=== PATIENT | female | born 1945 | race Two or more races ===

== ENCOUNTER → 2022-08-10 | Outpatient (CLI) | payer OTHER ==
[2022-08-10 12:54] LABS: Albumin 3.6 g/dL (3.4-5.0); Calcium 8.6 mg/dL (8.5-10.1); Potassium 3.5 mmol/L (3.5-5.1)
[2022-08-10 12:59] LABS: BUN/Creatinine Ratio 29.1; Bilirubin, Total 0.4 mg/dL (0.2-1.0); Total Protein 7.1 g/dL (6.4-8.2)
[2022-08-10 13:41] LABS: Basophils # (auto) 0.1 10 ^3/uL (0-0.2); Basophils % (auto) 1.2 % (0.0-2.0); Eosinophils # (auto) 0.2 10 ^3/uL (0-0.8); Eosinophils % (auto) 2.3 % (0.0-7.0); Hematocrit 33.5 % (36.0-46.0); Hemoglobin 11.3 g/dL (12.2-16.2); Lymphocytes # (auto) 1.8 10 ^3/uL (0.4-5.4); Lymphocytes % (auto) 17.8 % (10.0-50.0); Mean Corpuscular Hemoglobin 28.6 pg (28.0-32.0); Mean Corpuscular Hgb Conc. 33.9 g/dL (32.0-36.0); Mean Corpuscular Volume 84.5 fL (80.0-100.0); Monocytes # (auto) 0.7 10 ^3/uL (0-1.3); Monocytes % (auto) 7.2 % (0.0-12.0); Neutrophils # (auto) 7.1 10 ^3/uL (1.6-8.6); Neutrophils % (auto) 71.5 % (37.0-80.0); Nucleated Red Blood Cells % 0.1 %; Red Blood Cells 3.96 10^6/uL (4.0-5.20); White Blood Cell 9.9 10^3/uL (4.4-10.8)
[2022-08-10 13:51] LABS: Micro Albumin 11.8 mg/L (0-30.0)
== END | disposition home or self-care (01) ==
LOC: LAB 11:18
PROVIDERS: ATTEND Family Medicine
DX: E11.65 Type 2 diabetes mellitus with hyperglycemia (principal); E78.5 Hyperlipidemia, unspecified; Z79.4 Long term (current) use of insulin
CPT/HCPCS: 36415; 80053; 80061; 82043; 82306; 82570; 83036; 84443; 85025

== ENCOUNTER → 2022-11-03 | Outpatient (CLI) | payer OTHER ==
[2022-11-03 14:52] LABS: Basophils # (auto) 0.1 10 ^3/uL (0-0.2); Eosinophils # (auto) 0 10 ^3/uL (0-0.8); Eosinophils % (auto) 0.4 % (0.0-7.0); Lymphocytes # (auto) 1.4 10 ^3/uL (0.4-5.4); Mean Corpuscular Volume 85.5 fL (80.0-100.0); Red Cell Distribution Width 15.5 % (11.8-14.3)
[2022-11-03 14:54] LABS: Basophils % (auto) 0.7 % (0.0-2.0); Hematocrit 31.8 % (36.0-46.0); Hemoglobin 10.9 g/dL (12.2-16.2); Lymphocytes % (auto) 10.8 % (10.0-50.0); Mean Corpuscular Hemoglobin 29.4 pg (28.0-32.0); Mean Corpuscular Hgb Conc. 34.3 g/dL (32.0-36.0); Monocytes # (auto) 1.2 10 ^3/uL (0-1.3); Monocytes % (auto) 9.6 % (0.0-12.0); Neutrophils # (auto) 9.8 10 ^3/uL (1.6-8.6); Neutrophils % (auto) 78.5 % (37.0-80.0); Red Blood Cells 3.72 10^6/uL (4.0-5.20); White Blood Cell 12.5 10^3/uL (4.4-10.8)
[2022-11-03 15:04] LABS: Urine Bacteria NONE SEEN /hpf (None Seen); Urine Blood Negative /uL (Negative); Urine Specific Gravity 1.006 (1.001-1.035); Urine WBC 1 /hpf (0 - 5)
[2022-11-03 15:58] LABS: Albumin 3.6 g/dL (3.4-5.0); Calcium 8.8 mg/dL (8.5-10.1); Magnesium 1.8 mg/dL (1.6-2.6); Potassium 3.5 mmol/L (3.5-5.1)
[2022-11-03 16:03] LABS: BUN/Creatinine Ratio 31.8 (10.0-20.0); Bilirubin, Total 0.4 mg/dL (0.2-1.0); Phosphorus 3.2 mg/dL (2.5-4.90); Total Protein 6.7 g/dL (6.4-8.2)
== END | disposition home or self-care (01) ==
LOC: LAB 14:34
PROVIDERS: ATTEND Student in an Organized Health Care Education/Training Program
DX: N18.31 Chronic kidney disease, stage 3a (principal); D63.1 Anemia in chronic kidney disease; E83.39 Other disorders of phosphorus metabolism; R80.9 Proteinuria, unspecified; R82.90 Unspecified abnormal findings in urine
CPT/HCPCS: 36415; 80053; 81001; 82570; 83735; 83970; 84100; 84156; 85025

== ENCOUNTER → 2022-11-09 | Outpatient (CLI) | payer OTHER, MEDICAID ==
[2022-11-09 14:44] LABS: Basophils # (auto) 0.1 10 ^3/uL (0-0.2); Monocytes # (auto) 0.9 10 ^3/uL (0-1.3)
[2022-11-09 14:45] LABS: Lymphocytes # (auto) 1.4 10 ^3/uL (0.4-5.4)
[2022-11-09 14:58] LABS: Albumin 3.5 g/dL (3.4-5.0); Bilirubin, Direct 0.1 mg/dL (0-0.2); Eosinophils # (auto) 0 10 ^3/uL (0-0.8); Eosinophils % (auto) 0.3 % (0.0-7.0); Hemoglobin 10.9 g/dL (12.2-16.2); Red Blood Cells 3.75 10^6/uL (4.0-5.20); Uric Acid 6.1 mg/dL (2.6-6.0)
[2022-11-09 15:00] LABS: Basophils % (auto) 0.9 % (0.0-2.0); Hematocrit 32.1 % (36.0-46.0); Lymphocytes % (auto) 11.1 % (10.0-50.0); Mean Corpuscular Hemoglobin 29.2 pg (28.0-32.0); Mean Corpuscular Hgb Conc. 34.1 g/dL (32.0-36.0); Mean Corpuscular Volume 85.6 fL (80.0-100.0); Monocytes % (auto) 7.3 % (0.0-12.0); Neutrophils # (auto) 10.1 10 ^3/uL (1.6-8.6); Neutrophils % (auto) 80.4 % (37.0-80.0); Red Cell Distribution Width 15.4 % (11.8-14.3); White Blood Cell 12.6 10^3/uL (4.4-10.8)
[2022-11-09 15:02] LABS: Bilirubin, Total 0.4 mg/dL (0.2-1.0); Total Protein 6.6 g/dL (6.4-8.2)
[2022-11-09 15:06] LABS: Urine Bacteria NONE SEEN /hpf (None Seen); Urine Blood Negative /uL (Negative); Urine Specific Gravity 1.007 (1.001-1.035); Urine WBC 1 /hpf (0 - 5)
== END | disposition home or self-care (01) ==
LOC: LAB 14:18
PROVIDERS: ATTEND Student in an Organized Health Care Education/Training Program
DX: E11.21 Type 2 diabetes mellitus with diabetic nephropathy (principal); N18.32 Chronic kidney disease, stage 3b; D63.1 Anemia in chronic kidney disease; M10.9 Gout, unspecified; E21.3 Hyperparathyroidism, unspecified; R80.9 Proteinuria, unspecified
CPT/HCPCS: 36415; 80076; 81001; 82570; 83036; 83970; 84156; 84550; 85025

== ENCOUNTER → 2023-01-06 | Outpatient (CLI) | payer OTHER | END | disposition home or self-care (01) | LOC: LAB 15:37 | PROVIDERS: ATTEND Internal Medicine | DX: Z12.11 Encounter for screening for malignant neoplasm of colon (principal) | CPT/HCPCS: 82270 ==

== ENCOUNTER → 2023-03-02 | Outpatient (CLI) | payer OTHER ==
[2023-03-02 12:09] LABS: Basophils # (auto) 0.2 10 ^3/uL (0-0.2); Basophils % (auto) 1.7 % (0.0-2.0); Eosinophils # (auto) 0.2 10 ^3/uL (0-0.8); Eosinophils % (auto) 1.8 % (0.0-7.0); Hematocrit 29.1 % (36.0-46.0); Lymphocytes # (auto) 1.7 10 ^3/uL (0.4-5.4); Lymphocytes % (auto) 14.5 % (10.0-50.0); Mean Corpuscular Hemoglobin 28.8 pg (28.0-32.0); Mean Corpuscular Hgb Conc. 34.4 g/dL (32.0-36.0); Mean Corpuscular Volume 83.7 fL (80.0-100.0); Monocytes # (auto) 1.1 10 ^3/uL (0-1.3); Monocytes % (auto) 9.1 % (0.0-12.0); Neutrophils # (auto) 8.5 10 ^3/uL (1.6-8.6); Neutrophils % (auto) 72.9 % (37.0-80.0); Red Blood Cells 3.47 10^6/uL (4.0-5.20); Red Cell Distribution Width 15.8 % (11.8-14.3); White Blood Cell 11.7 10^3/uL (4.4-10.8)
[2023-03-02 12:16] LABS: Urine Bacteria NONE SEEN /hpf (None Seen); Urine Blood Negative /uL (Negative); Urine Clarity Clear (Clear); Urine Color Colorless (Yellow); Urine Protein, UAD Negative (Negative); Urine Specific Gravity 1.006 (1.001-1.035); Urine Urobilinogen Normal (Negative); Urine WBC 8 /hpf (0 - 5)
[2023-03-02 12:47] LABS: Alanine Aminotransferase 12 U/L (7-40); Alkaline Phosphatase 99 U/L (46-116); Anion Gap 6.7 (5-15); Aspartate Aminotransferase 14 U/L (13-40); BUN/Creatinine Ratio 23.6 (10.0-20.0); Bilirubin, Total 0.3 mg/dL (0.2-1.0); Blood Urea Nitrogen 39 mg/dL (9-23); Carbon Dioxide 27.3 mmol/L (20-30); Chloride 90 mmol/L (98-107); Cholesterol 121 mg/dL (< 200); Glucose 234 mg/dL (74-106); HDL Cholesterol 28 mg/dL (40-59); LDL Cholesterol 61 mg/dL (< 100); Potassium 3.6 mmol/L (3.5-5.1); Sodium 124 mmol/L (136-145); Total Protein 6.6 g/dL (5.7-8.2); Triglycerides 147 mg/dL (< 150)
== END | disposition home or self-care (01) ==
LOC: LAB 11:15
PROVIDERS: ATTEND Nurse Practitioner
DX: E11.22 Type 2 diabetes mellitus with diabetic chronic kidney disease (principal); I12.9 Hypertensive chronic kidney disease with stage 1 through stage 4 chronic kidney disease, or unspecified chronic kidney disease; N18.9 Chronic kidney disease, unspecified; D50.9 Iron deficiency anemia, unspecified; D63.1 Anemia in chronic kidney disease; E11.69 Type 2 diabetes mellitus with other specified complication; I82.401 Acute embolism and thrombosis of unspecified deep veins of right lower extremity; E78.5 Hyperlipidemia, unspecified; Z79.01 Long term (current) use of anticoagulants
CPT/HCPCS: 36415; 80053; 80061; 81001; 82043; 82728; 83036; 83540; 84443; 85025

== ENCOUNTER → 2023-08-24 | Outpatient (CLI) | payer OTHER ==
[2023-08-24 15:18] LABS: Basophils # (auto) 0.2 10 ^3/uL (0-0.2); Basophils % (auto) 1.7 % (0.0-2.0); Eosinophils # (auto) 0.3 10 ^3/uL (0-0.8); Eosinophils % (auto) 3.4 % (0.0-7.0); Hematocrit 33.8 % (36.0-46.0); Hemoglobin 11.5 g/dL (12.2-16.2); Lymphocytes # (auto) 1.5 10 ^3/uL (0.4-5.4); Lymphocytes % (auto) 16.2 % (10.0-50.0); Mean Corpuscular Hemoglobin 29.3 pg (28.0-32.0); Mean Corpuscular Volume 86.4 fL (80.0-100.0); Monocytes # (auto) 0.8 10 ^3/uL (0-1.3); Monocytes % (auto) 9.2 % (0.0-12.0); Neutrophils # (auto) 6.3 10 ^3/uL (1.6-8.6); Neutrophils % (auto) 69.5 % (37.0-80.0); Red Blood Cells 3.91 10^6/uL (4.0-5.20); Red Cell Distribution Width 15.1 % (11.8-14.3)
[2023-08-24 15:34] LABS: Urine Bacteria NONE SEEN /hpf (None Seen); Urine Blood Negative /uL (Negative); Urine Clarity Clear (Clear); Urine Color Yellow (Yellow); Urine Protein, UAD 1+ (Negative); Urine Specific Gravity 1.011 (1.001-1.035); Urine Urobilinogen Normal (Negative); Urine WBC 2 /hpf (0 - 5); Urine pH 6.5 (5.0-8.0)
[2023-08-24 16:16] LABS: Alanine Aminotransferase 22 U/L (7-40); Albumin 4.2 g/dL (3.2-4.8); Alkaline Phosphatase 177 U/L (46-116); Anion Gap 5 (5-15); Aspartate Aminotransferase 18 U/L (13-40); BUN/Creatinine Ratio 21.1 (10.0-20.0); Blood Urea Nitrogen 26 mg/dL (9-23); Calcium 9.5 mg/dL (8.5-10.1); Carbon Dioxide 29 mmol/L (20-30); Chloride 101 mmol/L (98-107); GFR African American 54 mL/min; GFR Non-African American 45 mL/min; Glucose 251 mg/dL (74-106); Potassium 3.6 mmol/L (3.5-5.1); Sodium 135 mmol/L (136-145)
[2023-08-24 16:17] LABS: Bilirubin, Total 0.3 mg/dL (0.2-1.0); Phosphorus 3.2 mg/dL (2.4-5.1); Total Protein 6.7 g/dL (5.7-8.2)
[2023-08-25 08:06] LABS: Complement C3 104 mg/dL (82-167); RPR Non Reactive (Non Reactive)
[2023-08-25 10:06] LABS: Anti-Nuclear Antibody Direct Negative (Negative)
[2023-08-26 14:06] LABS: Hepatitis B Core Total Antibod Negative (Negative)
== END | disposition home or self-care (01) ==
LOC: LAB 14:46
PROVIDERS: ATTEND Physician Assistant
DX: L29.9 Pruritus, unspecified (principal)
CPT/HCPCS: 36415; 80053; 80069; 81001; 84443; 85025; 86038; 86160; 86592; 86705; 87086

== ENCOUNTER → 2023-11-03 | Outpatient (CLI) | payer OTHER ==
[2023-11-03 12:07] LABS: Basophils # (auto) 0.1 10 ^3/uL (0-0.2); Eosinophils # (auto) 0.2 10 ^3/uL (0-0.8); Eosinophils % (auto) 2.1 % (0.0-7.0); Hematocrit 34.7 % (36.0-46.0); Hemoglobin 11.7 g/dL (12.2-16.2); Lymphocytes # (auto) 1.5 10 ^3/uL (0.4-5.4); Lymphocytes % (auto) 14.2 % (10.0-50.0); Mean Corpuscular Hemoglobin 29.6 pg (28.0-32.0); Mean Corpuscular Hgb Conc. 33.9 g/dL (32.0-36.0); Mean Corpuscular Volume 87.5 fL (80.0-100.0); Monocytes # (auto) 0.7 10 ^3/uL (0-1.3); Monocytes % (auto) 6.9 % (0.0-12.0); Neutrophils # (auto) 7.9 10 ^3/uL (1.6-8.6); Neutrophils % (auto) 75.8 % (37.0-80.0); Red Blood Cells 3.97 10^6/uL (4.0-5.20); Red Cell Distribution Width 14.4 % (11.8-14.3); White Blood Cell 10.4 10^3/uL (4.4-10.8)
[2023-11-03 12:28] LABS: Urine Bacteria FEW /hpf (None Seen); Urine Blood Negative /uL (Negative); Urine Clarity Clear (Clear); Urine Color Light-Yellow (Yellow); Urine Protein, UAD 1+ (Negative); Urine Specific Gravity 1.012 (1.001-1.035); Urine Urobilinogen Normal (Negative); Urine WBC 2 /hpf (0 - 5); Urine pH 6.5 (5.0-9.0)
[2023-11-03 12:36] LABS: Alanine Aminotransferase 21 U/L (7-40); Albumin 4.3 g/dL (3.2-4.8); Alkaline Phosphatase 133 U/L (46-116); Anion Gap 8 (5-15); Aspartate Aminotransferase 21 U/L (13-40); BUN/Creatinine Ratio 20.3 (10.0-20.0); Blood Urea Nitrogen 29 mg/dL (9-23); Calcium 9.8 mg/dL (8.5-10.1); Carbon Dioxide 26 mmol/L (20-30); Chloride 100 mmol/L (98-107); Cholesterol 132 mg/dL (< 200); Glucose 241 mg/dL (74-106); LDL Cholesterol 63 mg/dL (< 100); Potassium 3.7 mmol/L (3.5-5.1); Sodium 134 mmol/L (136-145); Triglycerides 173 mg/dL (< 150)
[2023-11-03 12:37] LABS: Bilirubin, Total 0.6 mg/dL (0.2-1.0); HDL Cholesterol 34 mg/dL (40-59); Total Protein 6.9 g/dL (5.7-8.2)
== END | disposition home or self-care (01) ==
LOC: LAB 11:43
PROVIDERS: ATTEND Nurse Practitioner
DX: I10 Essential (primary) hypertension (principal); E78.5 Hyperlipidemia, unspecified; E11.9 Type 2 diabetes mellitus without complications
CPT/HCPCS: 36415; 80053; 80061; 81001; 82043; 83036; 84443; 85025

== ENCOUNTER → 2023-11-10 | Outpatient (CLI) | payer OTHER | END | disposition home or self-care (01) | LOC: LAB 13:37 | PROVIDERS: ATTEND Nurse Practitioner | DX: Z12.11 Encounter for screening for malignant neoplasm of colon (principal); I10 Essential (primary) hypertension; E78.5 Hyperlipidemia, unspecified; E11.9 Type 2 diabetes mellitus without complications | CPT/HCPCS: 82270 ==

== ENCOUNTER → 2024-01-17 | Outpatient (CLI) | payer OTHER ==
[2024-01-17 11:20] LABS: Basophils # (auto) 0.1 10 ^3/uL (0-0.2); Eosinophils # (auto) 0.2 10 ^3/uL (0-0.8); Eosinophils % (auto) 1.5 % (0.0-7.0); Hematocrit 33.5 % (36.0-46.0); Hemoglobin 11.6 g/dL (12.2-16.2); Lymphocytes # (auto) 1.8 10 ^3/uL (0.4-5.4); Lymphocytes % (auto) 14.4 % (10.0-50.0); Mean Corpuscular Hemoglobin 29.8 pg (28.0-32.0); Mean Corpuscular Hgb Conc. 34.8 g/dL (32.0-36.0); Mean Corpuscular Volume 85.7 fL (80.0-100.0); Monocytes % (auto) 8.3 % (0.0-12.0); Neutrophils # (auto) 9.5 10 ^3/uL (1.6-8.6); Neutrophils % (auto) 74.8 % (37.0-80.0); Red Blood Cells 3.91 10^6/uL (4.0-5.20); Red Cell Distribution Width 14.1 % (11.8-14.3); White Blood Cell 12.6 10^3/uL (4.4-10.8)
[2024-01-17 11:34] LABS: Alanine Aminotransferase 23 U/L (7-40); Albumin 4.3 g/dL (3.2-4.8); Alkaline Phosphatase 140 U/L (46-116); Anion Gap 8 (5-15); Aspartate Aminotransferase 16 U/L (13-40); BUN/Creatinine Ratio 34.8 (10.0-20.0); Blood Urea Nitrogen 57 mg/dL (9-23); Calcium 9.8 mg/dL (8.7-10.4); Carbon Dioxide 28 mmol/L (20-30); Chloride 97 mmol/L (98-107); Glucose 218 mg/dL (74-106); Potassium 3.7 mmol/L (3.5-5.1); Sodium 133 mmol/L (136-145)
[2024-01-17 11:35] LABS: Bilirubin, Total 0.3 mg/dL (0.2-1.0); Total Protein 6.7 g/dL (5.7-8.2)
== END | disposition home or self-care (01) ==
LOC: LAB 11:02
PROVIDERS: ATTEND Student in an Organized Health Care Education/Training Program
DX: E11.22 Type 2 diabetes mellitus with diabetic chronic kidney disease (principal); E11.21 Type 2 diabetes mellitus with diabetic nephropathy; N18.30 Chronic kidney disease, stage 3 unspecified; D63.1 Anemia in chronic kidney disease; N39.0 Urinary tract infection, site not specified; R80.9 Proteinuria, unspecified; E21.3 Hyperparathyroidism, unspecified; M10.9 Gout, unspecified; E55.9 Vitamin D deficiency, unspecified
CPT/HCPCS: 36415; 80053; 85025

== ENCOUNTER → 2024-04-17 | Outpatient (CLI) | payer OTHER ==
[2024-04-17 12:05] LABS: Basophils # (auto) 0.2 10 ^3/uL (0-0.2); Basophils % (auto) 1.4 % (0.0-2.0); Eosinophils # (auto) 0.4 10 ^3/uL (0-0.8); Eosinophils % (auto) 2.6 % (0.0-7.0); Hematocrit 32.4 % (36.0-46.0); Hemoglobin 10.9 g/dL (12.2-16.2); Lymphocytes # (auto) 1.8 10 ^3/uL (0.4-5.4); Lymphocytes % (auto) 13.5 % (10.0-50.0); Mean Corpuscular Hemoglobin 29.9 pg (28.0-32.0); Mean Corpuscular Hgb Conc. 33.6 g/dL (32.0-36.0); Mean Corpuscular Volume 88.8 fL (80.0-100.0); Monocytes # (auto) 1.3 10 ^3/uL (0-1.3); Monocytes % (auto) 9.7 % (0.0-12.0); Neutrophils # (auto) 9.8 10 ^3/uL (1.6-8.6); Neutrophils % (auto) 72.8 % (37.0-80.0); Platelet Count (auto) 342 10^3/uL (140-450); Red Blood Cells 3.65 10^6/uL (4.0-5.20); Red Cell Distribution Width 14.4 % (11.8-14.3); White Blood Cell 13.4 10^3/uL (4.4-10.8)
[2024-04-17 13:04] LABS: Alanine Aminotransferase 15 U/L (7-40); Alkaline Phosphatase 119 U/L (46-116); Anion Gap 7 (5-15); BUN/Creatinine Ratio 31.1 (10.0-20.0); Blood Urea Nitrogen 66 mg/dL (9-23); Calcium 10.2 mg/dL (8.7-10.4); Carbon Dioxide 27 mmol/L (20-31); Chloride 101 mmol/L (98-107); Glucose 142 mg/dL (74-106); Potassium 4.1 mmol/L (3.5-5.1); Sodium 135 mmol/L (136-145)
[2024-04-17 13:05] LABS: Albumin 4.3 g/dL (3.2-4.8); Aspartate Aminotransferase 16 U/L (13-40); Bilirubin, Total 0.5 mg/dL (0.2-1.0); Total Protein 6.9 g/dL (5.7-8.2)
== END | disposition home or self-care (01) ==
LOC: LAB 11:35
PROVIDERS: ATTEND Student in an Organized Health Care Education/Training Program
DX: E11.21 Type 2 diabetes mellitus with diabetic nephropathy (principal); E21.3 Hyperparathyroidism, unspecified; N18.30 Chronic kidney disease, stage 3 unspecified; D63.1 Anemia in chronic kidney disease; N39.0 Urinary tract infection, site not specified; R80.9 Proteinuria, unspecified; M10.9 Gout, unspecified; E55.9 Vitamin D deficiency, unspecified
CPT/HCPCS: 36415; 80053; 85025

== ENCOUNTER → 2024-05-30 | Outpatient (CLI) | payer OTHER ==
[2024-05-30 12:15] LABS: Alanine Aminotransferase 26 U/L (7-40); Albumin 4.3 g/dL (3.2-4.8); Anion Gap 8 (5-15); Aspartate Aminotransferase 17 U/L (13-40); BUN/Creatinine Ratio 35.3 (10.0-20.0); Calcium 10.2 mg/dL (8.7-10.4); Carbon Dioxide 27 mmol/L (20-31); Chloride 102 mmol/L (98-107); Potassium 3.8 mmol/L (3.5-5.1); Sodium 137 mmol/L (136-145)
[2024-05-30 12:16] LABS: Bilirubin, Total 0.3 mg/dL (0.2-1.0); Total Protein 6.8 g/dL (5.7-8.2)
[2024-05-30 12:22] LABS: Alkaline Phosphatase 138 U/L (46-116); Blood Urea Nitrogen 48 mg/dL (9-23); Glucose 212 mg/dL (74-106)
== END | disposition home or self-care (01) ==
LOC: LAB 10:38
PROVIDERS: ATTEND Student in an Organized Health Care Education/Training Program
DX: I12.9 Hypertensive chronic kidney disease with stage 1 through stage 4 chronic kidney disease, or unspecified chronic kidney disease (principal); E11.22 Type 2 diabetes mellitus with diabetic chronic kidney disease; N18.31 Chronic kidney disease, stage 3a; N17.9 Acute kidney failure, unspecified
CPT/HCPCS: 36415; 80053

== ENCOUNTER 2024-08-13 11:23 | Emergency (ER) | payer OTHER ==
[~2024-08-13] VITALS: Ht 149.9 cm; Wt 61.4 kg
[2024-08-13 11:37] VITALS: BP 155/42; PULSE 68; RESP 20; O2SAT 97
--- NOTE | 2024-08-13 12:52 | ED.PDOC ---
History of Present Illness HPI Comments 79-year-old female presents with a chief complaint of back pain s/p fall. Patients son reports that patient was in [facility] and had a mechanical slip and fall. Patient states that she broke her L1 vertebrae and was given a back brace in [facility]. Patient mentions that she was sent to the ER by her primary care doctor, Dr. Silva. Patient is requesting an MRI. No other symptoms or modifying factors present at this time. Chief Complaint: Fall Injury Time Seen by MD: 12:46 Reviewed Notes: Medications, Allergies Allergies: Coded Allergies: NO KNOWN ALLERGIES (Unverified , 09/26/22) Information Source: Patient, Spouse Mode of Arrival: Wheelchair Severity: Moderate Timing: Days Duration: Since onset Prehospital treatment: None Past Medical History PAST MEDICAL HISTORY: Denies Surgical History: Denies all surgeries QUALITY ASSURANCE NURSE History: Denies all QUALITY ASSURANCE NURSE Hx Family History Family History: Reviewed,noncontributory to illness Social History Smoker: Non-Smoker Alcohol: Denies ETOH Use Drugs: Denies Drug Use Lives In: Home Constitutional: denies: chills, diaphoresis, fatigue, fever, malaise, sweats, weakness, others EENTM: denies: blurred vision, double vision, ear bleeding, ear discharge, ear drainage, ear pain, ear ringing, eye pain, eye redness, hearing loss, mouth pain, mouth swelling, nasal discharge, nose bleeding, nose congestion, nose pain, photophobia, tearing, throat pain, throat swelling, voice changes, others Respiratory: denies: cough, hemoptysis, orthopnea, SOB at rest, shortness of breath, SOB with excertion, stridor, wheezing, others Cardiovascular: denies: chest pain, dizzy spells, diaphoresis, Dyspnea on exertion, edema, irregular heart beat, left arm pain, lightheadedness, p alpitations, PND, syncope, others Gastrointestinal: denies: abdomen distended, abdominal pain, blood streaked bowels, constipated, diarrhea, dysphagia, difficulty swallowing, hematemesis, melena, nausea, poor appetite, poor fluid intake, rectal bleeding, rectal pain, vomiting, others Genitourinary: denies: abnormal vagina bleeding, burning, dyspareunia, dysuria, flank pain, frequency, hematuria, incontinence, pain, , vagina discharge, urgency, others Neurological: denies: dizziness, fainting, headache, left sided numbness, left sided weakness, numbness, paresthesia, pre-existing deficit, right sided numbness, right sided weakness, seizure, speech problems, tingling, tremors, weakness, others Musculoskeletal: reports: back pain; denies: gout, joint pain, joint swelling, muscle pain, muscle stiffness, neck pain, others Integumetry: denies: bruises, change in color, change in hair/nails, dryness, laceration, lesions, lumps, rash, wounds, others Allergic/Immunocompromised: denies: Difficulty Healing, Frequent Infections, Hives, Itching, others Hematologic/Lymphatic: denies: anemia, blood clots, easy bleeding, easy bruising, swollen glands, others Endocrine: denies: excessive hunger, excessive sweating, excessive thirst, excessive urination, flushing, intolerance to cold, intolerance to heat, unexplained weight gain, unexplained weight loss, others Psychiatric: denies: anxiety, bipolar disorder, depression, hopeless, panic disorder, schizophrenia, sleepless, suicidal, others All Other Systems: Reviewed and Negative Physical Exam General Appearance: Moderate Distress, Normal HEENT: Normal ENT Inspection, Pharynx Normal, TMs Normal Neck: Full Range of Motion, Non-Tender, Normal, Normal Inspection Respiratory: Chest Non-Tender, Lungs Clear, No Accessory Muscle Use, No Respiratory Distress, Normal Breath Sounds Cardiovascular: No Edema, No JVD, No Murmur, No Gallop, Normal Peripheral Pulses, Regular Rate/Rhythm Breast Exam: Deferred Gastrointestinal: No Organomegaly, Non Tender, No Pulsatile Mass, Normal Bowel Sounds, Soft Genitalia: Deferred Pelvic: Deferred Rectal: Deferred Extremities: No calf tenderness, Normal capillary refill, No pedal edema Musculoskeletal : Apperance: Normal Neurologic: Alert, business line controller II-XII nml as Tested, No Motor Deficits, Normal Affect, Normal Mood, No Sensory Deficits Cerebellar Function: NOT DONE Reflexes: NOT DONE Skin: Dry, Normal Color, Warm Peripheral Pulses: 3+ Radial (R), 3+ Radial (L) Lymphatic: No Adenopathy Was a procedure done? Was a procedure done?: No Differential Dx Considerations may include: Anemia Electrolyte imbalance X-Ray, Labs, Meds, VS Vital Signs Date Time Temp Pulse Resp B/P (MAP) Pulse Ox O2 Delivery O2 Flow Rate FiO2 08/13/24 11:37 97.8 68 20 155/42 (79) 97 Patient alert. Status post fall. Vitals stable. Answering all questions. Has normal bowel movement. Able to urinate without difficulty. Has a brace in place. Spoke with soil fertility specialist. Possibly will need outpatient therapy. Pain under control. No leg swelling. No shortness a breath. No chest pain. No neurological deficits. Trying to contact soil fertility specialist. CT scan of the lumbar spine does not show any acute process old injury we will need to be reviewed by soil fertility specialist. Explained to the family that it may take time for the soil fertility specialist and they were willing to come back in the morning. They could not wait for the specialist. Explained to them that we will call them once we reach the specialist. Was told to follow up with her primary care physician. Was told to come back if there is any problem. Time of 1ST Reevaluation: 13:16 Reevaluation 1ST: Improved Patient Education/Counseling: Diagnosis, Treatment, Prognosis Family Education/Counseling: Diagnosis, Treatment, Prognosis Departure 1 Departure Time of Disposition: 13:07 Impression: Primary Impression: Lumbar compression fracture Qualified Codes: S32.000S - Wedge compression fracture of unspecified lumbar vertebra, sequela Disposition: 01 HOME / SELF CARE / HOMELESS Condition: Good Discharged With: Self Critical Care Note Critical Care Time?: No Stability Stability form required: No Heart Score Heart Score: Heart Score Response (Comments) Value History N/A 0 EKG N/A 0 Age N/A 0 Risk Factors N/A 0 Troponin N/A 0 Total 0 I personally scribed for WILLIAN GONZALEZ MD ([email or web address]) on 08/13/24 at 12:52. Electronically submitted by Osmel Colby ([email or web address]). WILLIAN GONZALEZ MD Aug 13, 2024 12:52
--- NOTE | 2024-08-13 13:43 | DVH ---
CT LS SPINE WO CONTRAST INDICATION: fall EXAM DATE: 08/13/2024 01:13 PM COMPARISON: None RADIATION DOSE: CTDIvol: 1 2 mGy, DLP: 654 mGy*cm PROCEDURE: Utilizing the CT scanner, contiguous axial scans were obtained through the lumbar spine. C oronal and sagittal reformatted images were then generated. All CT scans at this medical facility are performed using dose modulation techniques as appropriate t o a performed exam including the following: Automated exposure control was utilized; adjustment of th e MA and/or KV according to patient size; and use of iterative reconstruction technique. FINDINGS: There are 5 lumbar segments. There is an old compression fracture at L1 with 30-50% loss of height On axial images: At T12-L1, there is effacement of the thecal sac by the posterior superior L1 vertebral body to the l eft of midline At L1-2, the posterior disc margin, thecal sac, neural foramina, and facet joints are normal. At L2-3, the posterior disc margin, thecal sac, neural foramina, and facet joints are normal. At L3-4, the posterior disc margin, thecal sac, neural foramina, and facet joints are normal. At L4-5, moderate narrowing of the central canal by bulging disc shortened pedicles and ligamentum fl avum hypertrophy. At L5-S1, 3 mm anterolisthesis due to degenerative facet joint disease. Visualized portions of the sacroiliac joint unremarkable. No abnormal paravertebral soft tissue pathology. Incidental note made of a right renal cyst IMPRESSION: 1. Old-appearing compression fracture along the superior L1 vertebral endplate. Osteophytes posterio rly effaces the thecal sac at this level causing 40-50% narrowing of the central canal. There is a va cuum disc at L1-2 due to degenerative disc disease. 2. Moderate narrowing of the central canal at L4-5 due to bulging disc shortened pedicles and ligamen steffen flavum hypertrophy 3.3 mm anterolisthesis at L5-S1 due to degenerative facet joint disease CT DI 20.6 mGy DLP 654 mGy cm
--- NOTE | 2024-08-13 13:56 | DVH ---
History: fall Comparison Study: None available at time of dictation. Technique: Multidetector spiral CT of the pelvis was performed from iliac crests to pubic symphysis. 100 cc of intravenous contrast was administered during this examination. Portal venous imaging was obtained. Axial, coronal and sagittal multiplanar reformats were performed by the technologist on a separate workstation. Radiation Dose : CT Dose: CTDI volume is 20 mGy. Dose-length product is 654 mGy*cm Findings: Visualized bowel: Small bowel and colon are normal in caliber and distribution. The appendix is not visualized; however, no secondary findings of acute appendicitis identified. Ascites: Absent Lymphadenopathy: No pelvic or mesenteric lymphadenopathy. Pelvis Wall and Mesentery: Unremarkable. Vasculature: The visualized abdominal aorta is normal in size and caliber. Abdominal and pelvic vess els demonstrate normal enhancement. Pelvic Organs: Unremarkable Musculoskeletal: No fractures of the bony ring of the pelvis or hip joints. No diastasis of the sacro iliac joints or pubic symphysis. Degenerative changes of the facet joints at L5-S1 Bladder: Unremarkable IMPRESSION: 1. No acute pelvic finding. END IMPRESSION:
== END 2024-08-13 18:17 | disposition home or self-care (01) ==
LOC: ER 11:23
DX: S32.010A Wedge compression fracture of first lumbar vertebra, initial encounter for closed fracture (principal); W01.0XXA Fall on same level from slipping, tripping and stumbling without subsequent striking against object, initial encounter; Y93.89 Activity, other specified; Y92.89 Other specified places as the place of occurrence of the external cause; Y99.8 Other external cause status
CPT/HCPCS: 72131; 72192

== ENCOUNTER 2024-08-29 09:46 | Inpatient (IN) | payer OTHER ==
[~2024-08-29] VITALS: Ht 149.9 cm; Wt 71.5 kg
[2024-08-29] VITALS (7 sets, daily range): BP systolic 138–141; BP diastolic 69–74; PULSE 69–73; RESP 16–18; TEMP 97.8–98; O2SAT 95–100
[2024-08-29] MEDS ORDERED: DULO60CA41 PO (14:44)
[2024-08-29] MEDS ORDERED: FAMO20TA10 PO (14:45)
[2024-08-29] MEDS ORDERED: LOSA-534 PO (14:46)
[2024-08-29] MEDS ORDERED: CARV12.544 PO (14:46)
[2024-08-29] MEDS ORDERED: INSU70IN3 SC (14:47)
[2024-08-29] MEDS ORDERED: HYDR50TA47 PO (14:48)
[2024-08-29] MEDS ORDERED: AMLO1TAB22 PO (14:48)
[2024-08-29] MEDS ORDERED: ALLO100T PO (14:49)
[2024-08-29] MEDS ORDERED: FURO20TA3 PO (14:49)
[2024-08-29] MEDS ORDERED: HYDR25TA4 PO (14:49)
[2024-08-29] MEDS ORDERED: HYDR-4798 PO (14:50)
[2024-08-29] MEDS ORDERED: CHOL20007 PO (14:50)
[2024-08-29] MEDS ORDERED: ATOR20TA PO (14:51)
[2024-08-29] MEDS ORDERED: SITA50TA PO (14:51)
[2024-08-29] MEDS ORDERED: CITA10TA6 PO (14:52)
[2024-08-29] MEDS ORDERED: ALBUAER3 IN (14:54)
[2024-08-29] MEDS ORDERED: HYDROcodone-ACET 5/325MG TAB PO PRN (16:15)
[2024-08-29] MEDS ORDERED: DEXTROSE (50%) 50ML SYRG IV PRN ×2 (16:15)
[2024-08-29] MEDS ORDERED: ACETAMINOPHEN 325 MG TAB PO PRN ×2 (16:15)
[2024-08-29] MEDS ORDERED: HYDROmorphone HCL 2 MG/ML VL/or syr IV PRN (16:15)
[2024-08-29] MEDS ORDERED: ONDANSETRON HCL 4 MG/2 ML VIAL IV PRN ×2 (16:15)
--- NOTE | 2024-08-29 16:16 | DVHHP2 ---
Review of Systems Allergies: Coded Allergies: NO KNOWN ALLERGIES (Unverified , 09/26/22) Exam Vital Signs Vital Signs Date Time Temp Pulse Resp B/P (MAP) Pulse Ox O2 Delivery O2 Flow Rate FiO2 08/29/24 14:13 16 Room Air* 0 21 Assessment/Plan Assessment/Plan SEE DICTATED NOTE Plan discussed with: Patient Date of Service: Aug 29, 2024 Billing Provider: FITO PARRY MD Common Visit Codes: [id number] INP/OBS CARE (HIGH) Secondary Visit Codes: [id number] CARE PLAN 30 MINUTES FITO PARRY MD Aug 29, 2024 16:16
[2024-08-29] MEDS ORDERED: ALBUTEROL SULF 2.5 MG/0.5ML(0.5%) NEB SOLN NEB PRN (16:30)
--- NOTE | 2024-08-29 16:41 | DVHHP ---
ADMIT DATE: 08/29/2024 HISTORY OF PRESENT ILLNESS: The patient is a 79-year-old lady who came in with complaints of lower back pain mainly on the right side going on for about a month. The patient states that she had a fall when she was visiting [facility]. The patient had workup done there, where she was told that she had a possible lumbar spine fracture. The patient has had difficulty in ambulating. No history of any focal deficit. No history of bowel or bladder disturbance. No chest pain, shortness of breath. REVIEW OF SYSTEMS: Review of rest of systems are otherwise currently negative. PAST MEDICAL HISTORY: Significant for diabetes, hypertension, hyperlipidemia and anxiety/depression and gout. MEDICATIONS: Include allopurinol, Lipitor, amlodipine, Coreg, Cymbalta, Pepcid, Lasix, hydralazine, insulin. ALLERGIES: No known drug allergies. SOCIAL HISTORY: Denies smoking or alcohol. Lives at home with her . FAMILY HISTORY: Negative. PHYSICAL EXAMINATION: GENERAL: The patient is awake, alert. VITAL SIGNS: Temperature 98.7, blood pressure 130/70, pulse is 68 per minute. SHEENT: Unremarkable. NECK: There is no JVD, no pedal edema. LUNGS: Equal bilaterally. No added sounds. CARDIOVASCULAR: S1, S2 is regular, no murmurs. ABDOMEN: Soft. There is no organomegaly. NEUROLOGIC: Nonfocal. MUSCULOSKELETAL: There is pain in the right side of the lower back/pelvis. ASSESSMENT AND PLAN: * Status post fall with lower back/pelvic pain. The patient will have a CT pelvis along with CT of the lumbosacral spine. The patient will be placed on pain medication. * Diabetes mellitus for which she will be placed on sliding scale insulin. * Hypertension for which she will be continued on Coreg. * Depression/anxiety. * Hyperlipidemia. * Gout. ADVANCE CARE PLANNING: The patient is a full code. Time spent was 19 minutes. MD YOEL Paniagua/MARGARETH TID: [id number] RECEIPT: [id number]
[2024-08-29] MEDS: InsuLIN REG 1unit/0.01ml Soln (100units/ml) SC SCH ×2 (17:00→23:46)
[2024-08-29] MEDS ORDERED: ACCU-CHEK COMFORT CURVE STRIP VI SCH (17:00)
[2024-08-29] MEDS: ACCU-CHEK COMFORT CURVE STRIP VI SCH (17:00)
[2024-08-29] MEDS ORDERED: InsuLIN REG 1unit/0.01ml Soln (100units/ml) SC SCH ×2 (17:00→22:00)
[2024-08-29] MEDS: SODIUM CHLORIDE 0.9% 1,000 ML IV SCH (17:38)
[2024-08-29 17:54] LABS: Basophils # (auto) 0.2 10 ^3/uL (0-0.2); Basophils % (auto) 1.3 % (0.0-2.0); Eosinophils # (auto) 0.9 10 ^3/uL (0-0.8); Eosinophils % (auto) 6.8 % (0.0-7.0); Hematocrit 29.9 % (36.0-46.0); Hemoglobin 10.7 g/dL (12.2-16.2); Lymphocytes # (auto) 2.8 10 ^3/uL (0.4-5.4); Lymphocytes % (auto) 20.2 % (10.0-50.0); Mean Corpuscular Hemoglobin 30.5 pg (28.0-32.0); Mean Corpuscular Hgb Conc. 35.8 g/dL (32.0-36.0); Mean Corpuscular Volume 85.1 fL (80.0-100.0); Monocytes # (auto) 1.5 10 ^3/uL (0-1.3); Monocytes % (auto) 10.9 % (0.0-12.0); Neutrophils # (auto) 8.4 10 ^3/uL (1.6-8.6); Neutrophils % (auto) 60.8 % (37.0-80.0); Platelet Count (auto) 298 10^3/uL (140-450); Red Blood Cells 3.51 10^6/uL (4.0-5.20); Red Cell Distribution Width 15.6 % (11.8-14.3); White Blood Cell 13.8 10^3/uL (4.4-10.8)
[2024-08-29 18:05] LABS: INR 0.92 (0.9-1.15); Partial Thromboplastin Time 25.1 SEC (24.5-34.5); Prothrombin Time 9.8 sec (9.3-11.8)
[2024-08-29 18:06] LABS: Alanine Aminotransferase 25 U/L (7-40); Anion Gap 10 (5-15); Aspartate Aminotransferase 23 U/L (13-40); Calcium 9.7 mg/dL (8.7-10.4); Carbon Dioxide 30 mmol/L (20-31); Total Protein 6.5 g/dL (5.7-8.2)
[2024-08-29 18:07] LABS: Albumin 4.2 g/dL (3.2-4.8); Alkaline Phosphatase 165 U/L (46-116); Bilirubin, Total 0.2 mg/dL (0.2-1.0); Blood Urea Nitrogen 73 mg/dL (9-23); Chloride 95 mmol/L (98-107); Glucose 119 mg/dL (74-106); Sodium 135 mmol/L (136-145)
[2024-08-29] MEDS: HYDROcodone-ACET 5/325MG TAB PO PRN (18:19)
[2024-08-29] MEDS: IPRATROPIUM BROM 0.5 MG/2.5ML INH SOL NEB SCH (18:26)
[2024-08-29] MEDS: ALBUTEROL SULF 2.5 MG/0.5ML(0.5%) NEB SOLN NEB SCH (18:27)
[2024-08-29] MEDS: LACTATED RINGER'S 1,000 ML IV SCH (18:30)
--- NOTE | 2024-08-29 19:01 | DVH ---
XY CHEST TWO VIEWS ROUTINE CLINICAL HISTORY: PREOP/pain COMPARISON: XY CHEST TWO VIEWS ROUTINE on DOS: 09/26/22 TECHNIQUE: Frontal and lateral view of the chest was obtained FINDINGS: Lines and Tubes: None Lungs: No focal consolidation. Pleura: No effusion. No pneumothorax. Cardiomediastinal contours: Unremarkable Bones: No acute osseous abnormality. IMPRESSION: No acute cardiopulmonary disease.
--- NOTE | 2024-08-29 19:25 | DVHINCON2 ---
Date Seen: Aug 29, 2024 Referring Physician MD Ricardo Reason for Consultation Cardiac risk stratification History of Present Illness This is a pleasant Lao-speaking mostly 79-year-old female who was admitted directly to the hospital floor for a chief complaint of lower back pain. The patient reports she slipped and fell in the shower approximally a month ago. Since then she has experienced back pain with a possible lower spine fracture. Cardiology team consulted for cardiac risk stratification prior to possible surgical intervention. The patient denies any chest pain, SOB, diaphoresis, palpitations, dizziness, or syncopal events. Denies exertional angina or dyspnea on exertion. States prior to this incident she was able to ambulate multiple flights of stairs at a time. Significant medical history includes insulin-dependent diabetes mellitus, hypertension, dyslipidemia, gout, anxiety, and depression. Past Medical History Past medical history reviewed. No other significant than mentioned above. Past Surgical History Past surgical history reviewed. No other significant than mentioned above. Family History: Diabetes mellitus G8 BROTHER G8 SISTER FH: ovarian cancer G8 MOTHER Family History Family history reviewed. Social History Denies the use of illicit drugs, alcohol, or tobacco use. Allergies: Coded Allergies: NO KNOWN ALLERGIES (Unverified , 09/26/22) Home Meds Reported Medications Albuterol Sulfate (VENTOLIN MDI) 90 Mcg Ih, 90 MCG IN, INH 25 Citalopram Hydrobromide (Citalopram) 10 Mg Tab, 10 MG PO DAILY, TAB 3/5/25 Atorvastatin Calcium (Lipitor) 20 Mg Tab, 1 TAB PO DAILY, #90 TAB 1 Refill 25 Sitagliptin Phosphate (Januvia) 50 Mg Tab, 1 TAB PO DAILY, #30 TAB 5 Refills /5/25 Hydrocodone-Acetaminophen (Hydrocodone Bitartrate/AC 10-325 mg) 1 Tab Tab, 1 TAB PO TID, TAB 3/5/25 Cholecalciferol (VITAMIN D3) 2,000 Unit Tab, 1 TAB PO DAILY, #30 TAB 5 Refills 08/29/25 Hydrochlorothiazide (Hydrochlorothiazide) 25 Mg Tab, 25 MG PO DAILY for 30 Days, MG 3/5/25 Allopurinol (Allopurinol) 100 Mg Tab, 100 MG PO DAILY for 30 Days, MG 3/5/25 Furosemide (Furosemide) 20 Mg Tab, 20 MG PO DAILY for 30 Days, MG 08/29/24 Amlodipine Besylate (Amlodipine Besylate) 5 Mg Tab, 5 MG PO DAILY for 30 Days, MG 08/29/24 Hydralazine Hcl (Hydralazine Hcl) 50 Mg Tab, 100 MG PO TID for 30 Days, MG 08/29/24 Insulin NPH Isophane & Reg (Hu (Novolin 70/30 (70-30) 100 Unit/ml) 1 Inj Inj, 1 INJ SC, INJ 08/29/24 Carvedilol (Carvedilol) 12.5 Mg Tab, 12.5 MG PO Q12HR for 30 Days, MG 08/29/24 Losartan Potassium (Losartan Potassium) 50 Mg Tab, 50 MG PO BID for 30 Days, MG 08/29/24 Famotidine (PEPCID TABLET) 20 Mg Tb, 2 TAB PO DAILY, #60 TAB 5 Refills 08/29/24 Duloxetine Hcl (Cymbalta) 60 Mg Cap, 1 CAP PO DAILY, #90 CAP 3 Refills 08/29/24 Home Meds Home medications reviewed. Current Medications Current Medications Medications (Trade) Dose Ordered Sig/Celia Route PRN Reason Start Time Stop Time Status Last Admin Sodium Chloride (Saline Lock Ns) 10 ml Q8HR IV 08/29/24 22:00 Acetaminophen (Tylenol Tablet) 650 mg Q6HP PRN PO PAIN SCALE 1-3 OR TEMP>100.4 08/29/24 16:15 08/29/24 18:06 DC Acetaminophen/ Hydrocodone Bitart ([place] 5/325MG Tab) 1 tab Q4HP PRN PO MODERATE PAIN (4-6 PAIN SCALE) 08/29/24 16:15 08/29/24 18:06 DC Hydromorphone HCl (Dilaudid Injection) 0.5 mg Q4HP PRN IV SEVERE PAIN (7-10 PAIN SCALE) 08/29/24 16:15 08/29/24 18:06 DC Ondansetron HCl (Zofran) 4 mg Q4HP PRN IV NAUSEA / VOMITING 08/29/24 16:15 08/29/24 18:06 DC Diagnostic Test (Pha) (Accu-Chek Comfort Curve T) 1 strip ACHS 08/29/24 17:00 08/29/24 17:07 DC Insulin Human Regular (InsuLIN R) HS SC 08/29/24 22:00 08/29/24 17:10 DC Insulin Human Regular (InsuLIN R) AC SC 08/29/24 17:00 08/29/24 17:10 DC Dextrose 50 ml UD PRN IV Blood Sugar LESS THAN 60 08/29/24 16:15 UNV Morphine Sulfate 2 mg Q4HPRN PRN IV SEVERE PAIN (7-10 PAIN SCALE) 08/29/24 16:15 Acetaminophen/ Hydrocodone Bitart (Columbus 5/325MG Tab) 1 tab Q6HPRN PRN PO MODERATE PAIN (4-6 PAIN SCALE) 08/29/24 16:15 08/29/24 18:19 Acetaminophen (Tylenol Tablet) 650 mg Q4HP PRN PO MILD PAIN (1-3 PAIN SCALE) 08/29/24 16:15 Ondansetron HCl (Zofran) 4 mg Q6HPRN PRN IV NAUSEA / VOMITING 08/29/24 16:15 Atorvastatin Calcium (Lipitor) 20 mg HS PO 08/29/24 22:00 Duloxetine HCl (Cymbalta Capsule) 60 mg DAILY PO 08/30/24 10:00 Carvedilol (Coreg Tablet) 12.5 mg Q12HR PO 08/29/24 22:00 Allopurinol (Zyloprim Tablet) 100 mg DAILY PO 08/30/24 10:00 Losartan Potassium (Cozaar Tablet) 50 mg DAILY PO 08/30/24 10:00 Hydralazine HCl (Apresoline Injection) 10 mg Q6HP PRN IV SBP>150 08/29/24 16:15 Diagnostic Test (Pha) (Accu-Chek Comfort Curve T) 1 strip ACHS 08/29/24 17:00 08/29/24 17:00 Insulin Human Regular (InsuLIN R) HS SC 08/29/24 22:00 Insulin Human Regular (InsuLIN R) AC SC 08/29/24 17:00 Dextrose 50 ml UD PRN IV Blood Sugar LESS THAN 60 08/29/24 16:15 Sodium Chloride 1,000 ml @ 75 mls/hr [id number] IV 08/29/24 16:30 08/29/24 18:32 DC 08/29/24 17:38 Albuterol (Ventolin Medneb) 2.5 mg Q6HWA NEB 08/29/24 18:00 3/5/25 18:27 Ipratropium [place] (Atrovent Medneb) 0.5 mg Q6HWA NEB 08/29/24 18:00 08/29/24 18:26 Albuterol (Ventolin Medneb) 2.5 mg Q3HPRN PRN NEB SHORTNESS OF BREATH 08/29/24 16:30 Lactated Ringer's 1,000 ml @ 125 mls/hr Q8H IV 08/29/24 18:30 UNV Review of Systems Constitutional: No symptom reported Ears, Nose, & Throat: No symptom reported Eyes: No symptom reported Neurological: No symptoms reported Pulmonary/Respiratory: No symptom reported Cardiovascular: No symptom reported Gastrointestinal: No symptom reported Genitourinary: No symptom reported Musculoskeletal: Back pain Skin: No symptom reported Psychiatric: No symptom reported Endocrine: No symptom reported Hemotologic/Lymphatic: No symptom reported Vital Signs Vital Signs Date Time Temp Pulse Resp B/P (MAP) Pulse Ox O2 Delivery O2 Flow Rate FiO2 08/29/24 18:35 73 18 100 08/29/24 18:27 Room Air* 0 21 08/29/24 17:00 98.0 138/74 (95) 98.0 Physical Exam General Appearance: Cooperative. Well developed. Well nourished. In no acute distress Head Exam: Normal inspection Neck Exam: Normal inspection. Non-tender. Normal alignment Pulmonary/Respiratory: Chest non-tender. Clear bilateral breath sounds Cardiovascular/Chest: Regular rate and rhythm. S1, S2. No murmurs. No JVD. Peripheral Pulses: 2+ Radial (R). 2+ Radial (L). 2+ Pedal (R). 2+ Pedal (L) Abdominal Exam: Normal bowel sounds. Soft. Nontender. No hepatospenomegaly. No masses Ankle Exam: Negative ankle edema Lower extremities: Negative lower extremity edema Neuro/Mental Status: A&O x4. Coherent Thoughts/Psych: Normal thought pattern. Appropriate mood and affect. Good judgement and insight Appearance: In no acute distress Skin Exam: Normal inspection. Normal color. Warm. Dry Labs/Diagnostic Data Labs Test 08/29/24 17:32 08/29/24 16:36 Range/Units POC Glucose 129 H 70-106 mg/dl White Blood Count 13.8 H 4.4-10.8 10^3/uL Red Blood Count 3.51 L 4.0-5.20 10^6/uL Hemoglobin 10.7 L 12.2-16.2 g/dL Hematocrit 29.9 L 36.0-46.0 % Mean Corpuscular Volume 85.1 80.0-100.0 fL Mean Corpuscular Hemoglobin 30.5 28.0-32.0 pg Mean Corpuscular Hemoglobin Concent 35.8 32.0-36.0 g/dL Red Cell Distribution Width 15.6 H 11.8-14.3 % Platelet Count 298 140-450 10^3/uL Mean Platelet Volume 7.8 6.9-10.8 fL Neutrophils (%) (Auto) 60.8 37.0-80.0 % Lymphocytes (%) (Auto) 20.2 10.0-50.0 % Monocytes (%) (Auto) 10.9 0.0-12.0 % Eosinophils (%) (Auto) 6.8 0.0-7.0 % Basophils (%) (Auto) 1.3 0.0-2.0 % Neutrophils # (Auto) 8.4 1.6-8.6 10 ^3/uL Lymphocytes # (Auto) 2.8 0.4-5.4 10 ^3/uL Monocytes # (Auto) 1.5 H 0-1.3 10 ^3/uL Eosinophils # (Auto) 0.9 H 0-0.8 10 ^3/uL Basophils # (Auto) 0.2 0-0.2 10 ^3/uL Nucleated Red Blood Cells 0.0 % Prothrombin Time 9.8 9.3-11.8 sec Prothrombin Time INR 0.92 0.9-1.15 Activated Partial Thromboplast Time 25.1 24.5-34.5 SEC Sodium Level 135 L 136-145 mmol/L Potassium Level 3.0 L 3.5-5.1 mmol/L Chloride Level 95 L 98-107 mmol/L Carbon Dioxide Level 30 20-31 mmol/L Anion Gap 10 5-15 Blood Urea Nitrogen 73 H 9-23 mg/dL Creatinine 1.74 H 0.550-1.02 mg/dL Glomerular Filtration Rate Calc 29 >90 mL/min BUN/Creatinine Ratio 42.0 H 10.0-20.0 Serum Glucose 119 H 74-106 mg/dL Hemoglobin A1c 6.5 H <5.7 % A1C Calcium Level 9.7 8.7-10.4 mg/dL Total Bilirubin 0.2 0.2-1.0 mg/dL Aspartate Amino Transferase (AST) 23 13-40 U/L Alanine Aminotransferase (ALT) 25 7-40 U/L Alkaline Phosphatase 165 H 46-116 U/L Total Protein 6.5 5.7-8.2 g/dL Albumin 4.2 3.2-4.8 g/dL Thyroid Stimulating Hormone (TSH) 3.65 0.55-4.78 uIU/mL Assessment Preprocedural cardiovascular examination Possible lumbosacral injury Insulin-dependent diabetes mellitus Hypertension Dyslipidemia Plan/Recommendation (Dr. Rodriguez) Preliminary echocardiogram revealed an EF of 60% without evidence of aortic or mitral valve disease as reviewed by Dr. Rodriguez. Revised cardiac risk index (Jackson criteria): 30 day low-risk of , [place] or cardiac arrest. Patient has no underlying history of congestive heart failure, coronary artery disease, and has an optimal functional capacity. Per Cardiology standpoint, the patient is at an acceptable-risk for moderate to high-risk surgery. There is no additional cardiac workup indicated prior to surgery. Kindly call if in need to reconsult. Thank you for allowing us to care for this patient. This medical document was created using an electronic medical record system with voice recognition software and computerized dictation system. Although this document has been carefully reviewed, there might still be some phonetic and typographical errors. Occasional wrong-word or ``sound-alike substitutions may have occurred due to the inherent limitations of voice recognition software. These areas are purely typographical due to imperfections of the software programs and do not reflect any compromise in the patient's medical care. Please read the chart carefully and recognize, using context, where these substitutions have occurred. Plan discussed with: Patient, Other NYHA Physical activity limitations: NA Date of Service: Aug 29, 2024 Billing Provider: KANDY ART Cardiology Common Codes: [id number] INP/OBS CARE (High) KANDY ART Aug 29, 2024 19:25
--- NOTE | 2024-08-29 20:09 | DVH ---
CT LS SPINE WO CONTRAST INDICATION: FALL EXAM DATE: 08/29/2024 05:35 PM COMPARISON: CT LS SPINE WO CONTRAST on DOS: 08/13/24 RADIATION DOSE: CTDIvol: 34.15 mGy, DLP: 1084.0 mGy*cm Technique: Utilizing the CT scanner, contiguous axial scans were obtained through the lumbar spine. C oronal and sagittal reformatted images were then generated. All CT scans at this medical facility are performed using dose modulation techniques as appropriate t o a performed exam including the following: Automated exposure control was utilized; adjustment of th e MA and/or KV according to patient size; and use of iterative reconstruction technique. FINDINGS: IMPRESSION: 5 [id number] lumbar-type vertebrae. Compression fracture of L1 with about 30% loss of superior v ertebral body height and 6 mm retropulsion of the posterior superior vertebral body of L1 into the sp inal canal. Mild compression fracture of the anterior superior vertebral body of L4 causing minimal l oss of vertebral body height. /subacute fracture of the spinous process of T12. There is acute fracture of the right proximal coccyx. Diffuse demineralization. T12 superior endplate Schmorl node with Minimal loss of vertebral body heig ht of T12.4 mm sclerotic focus of the right femoral head which may represent a bone island with a emely stic lesion not excluded. T12-L1: Posterior disc osteophyte complex causing mild spinal canal stenosis with moderate right-side d neural foramina stenosis. L1-L2: No significant spinal canal or neural foramina stenosis. L2-L3: Minimal posterior disc bulge without significant spinal canal or neural foramina stenosis. L3-L4: Minimal posterior disc bulge with ligamentum flavum hypertrophy and dorsal epidural lipomatosi s causing moderate spinal canal stenosis without significant neural foramina stenosis. L4-L5: Mild posterior disc bulge and ligamentum flavum hypertrophy causing moderate spinal canal sten osis with mild bilateral neural foramina stenosis. L4-L5: Mild posterior disc bulge eccentric to the right and causing moderate spinal canal stenosis wi th mild right and moderate left-sided neural foramina stenosis. Paraspinal muscles unremarkable. 3 cm right renal cyst. IMPRESSION: Acute /subacute compression fracture of L1 with about 40% loss of vertebral body height ; slightly pr ogressed from prior imaging Acute/subacute compression fracture of the superior anterior L4 vertebral body with minimal loss of v ertebral body height ; slightly progressed from prior imaging. Subacute fracture of the spinous process of T12 and right proximal coccyx.
--- NOTE | 2024-08-29 20:14 | DVH ---
Exam: CT PELVIS WO CONTRAST History: FALL Comparison Study: CT lumbar spine and pelvis 08/13/2024 TECHNIQUE: Multidetector CT of the pelvis without IV contrast. Axial, coronal and sagittal multiplana r reformats were obtained from the axial data set by the technologist. Radiation Dose Information: CT Dose: CTDI volume is 22.31 mGy. Dose-length product is 741.63 mGy*cm FINDINGS: Subacute fracture of the right proximal coccyx. Acute/ subacute fracture of the anterior superior end plate of L4 ; slightly progressed from prior imaging. Diffuse demineralization. Sclerotic foci of the bilateral proximal femur which may represent bone is lands. Uterine wall calcifications noted. Sigmoid diverticulosis without diverticulitis. Moderate amount of fecal material within the partially visualized colon. Moderate to heavy atherosclerotic calcification of the partially visualized aorta and bilateral iliacs. Diastasis recti . Mild bilateral lateral hip and posterior lower back soft tissue edema. IMPRESSION: Subacute fracture of right proximal coccyx.Acute/ Subacute fracture of the anterior superior endplate of L4; slightly progressed from prior imaging.
[2024-08-29] MEDS: ATORVASTATIN 20 MG TAB PO SCH (22:07)
[2024-08-29] MEDS: CARVEDILOL 12.5 MG TAB PO SCH (22:13)
[2024-08-29] MEDS: POTASSIUM CHL 20 Meq TABLET PO ONE (22:14)
[2024-08-29] MEDS: SODIUM CHLOR 0.9% PF (SALINE LOCK) 10ML VIAL/SYR IV SCH (22:14)
[2024-08-29] MEDS: MORPHINE SULFATE INJ 2 MG/ml SYRG IV PRN (22:19)
[2024-08-30] VITALS (11 sets, daily range): BP systolic 112–173; BP diastolic 55–67; PULSE 69–88; RESP 16–20; TEMP 97.9–98.3; O2SAT 95–100
[2024-08-30 00:33] LABS: Urine Bacteria None Seen /hpf (None Seen)
[2024-08-30 00:48] LABS: Urine Blood Negative /uL (Negative); Urine Clarity Clear (Clear); Urine Color Light-Yellow (Yellow); Urine Protein, UAD Negative (Negative); Urine Specific Gravity 1.009 (1.001-1.035); Urine Squamous Epithelial Cell None Seen /hpf (<5); Urine Urobilinogen Normal (Negative); Urine WBC 1 /HPF (0-5); Urine pH 6.5 (5.0-9.0)
[2024-08-30 07:24] LABS: Anion Gap 9 (5-15); Calcium 9.4 mg/dL (8.7-10.4); Carbon Dioxide 30 mmol/L (20-31); Chloride 99 mmol/L (98-107); Sodium 138 mmol/L (136-145)
[2024-08-30 07:25] LABS: Potassium 3.2 mmol/L (3.5-5.1)
[2024-08-30 07:30] LABS: BUN/Creatinine Ratio 42.3 (10.0-20.0); Glucose 83 mg/dL (74-106)
[2024-08-30 07:31] LABS: Magnesium 1.7 mg/dL (1.6-2.6)
[2024-08-30 07:32] LABS: Blood Urea Nitrogen 60 mg/dL (9-23)
[2024-08-30] MEDS: DULoxetine HCL 30 MG CAP PO SCH (10:00)
[2024-08-30] MEDS: ALLOPURINOL 100 MG TAB PO SCH (10:00)
[2024-08-30] MEDS: LOSARTAN POTASSIUM 50 MG TAB PO SCH (10:00)
[2024-08-30] MEDS: TRANEXAMIC ACID 20 ML ONE (10:10)
[2024-08-30] MEDS: CIPROFLOXACIN 400MG/200ML 400 ML IV ONE (10:10)
[2024-08-30] MEDS: ceFAZolin 2 GM/D5W100ml 100 ML IV ONE (10:44)
[2024-08-30] MEDS: SUCCINYLCHOLINE CHLORIDE 20 MG/ML 10ML VIAL IV ONE (11:25)
[2024-08-30] MEDS ORDERED: fentaNYL CITRATE 5 ML ONE (11:27)
[2024-08-30] MEDS ORDERED: fentaNYL CITRATE 100 MCG/2 ML VL ONE ×3 (11:27→14:18)
--- NOTE | 2024-08-30 11:40 | DVHINCON2 ---
Consultation - Spinal Surgery Date Seen: Aug 30, 2024 Referring Physician Referring Physician camilla History of Present Illness History of Present Illness pleasant lady who fell while visiting family in [facility] and sustained multiple fractures including a T12 burst and L4 and T11 compression fractures along with severe stenosis at the spot of the burst. she is wheelchair bound no bowel or bladder incontinence unable to walk parasthesias in both legs numbness in both legs Allergies and medications Allergies: Coded Allergies: NO KNOWN ALLERGIES (Unverified , 09/26/22) Home Meds Reported Medications Albuterol Sulfate (VENTOLIN MDI) 90 Mcg Ih, 90 MCG IN, INH 08/29/24 Citalopram Hydrobromide (Citalopram) 10 Mg Tab, 10 MG PO DAILY, TAB 25 Atorvastatin Calcium (Lipitor) 20 Mg Tab, 1 TAB PO DAILY, #90 TAB 1 Refill 08/29/24 Sitagliptin Phosphate (Januvia) 50 Mg Tab, 1 TAB PO DAILY, #30 TAB 5 Refills 08/29/24 Hydrocodone-Acetaminophen (Hydrocodone Bitartrate/AC 10-325 mg) 1 Tab Tab, 1 TAB PO TID, TAB 08/29/24 Cholecalciferol (VITAMIN D3) 2,000 Unit Tab, 1 TAB PO DAILY, #30 TAB 5 Refills 08/29/24 Hydrochlorothiazide (Hydrochlorothiazide) 25 Mg Tab, 25 MG PO DAILY for 30 Days, MG 25 Allopurinol (Allopurinol) 100 Mg Tab, 100 MG PO DAILY for 30 Days, MG 25 Furosemide (Furosemide) 20 Mg Tab, 20 MG PO DAILY for 30 Days, MG 25 Amlodipine Besylate (Amlodipine Besylate) 5 Mg Tab, 5 MG PO DAILY for 30 Days, MG 25 Hydralazine Hcl (Hydralazine Hcl) 50 Mg Tab, 100 MG PO TID for 30 Days, MG 25 Insulin NPH Isophane & Reg (Hu (Novolin 70/30 (70-30) 100 Unit/ml) 1 Inj Inj, 1 INJ SC, INJ 08/29/24 Carvedilol (Carvedilol) 12.5 Mg Tab, 12.5 MG PO Q12HR for 30 Days, MG 08/29/24 Losartan Potassium (Losartan Potassium) 50 Mg Tab, 50 MG PO BID for 30 Days, MG 08/29/24 Famotidine (PEPCID TABLET) 20 Mg Tb, 2 TAB PO DAILY, #60 TAB 5 Refills 08/29/24 Duloxetine Hcl (Cymbalta) 60 Mg Cap, 1 CAP PO DAILY, #90 CAP 3 Refills 08/29/24 Review of systems Review of Systems: HEENT:Normal, CVS:Normal, RESPIRATORY:Normal, GI:Normal, :Normal, MSK:Abnormal, NEURO:Abnormal Examination Vital signs Vital Signs Date Time Temp Pulse Resp B/P (MAP) Pulse Ox O2 Delivery O2 Flow Rate FiO2 08/30/24 09:00 98.2 74 18 127/55 (79) 96 98.2 08/30/24 07:00 Room Air* 0 21 Medications Current Medications Medications (Trade) Dose Ordered Sig/Celia Route PRN Reason Start Time Stop Time Status Last Admin Sodium Chloride (Saline Lock Ns) 10 ml Q8HR IV 08/29/24 22:00 08/30/24 06:29 Acetaminophen (Tylenol Tablet) 650 mg Q6HP PRN PO PAIN SCALE 1-3 OR TEMP>100.4 08/29/24 16:15 08/29/24 18:06 DC Acetaminophen/ Hydrocodone Bitart ([place] 5/325MG Tab) 1 tab Q4HP PRN PO MODERATE PAIN (4-6 PAIN SCALE) 08/29/24 16:15 08/29/24 18:06 DC Hydromorphone HCl (Dilaudid Injection) 0.5 mg Q4HP PRN IV SEVERE PAIN (7-10 PAIN SCALE) 08/29/24 16:15 08/29/24 18:06 DC Ondansetron HCl (Zofran) 4 mg Q4HP PRN IV NAUSEA / VOMITING 08/29/24 16:15 08/29/24 18:06 DC Diagnostic Test (Pha) (Accu-Chek Comfort Curve T) 1 strip ACHS 08/29/24 17:00 08/29/24 17:07 DC Insulin Human Regular (InsuLIN R) HS SC 08/29/24 22:00 08/29/24 17:10 DC Insulin Human Regular (InsuLIN R) AC SC 08/29/24 17:00 08/29/24 17:10 DC Dextrose 50 ml UD PRN IV Blood Sugar LESS THAN 60 08/29/24 16:15 UNV Morphine Sulfate 2 mg Q4HPRN PRN IV SEVERE PAIN (7-10 PAIN SCALE) 08/29/24 16:15 08/29/24 22:19 Acetaminophen/ Hydrocodone Bitart ([place] 5/325MG Tab) 1 tab Q6HPRN PRN PO MODERATE PAIN (4-6 PAIN SCALE) 08/29/24 16:15 08/29/24 18:19 Acetaminophen (Tylenol Tablet) 650 mg Q4HP PRN PO MILD PAIN (1-3 PAIN SCALE) 08/29/24 16:15 Ondansetron HCl (Zofran) 4 mg Q6HPRN PRN IV NAUSEA / VOMITING 08/29/24 16:15 Atorvastatin Calcium (Lipitor) 20 mg HS PO 08/29/24 22:00 08/29/24 22:07 Duloxetine HCl (Cymbalta Capsule) 60 mg DAILY PO 08/30/24 10:00 Carvedilol (Coreg Tablet) 12.5 mg Q12HR PO 08/29/24 22:00 08/29/24 22:13 Allopurinol (Zyloprim Tablet) 100 mg DAILY PO 08/30/24 10:00 Losartan Potassium (Cozaar Tablet) 50 mg DAILY PO 08/30/24 10:00 Hydralazine HCl (Apresoline Injection) 10 mg Q6HP PRN IV SBP>150 08/29/24 16:15 Diagnostic Test (Pha) (Accu-Chek Comfort Curve T) 1 strip ACHS 08/29/24 17:00 08/30/24 06:28 Insulin Human Regular (InsuLIN R) HS SC 08/29/24 22:00 08/29/24 23:46 Insulin Human Regular (InsuLIN R) AC SC 08/29/24 17:00 Dextrose 50 ml UD PRN IV Blood Sugar LESS THAN 60 08/29/24 16:15 Sodium Chloride 1,000 ml @ 75 mls/hr [id number] IV 08/29/24 16:30 08/29/24 18:32 DC 08/29/24 17:38 Albuterol (Ventolin Medneb) 2.5 mg Q6HWA NEB 08/29/24 18:00 08/30/24 06:55 Ipratropium [place] (Atrovent Medneb) 0.5 mg Q6HWA NEB 08/29/24 18:00 08/30/24 06:56 Albuterol (Ventolin Medneb) 2.5 mg Q3HPRN PRN NEB SHORTNESS OF BREATH 08/29/24 16:30 Lactated Ringer's 1,000 ml @ 125 mls/hr Q8H IV 08/29/24 18:30 08/29/24 22:18 Laboratory [place] [id number] Ph: [phone] DIAGNOSTIC IMAGING Diagnostic Imaging Report : [id number] Signed PATIENT: VITALY SHERMAN ACCT: [id number] UNIT: [id number] : 1945 LOC: MRI ROOM / BED: / AGE / SEX: 79 / F ADM STATUS: REG CLI SERVICE [id number] ORDERING PHYSICIAN: SCAR BETANCOURT DNP PROCEDURE(s): MSL - LUMBAR SPINE WO CONTRAST REASON: LUMBAR FRACTURE/LOW BACK PAIN ORDER NUMBER(s): [id number], ACCESSION NUMBER(s): [id number] Lumbar spine without contrast HISTORY: LUMBAR FRACTURE/LOW BACK PAIN TECHNIQUE: MR was performed with a surface coil at 1.5 T magnet. Sagittal, axial and coronal T1 and T2-weighted images were obtained. FINDINGS: There is loss of height of the L1 vertebral body by 50% with edemaThere is also loss of height along the superior L4 vertebral body endplate with edema. These represent acute compression fractures. Hemorrhage anterior to the T12 L1 vertebral body. Schmorl's node central T12 superior endplate There is effacement of the thecal sac by the posterior superior L1 vertebral body at the level of the conus. No cord compression At L1-2 no narrowing of the central canal and neural foramina L2-3 no narrowing of the central canal and neural foramina L3-4 no narrowing of the central canal and neural foramina L4-5 no narrowing of the central canal and neural foramina L5-S1 3 mm anterolisthesis due to severe degenerative facet joint disease IMPRESSION: 1. Acute compression fractures at L1 and L4. 50% loss of the L1 vertebral body. 2. There is effacement of the thecal sac by the posterior superior L1 vertebral body which abuts but does not compress the conus. 3. At L5-S1 3 mm anterolisthesis due to degenerative facet joint disease ATED BY: GABBY DAVIS MD DICTATED DATE/TIME: 08/16/241523 SIGNED BY: GABBY DAVIS MD SIGNED DATE/TIME: 08/16/241523 CC: Labs Test 08/30/24 06:20 08/30/24 05:07 08/29/24 22:00 08/29/24 16:36 Range/Units POC Glucose 125 H 70-106 mg/dl Sodium Level 138 136-145 mmol/L Potassium Level 3.2 L 3.5-5.1 mmol/L Chloride Level 99 98-107 mmol/L Carbon Dioxide Level 30 20-31 mmol/L Anion Gap 9 5-15 Blood Urea Nitrogen 60 #H 9-23 mg/dL Creatinine 1.42 H 0.550-1.02 mg/dL Glomerular Filtration Rate Calc 38 >90 mL/min BUN/Creatinine Ratio 42.3 H 10.0-20.0 Serum Glucose 83 74-106 mg/dL Calcium Level 9.4 8.7-10.4 mg/dL Magnesium Level 1.7 1.6-2.6 mg/dL Urine Color Light-yellow Yellow Urine Clarity Clear Clear Urine pH 6.5 5.0-9.0 Urine Specific [place] 1.009 1.001-1.035 Urine Protein Negative Negative Urine Ketones Negative Negative Urine Blood Negative Negative /uL Urine Nitrite Negative Negative Urine Bilirubin Negative Negative Urine Urobilinogen Normal Negative mg/dL Urine Leukocyte Esterase Negative Negative /uL Urine RBC <1 0 - 4 /hpf Urine Microscopic WBC 1 0-5 /HPF Urine Squamous Epithelial Cells None seen <5 /hpf Urine Bacteria None seen None Seen /hpf Urine Osmolality 318 mOsm/kg Urine Sodium 68 40-220 mmol/L Urine Glucose Normal Normal mg/dL White Blood Count 13.8 H 4.4-10.8 10^3/uL Red Blood Count 3.51 L 4.0-5.20 10^6/uL Hemoglobin 10.7 L 12.2-16.2 g/dL Hematocrit 29.9 L 36.0-46.0 % Mean Corpuscular Volume 85.1 80.0-100.0 fL Mean Corpuscular Hemoglobin 30.5 28.0-32.0 pg Mean Corpuscular Hemoglobin Concent 35.8 32.0-36.0 g/dL Red Cell Distribution Width 15.6 H 11.8-14.3 % Platelet Count 298 140-450 10^3/uL Mean Platelet Volume 7.8 6.9-10.8 fL Neutrophils (%) (Auto) 60.8 37.0-80.0 % Lymphocytes (%) (Auto) 20.2 10.0-50.0 % Monocytes (%) (Auto) 10.9 0.0-12.0 % Eosinophils (%) (Auto) 6.8 0.0-7.0 % Basophils (%) (Auto) 1.3 0.0-2.0 % Neutrophils # (Auto) 8.4 1.6-8.6 10 ^3/uL Lymphocytes # (Auto) 2.8 0.4-5.4 10 ^3/uL Monocytes # (Auto) 1.5 H 0-1.3 10 ^3/uL Eosinophils # (Auto) 0.9 H 0-0.8 10 ^3/uL Basophils # (Auto) 0.2 0-0.2 10 ^3/uL Nucleated Red Blood Cells 0.0 % Prothrombin Time 9.8 9.3-11.8 sec Prothrombin Time INR 0.92 0.9-1.15 Activated Partial Thromboplast Time 25.1 24.5-34.5 SEC Hemoglobin A1c 6.5 H <5.7 % A1C Total Bilirubin 0.2 0.2-1.0 mg/dL Aspartate Amino Transferase (AST) 23 13-40 U/L Alanine Aminotransferase (ALT) 25 7-40 U/L Alkaline Phosphatase 165 H 46-116 U/L Total Protein 6.5 5.7-8.2 g/dL Albumin 4.2 3.2-4.8 g/dL Thyroid Stimulating Hormone (TSH) 3.65 0.55-4.78 uIU/mL Examination: GENERAL:Normal, HEENT:Normal, NECK:Normal, LUNGS:Normal, CVS:Normal, ABDOMEN:Normal, MSK:Abnormal, NEURO:Abnormal, :Normal Problem List/Assessment/Plan Problems: (1) Lumbar compression fracture Assessment and Plan she is admitted for spine surgery to treat the fractures and decompress the spinal canal Plan discussed with Plan discussed with: Patient, Son ARABELLA,TOPHER S MD Aug 30, 2024 11:40
[2024-08-30] MEDS ORDERED: LIDOCAINE 1% INJ PF 5ML AMP ONE (11:45)
--- NOTE | 2024-08-30 11:53 | DVHPN2 ---
Subjective Patient in the OR for Spine surgery, spinal decompression and thoracic and lumbar fractures. Changes from previous H/P or p: No Changes Objective Vitals Vital Signs Date Time Temp Pulse Resp B/P (MAP) Pulse Ox O2 Delivery O2 Flow Rate FiO2 08/30/24 09:00 98.2 74 18 127/55 (79) 96 98.2 08/30/24 07:00 Room Air* 0 21 Intake/Output Intake and Output 08/30/24 07:00 Intake Total 440 ml Balance 440 ml Intake Oral 440 ml # Voids 3 Medications Current Medications Medications Dose Ordered Sig/Celia Route Start Time Stop Time Status Last Admin Dose Admin Sodium Chloride 10 ml Q8HR IV 08/29/24 22:00 08/30/24 06:29 10 ML Dextrose 50 ml UD PRN IV 08/29/24 16:15 UNV Morphine Sulfate 2 mg Q4HPRN PRN IV 08/29/24 16:15 08/29/24 22:19 2 MG Acetaminophen/ Hydrocodone Bitart 1 tab Q6HPRN PRN PO 08/29/24 16:15 08/29/24 18:19 1 TAB Acetaminophen 650 mg Q4HP PRN PO 08/29/24 16:15 Ondansetron HCl 4 mg Q6HPRN PRN IV 08/29/24 16:15 Atorvastatin Calcium 20 mg HS PO 08/29/24 22:00 08/29/24 22:07 20 MG Duloxetine HCl 60 mg DAILY PO 08/30/24 10:00 Carvedilol 12.5 mg Q12HR PO 08/29/24 22:00 08/29/24 22:13 12.5 MG Allopurinol 100 mg DAILY PO 08/30/24 10:00 Losartan Potassium 50 mg DAILY PO 08/30/24 10:00 Hydralazine HCl 10 mg Q6HP PRN IV 08/29/24 16:15 Diagnostic Test (Pha) 1 strip ACHS 08/29/24 17:00 08/30/24 06:28 1 STRIP Insulin Human Regular HS SC 08/29/24 22:00 08/29/24 23:46 3 UNITS Insulin Human Regular AC SC 08/29/24 17:00 Dextrose 50 ml UD PRN IV 08/29/24 16:15 Albuterol 2.5 mg Q6HWA NEB 08/29/24 18:00 08/30/24 06:55 2.5 MG Ipratropium [place] 0.5 mg Q6HWA NEB 08/29/24 18:00 08/30/24 06:56 0.5 MG Albuterol 2.5 mg Q3HPRN PRN NEB 08/29/24 16:30 Lactated Ringer's 1,000 ml @ 125 mls/hr Q8H IV 08/29/24 18:30 08/29/24 22:18 125 MLS/HR Laboratory Results Laboratory Tests 08/29/24 16:36 08/30/24 05:07 Chemistry Test 08/29/24 16:36 08/30/24 05:07 Albumin 4.2 g/dL (3.2-4.8) Calcium Level 9.7 mg/dL (8.7-10.4) 9.4 mg/dL (8.7-10.4) Total Protein 6.5 g/dL (5.7-8.2) Magnesium Level 1.7 mg/dL (1.6-2.6) Coagulation Test 08/29/24 16:36 Prothrombin Time 9.8 sec (9.3-11.8) Prothrombin Time INR 0.92 (0.9-1.15) Activated Partial Thromboplast Time 25.1 SEC (24.5-34.5) LFT Test 08/29/24 16:36 Alanine Aminotransferase (ALT) 25 U/L (7-40) Alkaline Phosphatase 165 U/L (46-116) H Aspartate Amino Transferase (AST) 23 U/L (13-40) Total Bilirubin 0.2 mg/dL (0.2-1.0) HgA1c, TSH Test 08/29/24 16:36 Hemoglobin A1c 6.5 % A1C (<5.7) H Thyroid Stimulating Hormone (TSH) 3.65 uIU/mL (0.55-4.78) Urinalysis Test 08/29/24 22:00 Urine Color Light-yellow (Yellow) Urine Clarity Clear (Clear) Urine pH 6.5 (5.0-9.0) Urine Specific [place] 1.009 (1.001-1.035) Urine Protein Negative (Negative) Urine Ketones Negative (Negative) Urine Blood Negative /uL (Negative) Urine Nitrite Negative (Negative) Urine Bilirubin Negative (Negative) Urine Urobilinogen Normal mg/dL (Negative) Urine Leukocyte Esterase Negative /uL (Negative) Urine RBC <1 /hpf (0 - 4) Urine Microscopic WBC 1 /HPF (0-5) Urine Squamous Epithelial Cells None seen /hpf (<5) Urine Bacteria None seen /hpf (None Seen) Urine Osmolality 318 mOsm/kg Urine Sodium 68 mmol/L (40-220) Urine Glucose Normal mg/dL (Normal) Assessment/Plan Assessment/Plan # Spinal Compression and Thoracic and Lumbar Fracture - Surgery by Dr. Montague # DM2 A1c 6.5 - SSI # Hypokalemia - Supplement Plan discussed with: Patient My Orders Orders - AIMEE ALMAZAN MD Procedure Category Date Status Time Admit ADMIT 08/29/24 Transmitted 16:11 Code Status CODE 08/29/24 Transmitted 16:11 Review Orders With TONIO 08/29/24 In Process Adm. 16:11 Sodium Chloride Lock PHA 08/29/24 In Process (Saline Lock Ns) 22:00 Notify Md Of Changes TONIO 08/29/24 In Process From Base 16:11 Advance Directive TONIO 08/29/24 In Process 16:11 Patient Condition ORDERS 08/29/24 Transmitted 16:11 Allergies TONIO 08/29/24 In Process 16:11 * Cardiology Consult CONS 08/29/24 Transmitted 16:11 Chest Two Views XY 08/29/24 Resulted Routine 16:11 Glucose Blood PHA 08/29/24 In Process (Accu-Chek Comfort 17:00 Insulin R (Human) PHA 08/29/24 In Process (Insulin R) 22:00 Insulin R (Human) PHA 08/29/24 In Process (Insulin R) 17:00 Dextrose 50% Syringe PHA 08/29/24 In Process 16:15 Npo After Midnight DIET 08/29/24 Transmitted Dinner Consultdr. Tristan CONS 08/29/24 Transmitted Refugio(Spine) 16:15 Lactated Ringer's PHA 08/29/24 In Process 18:30 Insert Mcghee Catheter TONIO 08/29/24 In Process 18:30 Date of Service: Aug 30, 2024 Billing Provider: AIMEE ALMAZAN MD Common Visit Codes: [id number] INP/OBS CARE(HIGH) AIMEE ALMAZAN MD Aug 30, 2024 11:53
[2024-08-30] MEDS ORDERED: ONDANSETRON HCL 4 MG/2 ML VIAL IV PRN (12:30)
[2024-08-30] MEDS ORDERED: ACETAMINOPHEN 325 MG TAB PO PRN (12:30)
[2024-08-30] MEDS ORDERED: ePHEDrine SULFATE 50 MG/ML AMP ONE (13:05)
[2024-08-30] MEDS ORDERED: ONDANSETRON HCL 4 MG/2 ML VIAL ONE (13:05)
[2024-08-30] MEDS ORDERED: PROPOFOL 10 MG/ML 20 ML IV ONE (13:05)
[2024-08-30] MEDS ORDERED: DexAMETHasone SOD PHOS 10MG/1ML VIAL INJ ONE (13:05)
[2024-08-30] MEDS: CYCLOBENZAPRINE HCL 10 MG TAB PO SCH (14:00)
[2024-08-30] MEDS: IOHEXOL 300 MG/ML 100ML BOTTLE IJ ONE (15:19)
--- NOTE | 2024-08-30 15:29 | DVHOP2 ---
Operative Report - 2 Report Details Date: 08/30/24 Preop Diagnosis: thoracic 12 and lumbar 4 compression fractures and lumbar 1 burst fracture with biomechanical instability Postop Diagnosis: same Surgeon: Tristan Bell MD Anesthesiologist: rena Anesthesia: General Consent: The patient was informed of the risks and benefits of the procedure. These include but are not limited to complications of anesthesia, postoperative infection, incomplete relief of symptoms, recurrence of symptoms, damage to blood vessels, nerves and tendons, deep venous thrombosis, pulmonary embolism and possible need for repeat surgery in the future. Name of Procedure Performed see detailed note Procedure Details Procedure Details: Pre-op Diagnosis: 1. Thoracic 12 and Lumbar 4 compression fractures 2. Lumbar 1 burst fracture with biomechanical instability Post-op Diagnosis: same as pre op Procedure: ORIF lumbar 1 burst fracture Thoracic 10 to lumbar 2 posterior spinal fusion Lumbar 1 laminectomy with lumbar 1 foraminotomies/facetectomies to decompress central canal and lumbar 1 nerve roots Thoracic 12 laminectomy with thoracic 12 foraminotomies and facetectomies to decompress central canal and thoracic 12 nerve roots. Thoracic 12 kyphoplasty Lumbar 4 kyphoplasty Thoracic 10 to lumbar 2 posterior spinal instrumentation with pedicle screws; extant spine 7. Autograft bone for fusion 8. Allograft bone Bacteria to augment fusion 9. De-mineralized bone matrix to augment fusion 10. Microscope for micro dissection Surgeon: Dr. Bell Assist: none Anesthesia: General Fluids and EBL: See anesthesia note Patient was seen in the Pre Anesthesia Care Unit (PACU) and the operative site was initialed by me. All questions were answered to the patients satisfaction and chart reviewed. The patient was taken to the operative room where pre- operative antibiotics were given 30 minutes prior to incision. General anesthesia was induced and neuro-monitoring leads placed. Mcghee catheter was placed. The patient was turned prone onto the [facility] spinal table. While positioning, I made sure that the belly was free to allow proper expansion of the lungs. The hips were extended and all bony prominences padded. The shoulders were abducted 80 degree and the elbows flexed 100 degrees with no tension on the brachial plexus. I check the foot arterial pulses and they were palpable. The old surgical scar was marked with a marker prior to prepping and draping. The patient was prepped and draped and time out was taken at this time per usual protocol. At this time, the C-arm fluoroscope was brought in and was used to koby the incision borders proximally and distally. Next I for perfect AP views of the thoracic 12 pedicles and used 11 blade to make stab incision over the superior lateral aspect bilaterally and placed Jamshidi needles into each body. I did the same process at the Lumbar 4 site to treat the lumbar 4 compression fracture. All 4 jamshidi sites then had me placed a balloon to inflate to 3 cc bilaterally and the cement was mixed and then after baloon deflation, I injected 3cc cement into each Jamshidi site to treat the thoracic 12 and lumbar 4 compression fractures. Next, using a Number 10 Blade, an incision was made extending it proximally and distally per C arm koby from the posterior spinous process of lumbar 3 down to lumbar 5 , down to the thoraco-lumbo dorsal fascia. All bleeding was controlled with electrocautery. Self-retaining retractors were placed. Electrocautery was then used to take down the lumbo-dorsal fascia, to free the muscle off the bone bilaterally where the tissue was virgin. A Vin retractor was placed over the posterior spinous process proximally and a lateral C-arm fluoroscope image was taken to insure we were at the correct level. Next, dissection through the prior surgical site was started at virgin tissue and the deep back muscles were taken down as deep as possible while avoiding getting too close to the dura and avoiding being too shallow to cause nerve injury and bleeding. Next, using bovie electro cautery, The deep fascia laterally to the facet joints was removed to expose the transverse processes of thoracic 10, 11,12, lumbar 1 and 2 while taking care to avoid injuring the facet capsule at the proximal end of the incision. Next, the microscope was bought in for visualization and using a Luxell rongeur, the posterior spinous process of lumbar 3,4,and remnants of lumbar 5 removed and the bone was saved for use as local autograft. I used alternating Kerison 2 mm and 3 mm rongeurs to perform lumbar 1 and thoracic 12 and bilateral laminotomies/foraminotomies and facetectomies to revise the decompression of the central canal and lateral recesses and foramen to decompress the bilateral thoracic 12 and lumbar 1 nerve roots and central canal. Next I carefully inspected the dura to make sure no durotomy was visible and it was not. I covered the exposed dura with gelfoam soaked in thrombin and the microscope was wheeled away from the operative filed. The C-arm fluoroscope was brought in and perfect AP views of the thoracic 10, 11 and lumbar 2 pedicle were obtained. I placed bilateral pedicle screws at this levels by: using a Lenke awl to make a master pilot hole, then a ball tip robe to make sure there was no pedicle breach, then a tap to prepare the track and a 6.5 mm diameter 40 mm length pedicle was placed bilaterally and thoracic 10 and 11 and 6.5 X45 at lumbar 2. Next, the c- arm fluoroscope took an AP and lateral x-ray to ensure proper placement of the pedicle screws. Next, the neuro-stimulation probe was placed over the tip of each screw and each screw stimulated only after a current greater than 10 mA was delivered to the screw. Next , I took a Midas Luis E Drill to decorticate the transverse process which were exposed and local bone graft, Bacterin allograft bone substitute and Demineralized bone matrix were placed along the inter transverse process intervals bilaterally (the fusion bed). Next a curved franko sized to fit the pedicle screw interval was placed and secured to each pedicle screw using set screws, The set screws were tighten using a torque screwdriver (set to 10 N*M torque) to secure the franko to the pedicle screws bilaterally. Final AP and lateral C arm fluoroscopic films were taken at this time. Next a 10 Croatian diameter Hemovac drain was laced deep to the lumbo-dorsal fascia. The lumbo-dorsal fascia was closed with interrupted 0-Vicry sutures. The subcutaneous tissue was closed with interrupted 2-0 Vicryl sutures. The skin was closed with 2-0 nylon subcuticular suture. Sterile dressings were place. T he pt. was turned supine onto the stretcher, extubated and taken to the recovery room in stable condition. Additional Notes: [facility] SPINE INSTRUMENTATION Condition Stable Disposition Still a Patient TRISTAN BELL MD Aug 30, 2024 15:29
--- NOTE | 2024-08-30 15:53 | DVHSR ---
APPROVED REPORT EXAM: LIMITED Two-dimensional and M-mode echocardiogram with Doppler and color Doppler. INDICATION Pre-Op RISK FACTORS Obesity: Height: 4' 11", Weight: 141 DIMENSIONS LVDd4.1 (3.8-5.7cm)LA (2D)3.5 (1.9-4.0cm)Aortic Root3.1 (2.0-3.7cm) LVDs2.5 (2.5-4.0cm)LA (MM) (1.9-4.0cm)Aortic Cusp Exc1.7 (1.5-2.0cm) EF (%) 70.0 (55-70%)Rt. Atrium4.0 (1.9-4.0cm)Asc. Aorta cm IVSd1.0 (0.7-1.1cm)RV (D) (1.8-2.4cm) PWd0.9 (0.7-1.1cm) Mitral Valve MitralMitral Stenosis E wave0.80m/sMV Mean GR.mmHg A wave1.00m/sMV Peak GR.mmHg E/A ratio0.82D MVAcm2 Aortic Valve Aortic ValveAortic Stenosis V11.20m/Arden Mean GR.4mmHg V21.40m/Arden Peak GR.8mmHg LVOT Diameter2.0 (1.8-2.4cm)Doppler AVA2.69cm2 Conclusion Technically good study. Sinus rhythm. Normal chamber sizes. Valves are normal. EF of 60% with normal RV function. Doppler shows no significant mitral aortic or tricuspid insufficiency. No significant pulmonic insuf ficiency noted. No pericardial effusion masses or vegetations.
[2024-08-30] MEDS: ONDANSETRON HCL 4 MG/2 ML VIAL IV ONE (16:00)
[2024-08-30] MEDS: HYDROmorphone HCL 2 MG/ML VL/or syr IV PRN (16:00)
--- NOTE | 2024-08-30 16:04 | DVH ---
C-ARM FLUOROSCOPY: PROCEDURE: T12 through L4 kyphoplasty FLUOROSCOPY TIME: 181 sec DAP: 110 mgy FINDINGS: Spot intraoperative C arm radiographs demonstrating T12 through L4 kyphoplasty. IMPRESSION: Please refer to surgical report for detailed findings.
--- NOTE | 2024-08-30 16:04 | DVH ---
C-ARM FLUOROSCOPY: PROCEDURE: Kyphoplasty T10 through L2 TECHNIQUE: No images given Clinical history T10 through L2 decompression and fusion. T12 through L4 kyphoplasty FLUOROSCOPY TIME: 181.3 seconds DAP: 110.93 mgy FINDINGS: Spot intraoperative C arm radiographs demonstrating none. IMPRESSION: 1. Please refer to surgical report for detailed findings.
[2024-08-30] MEDS: ACETAMINOPHEN IV 100 ML IV ONE (16:09)
[2024-08-30] MEDS: ACETAMINOPHEN IV 1000 MG/100ML (10MG/ML) IV PRN (16:10)
[2024-08-30] MEDS: HYDROmorphone HCL 2 MG/ML VL/or syr ONE (16:19)
[2024-08-30] MEDS ORDERED: POTASSIUM CHLORIDE 40 MEQ, LIDOCAINE 1% (LOCAL ANESTH.) 4 ML in SODIUM CHL 0.9% 250 ML IV ONE ×2 (17:30→19:30)
[2024-08-30] MEDS: D5W/SOD CHLO 0.9% 1,000 ML IV SCH (18:27)
[2024-08-30] MEDS: ceFAZolin 1GM/50ML 50 ML IV SCH (18:32)
[2024-08-30] MEDS: MAGNESIUM SULFATE 1GM/100ML 100 ML IV SCH (18:39)
[2024-08-30] MEDS: hydrALAZINE HCL 20 MG/ML VL IV PRN (19:16)
[2024-08-30] MEDS: HYDROcodone-ACET 10/325MG TAB PO PRN (19:47)
[2024-08-30] MEDS: POTASSIUM CHL 20MEQ/100ML 100 ML IV SCH (21:43)
[2024-08-30] MEDS: DOCUSATE SOD 100 MG CAP PO SCH (21:52)
[2024-08-31] VITALS (14 sets, daily range): BP systolic 115–160; BP diastolic 39–80; PULSE 75–95; RESP 16–20; TEMP 97.6–98.4; O2SAT 92–100
[2024-08-31] MEDS: POTASSIUM CHL 20MEQ/100ML 100 ML IV ONE (04:38)
[2024-08-31] MEDS: MORPHINE SULFATE INJ 2 MG/ml SYRG IV PRN (05:09)
[2024-08-31 07:01] LABS: Anion Gap 10 (5-15); Carbon Dioxide 25 mmol/L (20-31); Chloride 103 mmol/L (98-107); Potassium 3.6 mmol/L (3.5-5.1); Sodium 138 mmol/L (136-145)
[2024-08-31 07:02] LABS: Calcium 9.7 mg/dL (8.7-10.4)
[2024-08-31 07:06] LABS: Basophils # (auto) 0 10 ^3/uL (0-0.2); Basophils % (auto) 0.2 % (0.0-2.0); Eosinophils # (auto) 0 10 ^3/uL (0-0.8); Hematocrit 28.7 % (36.0-46.0); Hemoglobin 10.2 g/dL (12.2-16.2); Lymphocytes # (auto) 0.8 10 ^3/uL (0.4-5.4); Lymphocytes % (auto) 4.7 % (10.0-50.0); Mean Corpuscular Hemoglobin 30.6 pg (28.0-32.0); Mean Corpuscular Hgb Conc. 35.4 g/dL (32.0-36.0); Mean Corpuscular Volume 86.5 fL (80.0-100.0); Monocytes # (auto) 0.8 10 ^3/uL (0-1.3); Monocytes % (auto) 4.8 % (0.0-12.0); Neutrophils % (auto) 90.3 % (37.0-80.0); Platelet Count (auto) 316 10^3/uL (140-450); Red Blood Cells 3.32 10^6/uL (4.0-5.20); Red Cell Distribution Width 15.6 % (11.8-14.3); White Blood Cell 16.6 10^3/uL (4.4-10.8)
[2024-08-31 07:07] LABS: BUN/Creatinine Ratio 25.2 (10.0-20.0); Magnesium 2.1 mg/dL (1.6-2.6)
[2024-08-31 07:09] LABS: Blood Urea Nitrogen 35 mg/dL (9-23); Glucose 287 mg/dL (74-106)
--- NOTE | 2024-08-31 11:17 | DVHPN2 ---
Subjective Patient seen and examined at bedside, patient is postop day one status post spine surgery. Family at bedside. Patient is having episodes of confusion likely due to expected anesthesia effect or morphine. Out of bed to chair today encourage incentive spirometer we will get KUB as patient's abdomen seems a bit distended. Changes from previous H/P or p: No Changes Objective Vitals Vital Signs Date Time Temp Pulse Resp B/P (MAP) Pulse Ox O2 Delivery O2 Flow Rate FiO2 08/31/24 11:08 87 16 100 08/31/24 11:02 Nasal Cannula* 3 32 08/31/24 09:38 131/53 08/31/24 09:21 97.6 97.6 Intake/Output Intake and Output 08/31/24 07:00 Intake Total 1480 ml Output Total 250 ml Balance 1230 ml Intake Oral 500 ml IV Total 980 ml Output Urine Total 250 ml # Voids 2 Exam Gen: in bed NAD Neck: Supple, Heme Drain Cvs: N S1/S2, RRR Resp: Diminished b/l Abd: Distended Services Manager: AAO x 3 Medications Current Medications Medications Dose Ordered Sig/Celia Route Start Time Stop Time Status Last Admin Dose Admin Sodium Chloride 10 ml Q8HR IV 08/29/24 22:00 08/30/24 06:29 10 ML Dextrose 50 ml UD PRN IV 08/29/24 16:15 UNV Atorvastatin Calcium 20 mg HS PO 08/29/24 22:00 08/30/24 21:53 20 MG Duloxetine HCl 60 mg DAILY PO 08/30/24 10:00 08/31/24 09:31 60 MG Carvedilol 12.5 mg Q12HR PO 08/29/24 22:00 08/31/24 09:37 12.5 MG Losartan Potassium 50 mg DAILY PO 08/30/24 10:00 08/31/24 09:37 50 MG Hydralazine HCl 10 mg Q6HP PRN IV 08/29/24 16:15 08/30/24 19:16 10 MG Diagnostic Test (Pha) 1 strip ACHS 08/29/24 17:00 08/31/24 06:26 1 STRIP Insulin Human Regular HS SC 08/29/24 22:00 08/30/24 22:14 10 UNITS Insulin Human Regular AC SC 08/29/24 17:00 08/31/24 06:27 9 UNITS Dextrose 50 ml UD PRN IV 08/29/24 16:15 Albuterol 2.5 mg Q6HWA NEB 08/29/24 18:00 08/31/24 11:02 2.5 MG Ipratropium [place] 0.5 mg Q6HWA NEB 08/29/24 18:00 08/31/24 11:02 0.5 MG Albuterol 2.5 mg Q3HPRN PRN NEB 08/29/24 16:30 Dextrose/Sodium Chloride 1,000 ml @ 100 mls/hr Q10H IV 08/30/24 12:30 08/31/24 08:05 100 MLS/HR Ondansetron HCl 4 mg Q4HP PRN IV 08/30/24 12:30 Acetaminophen 650 mg Q6HP PRN PO 08/30/24 12:30 Acetaminophen/ Hydrocodone Bitart 1 tab Q6HP PRN PO 08/30/24 12:30 08/30/24 19:47 1 TAB Morphine Sulfate 1 mg Q4HP PRN IV 08/30/24 12:30 08/31/24 09:38 1 MG Cyclobenzaprine HCl 10 mg TID PO 08/30/24 14:00 08/31/24 05:14 10 MG Docusate Sodium 100 mg BID PO 08/30/24 22:00 08/31/24 09:33 100 MG Cefazolin Sodium 50 ml @ 100 mls/hr Q8H IV 08/30/24 18:00 09/01/24 10:29 08/31/24 09:31 100 MLS/HR Allopurinol 50 mg EOD PO 09/01/24 10:00 Laboratory Results Laboratory Tests 08/31/24 04:53 Chemistry Test 08/31/24 04:53 Calcium Level 9.7 mg/dL (8.7-10.4) Magnesium Level 2.1 mg/dL (1.6-2.6) Urinalysis Test 08/29/24 22:00 Urine Color Light-yellow (Yellow) Urine Clarity Clear (Clear) Urine pH 6.5 (5.0-9.0) Urine Specific [place] 1.009 (1.001-1.035) Urine Protein Negative (Negative) Urine Ketones Negative (Negative) Urine Blood Negative /uL (Negative) Urine Nitrite Negative (Negative) Urine Bilirubin Negative (Negative) Urine Urobilinogen Normal mg/dL (Negative) Urine Leukocyte Esterase Negative /uL (Negative) Urine RBC <1 /hpf (0 - 4) Urine Microscopic WBC 1 /HPF (0-5) Urine Squamous Epithelial Cells None seen /hpf (<5) Urine Bacteria None seen /hpf (None Seen) Urine Osmolality 318 mOsm/kg Urine Sodium 68 mmol/L (40-220) Urine Glucose Normal mg/dL (Normal) Assessment/Plan Assessment/Plan # Spinal Compression and Thoracic and Lumbar Fracture - Surgery by Dr. Montague # DM2 A1c 6.5 - SSI # Hypokalemia - Supplement # AAYUSH due to VMN - Monitor Plan discussed with: Patient, Son My Orders Orders - AIMEE [place]AN MD Procedure Category Date Status Time Pharmacy [facility] 08/30/24 In Process Clarification: 19:26 Incentive Spirometry ORDERS 08/31/24 Transmitted 11:04 Oob To Chair [facility] 08/31/24 In Process 11:04 Kub Abdomen Single XY 08/31/24 Logged View 11:04 Basic Metabolic Panel LAB 09/01/24 Verified 04:00 Complete Blood Count LAB 09/01/24 Verified 04:00 Date of Service: Aug 31, 2024 Billing Provider: AIMEE [place]ZAN MD Common Visit Codes: [id number] INP/OBS CARE(HIGH) AIMEE [place]ZAN MD Aug 31, 2024 11:17
--- NOTE | 2024-08-31 12:24 | DVH ---
Date: 08/31/2024 11:25 AM Examination: XY KUB ABDOMEN SINGLE VIEW History: distended abdomen Comparison: None TECHNIQUE: Frontal views of the abdomen was obtained. FINDINGS: Bowel gas pattern is unremarkable. The lung bases are unremarkable. No acute osseous abnormality identified. Lumbar spinal hardware. IMPRESSION: Nonobstructive bowel gas pattern. Large stool burden.
[2024-08-31] MEDS: LACTULOSE 20Gm/30ML SOLN PO ONE (14:57)
--- NOTE | 2024-08-31 16:11 | DVHPN2 ---
Progress Note - Surgical Date Seen: Aug 31, 2024 Post op day Post op day: 1 Subjective Patient reports: No new complaints, Feels better Review of Systems: HEENT:Normal, CVS:Normal, RESPIRATORY:Normal, GI:Normal, :Normal, MSK:Normal (Patient is experiencing expected postoperative pain), NEURO:Normal (Patient able to get up sit at the side of the bed today with physical therapy) Objective Vital signs Vital Sign Date Time Temp Pulse Resp B/P (MAP) Pulse Ox O2 Delivery O2 Flow Rate FiO2 08/31/24 13:04 97.9 89 19 156/60 (92) 99 97.9 08/31/24 11:02 Nasal Cannula* 3 32 Total Intake and Output 08/30/24 08/30/24 08/31/24 15:00 23:00 07:00 Intake Total 110 ml 100 ml 1270 ml Output Total 250 ml Balance 110 ml -150 ml 1270 ml Medications Current Medications Medications Dose Ordered Sig/Celia Route Start Time Stop Time Status Last Admin Dose Admin Sodium Chloride 10 ml Q8HR IV 08/29/24 22:00 08/30/24 06:29 10 ML Dextrose 50 ml UD PRN IV 08/29/24 16:15 UNV Atorvastatin Calcium 20 mg HS PO 08/29/24 22:00 08/30/24 21:53 20 MG Duloxetine HCl 60 mg DAILY PO 08/30/24 10:00 08/31/24 09:31 60 MG Carvedilol 12.5 mg Q12HR PO 08/29/24 22:00 08/31/24 09:37 12.5 MG Losartan Potassium 50 mg DAILY PO 08/30/24 10:00 08/31/24 09:37 50 MG Hydralazine HCl 10 mg Q6HP PRN IV 08/29/24 16:15 08/30/24 19:16 10 MG Diagnostic Test (Pha) 1 strip ACHS 08/29/24 17:00 08/31/24 11:30 1 STRIP Insulin Human Regular HS SC 08/29/24 22:00 08/30/24 22:14 10 UNITS Insulin Human Regular AC SC 08/29/24 17:00 08/31/24 11:30 9 UNITS Dextrose 50 ml UD PRN IV 08/29/24 16:15 Albuterol 2.5 mg Q6HWA NEB 08/29/24 18:00 08/31/24 11:02 2.5 MG Ipratropium [place] 0.5 mg Q6HWA NEB 08/29/24 18:00 08/31/24 11:02 0.5 MG Albuterol 2.5 mg Q3HPRN PRN NEB 08/29/24 16:30 Ondansetron HCl 4 mg Q4HP PRN IV 08/30/24 12:30 Acetaminophen 650 mg Q6HP PRN PO 08/30/24 12:30 Acetaminophen/ Hydrocodone Bitart 1 tab Q6HP PRN PO 08/30/24 12:30 08/31/24 11:38 1 TAB Morphine Sulfate 1 mg Q4HP PRN IV 08/30/24 12:30 08/31/24 09:38 1 MG Cyclobenzaprine HCl 10 mg TID PO 08/30/24 14:00 08/31/24 14:57 10 MG Docusate Sodium 100 mg BID PO 08/30/24 22:00 08/31/24 09:33 100 MG Cefazolin Sodium 50 ml @ 100 mls/hr Q8H IV 08/30/24 18:00 09/01/24 10:29 08/31/24 09:31 100 MLS/HR Allopurinol 50 mg EOD PO 09/01/24 10:00 Laboratory Laboratory Tests 08/31/24 04:53 Test 08/31/24 04:53 Range/Units Serum Glucose 287 H 74-106 mg/dL Examination: GENERAL:Normal, GENERAL:Abnormal, NECK:Normal, LUNGS:Normal, CVS:Normal, ABDOMEN:Normal, MSK:Normal, SKIN:Normal (Ale dressing intact seal intact power source functioning well drain 1. 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 90 mL use of output from restaurant shift supervisor 70 for day shift we will keep drain 2. In place which is actually the deep drain ), NEURO:Normal, :Normal Problem List/Assessment/Plan Problems: (1) Lumbar compression fracture (2) Postoperative pain after spinal surgery (3) Muscle spasm of back Assessment and Plan POD # 1 Events of the day drain 1. Discontinued superficial drain. We will keep drain 2. In place and reconsider tomorrow patient a chair Today with physical therapy patient taking [place] and morphine at this time Pain is tolerable Patient is progressing as expected Dx: Postop spine surgery -Disposition: -Pending -Discharge RX: Pending -Follow up appointment: with Dr Montague on two weeks postoperatively [phone] [id number] [facility] [address] [place] [id number] -Pain: - IV pain meds post op day 1, with PO supplementation, goal is to progress weaning off IV medications and control pain with PO only. morphine 1mg q 4 hours (PAIN 7-10) - P.O. analgesics:Tylenol 650MG (PAIN 1-3) [place] 10/325 mg (PAIN 4-6) - Muscle relaxers scheduled administration. This is a beneficial medications for the incisional pain as it is mostly related to muscle spasms. Flexeril 10 mg TID - Cepacol throat lozenges as needed for sore throat -Antibiotics Operative recommendations: -Postoperative dose:-Post operative antibiotics cefazolin 1 g IV piggyback every 8 hours x 48 hours total of 6 doses -DVT PPX: -Hold all chemical DVT/ blood thinners for 14 days postoperatively -use mechanical DVT PPX such as SCD's, ambulation -Activity: -Pending PT evaluation and patients progression -Sit at side of bed for meals -Goal: Ambulate independently and safely (may use assistive devices if needed) -Medical Therapy goals: -Afebrile- Patient may develop a expected post operative fever by day 2-3, this may not be accompanied with a elevation in WBC. if fever develops: Acetaminophen for fever. Albuterol nebulizer Tx every 12 hours for 24 hours to facilitate adequate lung expansion and prevent development of atelectasis. -Euglycemic: bloods sugars under 130mmol/L for optimal healing -Normotensive: Avoid events of hypertension. This helps to keep post operative healing intact and avoids destabilization of beneficial hemostatic coagulation. -Lumbar: -If patient is comfortable encouraged the patient to lay on their side to facilitate wound healing -Drains: -Hemovac drains: These will be to full compression unless otherwise ordered. Please record and document output AND characteristic of fluid present independently EVERY 6 hours more often as needed. if there in no output indicate this by documenting 0ml. If output is greater than 100 ml in one hour of estefany blood call provider. These drains will be removed once the drainage is at a acceptable level (generally less than 100ml in 24 hours) -Ale dressing: This will stay in place and will be removed at the patients follow up visit. Nursing is to assess the seal and power source. The seal should be intact and the power source should have a green flashing light indicating it is functioning well. Batteries can last up to 14 days. If a leak develops the dressing edges can be reinforced with a Tegaderm dressing to reestablish intact seal. The Ale dressing is NOT a wound vac. This does not get changed, it does not need home health management. -Record output independently, drain 1. Is a deep drain and drain 2. Is a superficial drain. Wound drainage is described by type, color, amount, and odor. Drainage can be 1 Serous: Clear and thin, may be present in healing healthy wound. 2 Serosanguineous containing blood may also be present and healthy healing wound 3. Sanguinous primarily blood 4. Purulent this is thick, white, and pus like. It may be indicated to give of a infection and should constitute a call to the provider immediately with the plan that the sample should be cultured. -Dressings Take care not to disrupt the ALE dressing seal. If there is a break in the seal it can be trouble shot with a Tegaderm dressing. -Dressing to Hemovac drains may be changed once the drains have been removed by the provider. -Bowel management: -Colace 100mg bid -Diet: -Clear liquid diet and advance as patient tolerates within dietary limitations ( example: diabetic, Cardiac) -Incentive Spirometer: -10 x hour while awake, RN please educate and observe repeat demonstration, have IS at bedside POD #1 -Consults: -Physical Therapy evaluation, treatment recommendations, and discharge recommendations Call with questions Amrik Hernadez ACNP- Orthopaedic Spine Surgery nurse practitioner For Dr Garrett Montague Patient was examined, chart reviewed, labs evaluated, and diagnostic studies and findings analyzed. Case was discussed with Dr. Tristan Montague who formulated the plan of care. This medical document was created using an electronic medical record system with [employer] system. Although this document has been carefully reviewed, there might still be some phonetic and typographical errors. These areas are purely typographical due to imperfections of the software programs, and do not reflect any compromise in the patient's medical care. Plan discussed with Plan discussed with: Patient, Other (Bedside nurse) Visit Coding Surgery Date of Service if different f: Aug 31, 2024 Billing Provider: JAVON HERNADEZ NP Surgery Visit Codes: NOT BILLABLE JAVON HERNADEZ NP Aug 31, 2024 16:11
[2024-08-31 20:13] LABS: Urine Bacteria None Seen /hpf (None Seen)
[2024-08-31 20:35] LABS: Urine Blood Negative /uL (Negative); Urine Clarity Clear (Clear); Urine Color Light-Yellow (Yellow); Urine Protein, UAD Negative (Negative); Urine Specific Gravity 1.011 (1.001-1.035); Urine Squamous Epithelial Cell FEW /hpf (<5); Urine Urobilinogen Normal (Negative); Urine WBC < 1 /HPF (0-5); Urine pH 5.5 (5.0-9.0)
[2024-09-01] VITALS (17 sets, daily range): BP systolic 146–169; BP diastolic 55–71; PULSE 60–83; RESP 17–20; TEMP 97.8–98.2; O2SAT 93–100
--- NOTE | 2024-09-01 06:26 | DVHPN2 ---
Progress Note - Surgical Date Seen: Sep 01, 2024 Post op day Post op day: 2 Subjective Patient reports: No new complaints, Feels better Review of Systems: HEENT:Normal, CVS:Normal, RESPIRATORY:Normal, GI:Normal, :Normal, MSK:Normal, NEURO:Normal Objective Vital signs Vital Sign Date Time Temp Pulse Resp B/P (MAP) Pulse Ox O2 Delivery O2 Flow Rate FiO2 09/01/24 05:00 98.2 81 19 155/70 (98) 98 98.2 08/31/24 20:00 Room Air* 0 21 Total Intake and Output 08/31/24 08/31/24 09/01/24 15:00 23:00 07:00 Intake Total 50 ml 920 ml 400 ml Output Total 55 ml 35 ml Balance -5 ml 920 ml 365 ml Medications Current Medications Medications Dose Ordered Sig/Celia Route Start Time Stop Time Status Last Admin Dose Admin Sodium Chloride 10 ml Q8HR IV 08/29/24 22:00 08/30/24 06:29 10 ML Dextrose 50 ml UD PRN IV 08/29/24 16:15 UNV Atorvastatin Calcium 20 mg HS PO 08/29/24 22:00 08/31/24 22:02 20 MG Duloxetine HCl 60 mg DAILY PO 08/30/24 10:00 08/31/24 09:31 60 MG Carvedilol 12.5 mg Q12HR PO 08/29/24 22:00 08/31/24 22:07 12.5 MG Losartan Potassium 50 mg DAILY PO 08/30/24 10:00 08/31/24 09:37 50 MG Hydralazine HCl 10 mg Q6HP PRN IV 08/29/24 16:15 08/31/24 22:20 10 MG Diagnostic Test (Pha) 1 strip ACHS 08/29/24 17:00 09/01/24 05:56 1 STRIP Insulin Human Regular HS SC 08/29/24 22:00 08/31/24 22:00 2 UNITS Insulin Human Regular AC SC 08/29/24 17:00 08/31/24 17:33 3 UNITS Dextrose 50 ml UD PRN IV 08/29/24 16:15 Albuterol 2.5 mg Q6HWA NEB 08/29/24 18:00 08/31/24 18:10 2.5 MG Ipratropium [place] 0.5 mg Q6HWA NEB 08/29/24 18:00 08/31/24 18:10 0.5 MG Albuterol 2.5 mg Q3HPRN PRN NEB 08/29/24 16:30 Ondansetron HCl 4 mg Q4HP PRN IV 08/30/24 12:30 Acetaminophen 650 mg Q6HP PRN PO 08/30/24 12:30 Acetaminophen/ Hydrocodone Bitart 1 tab Q6HP PRN PO 08/30/24 12:30 08/31/24 17:24 1 TAB Morphine Sulfate 1 mg Q4HP PRN IV 08/30/24 12:30 08/31/24 09:38 1 MG Cyclobenzaprine HCl 10 mg TID PO 08/30/24 14:00 09/01/24 05:56 10 MG Docusate Sodium 100 mg BID PO 08/30/24 22:00 08/31/24 22:02 100 MG Cefazolin Sodium 50 ml @ 100 mls/hr Q8H IV 08/30/24 18:00 09/01/24 10:29 09/01/24 02:05 100 MLS/HR Allopurinol 50 mg EOD PO 09/01/24 10:00 Laboratory Laboratory Tests 08/31/24 04:53 Test 08/31/24 04:53 Range/Units Serum Glucose 287 H 74-106 mg/dL Examination: GENERAL:Normal, HEENT:Normal, NECK:Normal, LUNGS:Normal, CVS:Normal, ABDOMEN:Normal, MSK:Normal, SKIN:Normal (ale intact. drain intact), NEURO:Normal (pt is experiencing expected post operative pain. ), :Normal Problem List/Assessment/Plan Problems: (1) Lumbar compression fracture (2) Muscle spasm of back (3) Postoperative pain after spinal surgery Assessment and Plan POD # 2 Events of the day drain [address] since there was 75 ml in one shift that will put her over the 100 in 24 hours, will reassess tomorrow continue to sit at edge of bed for meals, work with PT. Pain is still a concern, adjusted norco to q4hr PRN Patient is progressing as expected Dx: Postop spine surgery -Disposition: -Pending -Discharge RX: Pending -Follow up appointment: with Dr Monatgue on two weeks postoperatively [id number] [place] [address] -Pain: - IV pain meds post op day 1, with PO supplementation, goal is to progress weaning off IV medications and control pain with PO only. morphine 1mg q 4 hours (PAIN 7-10) - P.O. analgesics:Tylenol 650MG (PAIN 1-3) [place] 10/325 mg (PAIN 4-6) - Muscle relaxers scheduled administration. This is a beneficial medications for the incisional pain as it is mostly related to muscle spasms. Flexeril 10 mg TID - Cepacol throat lozenges as needed for sore throat -Antibiotics Operative recommendations: -Postoperative dose:-Post operative antibiotics cefazolin 1 g IV piggyback every 8 hours x 48 hours total of 6 doses -DVT PPX: -Hold all chemical DVT/ blood thinners for 14 days postoperatively -use mechanical DVT PPX such as SCD's, ambulation -Activity: -Pending PT evaluation and patients progression -Sit at side of bed for meals -Goal: Ambulate independently and safely (may use assistive devices if needed) -Medical Therapy goals: -Afebrile- Patient may develop a expected post operative fever by day 2-3, this may not be accompanied with a elevation in WBC. if fever develops: Acetaminophen for fever. Albuterol nebulizer Tx every 12 hours for 24 hours to facilitate adequate lung expansion and prevent development of atelectasis. -Euglycemic: bloods sugars under 130mmol/L for optimal healing -Normotensive: Avoid events of hypertension. This helps to keep post operative healing intact and avoids destabilization of beneficial hemostatic coagulation. -Lumbar: -If patient is comfortable encouraged the patient to lay on their side to facilitate wound healing -Drains: -Hemovac drains: These will be to full compression unless otherwise ordered. Please record and document output AND characteristic of fluid present independently EVERY 6 hours more often as needed. if there in no output indicate this by documenting 0ml. If output is greater than 100 ml in one hour of estefany blood call provider. These drains will be removed once the drainage is at a acceptable level (generally less than 100ml in 24 hours) -Ale dressing: This will stay in place and will be removed at the patients follow up visit. Nursing is to assess the seal and power source. The seal should be intact and the power source should have a green flashing light indicating it is functioning well. Batteries can last up to 14 days. If a leak develops the dressing edges can be reinforced with a Tegaderm dressing to reestablish intact seal. The Ale dressing is NOT a wound vac. This does not get changed, it does not need home health management. -Record output independently, drain 1. Is a deep drain and drain 2. Is a superficial drain. Wound drainage is described by type, color, amount, and odor. Drainage can be 1 Serous: Clear and thin, may be present in healing healthy wound. 2 Serosanguineous containing blood may also be present and healthy healing wound 3. Sanguinous primarily blood 4. Purulent this is thick, white, and pus like. It may be indicated to give of a infection and should constitute a call to the provider immediately with the plan that the sample should be cultured. -Dressings Take care not to disrupt the ALE dressing seal. If there is a break in the seal it can be trouble shot with a Tegaderm dressing. -Dressing to Hemovac drains may be changed once the drains have been removed by the provider. -Bowel management: -Colace 100mg bid -Diet: -Clear liquid diet and advance as patient tolerates within dietary limitations ( example: diabetic, Cardiac) -Incentive Spirometer: -10 x hour while awake, RN please educate and observe repeat demonstration, have IS at bedside POD #1 -Consults: -Physical Therapy evaluation, treatment recommendations, and discharge recommendations Call with questions Amrik Hernadez ACNP- Orthopaedic Spine Surgery nurse practitioner For Dr Garrett Montague Patient was examined, chart reviewed, labs evaluated, and diagnostic studies and findings analyzed. Case was discussed with Dr. Tristan Montague who formulated the plan of care. This medical document was created using an electronic medical record system with [employer] dictation system. Although this document has been carefully reviewed, there might still be some phonetic and typographical errors. These areas are purely typographical due to imperfections of the software programs, and do not reflect any compromise in the patient's medical care. My Orders My Orders Orders - JAVON HERNADEZ [employer] Procedure Category Date Status Time Communication Order ORDERS 08/31/24 Transmitted 17:39 Plan discussed with Plan discussed with: Patient, Other ([place] x [phone]) Visit Coding Surgery Date of Service if different f: Sep 01, 2024 Billing Provider: JAVON HERNADEZ NP Surgery Visit Codes: NOT BILLABLE JAVON HERNADEZ NP Sep 01, 2024 06:26
[2024-09-01 06:53] LABS: Basophils # (auto) 0.1 10 ^3/uL (0-0.2); Basophils % (auto) 0.4 % (0.0-2.0); Eosinophils # (auto) 0.2 10 ^3/uL (0-0.8); Eosinophils % (auto) 1.1 % (0.0-7.0); Hematocrit 28.1 % (36.0-46.0); Hemoglobin 9.4 g/dL (12.2-16.2); Lymphocytes # (auto) 1.3 10 ^3/uL (0.4-5.4); Lymphocytes % (auto) 6.2 % (10.0-50.0); Mean Corpuscular Hemoglobin 29.6 pg (28.0-32.0); Mean Corpuscular Hgb Conc. 33.4 g/dL (32.0-36.0); Mean Corpuscular Volume 88.6 fL (80.0-100.0); Monocytes # (auto) 1.6 10 ^3/uL (0-1.3); Monocytes % (auto) 7.6 % (0.0-12.0); Neutrophils # (auto) 17.2 10 ^3/uL (1.6-8.6); Neutrophils % (auto) 84.7 % (37.0-80.0); Platelet Count (auto) 299 10^3/uL (140-450); Red Blood Cells 3.17 10^6/uL (4.0-5.20); Red Cell Distribution Width 16.2 % (11.8-14.3); White Blood Cell 20.3 10^3/uL (4.4-10.8)
[2024-09-01 07:03] LABS: Chloride 106 mmol/L (98-107); Sodium 137 mmol/L (136-145)
[2024-09-01 07:04] LABS: Anion Gap 10 (5-15); Carbon Dioxide 21 mmol/L (20-31)
[2024-09-01 07:10] LABS: BUN/Creatinine Ratio 17.8 (10.0-20.0); Blood Urea Nitrogen 19 mg/dL (9-23)
[2024-09-01 07:14] LABS: Glucose 207 mg/dL (74-106); Potassium 3.4 mmol/L (3.5-5.1)
[2024-09-01] MEDS: ALLOPURINOL 100 MG TAB PO SCH (09:57)
[2024-09-01] MEDS: HYDROcodone-ACET 10/325MG TAB PO PRN (10:03)
--- NOTE | 2024-09-01 13:01 | DVHPN2 ---
Subjective The patient seen and examined at bedside. The patient is very confused today. According to her son who was at bedside this is not her baseline. Reviewed: Care Plan, H&P, Labs, Medications, Previous Orders, Radiology Changes from previous H/P or p: No Changes Objective Vitals Vital Signs Date Time Temp Pulse Resp B/P (MAP) Pulse Ox O2 Delivery O2 Flow Rate FiO2 09/01/24 12:23 73 18 100 09/01/24 10:00 Nasal Cannula* 2 28 09/01/24 09:58 153/63 09/01/24 09:00 97.9 97.9 Intake/Output Intake and Output 09/01/24 07:00 Intake Total 1370 ml Output Total 130 ml Balance 1240 ml Intake Oral 1320 ml IV Total 50 ml Drainage Total 130 ml # Voids 5 # Bowel Movements 3 General Appearance: Alert, No acute distress HEENT: Atraumatic, PERRLA, EOMI, Mucous membr. moist/pink Neck: Supple Lungs: Clear to auscultation, Normal air movement Cardiovascular: Regular rate, Normal S1, Normal S2, No murmurs, Gallops, Rubs Abdomen: Normal bowel sounds, Soft, No tenderness Extremities: Normal pulses Neuro: Cranial nerves 3-12 NL Psych/Mental Status: Mental status NL Medications Current Medications Medications Dose Ordered Sig/Celia Route Start Time Stop Time Status Last Admin Dose Admin Sodium Chloride 10 ml Q8HR IV 08/29/24 22:00 08/30/24 14:00 10 ML Dextrose 50 ml UD PRN IV 08/29/24 16:15 UNV Atorvastatin Calcium 20 mg HS PO 08/29/24 22:00 08/31/24 22:02 20 MG Duloxetine HCl 60 mg DAILY PO 08/30/24 10:00 09/01/24 09:55 60 MG Carvedilol 12.5 mg Q12HR PO 08/29/24 22:00 09/01/24 09:57 12.5 MG Losartan Potassium 50 mg DAILY PO 08/30/24 10:00 09/01/24 09:58 50 MG Hydralazine HCl 10 mg Q6HP PRN IV 08/29/24 16:15 08/31/24 22:20 10 MG Diagnostic Test (Pha) 1 strip ACHS 08/29/24 17:00 09/01/24 11:30 1 STRIP Insulin Human Regular HS SC 08/29/24 22:00 08/31/24 22:00 2 UNITS Insulin Human Regular AC SC 08/29/24 17:00 09/01/24 12:17 3 UNITS Dextrose 50 ml UD PRN IV 08/29/24 16:15 Albuterol 2.5 mg Q6HWA NEB 08/29/24 18:00 09/01/24 12:17 2.5 MG Ipratropium [place] 0.5 mg Q6HWA NEB 08/29/24 18:00 09/01/24 12:17 0.5 MG Albuterol 2.5 mg Q3HPRN PRN NEB 08/29/24 16:30 Ondansetron HCl 4 mg Q4HP PRN IV 08/30/24 12:30 Acetaminophen 650 mg Q6HP PRN PO 08/30/24 12:30 Morphine Sulfate 1 mg Q4HP PRN IV 08/30/24 12:30 08/31/24 09:38 1 MG Cyclobenzaprine HCl 10 mg TID PO 08/30/24 14:00 09/01/24 05:56 10 MG Docusate Sodium 100 mg BID PO 08/30/24 22:00 09/01/24 09:54 100 MG Allopurinol 50 mg EOD PO 09/01/24 10:00 09/01/24 09:57 50 MG Acetaminophen/ Hydrocodone Bitart 1 tab Q4HPRN PRN PO 09/01/24 08:30 09/01/24 10:03 1 TAB Ceftriaxone Sodium 50 ml @ 100 mls/hr DAILY@09 IV 09/01/24 13:00 UNV Laboratory Results Laboratory Tests 09/01/24 06:08 Chemistry Test 09/01/24 06:08 Calcium Level 9.0 mg/dL (8.7-10.4) Urinalysis Test 08/29/24 22:00 08/31/24 15:15 Urine Osmolality 318 mOsm/kg Urine Sodium 68 mmol/L (40-220) Urine Color Light-yellow (Yellow) Urine Clarity Clear (Clear) Urine pH 5.5 (5.0-9.0) Urine Specific [place] 1.011 (1.001-1.035) Urine Protein Negative (Negative) Urine Ketones Negative (Negative) Urine Blood Negative /uL (Negative) Urine Nitrite Negative (Negative) Urine Bilirubin Negative (Negative) Urine Urobilinogen Normal mg/dL (Negative) Urine Leukocyte Esterase Negative /uL (Negative) Urine RBC <1 /hpf (0 - 4) Urine Microscopic WBC < 1 /HPF (0-5) Urine Squamous Epithelial Cells Few /hpf (<5) Urine Bacteria None seen /hpf (None Seen) Urine Glucose 4+ mg/dL (Normal) H Labs and/or images reviewed: Labs reviewed by me Assessment/Plan Assessment/Plan Spinal cord compression and thoracic and lumbar fracture status post surgery Diabetes type 2 Hypokalemia Acute encephalopathy Leukocytosis Continuing current management. Continuing with sliding scale insulin. I am going to empirically put the patient on Rocephin 1 g IV daily. We will look for any source of infection. Continuing with physical therapy. Continuing with pain medication regimen. Discussed with son in length regarding to plan of care. This medical document was created using an electronic medical record system with [employer] direct computerized dictation system. Although this document has been carefully reviewed, there may still be some phonetic and typographical errors. These areas are purely typographical due to imperfections of the software programs, and do not reflect any compromise in the patient's medical care. Plan discussed with: Patient, Son My Orders Orders - VENKAT GARCIA MD Procedure Category Date Status Time Ceftriaxone 1gm/50ml PHA 09/01/24 Logged D5w (Rocephin) 13:00 Complete Blood Count LAB 09/02/24 Verified 05:00 Complete Blood Count LAB 09/03/24 Verified 05:00 Complete Blood Count LAB 09/04/24 Verified 05:00 Basic Metabolic Panel LAB 09/02/24 Verified 05:00 Basic Metabolic Panel LAB 09/03/24 Verified 05:00 Basic Metabolic Panel LAB 09/04/24 Verified 05:00 Date of Service: Sep 01, 2024 Billing Provider: VENKAT GARCIA MD Common Visit Codes: [id number] INP/OBS CARE(HIGH) VENKAT GARCIA MD Sep 01, 2024 13:01
[2024-09-01] MEDS: cefTRIAXone 1GM/50ML D5W 50 ML IV SCH (13:49)
[2024-09-02] VITALS (15 sets, daily range): BP systolic 135–163; BP diastolic 48–93; PULSE 68–83; RESP 16–18; TEMP 97.6–99.9; O2SAT 94–100
[2024-09-02 06:06] LABS: Basophils # (auto) 0.1 10 ^3/uL (0-0.2); Basophils % (auto) 0.7 % (0.0-2.0); Eosinophils # (auto) 0.9 10 ^3/uL (0-0.8); Hematocrit 26.6 % (36.0-46.0); Hemoglobin 9.2 g/dL (12.2-16.2); Lymphocytes # (auto) 1.9 10 ^3/uL (0.4-5.4); Lymphocytes % (auto) 15.6 % (10.0-50.0); Mean Corpuscular Hemoglobin 30.8 pg (28.0-32.0); Mean Corpuscular Hgb Conc. 34.6 g/dL (32.0-36.0); Mean Corpuscular Volume 88.9 fL (80.0-100.0); Monocytes # (auto) 1.3 10 ^3/uL (0-1.3); Monocytes % (auto) 10.2 % (0.0-12.0); Neutrophils # (auto) 8.2 10 ^3/uL (1.6-8.6); Neutrophils % (auto) 66.5 % (37.0-80.0); Nucleated Red Blood Cells % 0.1 %; Platelet Count (auto) 284 10^3/uL (140-450); Red Cell Distribution Width 15.9 % (11.8-14.3); White Blood Cell 12.4 10^3/uL (4.4-10.8)
[2024-09-02 06:15] LABS: Chloride 103 mmol/L (98-107); Potassium 3.7 mmol/L (3.5-5.1); Sodium 137 mmol/L (136-145)
[2024-09-02 06:16] LABS: Anion Gap 9 (5-15); Carbon Dioxide 25 mmol/L (20-31)
[2024-09-02 06:17] LABS: Calcium 9.2 mg/dL (8.7-10.4)
[2024-09-02 06:21] LABS: BUN/Creatinine Ratio 22.4 (10.0-20.0); Blood Urea Nitrogen 19 mg/dL (9-23)
[2024-09-02 06:32] LABS: Glucose 136 mg/dL (74-106)
[2024-09-02] MEDS: ALLOPURINOL 100 MG TAB PO ONE (11:50)
--- NOTE | 2024-09-02 12:40 | DVHPN2 ---
Subjective The patient is seen and examined at bedside. More alert awake today. Per son she is less confused than yesterday. Reviewed: Care Plan, H&P, Labs, Medications, Previous Orders, Radiology Changes from previous H/P or p: No Changes Objective Vitals Vital Signs Date Time Temp Pulse Resp B/P (MAP) Pulse Ox O2 Delivery O2 Flow Rate FiO2 09/02/24 11:57 76 138/98 09/02/24 11:32 18 100 09/02/24 11:25 Room Air 0.0 09/02/24 11:25 21 09/02/24 08:49 97.7 97.7 Intake/Output Intake and Output 09/02/24 07:00 Intake Total 460 ml Output Total 350 ml Balance 110 ml Intake Oral 360 ml IV Total 100 ml Output Urine Total 350 ml # Voids 2 # Bowel Movements 2 General Appearance: Alert, Cooperative, No acute distress HEENT: Atraumatic, PERRLA, EOMI, Mucous membr. moist/pink Neck: Supple Lungs: Clear to auscultation, Normal air movement Cardiovascular: Regular rate, Normal S1, Normal S2, No murmurs, Gallops, Rubs Abdomen: Normal bowel sounds, Soft, No tenderness Neuro: Cranial nerves 3-12 NL Psych/Mental Status: Mental status NL Medications Current Medications Medications Dose Ordered Sig/Celia Route Start Time Stop Time Status Last Admin Dose Admin Sodium Chloride 10 ml Q8HR IV 08/29/24 22:00 09/02/24 06:16 10 ML Dextrose 50 ml UD PRN IV 08/29/24 16:15 UNV Atorvastatin Calcium 20 mg HS PO 08/29/24 22:00 09/01/24 21:14 20 MG Duloxetine HCl 60 mg DAILY PO 08/30/24 10:00 09/02/24 10:54 60 MG Carvedilol 12.5 mg Q12HR PO 08/29/24 22:00 09/02/24 10:55 12.5 MG Losartan Potassium 50 mg DAILY PO 08/30/24 10:00 09/02/24 10:54 50 MG Hydralazine HCl 10 mg Q6HP PRN IV 08/29/24 16:15 09/02/24 06:09 10 MG Diagnostic Test (Pha) 1 strip ACHS 08/29/24 17:00 09/02/24 11:50 1 STRIP Insulin Human Regular HS SC 08/29/24 22:00 09/01/24 21:34 2 UNITS Insulin Human Regular AC SC 08/29/24 17:00 09/02/24 11:53 3 UNITS Dextrose 50 ml UD PRN IV 08/29/24 16:15 Albuterol 2.5 mg Q6HWA NEB 08/29/24 18:00 09/02/24 11:25 2.5 MG Ipratropium [place] 0.5 mg Q6HWA NEB 08/29/24 18:00 09/02/24 11:24 0.5 MG Albuterol 2.5 mg Q3HPRN PRN NEB 08/29/24 16:30 Ondansetron HCl 4 mg Q4HP PRN IV 08/30/24 12:30 Acetaminophen 650 mg Q6HP PRN PO 08/30/24 12:30 Morphine Sulfate 1 mg Q4HP PRN IV 08/30/24 12:30 08/31/24 09:38 1 MG Cyclobenzaprine HCl 10 mg TID PO 08/30/24 14:00 09/02/24 06:08 10 MG Docusate Sodium 100 mg BID PO 08/30/24 22:00 09/02/24 10:53 100 MG Acetaminophen/ Hydrocodone Bitart 1 tab Q4HPRN PRN PO 09/01/24 08:30 09/02/24 10:58 1 TAB Ceftriaxone Sodium 50 ml @ 100 mls/hr DAILY@09 IV 09/01/24 13:00 09/02/24 09:14 100 MLS/HR Allopurinol 50 mg DAILY PO 09/03/24 10:00 Laboratory Results Laboratory Tests 09/02/24 05:33 Chemistry Test 09/02/24 05:33 Calcium Level 9.2 mg/dL (8.7-10.4) Urinalysis Test 08/29/24 22:00 08/31/24 15:15 Urine Osmolality 318 mOsm/kg Urine Sodium 68 mmol/L (40-220) Urine Color Light-yellow (Yellow) Urine Clarity Clear (Clear) Urine pH 5.5 (5.0-9.0) Urine Specific [place] 1.011 (1.001-1.035) Urine Protein Negative (Negative) Urine Ketones Negative (Negative) Urine Blood Negative /uL (Negative) Urine Nitrite Negative (Negative) Urine Bilirubin Negative (Negative) Urine Urobilinogen Normal mg/dL (Negative) Urine Leukocyte Esterase Negative /uL (Negative) Urine RBC <1 /hpf (0 - 4) Urine Microscopic WBC < 1 /HPF (0-5) Urine Squamous Epithelial Cells Few /hpf (<5) Urine Bacteria None seen /hpf (None Seen) Urine Glucose 4+ mg/dL (Normal) H Labs and/or images reviewed: Labs reviewed by me Assessment/Plan Assessment/Plan Spinal cord compression and thoracic and lumbar fracture status post surgery Diabetes type 2 Hypokalemia Acute encephalopathy Leukocytosis Continuing current management. Continuing with sliding scale insulin Continuing with Rocephin 1 g IV daily. The patient's leukocytosis improved today. Continuing with physical therapy. Continuing with pain medication regimen. Discussed with son in length regarding to plan of care. This medical document was created using an electronic medical record system with [employer] direct computerized dictation system. Although this document has been carefully reviewed, there may still be some phonetic and typographical errors. These areas are purely typographical due to imperfections of the software programs, and do not reflect any compromise in the patient's medical care. Plan discussed with: Patient, Son My Orders Orders - VENKAT GARCIA MD Procedure Category Date Status Time Ceftriaxone 1gm/50ml PHA 09/01/24 In Process D5w (Rocephin) 13:00 Complete Blood Count LAB 09/03/24 Verified 05:00 Complete Blood Count LAB 09/04/24 Verified 05:00 Basic Metabolic Panel LAB 09/03/24 Verified 05:00 Basic Metabolic Panel LAB 09/04/24 Verified 05:00 Date of Service: Sep 02, 2024 Billing Provider: VENKAT GARCIA MD Common Visit Codes: [id number] INP/OBS CARE(HIGH) VENKAT GARCIA MD Sep 02, 2024 12:40
--- NOTE | 2024-09-02 20:00 | DVHPN2 ---
Progress Note - Surgical Date Seen: Sep 02, 2024 Post op day Post op day: 3 Subjective Patient reports: No new complaints, Feels better Review of Systems: HEENT:Normal, CVS:Normal, RESPIRATORY:Normal, GI:Normal, :Normal, MSK:Normal, NEURO:Normal Objective Vital signs Vital Sign Date Time Temp Pulse Resp B/P (MAP) Pulse Ox O2 Delivery O2 Flow Rate FiO2 09/02/24 18:06 69 18 100 09/02/24 18:00 Room Air* 0 21 09/02/24 16:30 98.1 143/58 (86) 98.1 Total Intake and Output 09/01/24 09/01/24 09/02/24 15:00 23:00 07:00 Intake Total 100 ml 120 ml 240 ml Output Total 350 ml Balance 100 ml 120 ml -110 ml Medications Current Medications Medications Dose Ordered Sig/Celia Route Start Time Stop Time Status Last Admin Dose Admin Sodium Chloride 10 ml Q8HR IV 08/29/24 22:00 09/02/24 14:12 10 ML Dextrose 50 ml UD PRN IV 08/29/24 16:15 UNV Atorvastatin Calcium 20 mg HS PO 08/29/24 22:00 09/01/24 21:14 20 MG Duloxetine HCl 60 mg DAILY PO 08/30/24 10:00 09/02/24 10:54 60 MG Carvedilol 12.5 mg Q12HR PO 08/29/24 22:00 09/02/24 10:55 12.5 MG Losartan Potassium 50 mg DAILY PO 08/30/24 10:00 09/02/24 10:54 50 MG Hydralazine HCl 10 mg Q6HP PRN IV 08/29/24 16:15 09/02/24 06:09 10 MG Diagnostic Test (Pha) 1 strip ACHS 08/29/24 17:00 09/02/24 17:11 1 STRIP Insulin Human Regular HS SC 08/29/24 22:00 09/01/24 21:34 2 UNITS Insulin Human Regular AC SC 08/29/24 17:00 09/02/24 17:12 3 UNITS Dextrose 50 ml UD PRN IV 08/29/24 16:15 Albuterol 2.5 mg Q6HWA NEB 08/29/24 18:00 09/02/24 18:20 2.5 MG Ipratropium [place] 0.5 mg Q6HWA NEB 08/29/24 18:00 09/02/24 18:20 0.5 MG Albuterol 2.5 mg Q3HPRN PRN NEB 08/29/24 16:30 Ondansetron HCl 4 mg Q4HP PRN IV 08/30/24 12:30 Acetaminophen 650 mg Q6HP PRN PO 08/30/24 12:30 Morphine Sulfate 1 mg Q4HP PRN IV 08/30/24 12:30 08/31/24 09:38 1 MG Cyclobenzaprine HCl 10 mg TID PO 08/30/24 14:00 09/02/24 14:12 10 MG Docusate Sodium 100 mg BID PO 08/30/24 22:00 09/02/24 10:53 100 MG Acetaminophen/ Hydrocodone Bitart 1 tab Q4HPRN PRN PO 09/01/24 08:30 09/02/24 10:58 1 TAB Ceftriaxone Sodium 50 ml @ 100 mls/hr DAILY@09 IV 09/01/24 13:00 09/02/24 09:14 100 MLS/HR Allopurinol 50 mg DAILY PO 09/03/24 10:00 Laboratory Laboratory Tests 09/02/24 05:33 Test 09/02/24 05:33 Range/Units Serum Glucose 136 H 74-106 mg/dL Examination: GENERAL:Normal, HEENT:Normal, NECK:Normal, LUNGS:Normal, CVS:Normal, ABDOMEN:Normal, MSK:Normal (Patient up ambulating today using a walker), SKIN:Normal (Drain intact ale dressing intact), NEURO:Normal, :Normal Problem List/Assessment/Plan Problems: (1) Postoperative pain after spinal surgery (2) Muscle spasm of back Assessment and Plan POD # 3 Events of the day Drain output is low and we will be discontinued today continue to sit at edge of bed for meals, work with PT.- patient up ambulating in room upon assessment today with walker Patient is progressing as expected Patient is cleared from a spine surgery perspective to be discharged Follow up appointment: with Dr Montague on two weeks postoperatively [id number] [address] [address] [place] [id number] -Pain: - P.O. analgesics:Tylenol 650MG (PAIN 1-3) [place] 10/325 mg (PAIN 4-6) - Muscle relaxers scheduled administration. This is a beneficial medications for the incisional pain as it is mostly related to muscle spasms. Flexeril 10 mg TID - Cepacol throat lozenges as needed for sore throat -Antibiotics Operative recommendations: -Postoperative dose: Completed -DVT PPX: -Hold all chemical DVT/ blood thinners for 14 days postoperatively -use mechanical DVT PPX such as SCD's, ambulation -Activity: -Pending PT evaluation and patients progression -Sit at side of bed for meals -Goal: Ambulate independently and safely (may use assistive devices if needed) -Medical Therapy goals: -Afebrile- Patient may develop a expected post operative fever by day 2-3, this may not be accompanied with a elevation in WBC. if fever develops: Acetaminophen for fever. Albuterol nebulizer Tx every 12 hours for 24 hours to facilitate adequate lung expansion and prevent development of atelectasis. -Euglycemic: bloods sugars under 130mmol/L for optimal healing -Normotensive: Avoid events of hypertension. This helps to keep post operative healing intact and avoids destabilization of beneficial hemostatic coagulation. -Lumbar: -If patient is comfortable encouraged the patient to lay on their side to facilitate wound healing -Dressings Take care not to disrupt the ALE dressing seal. If there is a break in the seal it can be trouble shot with a Tegaderm dressing. -Dressing to Hemovac drains may be changed once the drains have been removed by the provider. -Bowel management: -Colace 100mg bid -Diet: -tolerating -Incentive Spirometer: -10 x hour while awake, RN please educate and observe repeat demonstration, have IS at bedside POD #1 -Consults: -Physical Therapy evaluation, treatment recommendations, and discharge recommendations Call with questions Amrik Hernadez ACNP- Orthopaedic Spine Surgery nurse practitioner For Dr Garrett Montague Patient was examined, chart reviewed, labs evaluated, and diagnostic studies and findings analyzed. Case was discussed with Dr. Tristan Montague who formulated the plan of care. This medical document was created using an electronic medical record system with [employer] system. Although this document has been carefully reviewed, there might still be some phonetic and typographical errors. These areas are purely typographical due to imperfections of the software programs, and do not reflect any compromise in the patient's medical care. Plan discussed with Plan discussed with: Patient, Other (paul x [id number]) Visit Coding Surgery Date of Service if different f: Sep 02, 2024 Billing Provider: JAVON HERNADEZ NP Surgery Visit Codes: NOT BILLABLE JAVON HERNADEZ NP Sep 02, 2024 20:00
[2024-09-03] VITALS (14 sets, daily range): BP systolic 120–176; BP diastolic 47–77; PULSE 69–85; RESP 14–20; TEMP 97.5–98.2; O2SAT 95–100
[2024-09-03 06:51] LABS: Anion Gap 7 (5-15); Carbon Dioxide 26 mmol/L (20-31); Chloride 104 mmol/L (98-107); Potassium 3.6 mmol/L (3.5-5.1); Sodium 137 mmol/L (136-145)
[2024-09-03 06:57] LABS: BUN/Creatinine Ratio 19.4 (10.0-20.0); Basophils # (auto) 0.1 10 ^3/uL (0-0.2); Basophils % (auto) 0.9 % (0.0-2.0); Blood Urea Nitrogen 18 mg/dL (9-23); Eosinophils % (auto) 8.3 % (0.0-7.0); Lymphocytes % (auto) 16.7 % (10.0-50.0); Mean Corpuscular Hemoglobin 30.2 pg (28.0-32.0); Mean Corpuscular Hgb Conc. 34.7 g/dL (32.0-36.0); Mean Corpuscular Volume 87.1 fL (80.0-100.0); Monocytes # (auto) 1.3 10 ^3/uL (0-1.3); Monocytes % (auto) 11.2 % (0.0-12.0); Neutrophils # (auto) 7.5 10 ^3/uL (1.6-8.6); Neutrophils % (auto) 62.9 % (37.0-80.0); Nucleated Red Blood Cells % 0.1 %; Platelet Count (auto) 317 10^3/uL (140-450); Red Blood Cells 2.99 10^6/uL (4.0-5.20)
[2024-09-03 07:03] LABS: Glucose 113 mg/dL (74-106)
[2024-09-03] MEDS: ALLOPURINOL 100 MG TAB PO SCH (09:21)
--- NOTE | 2024-09-03 11:28 | DVHPN2 ---
Progress Note Date Seen: Sep 03, 2024 Medical Necessity Reason Pt with a Central, PICC or Fol: No Subjective Patient reports: No new complaints Review of Systems: HEENT:Normal, CVS:Normal, RESPIRATORY:Normal, GI:Normal, :Normal, MSK:Normal, NEURO:Normal Objective vital signs Vital Sign Date Time Temp Pulse Resp B/P (MAP) Pulse Ox O2 Delivery O2 Flow Rate FiO2 09/03/24 09:40 176/61 09/03/24 09:24 69 09/03/24 09:00 98.2 16 96 98.2 09/03/24 06:05 Room Air* 0 21 Total Intake and Output 09/02/24 09/02/24 09/03/24 15:00 23:00 07:00 Intake Total 50 ml 360 ml 150 ml Output Total 40 ml 300 ml Balance 50 ml 320 ml -150 ml medications Current Medications Medications Dose Ordered Sig/Celia Route Start Time Stop Time Status Last Admin Dose Admin Sodium Chloride 10 ml Q8HR IV 08/29/24 22:00 09/03/24 06:04 10 ML Dextrose 50 ml UD PRN IV 08/29/24 16:15 UNV Atorvastatin Calcium 20 mg HS PO 08/29/24 22:00 09/02/24 21:53 20 MG Duloxetine HCl 60 mg DAILY PO 08/30/24 10:00 09/03/24 09:22 60 MG Carvedilol 12.5 mg Q12HR PO 08/29/24 22:00 09/03/24 09:24 12.5 MG Losartan Potassium 50 mg DAILY PO 08/30/24 10:00 09/03/24 09:40 50 MG Hydralazine HCl 10 mg Q6HP PRN IV 08/29/24 16:15 09/03/24 09:23 10 MG Diagnostic Test (Pha) 1 strip ACHS 08/29/24 17:00 09/03/24 06:05 1 STRIP Insulin Human Regular HS SC 08/29/24 22:00 09/02/24 21:56 3 UNITS Insulin Human Regular AC SC 08/29/24 17:00 09/02/24 17:12 3 UNITS Dextrose 50 ml UD PRN IV 08/29/24 16:15 Albuterol 2.5 mg Q6HWA NEB 08/29/24 18:00 09/03/24 06:07 2.5 MG Ipratropium Rheems 0.5 mg Q6HWA NEB 08/29/24 18:00 09/03/24 06:07 0.5 MG Albuterol 2.5 mg Q3HPRN PRN NEB 08/29/24 16:30 Ondansetron HCl 4 mg Q4HP PRN IV 08/30/24 12:30 Acetaminophen 650 mg Q6HP PRN PO 08/30/24 12:30 Morphine Sulfate 1 mg Q4HP PRN IV 08/30/24 12:30 08/31/24 09:38 1 MG Cyclobenzaprine HCl 10 mg TID PO 08/30/24 14:00 09/03/24 06:03 10 MG Docusate Sodium 100 mg BID PO 08/30/24 22:00 09/03/24 09:21 100 MG Acetaminophen/ Hydrocodone Bitart 1 tab Q4HPRN PRN PO 09/01/24 08:30 09/03/24 09:22 1 TAB Ceftriaxone Sodium 50 ml @ 100 mls/hr DAILY@09 IV 09/01/24 13:00 09/03/24 09:21 100 MLS/HR Allopurinol 50 mg DAILY PO 09/03/24 10:00 09/03/24 09:21 50 MG Examination: GENERAL:Normal, HEENT:Normal, NECK:Normal, LUNGS:Normal, CVS:Normal, ABDOMEN:Normal, MSK:Normal, MSK:Abnormal (lumber dressing), SKIN:Normal, NEURO:Normal, :Normal laboratory and microbiology Laboratory Tests 09/03/24 05:21 Test 09/03/24 05:21 Range/Units Serum Glucose 113 H 74-106 mg/dL Problem List/Assessment/Plan Problem List/Assessment/Plan * Status post fall with lower back/pelvic pain/lumber fractures s/p surgery: pt, pain meds * Diabetes mellitus for which she will be placed on sliding scale insulin. * Hypertension for which she will be continued on Coreg, resume home meds * Depression/anxiety. * Hyperlipidemia. * Gout. * obesity advance care planning- full code-time spent 19 mins Plan discussed with: Patient, Son My Orders My Orders Orders - FITO PARRY MD Procedure Category Date Status Time Losartan Tablet PHA 09/03/24 Transmitted (Cozaar Tablet) 22:00 Amlodipine Tablet PHA 09/03/24 Transmitted (Norvasc Tablet) 11:30 Amlodipine Tablet PHA 09/04/24 Transmitted (Norvasc Tablet) 10:00 * Manager Inventory Management CONS 09/03/24 Transmitted Consult Dietary Evaluation Review Comments: Wt reduction diet for reducing weight-bearing Expected Outcomes/Goals: gradual loss Date of Service: Sep 03, 2024 Billing Provider: FITO PARRY MD Common Visit Codes: [id number] INP/OBS CARE(HIGH) Secondary Visit Codes: [id number] CARE PLAN 30 MINUTES FITO PARRY MD Sep 03, 2024 11:28
[2024-09-03] MEDS: amLODIPine BESYLATE 5 MG TAB PO ONE (18:03)
[2024-09-03] MEDS: LOSARTAN POTASSIUM 50 MG TAB PO SCH (21:13)
[2024-09-04] VITALS (13 sets, daily range): BP systolic 134–158; BP diastolic 47–69; PULSE 70–84; RESP 14–20; TEMP 97.6–98.8; O2SAT 17–100
[2024-09-04 06:39] LABS: Basophils # (auto) 0.1 10 ^3/uL (0-0.2); Basophils % (auto) 0.7 % (0.0-2.0); Eosinophils # (auto) 0.8 10 ^3/uL (0-0.8); Eosinophils % (auto) 5.7 % (0.0-7.0); Hemoglobin 9.2 g/dL (12.2-16.2); Lymphocytes % (auto) 14.5 % (10.0-50.0); Mean Corpuscular Hgb Conc. 34.2 g/dL (32.0-36.0); Mean Corpuscular Volume 87.7 fL (80.0-100.0); Monocytes # (auto) 1.7 10 ^3/uL (0-1.3); Monocytes % (auto) 12.5 % (0.0-12.0); Neutrophils # (auto) 8.9 10 ^3/uL (1.6-8.6); Neutrophils % (auto) 66.6 % (37.0-80.0); Nucleated Red Blood Cells % 0.1 %; Platelet Count (auto) 360 10^3/uL (140-450); Red Blood Cells 3.07 10^6/uL (4.0-5.20); Red Cell Distribution Width 15.7 % (11.8-14.3); White Blood Cell 13.4 10^3/uL (4.4-10.8)
[2024-09-04 06:50] LABS: Anion Gap 7 (5-15); Carbon Dioxide 26 mmol/L (20-31); Chloride 102 mmol/L (98-107); Potassium 4.1 mmol/L (3.5-5.1)
[2024-09-04 06:51] LABS: Calcium 8.9 mg/dL (8.7-10.4)
[2024-09-04 06:56] LABS: Blood Urea Nitrogen 13 mg/dL (9-23)
[2024-09-04 07:08] LABS: Glucose 204 mg/dL (74-106); Sodium 135 mmol/L (136-145)
[2024-09-04] MEDS: amLODIPine BESYLATE 5 MG TAB PO SCH (09:15)
--- NOTE | 2024-09-04 13:07 | DVHPN2 ---
Subjective Patient seen and examined at bedside, Was found sitting on the floor. Patient was able to get able and walk in the hallways without difficulty, denies any LOC, dizziness, headaches. Reviewed: Care Plan, H&P, Labs, Medications, Previous Orders, Radiology Changes from previous H/P or p: No Changes Objective Vitals Vital Signs Date Time Temp Pulse Resp B/P (MAP) Pulse Ox O2 Delivery O2 Flow Rate FiO2 09/04/24 11:14 78 14 100 09/04/24 11:07 Room Air* 0 21 09/04/24 09:16 151/59 09/04/24 09:00 98.1 98.1 Intake/Output Intake and Output 09/04/24 07:00 Intake Total 1272 ml Balance 1272 ml Intake Oral 1272 ml # Voids 3 # Bowel Movements 2 Exam Gen: in bed NAD Neck: Supple, Heme Drain Cvs: N S1/S2, RRR Resp: Diminished b/l Abd: Distended Boring Inspector: AAO x 3 General Appearance: Alert, Cooperative, No acute distress HEENT: Atraumatic, PERRLA, EOMI, Mucous membr. moist/pink Neck: Supple Lungs: Clear to auscultation, Normal air movement Cardiovascular: Regular rate, Normal S1, Normal S2, No murmurs, Gallops, Rubs Abdomen: Normal bowel sounds, Soft, No tenderness Extremities: Normal pulses Neuro: Cranial nerves 3-12 NL Psych/Mental Status: Mental status NL Medications Current Medications Medications Dose Ordered Sig/Celia Route Start Time Stop Time Status Last Admin Dose Admin Sodium Chloride 10 ml Q8HR IV 08/29/24 22:00 09/04/24 06:08 10 ML Dextrose 50 ml UD PRN IV 08/29/24 16:15 UNV Atorvastatin Calcium 20 mg HS PO 08/29/24 22:00 09/03/24 21:13 20 MG Duloxetine HCl 60 mg DAILY PO 08/30/24 10:00 09/03/24 09:22 60 MG Carvedilol 12.5 mg Q12HR PO 08/29/24 22:00 09/04/24 09:16 12.5 MG Hydralazine HCl 10 mg Q6HP PRN IV 08/29/24 16:15 09/04/24 04:29 10 MG Diagnostic Test (Pha) 1 strip ACHS 08/29/24 17:00 09/04/24 06:07 1 STRIP Insulin Human Regular HS SC 08/29/24 22:00 09/02/24 21:56 3 UNITS Insulin Human Regular AC SC 08/29/24 17:00 09/04/24 12:01 3 UNITS Dextrose 50 ml UD PRN IV 08/29/24 16:15 Albuterol 2.5 mg Q6HWA NEB 08/29/24 18:00 09/04/24 11:07 2.5 MG Ipratropium Peever 0.5 mg Q6HWA NEB 08/29/24 18:00 09/04/24 11:07 0.5 MG Albuterol 2.5 mg Q3HPRN PRN NEB 08/29/24 16:30 Ondansetron HCl 4 mg Q4HP PRN IV 08/30/24 12:30 Acetaminophen 650 mg Q6HP PRN PO 08/30/24 12:30 Morphine Sulfate 1 mg Q4HP PRN IV 08/30/24 12:30 09/03/24 23:52 1 MG Cyclobenzaprine HCl 10 mg TID PO 08/30/24 14:00 09/04/24 06:07 10 MG Docusate Sodium 100 mg BID PO 08/30/24 22:00 09/04/24 09:16 100 MG Acetaminophen/ Hydrocodone Bitart 1 tab Q4HPRN PRN PO 09/01/24 08:30 09/04/24 12:00 1 TAB Ceftriaxone Sodium 50 ml @ 100 mls/hr DAILY@09 IV 09/01/24 13:00 09/03/24 09:21 100 MLS/HR Allopurinol 50 mg DAILY PO 09/03/24 10:00 09/04/24 09:16 50 MG Losartan Potassium 50 mg BID PO 09/03/24 22:00 09/03/24 21:13 50 MG Amlodipine Besylate 5 mg DAILY PO 09/04/24 10:00 09/04/24 09:15 5 MG Laboratory Results Laboratory Tests 09/04/24 05:08 Chemistry Test 09/04/24 05:08 Calcium Level 8.9 mg/dL (8.7-10.4) Urinalysis Test 08/29/24 22:00 08/31/24 15:15 Urine Osmolality 318 mOsm/kg Urine Sodium 68 mmol/L (40-220) Urine Color Light-yellow (Yellow) Urine Clarity Clear (Clear) Urine pH 5.5 (5.0-9.0) Urine Specific [place] 1.011 (1.001-1.035) Urine Protein Negative (Negative) Urine Ketones Negative (Negative) Urine Blood Negative /uL (Negative) Urine Nitrite Negative (Negative) Urine Bilirubin Negative (Negative) Urine Urobilinogen Normal mg/dL (Negative) Urine Leukocyte Esterase Negative /uL (Negative) Urine RBC <1 /hpf (0 - 4) Urine Microscopic WBC < 1 /HPF (0-5) Urine Squamous Epithelial Cells Few /hpf (<5) Urine Bacteria None seen /hpf (None Seen) Urine Glucose 4+ mg/dL (Normal) H Assessment/Plan Assessment/Plan # Spinal Compression and Thoracic and Lumbar Fracture - Surgery by Dr. Montague # DM2 A1c 6.5 - SSI # Hypokalemia - Supplement # AAYUSH due to VMN - Monitor Plan discussed with: Patient Date of Service: Sep 04, 2024 Billing Provider: AIMEE ALMAZAN MD Common Visit Codes: [id number] INP/OBS CARE(HIGH) AIMEE ALMAZAN MD Sep 04, 2024 13:07
--- NOTE | 2024-09-04 15:39 | DVH ---
Exam: CT HEAD WITHOUT CONTRAST History: fall Technique: [address] images through the posterior fossa and the supratentorial compart ment were acquired without contrast and imaged using soft tissue and bone algorithms. RADIATION DOSE: DLP 1191.81 mGy.cm; CTDI vol 60.48 mGy. Comparison: None Findings: There is no evidence of an intracranial hemorrhage, acute large vessel infarct, mass effect, or midli ne shift. There is mild cerebral atrophy. Marked calcification of the carotid siphons. The calvarium, orbits, paranasal sinuses, sella, middle ears, and mastoids are unremarkable. Mild left suboccipital soft tissue edema. Impression: 1. No acute intracranial abnormality. 2. Mild left suboccipital soft tissue edema.
--- NOTE | 2024-09-04 15:42 | DVH ---
INDICATION: S/P FALL COMPARISON: None TECHNIQUE: 3 views of the lumbar spine were obtained. FINDINGS: The lumbar vertebral alignment is normal. Status post kyphoplasty of the L4 and T12 vertebral bodies. Chronic compression fracture involving t he L1 vertebral body. Postsurgical changes with fusion at T10-T11 through L2. No acute fracture, vertebral compression deformity or aggressive osseous lesions. The paravertebral soft tissues are grossly unremarkable. IMPRESSION: No acute fracture.
[2024-09-05] VITALS (12 sets, daily range): BP systolic 108–168; BP diastolic 42–65; PULSE 4–97; RESP 16–20; TEMP 97.7–98.9; O2SAT 90–100
[2024-09-05] MEDS: cloNIDine HCL 0.1 MG TAB PO PRN (01:05)
[2024-09-05] MEDS: OLANZapine 5 MG TAB PO ONE (06:49)
--- NOTE | 2024-09-05 12:36 | DVH ---
EXAM: CT HEAD WITHOUT CONTRAST HISTORY: ALOC COMPARISON: CT HEAD WITHOUT CONTRAST on DOS: 09/04/24 TECHNIQUE: Axial images of the head were obtained and reformatted in coronal and sagittal planes. All CT scans at this medical facility are performed using dose modulation techniques as appropriate t o a performed exam including the following: Automated exposure control was utilized; adjustment of th e MA and/or KV according to patient size; and use of iterative reconstruction technique. CT Dose: CTDI volume is 53 mGy. Dose-length product is 908 mGy*cm FINDINGS: There is no evidence of acute intracranial hemorrhage, mass, mass effect midline shift. There is no h ydrocephalus or extra-axial fluid collection. Altman-white matter differentiation is maintained. The visualized paranasal sinuses and mastoid air cells are clear. The calvarium is intact. IMPRESSION: 1. No acute intracranial process. HS:Y
--- NOTE | 2024-09-05 13:34 | DVHDS2 ---
Discharge Summary Date of Admission Aug 29, 2024 at 13:22 Date of Discharge: Sep 05, 2024 Admitting Diagnosis 1. Thoracic 12 and Lumbar 4 compression fractures 2. Lumbar 1 burst fracture with biomechanical instability Labs/Diagnostic Data: Laboratory Results Test 09/05/24 11:54 09/04/24 05:08 08/31/24 15:15 08/31/24 04:53 POC Glucose 209 mg/dl (70-106) White Blood Count 13.4 10^3/uL (4.4-10.8) Red Blood Count 3.07 10^6/uL (4.0-5.20) Hemoglobin 9.2 g/dL (12.2-16.2) Hematocrit 27.0 % (36.0-46.0) Mean Corpuscular Volume 87.7 fL (80.0-100.0) Mean Corpuscular Hemoglobin 30.0 pg (28.0-32.0) Mean Corpuscular Hemoglobin Concent 34.2 g/dL (32.0-36.0) Red Cell Distribution Width 15.7 % (11.8-14.3) Platelet Count 360 10^3/uL (140-450) Mean Platelet Volume 7.4 fL (6.9-10.8) Neutrophils (%) (Auto) 66.6 % (37.0-80.0) Lymphocytes (%) (Auto) 14.5 % (10.0-50.0) Monocytes (%) (Auto) 12.5 % (0.0-12.0) Eosinophils (%) (Auto) 5.7 % (0.0-7.0) Basophils (%) (Auto) 0.7 % (0.0-2.0) Neutrophils # (Auto) 8.9 10 ^3/uL (1.6-8.6) Lymphocytes # (Auto) 2.0 10 ^3/uL (0.4-5.4) Monocytes # (Auto) 1.7 10 ^3/uL (0-1.3) Eosinophils # (Auto) 0.8 10 ^3/uL (0-0.8) Basophils # (Auto) 0.1 10 ^3/uL (0-0.2) Nucleated Red Blood Cells 0.1 % Sodium Level 135 mmol/L (136-145) Potassium Level 4.1 mmol/L (3.5-5.1) Chloride Level 102 mmol/L (98-107) Carbon Dioxide Level 26 mmol/L (20-31) Anion Gap 7 (5-15) Blood Urea Nitrogen 13 mg/dL (9-23) Creatinine 1.00 mg/dL (0.550-1.02) Glomerular Filtration Rate Calc 57 mL/min (>90) BUN/Creatinine Ratio 13.0 (10.0-20.0) Serum Glucose 204 mg/dL (74-106) Calcium Level 8.9 mg/dL (8.7-10.4) Urine Color Light-yellow (Yellow) Urine Clarity Clear (Clear) Urine pH 5.5 (5.0-9.0) Urine Specific [place] 1.011 (1.001-1.035) Urine Protein Negative (Negative) Urine Ketones Negative (Negative) Urine Blood Negative /uL (Negative) Urine Nitrite Negative (Negative) Urine Bilirubin Negative (Negative) Urine Urobilinogen Normal mg/dL (Negative) Urine Leukocyte Esterase Negative /uL (Negative) Urine RBC <1 /hpf (0 - 4) Urine Microscopic WBC < 1 /HPF (0-5) Urine Squamous Epithelial Cells Few /hpf (<5) Urine Bacteria None seen /hpf (None Seen) Urine Glucose 4+ mg/dL (Normal) Magnesium Level 2.1 mg/dL (1.6-2.6) Test 08/29/24 22:00 08/29/24 16:36 Urine Osmolality 318 mOsm/kg Urine Sodium 68 mmol/L (40-220) Prothrombin Time 9.8 sec (9.3-11.8) Prothrombin Time INR 0.92 (0.9-1.15) Activated Partial Thromboplast Time 25.1 SEC (24.5-34.5) Hemoglobin A1c 6.5 % A1C (<5.7) Total Bilirubin 0.2 mg/dL (0.2-1.0) Aspartate Amino Transferase (AST) 23 U/L (13-40) Alanine Aminotransferase (ALT) 25 U/L (7-40) Alkaline Phosphatase 165 U/L (46-116) Total Protein 6.5 g/dL (5.7-8.2) Albumin 4.2 g/dL (3.2-4.8) Thyroid Stimulating Hormone (TSH) 3.65 uIU/mL (0.55-4.78) Other Laboratory Tests 09/04/24 05:08 Brief Hx & Hospital Course: This is a pleasant Croatian-speaking mostly 79-year-old female who was admitted directly to the hospital floor for a chief complaint of lower back pain. The patient reports she slipped and fell in the shower approximally a month ago. Since then she has experienced back pain with a possible lower spine fracture. Cardiology team consulted for cardiac risk stratification prior to possible surgical intervention. Patient underwent surgery, see report below. Patient is having episodes of confusion, possible hospital delirium vs effect of opioids. Patient will be discharged home. Operations or Procedures Report Details Date: 08/30/24 Preop Diagnosis: thoracic 12 and lumbar 4 compression fractures and lumbar 1 burst fracture with biomechanical instability Postop Diagnosis: same Surgeon: Tristan Montague MD Anesthesiologist: rena Anesthesia: General Consent: The patient was informed of the risks and benefits of the procedure. These include but are not limited to complications of anesthesia, postoperative infection, incomplete relief of symptoms, recurrence of symptoms, damage to blood vessels, nerves and tendons, deep venous thrombosis, pulmonary embolism and possible need for repeat surgery in the future. Name of Procedure Performed see detailed note Procedure Details Procedure Details: Pre-op Diagnosis: 1. Thoracic 12 and Lumbar 4 compression fractures 2. Lumbar 1 burst fracture with biomechanical instability Post-op Diagnosis: same as pre op Procedure: ORIF lumbar 1 burst fracture Thoracic 10 to lumbar 2 posterior spinal fusion Lumbar 1 laminectomy with lumbar 1 foraminotomies/facetectomies to decompress central canal and lumbar 1 nerve roots Thoracic 12 laminectomy with thoracic 12 foraminotomies and facetectomies to decompress central canal and thoracic 12 nerve roots. Thoracic 12 kyphoplasty Lumbar 4 kyphoplasty Thoracic 10 to lumbar 2 posterior spinal instrumentation with pedicle screws; extant spine 7. Autograft bone for fusion 8. Allograft bone Bacteria to augment fusion 9. De-mineralized bone matrix to augment fusion 10. Microscope for micro dissection Surgeon: Dr. Montague Assist: none Anesthesia: General Fluids and EBL: See anesthesia note Patient was seen in the Pre Anesthesia Care Unit (PACU) and the operative site was initialed by me. All questions were answered to the patients satisfaction and chart reviewed. The patient was taken to the operative room where pre- operative antibiotics were given 30 minutes prior to incision. General anesthesia was induced and neuro-monitoring leads placed. Mcghee catheter was placed. The patient was turned prone onto the OSI-Simon spinal table. While positioning, I made sure that the belly was free to allow proper expansion of the lungs. The hips were extended and all bony prominences padded. The shoulders were abducted 80 degree and the elbows flexed 100 degrees with no tension on the brachial plexus. I check the foot arterial pulses and they were palpable. The old surgical scar was marked with a marker prior to prepping and draping. The patient was prepped and draped and time out was taken at this time per usual protocol. At this time, the C-arm fluoroscope was brought in and was used to koby the incision borders proximally and distally. Next I for perfect AP views of the thoracic 12 pedicles and used 11 blade to make stab incision over the superior lateral aspect bilaterally and placed Jamshidi needles into each body. I did the same process at the Lumbar 4 site to treat the lumbar 4 compression fracture. All 4 jamshidi sites then had me placed a balloon to inflate to 3 cc bilaterally and the cement was mixed and then after baloon deflation, I injected 3cc cement into each Jamshidi site to treat the thoracic 12 and lumbar 4 compression fractures. Next, using a Number 10 Blade, an incision was made extending it proximally and distally per C arm koby from the posterior spinous process of lumbar 3 down to lumbar 5 , down to the thoraco-lumbo dorsal fascia. All bleeding was controlled with electrocautery. Self-retaining retractors were placed. Electrocautery was then used to take down the lumbo-dorsal fascia, to free the muscle off the bone bilaterally where the tissue was virgin. A Vin retractor was placed over the posterior spinous process proximally and a lateral C-arm fluoroscope image was taken to insure we were at the correct level. Next, dissection through the prior surgical site was started at virgin tissue and the deep back muscles were taken down as deep as possible while avoiding getting too close to the dura and avoiding being too shallow to cause nerve injury and bleeding. Next, using bovie electro cautery, The deep fascia laterally to the facet joints was removed to expose the transverse processes of thoracic 10, 11,12, lumbar 1 and 2 while taking care to avoid injuring the facet capsule at the proximal end of the incision. Next, the microscope was bought in for visualization and using a Luxell rongeur, the posterior spinous process of lumbar 3,4,and remnants of lumbar 5 removed and the bone was saved for use as local autograft. I used alternating Kerison 2 mm and 3 mm rongeurs to perform lumbar 1 and thoracic 12 and bilateral laminotomies/foraminotomies and facetectomies to revise the decompression of the central canal and lateral recesses and foramen to decompress the bilateral thoracic 12 and lumbar 1 nerve roots and central canal. Next I carefully inspected the dura to make sure no durotomy was visible and it was not. I covered the exposed dura with gelfoam soaked in thrombin and the microscope was wheeled away from the operative filed. The C-arm fluoroscope was brought in and perfect AP views of the thoracic 10, 11 and lumbar 2 pedicle were obtained. I placed bilateral pedicle screws at this levels by: using a Lenke awl to make a pilot safety inspector hole, then a ball tip robe to make sure there was no pedicle breach, then a tap to prepare the track and a 6.5 mm diameter 40 mm length pedicle was placed bilaterally and thoracic 10 and 11 and 6.5 X45 at lumbar 2. Next, the c- arm fluoroscope took an AP and lateral x-ray to ensure proper placement of the pedicle screws. Next, the neuro-stimulation probe was placed over the tip of each screw and each screw stimulated only after a current greater than 10 mA was delivered to the screw. Next , I took a Midas Luis E Drill to decorticate the transverse process which were exposed and local bone graft, Bacterin allograft bone substitute and Demineralized bone matrix were placed along the inter transverse process intervals bilaterally (the fusion bed). Next a curved franko sized to fit the pedicle screw interval was placed and secured to each pedicle screw using set screws, The set screws were tighten using a torque screwdriver (set to 10 N*M torque) to secure the franko to the pedicle screws bilaterally. Final AP and lateral C arm fluoroscopic films were taken at this time. Next a 10 English diameter Hemovac drain was laced deep to the lumbo-dorsal fascia. The lumbo-dorsal fascia was closed with interrupted 0-Vicry sutures. The subcutaneous tissue was closed with interrupted 2-0 Vicryl sutures. The skin was closed with 2-0 nylon subcuticular suture. Sterile dressings were place. The pt. was turned supine onto the stretcher, extubated and taken to the recovery room in stable condition. Additional Notes: [employer]UMENT[employer] Condition Stable Condition at Discharge: Poor Final Diagnosis/Problems List 1. Thoracic 12 and Lumbar 4 compression fractures 2. Lumbar 1 burst fracture with biomechanical instability Discharge Disposition: Home Discharge Instruct/Medications Diet: Regular Activity: Light activity Follow Up/Referral: Dr. Montague Medications: Resume Home Meds Discharge Statement: "Patient was advised to return to the ER or call 911 if any headaches, dizziness, shortness of breath, chest pain, abdominal pain, bleeding, fevers, or worsening of medical condition. Patient was counseled about treatment plan, medications, possible side effects, patientverbalized understanding. All questions were answered to the best of my ability. This discharge took greater then 30 minutes in planning, reviewing documentation, counseling the patient, and discussing with other team members." ASSESSMENT ASSESSMENT Assessment same Date of Service: Sep 05, 2024 Billing Provider: AIMEE ALMAZAN MD Common Visit Codes: 49689-UCD/OBS DISCH DAY >30min AIMEE ALMAZAN MD Sep 05, 2024 13:34
--- NOTE | 2024-09-05 14:08 | PRN ---
Misceleneous Note Note Note Made aware that patient had a fall in the evening on 09/04/2024 Ordered x-rays lumbar to evaluate surgical hardware placement X-rays reviewed today surgical hardware is determined to be in adequate position No other findings Patient able to get discharge from a spine surgery perspective with no barriers Call with questions Amrik Hernadez [facility] Orthopaedic Spine Surgery nurse practitioner For Dr Garrett Montague Patient was examined, chart reviewed, labs evaluated, and diagnostic studies and findings analyzed. Case was discussed with Dr. Tristan Montague who formulated the plan of care. This medical document was created using an electronic medical record system with [employer] dictation system. Although this document has been carefully reviewed, there might still be some phonetic and typographical errors. These areas are purely typographical due to imperfections of the software programs, and do not reflect any compromise in the patient's medical care. JAVON HERNADEZ NP Sep 05, 2024 14:08
== END 2024-09-05 16:30 | disposition home health service (06) | DRG 447 ==
LOC: OVERFLOW 13:22 → CENTRAL 13:43 → TELE-CENTR 08-30 17:44 → CENTRAL 08-30 19:12 → TELE-CENTR 09-04 06:15 → CENTRAL 09-04 21:20
PROVIDERS: ADMIT Internal Medicine; ATTEND Internal Medicine
PROC: 0RGA071 Fusion of Thoracolumbar Vertebral Joint with Autologous Tissue Substitute, Posterior Approach, Posterior Column, Open Approach (ICD-10-PCS; 2024-08-30)
PROC: 01N80ZZ Release Thoracic Nerve, Open Approach (ICD-10-PCS; 2024-08-30)
PROC: 01NB0ZZ Release Lumbar Nerve, Open Approach (ICD-10-PCS; 2024-08-30)
PROC: 00NY0ZZ Release Lumbar Spinal Cord, Open Approach (ICD-10-PCS; 2024-08-30)
PROC: 0QU00JZ Supplement Lumbar Vertebra with Synthetic Substitute, Open Approach (ICD-10-PCS; 2024-08-30)
PROC: 00NX0ZZ Release Thoracic Spinal Cord, Open Approach (ICD-10-PCS; 2024-08-30)
PROC: 0QS004Z Reposition Lumbar Vertebra with Internal Fixation Device, Open Approach (ICD-10-PCS; 2024-08-30)
PROC: 4A11X4G Monitoring of Peripheral Nervous Electrical Activity, Intraoperative, External Approach (ICD-10-PCS; 2024-08-30)
PROC: 0RG7071 Fusion of 2 to 7 Thoracic Vertebral Joints with Autologous Tissue Substitute, Posterior Approach, Posterior Column, Open Approach (ICD-10-PCS; principal; 2024-08-30 12:03)
PROC: 0SG0071 Fusion of Lumbar Vertebral Joint with Autologous Tissue Substitute, Posterior Approach, Posterior Column, Open Approach (ICD-10-PCS; 2024-08-30 12:03)
DX: S32.011A Stable burst fracture of first lumbar vertebra, initial encounter for closed fracture (principal); N17.0 Acute kidney failure with tubular necrosis; G95.29 Other cord compression; G93.1 Anoxic brain damage, not elsewhere classified; E11.9 Type 2 diabetes mellitus without complications; I10 Essential (primary) hypertension; F41.9 Anxiety disorder, unspecified; F32.A Depression, unspecified; E78.5 Hyperlipidemia, unspecified; M10.9 Gout, unspecified; E87.6 Hypokalemia; R26.2 Difficulty in walking, not elsewhere classified; D72.829 Elevated white blood cell count, unspecified; M48.04 Spinal stenosis, thoracic region; Z83.3 Family history of diabetes mellitus; Z80.41 Family history of malignant neoplasm of ovary; Z79.4 Long term (current) use of insulin; Z79.899 Other long term (current) drug therapy; Z99.3 Dependence on wheelchair; W01.0XXA Fall on same level from slipping, tripping and stumbling without subsequent striking against object, initial encounter; Y93.89 Activity, other specified; Y92.89 Other specified places as the place of occurrence of the external cause; Y99.8 Other external cause status
CPT/HCPCS: 36415; 70450; 71046; 72080; 72100; 72131; 72192; 74018; 76000; 80048; 80053; 81001; 82962; 83036; 83735; 83935; 84300; 84443; 85025; 85610; 85730; 86850; 86900; 86901; 93306; 94640; 97110; 97116; 97163; G0378; J0131; J0330; J1100; J1815; J2003; J2405; J2704; J3480

== ENCOUNTER → 2024-10-09 | Outpatient (CLI) | payer OTHER ==
[~2024-10-09] MED LIST: ALBUAER3 IN; ALLO100T PO; AMLO1TAB22 PO; ATOR20TA PO; CARV12.544 PO; CHOL20007 PO; CITA10TA6 PO; DULO60CA41 PO; FAMO20TA10 PO; FURO20TA3 PO; HYDR-4798 PO; HYDR25TA4 PO; HYDR50TA47 PO; INSU70IN3 SC; LOSA-534 PO; SITA50TA PO
[2024-10-09 12:34] LABS: Urine Bacteria None Seen /hpf (None Seen)
[2024-10-09 12:55] LABS: Basophils # (auto) 0.2 10 ^3/uL (0-0.2); Basophils % (auto) 1.9 % (0.0-2.0); Eosinophils # (auto) 0.2 10 ^3/uL (0-0.8); Eosinophils % (auto) 1.9 % (0.0-7.0); Hematocrit 31.2 % (36.0-46.0); Hemoglobin 10.6 g/dL (12.2-16.2); Lymphocytes # (auto) 2.1 10 ^3/uL (0.4-5.4); Mean Corpuscular Hemoglobin 28.8 pg (28.0-32.0); Mean Corpuscular Hgb Conc. 33.8 g/dL (32.0-36.0); Mean Corpuscular Volume 85.2 fL (80.0-100.0); Monocytes # (auto) 0.7 10 ^3/uL (0-1.3); Monocytes % (auto) 6.8 % (0.0-12.0); Neutrophils # (auto) 7.3 10 ^3/uL (1.6-8.6); Neutrophils % (auto) 69.4 % (37.0-80.0); Platelet Count (auto) 358 10^3/uL (140-450); Red Blood Cells 3.67 10^6/uL (4.0-5.20); Red Cell Distribution Width 15.3 % (11.8-14.3); White Blood Cell 10.5 10^3/uL (4.4-10.8)
[2024-10-09 13:02] LABS: Potassium 3.4 mmol/L (3.5-5.1)
[2024-10-09 13:04] LABS: Albumin 4.4 g/dL (3.2-4.8); Phosphorus 4.1 mg/dL (2.4-5.1)
[2024-10-09 13:07] LABS: BUN/Creatinine Ratio 27.7 (10.0-20.0)
[2024-10-09 13:08] LABS: Uric Acid 7.2 mg/dL (3.1-7.8)
[2024-10-10 13:21] LABS: Urine Blood Negative /uL (Negative); Urine Clarity Clear (Clear); Urine Color Light-Yellow (Yellow); Urine Protein, UAD Negative (Negative); Urine Specific Gravity 1.011 (1.001-1.035); Urine Squamous Epithelial Cell FEW /hpf (<5); Urine Urobilinogen Normal (Negative); Urine WBC 2 /HPF (0-5)
[2024-10-10 13:47] LABS: Creatinine, Urine 59.85 mg/dL (30.0-125.0)
== END | disposition home or self-care (01) ==
LOC: LAB 12:09
PROVIDERS: ATTEND Internal Medicine
DX: E11.22 Type 2 diabetes mellitus with diabetic chronic kidney disease (principal); N18.30 Chronic kidney disease, stage 3 unspecified; E11.21 Type 2 diabetes mellitus with diabetic nephropathy; E21.3 Hyperparathyroidism, unspecified; E55.9 Vitamin D deficiency, unspecified; M10.9 Gout, unspecified; N39.0 Urinary tract infection, site not specified; R80.9 Proteinuria, unspecified; D63.1 Anemia in chronic kidney disease
CPT/HCPCS: 36415; 80069; 81001; 82043; 82570; 83970; 84550; 85025

== ENCOUNTER 2025-01-08 13:40 | Outpatient (CLI) | payer OTHER ==
[2025-01-08 14:24] LABS: Hematocrit 29.2 % (36.0-46.0); Hemoglobin 9.9 g/dL (12.2-16.2); Mean Corpuscular Hemoglobin 28.1 pg (28.0-32.0); Mean Corpuscular Volume 83.0 fL (80.0-100.0); Nucleated Red Blood Cells % 0.1 %
[2025-01-08 14:36] LABS: Urine Protein, UAD Negative (Negative)
[2025-01-08 14:44] LABS: Alanine Aminotransferase 16 U/L (7-40); Albumin 4.2 g/dL (3.2-4.8); Anion Gap 11 (5-15); BUN/Creatinine Ratio 35.7 (10.0-20.0); Calcium 9.2 mg/dL (8.7-10.4); Carbon Dioxide 28 mmol/L (20-31); Total Protein 6.5 g/dL (5.7-8.2); Uric Acid 9.2 mg/dL (3.1-7.8)
[2025-01-08 14:54] LABS: Alkaline Phosphatase 119 U/L (46-116); Bilirubin, Total 0.3 mg/dL (0.2-1.0); Chloride 95 mmol/L (98-107); Glucose 259 mg/dL (74-106); Potassium 3.2 mmol/L (3.5-5.1); Sodium 134 mmol/L (136-145)
[2025-01-08 14:55] LABS: Blood Urea Nitrogen 87 mg/dL (9-23)
[2025-01-08 14:56] LABS: Protein, Urine 10.4 mg/dL (1-14)
== END 2025-01-08 17:00 | disposition home or self-care (01) ==
LOC: LAB 13:40
PROVIDERS: ATTEND Student in an Organized Health Care Education/Training Program
DX: E11.22 Type 2 diabetes mellitus with diabetic chronic kidney disease (principal); E11.21 Type 2 diabetes mellitus with diabetic nephropathy; N18.30 Chronic kidney disease, stage 3 unspecified; M10.9 Gout, unspecified; E21.3 Hyperparathyroidism, unspecified; E55.9 Vitamin D deficiency, unspecified; N39.0 Urinary tract infection, site not specified; D63.1 Anemia in chronic kidney disease; R80.9 Proteinuria, unspecified
CPT/HCPCS: 36415; 80053; 81001; 82306; 82570; 83036; 84156; 84550; 85025; 86160

== ENCOUNTER 2025-02-28 14:57 | Outpatient (CLI) | payer OTHER ==
[2025-02-28 15:23] LABS: Hemoglobin 11.1 g/dL (12.2-16.2); Nucleated Red Blood Cells % 0.0 %; Urine Protein, UAD Negative (Negative)
[2025-02-28 15:24] LABS: Hematocrit 33.2 % (36.0-46.0); Mean Corpuscular Hemoglobin 26.8 pg (28.0-32.0); Mean Corpuscular Volume 80.2 fL (80.0-100.0)
[2025-02-28 16:44] LABS: Microalb/Creat Ratio, Urine 8.0
[2025-02-28 16:54] LABS: Alanine Aminotransferase 16 U/L (7-40); Albumin 4.4 g/dL (3.2-4.8); Anion Gap 12 (5-15); BUN/Creatinine Ratio 31.2 (10.0-20.0); Calcium 9.4 mg/dL (8.7-10.4); Carbon Dioxide 28 mmol/L (20-31); Total Protein 7.3 g/dL (5.7-8.2)
[2025-02-28 16:56] LABS: Alkaline Phosphatase 137 U/L (46-116); Bilirubin, Total < 0.2 mg/dL (0.2-1.0); Blood Urea Nitrogen 69 mg/dL (9-23); Chloride 94 mmol/L (98-107); Glucose 264 mg/dL (74-106); Potassium 2.8 mmol/L (3.5-5.1); Sodium 134 mmol/L (136-145)
== END 2025-02-28 17:00 | disposition home or self-care (01) ==
LOC: LAB 14:57
PROVIDERS: ATTEND Student in an Organized Health Care Education/Training Program
DX: E11.22 Type 2 diabetes mellitus with diabetic chronic kidney disease (principal); N18.30 Chronic kidney disease, stage 3 unspecified; N39.0 Urinary tract infection, site not specified; R80.9 Proteinuria, unspecified; E21.3 Hyperparathyroidism, unspecified; M10.9 Gout, unspecified; E55.9 Vitamin D deficiency, unspecified; D63.1 Anemia in chronic kidney disease
CPT/HCPCS: 36415; 80053; 81001; 82043; 82306; 82570; 83036; 85025

== ENCOUNTER 2025-03-08 00:46 | Inpatient (IN) | payer OTHER ==
[~2025-03-08] VITALS: Ht 149.9 cm; Wt 65.2 kg
[2025-03-08] VITALS (7 sets, daily range): BP systolic 131–154; BP diastolic 54–68; PULSE 68–77; RESP 16–19; TEMP 97.1–97.9; O2SAT 96–99
--- NOTE | 2025-03-08 01:10 | ED.PDOC ---
HPI Comments HPI: 79-year-old female came to ER for dizziness. States about 10:00 p.m. last night, she was at bed, watching television, when she felt sudden dizziness, with the episodes of near syncopal attacks. Patient also complaining of burning abdominal, and midsternal chest pressure Initial Vitals BP: 132/56 HR: 71 RR: 18 O2: 99% Temp: 98.2 PAST MEDICAL HISTORY: Significant for diabetes, hypertension, hyperlipidemia and anxiety/depression and gout. Past Surgical History:Pre-op Diagnosis: 1. Thoracic 12 and Lumbar 4 compression fractures 2. Lumbar 1 burst fracture with biomechanical instability Post-op Diagnosis: same as pre op Procedure: ORIF lumbar 1 burst fracture Thoracic 10 to lumbar 2 posterior spinal fusion Lumbar 1 laminectomy with lumbar 1 foraminotomies/facetectomies to decompress central canal and lumbar 1 nerve roots Thoracic 12 laminectomy with thoracic 12 foraminotomies and facetectomies to decompress central canal and thoracic 12 nerve roots. Thoracic 12 kyphoplasty Lumbar 4 kyphoplasty Thoracic 10 to lumbar 2 posterior spinal instrumentation with pedicle screws; extant spine 7. Autograft bone for fusion 8. Allograft bone Bacteria to augment fusion 9. De-mineralized bone matrix to augment fusion 10. Microscope for micro dissection MEDICATIONS: Include allopurinol, Lipitor, amlodipine, Coreg, Cymbalta, Pepcid, Lasix, hydralazine, insulin. ALLERGIES: No known drug allergies. Sutton: HPI: Poor Historian. Rhythm strip from EMS shows V-tach. Past Medical History: Past Surgical History: REVIEW OF SYSTEMS: CONSTITUTIONAL: Denies acute: fever, diaphoresis, chills, generalized weakness. HEAD: Denies acute: headache, photophobia Eyes: Denies acute: Double vision, vision loss, eye pain, eye discharge. EARS: Denies acute: tinnitus, hearing loss, ear discharge, ear pain, THROAT: Denies acute: sore throat, swelling, difficulty swallowing , pain with swallowing, change in voice. NECK: Denies acute: neck pain, neck swelling, stiff neck. HEART: Denies acute : , palpitations, LUNGS: Denies acute: SOB, wheezing, cough, hemoptysis ABDOMEN: Denies acute: abdominal pain, Nausea, Vomiting, diarrhea, melena , hematemesis, hematochezia SKIN: Denies acute: rash, redness, lesions, itchiness. EXTREMITIES: Denies acute: calf pain, numbness, tingling, weakness, denies pain in extremity. Denies acute: Low back pain. Neuro: Denies acute: focal neurological deficit, motor or sensory focal neurological deficit, tremors, seizure like activity, confusion, change in mental status, loss of bowel or bladder function, cauda equina like symptoms. : Denies acute: dysuria, hematuria, flank pain, increase in urinary frequency. PSYCH: Denies acute: hallucination, suicidal ideation, homicidal ideation. FEMALE: Denies acute: abnormal vaginal bleeding, foul odor, unusual discharge. PHYSICAL EXAM: General: -----mild---acute distress, awake and alert. Head: normocephalic, atraumatic. Neck: supple, trachea is midline, no swelling. Throat: Normal phonation. Eyes:, no erythema, no purulent discharge, no proptosis, no icterus. Heart: regular rate, regular rhythm, no significant murmur appreciated. Lungs: no apparent respiratory distress, Able to speak in full sentences. No wheezing, no rhonchi, no crackles. No stridors Clear to auscultation bilaterally. Abdomen: non tender to palpation, non distended, soft, no guarding, no rebound, + bowel sounds. Neuro: Awake, Alert, oriented to name, self, situation, follows commands GCS=15. Speech is normal. Skin: no petechia, no purpura, no cyanosis, non-pale, not jaundice. Lower extremities: --no - Pitting edema no deformity, no focal swelling, no calf TTP. Makes eye contact. moves all four extremities. Face: no apparent facial droop. ED COURSE: DISCLAIMER: This medical document was created using an electronic medical record system with voice recognition software and computerized dictation system. Although this document has been carefully reviewed, there might still be some phonetic and typographical errors. Occasional wrong-word or "sound-alike" substitutions may have occurred due to the inherent limitations of voice recognition software. These areas are purely typographical due to imperfections of the software programs and do not reflect any compromise in the patient's medical care. Please read the chart carefully and recognize, using context, where these substitutions have occurred. Chief Complaint: Dizziness Time Seen by MD: 01:08 Reviewed Notes: Manager Of Construction Notes, Allergies Allergies: Coded Allergies: Lidocaine (Verified Allergy, Unknown, 08/30/24) Home Meds Reported Medications Albuterol Sulfate (VENTOLIN MDI) 90 Mcg Ih, 90 MCG IN, INH 08/29/24 Citalopram Hydrobromide (Citalopram) 10 Mg Tab, 10 MG PO DAILY, TAB 08/29/24 Atorvastatin Calcium (Lipitor) 20 Mg Tab, 1 TAB PO DAILY, #90 TAB 1 Refill 08/29/24 Sitagliptin Phosphate (Januvia) 50 Mg Tab, 1 TAB PO DAILY, #30 TAB 5 Refills 08/29/24 Hydrocodone-Acetaminophen (Hydrocodone Bitartrate/AC 10-325 mg) 1 Tab Tab, 1 TAB PO TID, TAB 08/29/24 Cholecalciferol (VITAMIN D3) 2,000 Unit Tab, 1 TAB PO DAILY, #30 TAB 5 Refills 08/29/24 Hydrochlorothiazide (Hydrochlorothiazide) 25 Mg Tab, 25 MG PO DAILY for 30 Days, MG 08/29/24 Allopurinol (Allopurinol) 100 Mg Tab, 100 MG PO DAILY for 30 Days, MG 08/29/24 Furosemide (Furosemide) 20 Mg Tab, 20 MG PO DAILY for 30 Days, MG 08/29/24 Amlodipine Besylate (Amlodipine Besylate) 5 Mg Tab, 5 MG PO DAILY for 30 Days, MG 08/29/24 Hydralazine Hcl (Hydralazine Hcl) 50 Mg Tab, 100 MG PO TID for 30 Days, MG 08/29/24 Insulin NPH Isophane & Reg (Hu (Novolin 70/30 (70-30) 100 Unit/ml) 1 Inj Inj, 1 INJ SC, INJ 08/29/24 Carvedilol (Carvedilol) 12.5 Mg Tab, 12.5 MG PO Q12HR for 30 Days, MG 08/29/24 Losartan Potassium (Losartan Potassium) 50 Mg Tab, 50 MG PO BID for 30 Days, MG 08/29/24 Famotidine (PEPCID TABLET) 20 Mg Tb, 2 TAB PO DAILY, #60 TAB 5 Refills 08/29/24 Duloxetine Hcl (Cymbalta) 60 Mg Cap, 1 CAP PO DAILY, #90 CAP 3 Refills 08/29/24 Information Source: Patient, Emergency Med Personnel Mode of Arrival: Ambulatory Past Medical History PAST MEDICAL HISTORY: Anxiety, DM, Gout, High Lipids, HTN, Denies Surgical History (Other): Pre-op Diagnosis: 1. Thoracic 12 and Lumbar 4 compression fractures 2. Lumbar 1 burst fracture with biomechanical instability Post-op Diagnosis: same as pre op Procedure: ORIF lumbar 1 burst fracture Thoracic 10 to lumbar 2 posterior spinal fusion Lumbar 1 laminectomy with lumbar 1 foraminotomies/facetectomies to decompress central canal and lumbar 1 nerve roots Thoracic 12 laminectomy with thoracic 12 foraminotomies and facetectomies to decompress central canal and thoracic 12 nerve roots. Thoracic 12 kyphoplasty Lumbar 4 kyphoplasty Thoracic 10 to lumbar 2 posterior spinal instrumentation with pedicle screws; extant spine 7. Autograft bone for fusion 8. Allograft bone Bacteria to augment fusion 9. De-mineralized bone matrix to augment fusion 10. Microscope for micro dissection FRAMING CONSULTANT History: Denies all FRAMING CONSULTANT Hx Family History Family History: Reviewed,noncontributory to illness Social History Smoker: Non-Smoker Alcohol: Denies ETOH Use Drugs: Denies Drug Use Lives In: Home EKG EKG : Pulse Rate (adult): 74 Cardiac Rhythm: Afib, Aflutter Block: LBBB Was a procedure done? Was a procedure done?: No CP Differential Dx Differential Diagnosis: A-fib, A-Flutter, Angina, Anxiety / Panic Attack, Digoxin Toxicity, Electrolyte Disorder, Heart Failure, Hyperthyroidism, Hyperventilation, Hypoxia, MAT, AK, PAC's, Pacemaker Malfunction, PSVT, Pulmonary Embolus, PVC's, Renal Failure, Sinus Tachycardia, Torsades De Pointes, Ventricular Dysrhythmia, V-Fib, V-Tach, WPW Differential Diagnosis: Angina, Chest Wall Pain, Costochondritis, Esophageal reflux/spasm, Other (Ddx include but not limitied to gastritis, musculoskeletal pain, radiculopathy, atypical chest pain, dissection, aneurysm, ACS, unstable angina, hiatal hernia, GERD, anxiety, costochondritis, PE, pneumothroax, neoplasm, cardiac ischemia, drug abuse, anemia.) X-Ray, Labs, Meds, VS Vital Signs Date Time Temp Pulse Resp B/P (MAP) Pulse Ox O2 Delivery O2 Flow Rate FiO2 03/08/25 05:06 71 03/08/25 04:00 64 20 135/54 (81) 97 03/08/25 04:00 65 03/08/25 02:00 67 20 128/47 (74) 96 03/08/25 01:54 67 03/08/25 01:22 74 03/08/25 01:13 71 03/08/25 01:05 74 19 96 Room Air* 0 21 03/08/25 01:05 98.0 74 19 136/47 (76) 96 98.0 03/08/25 00:58 74 03/08/25 00:49 98.2 71 18 132/56 99 98.2 Lab Test 03/08/25 03:45 03/08/25 03:30 03/08/25 01:02 Range/Units Troponin I High Sensitivity 21 14 </=34 ng/L Urine Color Colorless Yellow Urine Clarity Clear Clear Urine pH 7.0 5.0-9.0 Urine Specific [place] 1.006 1.001-1.035 Urine Protein Negative Negative Urine Ketones Negative Negative Urine Blood Negative Negative /uL Urine Nitrite Negative Negative Urine Bilirubin Negative Negative Urine Urobilinogen Normal Negative mg/dL Urine Leukocyte Esterase Negative Negative /uL Urine RBC None seen 0 - 4 /hpf Urine Microscopic WBC 1 0-5 /HPF Urine Squamous Epithelial Cells Few <5 /hpf Urine Bacteria None seen None Seen /hpf Urine Glucose Normal Normal mg/dL White Blood Count 15.8 H 4.4-10.8 10^3/uL Red Blood Count 3.81 L 4.0-5.20 10^6/uL Hemoglobin 10.6 L 12.2-16.2 g/dL Hematocrit 30.2 L 36.0-46.0 % Mean Corpuscular Volume 79.2 L 80.0-100.0 fL Mean Corpuscular Hemoglobin 27.8 L 28.0-32.0 pg Mean Corpuscular Hemoglobin Concent 35.1 32.0-36.0 g/dL Red Cell Distribution Width 15.6 H 11.8-14.3 % Platelet Count 410 140-450 10^3/uL Mean Platelet Volume 7.1 6.9-10.8 fL Neutrophils (%) (Auto) 75.1 37.0-80.0 % Lymphocytes (%) (Auto) 13.2 10.0-50.0 % Monocytes (%) (Auto) 9.1 0.0-12.0 % Eosinophils (%) (Auto) 2.0 0.0-7.0 % Basophils (%) (Auto) 0.6 0.0-2.0 % Neutrophils # (Auto) 11.9 H 1.6-8.6 10 ^3/uL Lymphocytes # (Auto) 2.1 0.4-5.4 10 ^3/uL Monocytes # (Auto) 1.4 H 0-1.3 10 ^3/uL Eosinophils # (Auto) 0.3 0-0.8 10 ^3/uL Basophils # (Auto) 0.1 0-0.2 10 ^3/uL Nucleated Red Blood Cells 0.0 % Sodium Level 134 L 136-145 mmol/L Potassium Level 2.4 *L 3.5-5.1 mmol/L Chloride Level 92 L 98-107 mmol/L Carbon Dioxide Level 28 20-31 mmol/L Anion Gap 14 5-15 Blood Urea Nitrogen 89 *H 9-23 mg/dL Creatinine 1.94 H 0.550-1.02 mg/dL Glomerular Filtration Rate Calc 26 >90 mL/min BUN/Creatinine Ratio 45.9 H 10.0-20.0 Serum Glucose 244 H 74-106 mg/dL Lactic Acid Level 1.9 0.4-2.0 mmol/L Calcium Level 9.2 8.7-10.4 mg/dL Magnesium Level 1.8 1.6-2.6 mg/dL Total Bilirubin < 0.2 L 0.2-1.0 mg/dL Aspartate Amino Transferase (AST) 18 13-40 U/L Alanine Aminotransferase (ALT) 14 7-40 U/L Alkaline Phosphatase 146 H 46-116 U/L B-Type Natriuretic Peptide 74.51 0-100 pg/mL Total Protein 6.5 5.7-8.2 g/dL Albumin 4.1 3.2-4.8 g/dL Current Medications Medications (Trade) Dose Ordered Sig/Celia Route Start Time Stop Time Status Last Admin Amiodarone HCl 100 ml @ 600 mls/hr ONCE ONCE IV 03/08/25 01:30 03/08/25 01:39 DC 03/08/25 02:05 Potassium Chloride (Klor-Con Tablet) 80 meq ONCE ONCE PO 03/08/25 01:45 03/08/25 01:48 DC 03/08/25 02:02 Ceftriaxone Sodium 50 ml @ 100 mls/hr ONCE ONCE IV 03/08/25 01:45 03/08/25 02:14 DC 03/08/25 02:00 Sodium Chloride 1,000 ml @ 1,000 mls/hr Q1H ONCE IV 03/08/25 01:45 03/08/25 02:44 DC 03/08/25 02:02 [place] [id number] Ph: [phone] DIAGNOSTIC IMAGING Diagnostic Imaging Report : [id number] Signed PATIENT: VITALY SUTTON ACCT: [id number] UNIT: [id number] : 1945 LOC: ER ROOM / BED: / AGE / SEX: 79 / F ADM STATUS: REG ER SERVICE 005 ORDERING PHYSICIAN: GÉNESIS BETH DO PROCEDURE(s): CXRP - CHEST PORTABLE REASON: dizzy ORDER NUMBER(s): [id number], ACCESSION NUMBER(s): [id number] CHEST RADIOGRAPH Indication: dizzy Technique: Single frontal view of the chest was obtained COMPARISON: XY CHEST TWO VIEWS ROUTINE on DOS: 08/29/24, XY CHEST TWO VIEWS ROUTINE on DOS: 09/26/22 FINDINGS: Lines and Tubes: None Lungs: Clear Pleura: No effusion. No pneumothorax. Cardiomediastinal contours: Cardiomegaly. Bones: Unremarkable. Spinal rodding noted. IMPRESSION: 1. Cardiomegaly. ATED BY: SHAQUILLE CRESPO MD DICTATED DATE/TIME: 03/08/25214 SIGNED BY: SHAQUILLE CRESPO MD SIGNED DATE/TIME: 03/08/25214 CC: Time of 1ST Reevaluation: 01:09 Reevaluation 1ST: Unchanged Patient Education/Counseling: Diagnosis, Treatment Family Education/Counseling: No Family Present Comments MDM: patient presented with the above HPI.---dizziness/near syncopal episodes/chest pressure---workup was initiated. patient was found with the above mentioned diagnosis. the following medications were ordered: please refer to order lists of meds and tests obtained by myself Dr. Beth. Patient ED course and VS have been stabilized. Patient has been reassessed in the ED and remained in a stable condition. Pertinent incidental findings were discussed with the patient and/or family. Patient/family voices understanding and is agreeable with plan. Patient has been observed in the ED adequate length of time to insure improvement/stability. Escalation of care considered: Consideration of escalation to observation or admission EKG was sent to Cardiology on-call for evaluation of left bundle-branch block in the setting of chest pain and history of V-tach. We have not heard back from them Patient had leukocytosis, empiric antibiotics initiated. EMS rhythm strip shows V-tach. Patient was given amiodarone bolus here in the ED. cardiac workup was initiated. Patient was ADMITTED to the medicine team for further evaluation and treatment of their presentation. All the reports of any imaging studies that were ordered by myself were reviewed by myself. SEPSIS Sepsis Screen Date sepsis recognized/suspect: Mar 08, 2025 Time Sepsis recognized/suspect: 004 Recent Procedure: No On Antibiotic Therapy: No Respiratory Rate >20: No Heart Rate >90: No Temp<36 C (96.8 F) or >38.3 C: No SBP <90 or MAP <65 mmHG: No New Acute Mental Status Change: No Is the patient on CPAP, BIPAP,: No Physician Orders Retanner (03/08/25 ) Chest Portable (03/08/25 00:52) Troponin-I Hs (03/08/25 03:52) Electrocardigram (03/08/25 03:52) Vital Signs Date Time Temp Pulse Resp B/P (MAP) Pulse Ox O2 Delivery O2 Flow Rate FiO2 03/08/25 05:06 71 03/08/25 04:00 64 20 135/54 (81) 97 03/08/25 04:00 65 03/08/25 02:00 67 20 128/47 (74) 96 03/08/25 01:54 67 03/08/25 01:22 74 03/08/25 01:13 71 03/08/25 01:05 74 19 96 Room Air* 0 21 03/08/25 01:05 98.0 74 19 136/47 (76) 96 98.0 03/08/25 00:58 74 03/08/25 00:49 98.2 71 18 132/56 99 98.2 Laboratory Tests Test 03/08/25 01:02 Lactic Acid Level 1.9 mmol/L (0.4-2.0) White Blood Count 15.8 10^3/uL (4.4-10.8) H Medications Medications Dose Ordered Sig/Celia Route Start Time Stop Time Status Last Admin Dose Admin Amiodarone HCl 100 ml @ 600 mls/hr ONCE ONCE IV 03/08/25 01:30 03/08/25 01:39 DC 03/08/25 02:05 Ceftriaxone Sodium 50 ml @ 100 mls/hr ONCE ONCE IV 03/08/25 01:45 03/08/25 02:14 DC 03/08/25 02:00 Potassium Chloride 80 meq ONCE ONCE PO 03/08/25 01:45 03/08/25 01:48 DC 03/08/25 02:02 Sodium Chloride 1,000 ml @ 1,000 mls/hr Q1H ONCE IV 03/08/25 01:45 03/08/25 02:44 DC 03/08/25 02:02 Departure 1 Departure Time of Disposition: 01:24 Impression: Primary Impression: Ventricular tachycardia Additional Impressions: Near syncope Hypokalemia Leukocytosis Anemia Disposition: ADMITTED INPATIENT Admit to: Tele Condition: Guarded Critical Care Note Critical Care Time?: Yes (35 min-critical care time only) Stability Stability form required: No Heart Score Heart Score: Heart Score Response (Comments) Value History Moderate Suspicious 1 EKG Repolarization Disturb 1 Age >65 2 Risk Factors >3 or Hx ASHD 2 Troponin Normal limit 0 Total 6 I personally scribed for GÉNESIS BETH DO ([email or web address]) on 03/08/25 at 01:10. Electronically submitted by Mohsen Collins ([facility]). I personally scribed for GÉNESIS BETH DO ([email or web address]) on 03/08/25 at 01:12. Electronically submitted by Mohsen Collins ([facility]). I personally scribed for GÉNESIS BETH DO ([email or web address]) on 03/08/25 at 01:22. Electronically submitted by Mohsen Collins ([facility]). I personally scribed for GÉNESIS BETH DO ([email or web address]) on 03/08/25 at 01:24. Electronically submitted by Mohsen Collins ([facility]). I personally scribed for G[facility]NESIS BETH DO ([facility] on 03/08/25 at 01:43. Elect ronically submitted by Mohsen Collins ([facility]). I personally scribed for GÉNESIS BETH DO ([facility]) on 03/08/25 at 04:10. El ectronically submitted by Mohsen Collins ([facility]). GÉNESIS BETH DO Mar 08, 2025 01:10
[2025-03-08 01:13] LABS: Hematocrit 30.2 % (36.0-46.0); Hemoglobin 10.6 g/dL (12.2-16.2); Mean Corpuscular Hemoglobin 27.8 pg (28.0-32.0); Mean Corpuscular Volume 79.2 fL (80.0-100.0); Nucleated Red Blood Cells % 0.0 %
[2025-03-08 01:32] LABS: Alanine Aminotransferase 14 U/L (7-40); Albumin 4.1 g/dL (3.2-4.8); Anion Gap 14 (5-15); BUN/Creatinine Ratio 45.9 (10.0-20.0); Calcium 9.2 mg/dL (8.7-10.4); Carbon Dioxide 28 mmol/L (20-31); Magnesium 1.8 mg/dL (1.6-2.6); Total Protein 6.5 g/dL (5.7-8.2)
[2025-03-08 01:36] LABS: Alkaline Phosphatase 146 U/L (46-116); Bilirubin, Total < 0.2 mg/dL (0.2-1.0); Chloride 92 mmol/L (98-107); Glucose 244 mg/dL (74-106); Sodium 134 mmol/L (136-145)
[2025-03-08 01:39] LABS: Potassium 2.4 mmol/L (3.5-5.1)
[2025-03-08] MEDS: SODIUM CHLORIDE 0.9% 1,000 ML IV ONE (02:02)
[2025-03-08] MEDS: POTASSIUM CHL 20 Meq TABLET PO ONE ×2 (02:02→13:32)
[2025-03-08] MEDS: AMIODARONE BOLUS KIT 100 ML IV ONE (02:05)
--- NOTE | 2025-03-08 02:17 | DVH ---
CHEST RADIOGRAPH Indication: dizzy Technique: Single frontal view of the chest was obtained COMPARISON: XY CHEST TWO VIEWS ROUTINE on DOS: 08/29/24, XY CHEST TWO VIEWS ROUTINE on DOS: 09/26/22 FINDINGS: Lines and Tubes: None Lungs: Clear Pleura: No effusion. No pneumothorax. Cardiomediastinal contours: Cardiomegaly. Bones: Unremarkable. Spinal rodding noted. IMPRESSION: 1. Cardiomegaly.
--- NOTE | 2025-03-08 03:06 | ECG ---
[facility] Test Date: 2025-03-08 Test Time: 01:54:44 Pat Name: VITALY SHERMAN Department: Room: 0287T Gender: F [employer]: MORENITA : 1945 Requested By: GÉNESIS BETH Order Number: [id number] Reading MD: Nadeem Rodriguez Measurements Intervals [place] Rate: 67 P: 11 OK: 160 QRS: -12 QRSD: 171 T: 157 QT: 509 QTc: 538 Interpretive Statements Sinus rhythm Atrial premature complex Probable left atrial enlargement Left bundle branch block Baseline wander in lead(s) II,III,aVR,aVF,V1,V2,V3,V6 Electronically Signed On 03-13-2025 9:24:56 PDT by Nadeem Rodriguez Please click the below link to view image of tracing.
--- NOTE | 2025-03-08 03:06 | ECG ---
[facility] Test Date: 2025-03-08 Test Time: 00:58:24 Pat Name: VITALY SHERMAN Department: Room: 0287T Gender: F [employer] Executive Producer: MORENITA : 1945 Requested By: GÉNESIS BETH Order Number: [id number] Reading MD: Nadeem Rodriguez Measurements Intervals [place] Rate: 74 P: 0 HI: 0 QRS: -13 QRSD: 168 T: 128 QT: 505 QTc: 561 Interpretive Statements Atrial flutter/fibrillation Left bundle branch block Electronically Signed On 03-13-2025 9:24:43 PDT by Nadeem Rodriguez Please click the below link to view image of tracing.
[2025-03-08 03:49] LABS: Urine Protein, UAD Negative (Negative)
--- NOTE | 2025-03-08 06:26 | DVHHP2 ---
History of Present Illness Reason for Visit: Dizziness History of Present Illness 79-year-old female past medical history diabetes hypertension hyperlipidemia anxiety depression and gout surgical history T-spine and L-spine surgery chief complaint patient comes in stating she she was in bed watching TV suddenly she had an onset of dizziness that started around 10:00 p.m. last night she states that she was so dizzy she had a near syncopal episode. She also complain of generalized body pain. She also complain of midsternal chest pain some shortness of the breath no cough no fever she denies any vomiting no diarrhea no weakness. Patient has limited information on my exam. When evaluating pat ient's labs and imaging normal saline was given ceftriaxone potassium amiodarone was given white count was 15.8 hemoglobin was 10.6 and 30.2 sodium was 134 potassium was 2.4 creatinine was 1.94 and 89 glucose was 200 and 44 EKG showed AFib/a flutter with controlled heart rate UA was unremarkable troponin x2 was negative chest x-ray shows cardiomegaly. With these findings we will admit and ask for Neurology evaluation Past Medical History See HPI above Past Surgical History See HPI above Family History Reviewed, non-contributory to the management of this case. Past Social History The patient lives at home, denies smoking, alcohol or illicit drugs abuse. Review of Systems Constitutional: No: Fever, Chills, Sweats, Weakness, Malaise, Other Eyes: No: Pain, Vision change, Conjunctivae inflammation, Eyelid inflammation, Other, Redness ENT: No: Ear pain, Ear discharge, Nose pain, Nose discharge, Nose congestion, Mouth pain, Mouth swelling, Throat pain, Throat swelling, Other Respiratory: No: Cough, Dry, Shortness of breath, SOB with excertion, Wheezing, Hemoptysis, Pleuritic Pain, Sputum, Wheezing, Other Cardiovascular: No: Chest Pain, Palpitations, Orthopnea, Paroxysmal Noc. Dyspnea, Edema, Lt Headedness, Other Gastrointestinal: No: Nausea, Vomiting, Abdominal Pain, Diarrhea, Constipation, Melena, Hematochezia, Other Genitourinary: No Dysuria, No Frequency, No Incontinence, No Hematuria, No Rete ntion, No Other Musculoskeletal: No: other, neck pain, shoulder pain, arm pain, back pain, hand pain, leg pain, foot pain Skin: No: Rash, Lesions, Jaundice, Bruising, Other Neurological: Other (dizziness); No: Weakness, Numbness, Incoordination, Change in speech, Confusion, Seizures Allergies: Coded Allergies: Lidocaine (Verified Allergy, Unknown, 08/30/24) Exam Vital Signs Vital Signs Date Time Temp Pulse Resp B/P (MAP) Pulse Ox O2 Delivery O2 Flow Rate FiO2 03/08/25 05:06 71 03/08/25 04:00 20 135/54 (81) 97 03/08/25 01:05 Room Air* 0 21 03/08/25 01:05 98.0 98.0 General Appearance: Alert, Oriented X3, Cooperative, No acute distress HEENT: Atraumatic, PERRLA, EOMI, Mucous membr. moist/pink Respiratory: Clear to auscultation, Normal air movement Cardiovascular: Regular rate, Normal S1, Normal S2, No murmurs Abdominal: Normal bowel sounds, Soft, No tenderness, No hepatospenomegaly, No masses Extremities: No clubbing, No cyanosis, No edema, Normal pulses, No tenderness/swelling Skin: No rashes, No breakdown, No significant lesion Neuro: Normal speech, Strength at 5/5 X4 ext, Normal tone, Sensation intact, Cranial nerves 3-12 NL, Other (neuro non focal ) Labs/Xrays Chest x-ray shows cardiomegaly I reviewed labs, imaging CT scan abdomen pelvis, EKG and all diagnostic studies on this patient from ED records and the medical chart Labs Test 03/08/25 03:45 03/08/25 03:30 03/08/25 01:02 Range/Units Troponin I High Sensitivity 21 </=34 ng/L Urine Color Colorless Yellow Urine Clarity Clear Clear Urine pH 7.0 5.0-9.0 Urine Specific [place] 1.006 1.001-1.035 Urine Protein Negative Negative Urine Ketones Negative Negative Urine Blood Negative Negative /uL Urine Nitrite Negative Negative Urine Bilirubin Negative Negative Urine Urobilinogen Normal Negative mg/dL Urine Leukocyte Esterase Negative Negative /uL Urine RBC None seen 0 - 4 /hpf Urine Microscopic WBC 1 0-5 /HPF Urine Squamous Epithelial Cells Few <5 /hpf Urine Bacteria None seen None Seen /hpf Urine Glucose Normal Normal mg/dL White Blood Count 15.8 H 4.4-10.8 10^3/uL Red Blood Count 3.81 L 4.0-5.20 10^6/uL Hemoglobin 10.6 L 12.2-16.2 g/dL Hematocrit 30.2 L 36.0-46.0 % Mean Corpuscular Volume 79.2 L 80.0-100.0 fL Mean Corpuscular Hemoglobin 27.8 L 28.0-32.0 pg Mean Corpuscular Hemoglobin Concent 35.1 32.0-36.0 g/dL Red Cell Distribution Width 15.6 H 11.8-14.3 % Platelet Count 410 140-450 10^3/uL Mean Platelet Volume 7.1 6.9-10.8 fL Neutrophils (%) (Auto) 75.1 37.0-80.0 % Lymphocytes (%) (Auto) 13.2 10.0-50.0 % Monocytes (%) (Auto) 9.1 0.0-12.0 % Eosinophils (%) (Auto) 2.0 0.0-7.0 % Basophils (%) (Auto) 0.6 0.0-2.0 % Neutrophils # (Auto) 11.9 H 1.6-8.6 10 ^3/uL Lymphocytes # (Auto) 2.1 0.4-5.4 10 ^3/uL Monocytes # (Auto) 1.4 H 0-1.3 10 ^3/uL Eosinophils # (Auto) 0.3 0-0.8 10 ^3/uL Basophils # (Auto) 0.1 0-0.2 10 ^3/uL Nucleated Red Blood Cells 0.0 % Sodium Level 134 L 136-145 mmol/L Potassium Level 2.4 *L 3.5-5.1 mmol/L Chloride Level 92 L 98-107 mmol/L Carbon Dioxide Level 28 20-31 mmol/L Anion Gap 14 5-15 Blood Urea Nitrogen 89 *H 9-23 mg/dL Creatinine 1.94 H 0.550-1.02 mg/dL Glomerular Filtration Rate Calc 26 >90 mL/min BUN/Creatinine Ratio 45.9 H 10.0-20.0 Serum Glucose 244 H 74-106 mg/dL Lactic Acid Level 1.9 0.4-2.0 mmol/L Calcium Level 9.2 8.7-10.4 mg/dL Magnesium Level 1.8 1.6-2.6 mg/dL Total Bilirubin < 0.2 L 0.2-1.0 mg/dL Aspartate Amino Transferase (AST) 18 13-40 U/L Alanine Aminotransferase (ALT) 14 7-40 U/L Alkaline Phosphatase 146 H 46-116 U/L B-Type Natriuretic Peptide 74.51 0-100 pg/mL Total Protein 6.5 5.7-8.2 g/dL Albumin 4.1 3.2-4.8 g/dL SEPSIS Sepsis Screen Date sepsis recognized/suspect: Mar 08, 2025 Time Sepsis recognized/suspect: 104 Recent Procedure: No On Antibiotic Therapy: No Respiratory Rate >20: No Heart Rate >90: No Temp<36 C (96.8 F) or >38.3 C: No SBP <90 or MAP <65 mmHG: No New Acute Mental Status Change: No Is the patient on CPAP, BIPAP,: No Physician Orders Consulting Application Engineer (03/08/25 ) Chest Portable (03/08/25 00:52) Troponin-I Hs (03/08/25 03:52) Electrocardigram (03/08/25 03:52) Vital Signs Date Time Temp Pulse Resp B/P (MAP) Pulse Ox O2 Delivery O2 Flow Rate FiO2 03/08/25 05:06 71 03/08/25 04:00 64 20 135/54 (81) 97 03/08/25 04:00 65 03/08/25 02:00 67 20 128/47 (74) 96 03/08/25 01:54 67 03/08/25 01:22 74 03/08/25 01:13 71 03/08/25 01:05 74 19 96 Room Air* 0 21 03/08/25 01:05 98.0 74 19 136/47 (76) 96 98.0 03/08/25 00:58 74 03/08/25 00:49 98.2 71 18 132/56 99 98.2 Laboratory Tests Test 03/08/25 01:02 Lactic Acid Level 1.9 mmol/L (0.4-2.0) White Blood Count 15.8 10^3/uL (4.4-10.8) H Medications Medications Dose Ordered Sig/Celia Route Start Time Stop Time Status Last Admin Dose Admin Amiodarone HCl 100 ml @ 600 mls/hr ONCE ONCE IV 03/08/25 01:30 03/08/25 01:39 DC 03/08/25 02:05 600 MLS/HR Ceftriaxone Sodium 50 ml @ 100 mls/hr ONCE ONCE IV 03/08/25 01:45 03/08/25 02:14 DC 03/08/25 02:00 100 MLS/HR Potassium Chloride 80 meq ONCE ONCE PO 03/08/25 01:45 03/08/25 01:48 DC 03/08/25 02:02 80 MEQ Sodium Chloride 1,000 ml @ 1,000 mls/hr Q1H ONCE IV 03/08/25 01:45 03/08/25 02:44 DC 03/08/25 02:02 1,000 MLS/HR Assessment/Plan Assessment/Plan Acute dizziness rule out stroke vs arrhythmia ordered ct scan brain since not completed ekg shows afib/aflutter was provided ami current rate sr Ordered neurology consult PT eval and treat Cardiac diet ordered asa atorvastatin neuro checks q2h fall precautions brp with assistance ordered Carotid Doppler study f/u results ordered Echo fu results ordered mag phos tsh fu results ordered uds ordered meclizine ordered orthostatic vital signs acute leukocytosis ordered blood cultures fu results cxr negative ua negative no need for antibiotics since no fever fu cbc ordered influenza and covid illness fu results acute severe hyperkalemia ordered mag and phos was provided k in ed fu repeat k acute neno unknown if have kidney disease ordered urine sodium and crea to check fena ordered ivf for now gently hydration if continued elevation consider renal consult avoid renal toxic drugs 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
[2025-03-08] MEDS ORDERED: NITROGLYCERIN 0.4 MG SL TAB SL PRN (06:30)
[2025-03-08] MEDS ORDERED: MORPHINE SULFATE INJ 2 MG/ml SYRG IV PRN (06:30)
[2025-03-08] MEDS ORDERED: DEXTROSE (50%) 50ML SYRG IV PRN (06:30)
[2025-03-08] MEDS ORDERED: ONDANSETRON HCL 4 MG/2 ML VIAL IV PRN (06:30)
[2025-03-08] MEDS ORDERED: DOCUSATE SOD 100 MG CAP PO PRN (06:30)
[2025-03-08] MEDS: ACCU-CHEK COMFORT CURVE STRIP VI SCH (06:43)
[2025-03-08] MEDS: InsuLIN REG 1unit/0.01ml Soln (100units/ml) SC SCH (06:47)
[2025-03-08] MEDS: SODIUM CHLORIDE 0.9% 1,000 ML IV SCH (06:55)
[2025-03-08 07:31] LABS: Magnesium 1.4 mg/dL (1.6-2.6); Potassium 2.4 mmol/L (3.5-5.1)
[2025-03-08 08:13] LABS: Opiate Scree,Urine Neg (NEGATIVE)
[2025-03-08 08:22] LABS: Amphetamine Screen, Urine Neg (NEGATIVE); Barbiturate Scree,Urine Neg (NEGATIVE); Benzodiazephine Screen, Urine Neg (NEGATIVE); Cannabinoid Screen, Urine Neg (NEGATIVE); Cocaine Screen, Urine Neg (NEGATIVE); Phencyclidine Screen, Urine Neg (NEGATIVE)
--- NOTE | 2025-03-08 08:30 | DVH ---
Carotid Duplex Clinical History: eval for vascular occlusion Comparison: US ECHO 2D MODE CARDIAC DOP on DOS: 08/29/24, US BILAT LOW EXT ART DUPLEX on DOS: 10/13/23 Technique: Duplex Doppler evaluation of the extracranial carotid and vertebral arteries including color Doppler and spectral/pulsed waveform analysis was performed. Findings: RIGHT SIDE: The peak systolic velocities are 61 cm/s in the CCA, 84 cm/s in the ICA. The ICA/CCA ratio is 1.4. The external carotid artery is patent with peak systolic velocity of 89 cm/s proximally. There is appropriate antegrade flow in the right vertebral artery. LEFT SIDE: The peak systolic velocities are 68 cm/s in the CCA, 117 cm/s in the ICA. The ICA/CCA ratio is 1.7. The external carotid artery is patent with peak systolic velocity of 154 cm/s proximally. There is appropriate antegrade flow in the left vertebral artery. IMPRESSION: No hemodynamically significant stenosis noted in the right carotid system. No hemodynamically significant stenosis noted in the left carotid system. Reference: Radiology 2003; [id number] Reference: Radiology 2003; [id number] Normal ICA PSV is <125 cm/sec and no plaque or intimal thickening is visible sonographically addition al criteria include ICA/CCA PSV ratio <2.0 and ICA EDV <40 cm/sec <50% ICA stenosis ICA PSV is <125 cm/sec and plaque or intimal thickening is visible sonographically additional criteria include ICA/CCA PSV ratio <2.0 and ICA EDV <40 cm/sec 50-69% ICA stenosis ICA PSV is 125-230 cm/sec and plaque is visible sonographically additional criter ia include ICA/CCA PSV ratio of 2.0-4.0 and ICA EDV of 40-100 cm/sec 70% ICA stenosis but less than near occlusion ICA PSV is >230 cm/sec and visible plaque and luminal narrowing are seen at holland-scale and color Doppler ultrasound (the higher the Doppler parameters lie above the threshold of 230 cm/sec, the greater the likelihood of severe disease) additional criteria include ICA/CCA PSV ratio >4 and ICA EDV >100 cm/sec
[2025-03-08] MEDS: POTASSIUM CHL 20MEQ/100ML 100 ML IV SCH (09:20)
--- NOTE | 2025-03-08 11:50 | DVHINCON2 ---
Date of service: Mar 08, 2025 Referring Physician Mily Reason for Consultation Acute dizziness History of Present Illness Ms. Sutton is a 79 years old right-handed female with a history of hypertension, diabetes, dyslipidemia, anxiety, low back pain, he came to the [facility] on 03/08/2025 with a chief complaint of dizziness. At this time, she is alert and fully oriented, she provided the following history without bilingual staff's help She reports her problem has been going on for eight months/since 07/2024. He has constant mild dizziness/spinning sensation all the time when she was standing or walking, but not when she was bed resting, along with it she has blurry vision, hot feeling between the mid abdomen and neck, general weakness, but she denies nausea, vomiting, fall or passing-out. All her symptoms were especially worse on 03/08/2025 and she decide to bring her for medical attention She saw her family doctor previously, but she does not remember having CT/MRI or other tests Otherwise denies other acute medical problem, she claims she drinks 2 L of water daily UDS, 03/08/2025: Unremarkable UDS, 03/08/2025: Negative WBC/HB/PLT/MCV, 03/08/2025: 15.8/10.6/410/79.2 Potassium, : 2.4 BUN/CR, 03/08/2025: 89/1.94 Liver function tests, 03/08/2025: Unremarkable Troponin one high sensitivity, 03/08/2025: 14 TSH, 03/08/2025: 2.53 Carotid Doppler, 03/08/2025: No hemodynamically significant stenosis noted in the right carotid system. No hemodynamically significant stenosis noted in the left carotid system. Chest x-ray, 03/08/2025: Cardiomegal CT head, 09/05/2024: No acute intracranial process MRI lumbar spine, 08/16/2024: 1. Acute compression fractures at L1 and L4. 50% loss of the L1 vertebral body. 2. There is effacement of the thecal sac by the posterior superior L1 vertebral body which abuts but does not compress the conus. 3. At L5-S1 3 mm anterolisthesis due to degenerative facet joint disease Past Medical History Hypertension, diabetes, dyslipidemia, anxiety, low back pain since 07/2024 after a fall Past Surgical History Hernia repair, lumbar spine surgery in 08/2024 Family History: Diabetes mellitus G8 BROTHER G8 SISTER FH: ovarian cancer G8 MOTHER Family History Diabetes Social History She has no history of tobacco smoking, drug/alcohol abuse Allergies: Coded Allergies: Lidocaine (Verified Allergy, Unknown, 08/30/24) Home Meds Reported Medications Albuterol Sulfate (VENTOLIN MDI) 90 Mcg Ih, 90 MCG IN, INH 08/29/24 Citalopram Hydrobromide (Citalopram) 10 Mg Tab, 10 MG PO DAILY, TAB 08/29/24 Atorvastatin Calcium (Lipitor) 20 Mg Tab, 1 TAB PO DAILY, #90 TAB 1 Refill 08/29/24 Sitagliptin Phosphate (Januvia) 50 Mg Tab, 1 TAB PO DAILY, #30 TAB 5 Refills 08/29/24 Hydrocodone-Acetaminophen (Hydrocodone Bitartrate/AC 10-325 mg) 1 Tab Tab, 1 TAB PO TID, TAB 08/29/24 Cholecalciferol (VITAMIN D3) 2,000 Unit Tab, 1 TAB PO DAILY, #30 TAB 5 Refills 08/29/24 Hydrochlorothiazide (Hydrochlorothiazide) 25 Mg Tab, 25 MG PO DAILY for 30 Days, MG 08/29/24 Allopurinol (Allopurinol) 100 Mg Tab, 100 MG PO DAILY for 30 Days, MG 08/29/24 Furosemide (Furosemide) 20 Mg Tab, 20 MG PO DAILY for 30 Days, MG 08/29/24 Amlodipine Besylate (Amlodipine Besylate) 5 Mg Tab, 5 MG PO DAILY for 30 Days, MG 08/29/24 Hydralazine Hcl (Hydralazine Hcl) 50 Mg Tab, 100 MG PO TID for 30 Days, MG 08/29/24 Insulin NPH Isophane & Reg (Hu (Novolin 70/30 (70-30) 100 Unit/ml) 1 Inj Inj, 1 INJ SC, INJ 08/29/24 Carvedilol (Carvedilol) 12.5 Mg Tab, 12.5 MG PO Q12HR for 30 Days, MG 08/29/24 Losartan Potassium (Losartan Potassium) 50 Mg Tab, 50 MG PO BID for 30 Days, MG 08/29/24 Famotidine (PEPCID TABLET) 20 Mg Tb, 2 TAB PO DAILY, #60 TAB 5 Refills 08/29/24 Duloxetine Hcl (Cymbalta) 60 Mg Cap, 1 CAP PO DAILY, #90 CAP 3 Refills 08/29/24 Current Medications Current Medications Medications (Trade) Dose Ordered Sig/Celia Route PRN Reason Start Time Stop Time Status Last Admin Sodium Chloride 1,000 ml @ 100 mls/hr Q10H IV 03/08/25 06:30 03/08/25 06:55 Ondansetron HCl (Zofran) 4 mg Q4HP PRN IV NAUSEA / VOMITING 03/08/25 06:30 Docusate Sodium (Colace Capsule) 100 mg BIDPRN PRN PO FOR CONSTIPATION 03/08/25 06:30 Morphine Sulfate 2 mg Q4HPRN PRN IV SEVERE PAIN (7-10 PAIN SCALE) 03/08/25 06:30 Nitroglycerin (Ntrostat Sublingual) 0.4 mg Q5MINP PRN SL FOR CHEST PAIN 03/08/25 06:30 Diagnostic Test (Pha) (Accu-Chek Comfort Curve T) 1 strip ACHS 03/08/25 07:00 03/08/25 06:43 Insulin Human Regular (InsuLIN R) ACHS SC 03/08/25 07:00 03/08/25 06:47 Dextrose 50 ml UD PRN IV Blood Sugar LESS THAN 60 03/08/25 06:30 Meclizine HCl (Antivert Tablet) 25 mg Q8HR PO 03/08/25 14:00 Aspirin 81 mg DAILY PO 03/09/25 10:00 Atorvastatin Calcium (Lipitor) 20 mg HS PO 03/08/25 22:00 Potassium Chloride 100 ml @ 50 mls/hr Q2H IV 03/08/25 07:45 03/08/25 11:44 03/08/25 11:12 Review of Systems As above, the other systems are negative Vital Signs Vital Signs Date Time Temp Pulse Resp B/P (MAP) Pulse Ox O2 Delivery O2 Flow Rate FiO2 03/08/25 10:24 98 Room Air* 0 21 03/08/25 10:00 70 16 120/34 (62) 03/08/25 09:00 97.9 97.9 Physical Exam GENERAL EXAM: General: the patient is well developed and nourished. No acute distress. HEENT: Normocephalic, neck is supple, no carotid bruits. No mass. RESPIRATORY: Normal respiratory effort with symmetrical lung expansion. Lungs clear to auscultation. CARDIOVASCULAR: Regular rate and rhythm with no murmurs. S1, S2. ABDOMEN: Soft, nontender, normal bowel sound NEUROLOGICAL: MENTAL STATUS: Awake and alert. Oriented to person, place, time and general circumstances. Able to give personal history. The patient is aware of recent events SPEECH, LANGUAGE, HIGHER CORTICAL FUNCTION: no aphasia or dysathria. CRANIAL NERVES: #2: Intact visual little to confrontation. The optic discs were sharp. Retinal background was uniformly pink in appearance. There was no hemorrhages or exudates. #3,4,6: Pupils are equal, round and reactive. EOMs full and conjugate. Mild bilateral gaze evoked nystagmus. #5: Facial sensation intact in all three divisions bilaterally. Mandibular strength intact. #7: Facial muscles symmetrical and strength intact. #8: Hearing grossly normal to voice. #9,10: Uvula and soft palate rise in the midline. Swallow and voice are normal. #11: Trapezius and sternomastoid strength intact bilaterally. #12: Tongue midline. No fasciculations or atrophy. SENSATION: Sensation to touch and pinprick is normal. MOTOR: Normal tone in the upper and lower extremity. Normal muscle bulk. No fasciculations. No abnormal movements or posturing. Muscle strength of the major groups in the upper extremities is 5/5. Muscle strength of the major groups in the lower extremities is 5/5. REFLEXES: Deep tendon reflexes normal and symmetrical. No pathological reflexes. CEREBELLAR/COORDINATION: Finger to nose and heel to [place] are normal bilaterally. GAIT/STATION: deferred. Labs/Diagnostic Data Labs Test 03/08/25 07:05 03/08/25 07:04 03/08/25 07:00 03/08/25 06:42 Range/Units Influenza Type A Antigen Negative Negative Influenza Type B Antigen Negative Negative Potassium Level 2.4 *L 3.5-5.1 mmol/L Phosphorus Level 2.6 2.4-5.1 mg/dL Magnesium Level 1.4 L 1.6-2.6 mg/dL Thyroid Stimulating Hormone (TSH) 2.53 0.55-4.78 uIU/mL POC Glucose 176 H 70-106 mg/dl Test 03/08/25 06:09 9/12/25 03:30 03/08/25 01:02 Range/Units Troponin I High Sensitivity 20 </=34 ng/L Urine Color Colorless Yellow Urine Clarity Clear Clear Urine pH 7.0 5.0-9.0 Urine Specific [place] 1.006 1.001-1.035 Urine Protein Negative Negative Urine Ketones Negative Negative Urine Blood Negative Negative /uL Urine Nitrite Negative Negative Urine Bilirubin Negative Negative Urine Urobilinogen Normal Negative mg/dL Urine Leukocyte Esterase Negative Negative /uL Urine RBC None seen 0 - 4 /hpf Urine Microscopic WBC 1 0-5 /HPF Urine Squamous Epithelial Cells Few <5 /hpf Urine Bacteria None seen None Seen /hpf Urine Glucose Normal Normal mg/dL Urine Opiates Screen Neg NEGATIVE Urine Fentanyl Screen Neg NEGATIVE Urine Barbiturates Screen Neg NEGATIVE Urine Phencyclidine Screen Neg NEGATIVE Urine Amphetamines Screen Neg NEGATIVE Urine Benzodiazepines Screen Neg NEGATIVE Urine Cocaine Screen Neg NEGATIVE Urine Cannabinoids Screen Neg NEGATIVE White Blood Count 15.8 H 4.4-10.8 10^3/uL Red Blood Count 3.81 L 4.0-5.20 10^6/uL Hemoglobin 10.6 L 12.2-16.2 g/dL Hematocrit 30.2 L 36.0-46.0 % Mean Corpuscular Volume 79.2 L 80.0-100.0 fL Mean Corpuscular Hemoglobin 27.8 L 28.0-32.0 pg Mean Corpuscular Hemoglobin Concent 35.1 32.0-36.0 g/dL Red Cell Distribution Width 15.6 H 11.8-14.3 % Platelet Count 410 140-450 10^3/uL Mean Platelet Volume 7.1 6.9-10.8 fL Neutrophils (%) (Auto) 75.1 37.0-80.0 % Lymphocytes (%) (Auto) 13.2 10.0-50.0 % Monocytes (%) (Auto) 9.1 0.0-12.0 % Eosinophils (%) (Auto) 2.0 0.0-7.0 % Basophils (%) (Auto) 0.6 0.0-2.0 % Neutrophils # (Auto) 11.9 H 1.6-8.6 10 ^3/uL Lymphocytes # (Auto) 2.1 0.4-5.4 10 ^3/uL Monocytes # (Auto) 1.4 H 0-1.3 10 ^3/uL Eosinophils # (Auto) 0.3 0-0.8 10 ^3/uL Basophils # (Auto) 0.1 0-0.2 10 ^3/uL Nucleated Red Blood Cells 0.0 % Sodium Level 134 L 136-145 mmol/L Chloride Level 92 L 98-107 mmol/L Carbon Dioxide Level 28 20-31 mmol/L Anion Gap 14 5-15 Blood Urea Nitrogen 89 *H 9-23 mg/dL Creatinine 1.94 H 0.550-1.02 mg/dL Glomerular Filtration Rate Calc 26 >90 mL/min BUN/Creatinine Ratio 45.9 H 10.0-20.0 Serum Glucose 244 H 74-106 mg/dL Lactic Acid Level 1.9 0.4-2.0 mmol/L Calcium Level 9.2 8.7-10.4 mg/dL Total Bilirubin < 0.2 L 0.2-1.0 mg/dL Aspartate Amino Transferase (AST) 18 13-40 U/L Alanine Aminotransferase (ALT) 14 7-40 U/L Alkaline Phosphatase 146 H 46-116 U/L B-Type Natriuretic Peptide 74.51 0-100 pg/mL Total Protein 6.5 5.7-8.2 g/dL Albumin 4.1 3.2-4.8 g/dL Assessment Dizziness/mild spinning sensation Blurry vision General weakness Acute kidney injury ? Dehydration ? Orthostatic hypotension Plan/Recommendation Monitoring Supportive treatment Telemetry Orthostatic vitals MRI head Good hydration Syncopal precautions Cardiology evaluation More recommendation per clinical course This medical document was created using an electronic medical record system with [employer] dictation system. Although this document has been carefully reviewed, there may still be some phonetic and typographical errors. These areas are purely typographical due to imperfections of the software programs, and do not reflect any compromise in the patient's medical care. Plan discussed with: Patient, Other JESSE ODOM MD Mar 08, 2025 11:50
[2025-03-08] MEDS ORDERED: LORazepam 2MG/ML-1ML VIAL IV PRN (12:45)
[2025-03-08] MEDS: MAGNESIUM OXIDE 400 MG TAB PO ONE (13:32)
[2025-03-08] MEDS: MECLIZINE HCL 25 MG TAB PO SCH (13:33)
[2025-03-08] MEDS: MAGNESIUM SULFATE 1GM/100ML 100 ML IV SCH (13:33)
[2025-03-08] MEDS: SOD CHL 0.9%/ KCL 40MEQ 1,000 ML IV SCH (13:33)
[2025-03-08 13:45] LABS: COVID19 ANTIGEN SOFIA FIA NEGATIVE (NEGATIVE)
[2025-03-08 14:34] LABS: Hematocrit 34.0 % (36.0-46.0); Hemoglobin 11.3 g/dL (12.2-16.2); Mean Corpuscular Hemoglobin 27.2 pg (28.0-32.0); Mean Corpuscular Volume 82.1 fL (80.0-100.0); Nucleated Red Blood Cells % 0.0 %
--- NOTE | 2025-03-08 14:46 | DVH ---
CLINICAL HISTORY: Vertigo TECHNIQUE: Routine multiplanar imaging of the brain was performed without gadolinium contrast. COMPARISON: CT HEAD WITHOUT CONTRAST on DOS: 09/05/24, CT HEAD WITHOUT CONTRAST on DOS: 09/04/24, MRI L UMBAR SPINE WO CONTRAST on DOS: 08/16/24, MRI LUMBAR SPINE WO CONTRAST on DOS: 12/13/22 FINDINGS: There is no abnormal restricted diffusion to suggest acute infarction. There is mild brain volume loss. View punctate f[place] 2 hyperintensity within the white matter of jordi th squaxin hemispheres is of doubtful clinical significance. There is no evidence for acute ischemic changes, mass, mass effect, or extra-axial fluid collection. There is no hydrocephalus or midline shift. The cerebral sulci and subarachnoid cisterns are not effa bernardo. The imaged paranasal sinuses are clear. There has been bilateral cataract extraction. The midline str uctures, including the corpus callosum, are unremarkable. The intracranial flow voids are maintained. IMPRESSION: No acute intracranial abnormality seen. No evidence for acute infarct.
[2025-03-08 14:49] LABS: Anion Gap 13 (5-15); Carbon Dioxide 23 mmol/L (20-31); Chloride 102 mmol/L (98-107); Sodium 138 mmol/L (136-145)
[2025-03-08 14:50] LABS: Calcium 9.5 mg/dL (8.7-10.4)
[2025-03-08 14:55] LABS: Magnesium 1.8 mg/dL (1.6-2.6)
[2025-03-08 15:07] LABS: Blood Urea Nitrogen 48 mg/dL (9-23)
[2025-03-08 15:08] LABS: BUN/Creatinine Ratio 27.6 (10.0-20.0); Glucose 341 mg/dL (74-106); Potassium 3.4 mmol/L (3.5-5.1)
--- NOTE | 2025-03-08 17:27 | DVHINCON2 ---
Date Seen: Mar 08, 2025 Referring Physician MD Joe Reason for Consultation Dizziness History of Present Illness This is a Russian-speaking 79-year-old female patient who presents to emergency room with chief complaint of dizziness and chest tightness. She describes the chest pain as unprovoked, tight in nature, constant, substernal and nonradiating. She reports that the symptoms began at approximately 10:00 a.m. last night while watching television. Denies any alleviating or aggravating factors. The patient's son, Georgette, is at bedside and reports calling EMS to bring the patient to the emergency room further evaluation. A cardiac rhythm strips provided by EMS personnel found in the patient's hard chart reveals that the patient was in torsades de pointes upon EMS arrival to the patient's home. A twelve lead electrocardiogram done in the emergency room reveals normal sinus rhythm with left bundle branch block and prolonged QTc interval (EKG machine reads atrial fibrillation). Initial troponin level of 14ng/L with flat trend thereafter. Significant past medical history includes hypertension, dyslipidemia, type 2 diabetes mellitus, chronic kidney disease, anxiety, and depression. Past Medical History Past medical history reviewed. No other significant than mentioned above. Past Surgical History Bilateral shoulder repair Unspecified back surgery Family History: Diabetes mellitus G8 BROTHER G8 SISTER FH: ovarian cancer G8 MOTHER Family History Family history reviewed. Social History Denies the use of tobacco, alcohol or illicit drugs. Allergies: Coded Allergies: Lidocaine (Verified Allergy, Unknown, 08/30/24) Home Meds Reported Medications Albuterol Sulfate (VENTOLIN MDI) 90 Mcg Ih, 90 MCG IN, INH 08/29/24 Citalopram Hydrobromide (Citalopram) 10 Mg Tab, 10 MG PO DAILY, TAB 25 Atorvastatin Calcium (Lipitor) 20 Mg Tab, 1 TAB PO DAILY, #90 TAB 1 Refill 08/29/24 Sitagliptin Phosphate (Januvia) 50 Mg Tab, 1 TAB PO DAILY, #30 TAB 5 Refills 25 Hydrocodone-Acetaminophen (Hydrocodone Bitartrate/AC 10-325 mg) 1 Tab Tab, 1 TAB PO TID, TAB /25 Cholecalciferol (VITAMIN D3) 2,000 Unit Tab, 1 TAB PO DAILY, #30 TAB 5 Refills 08/29/24 Hydrochlorothiazide (Hydrochlorothiazide) 25 Mg Tab, 25 MG PO DAILY for 30 Days, MG 08/29/24 Allopurinol (Allopurinol) 100 Mg Tab, 100 MG PO DAILY for 30 Days, MG 08/29/24 Furosemide (Furosemide) 20 Mg Tab, 20 MG PO DAILY for 30 Days, MG 08/29/24 Amlodipine Besylate (Amlodipine Besylate) 5 Mg Tab, 5 MG PO DAILY for 30 Days, MG 08/29/24 Hydralazine Hcl (Hydralazine Hcl) 50 Mg Tab, 100 MG PO TID for 30 Days, MG 08/29/24 Insulin NPH Isophane & Reg (Hu (Novolin 70/30 (70-30) 100 Unit/ml) 1 Inj Inj, 1 INJ SC, INJ 08/29/24 Carvedilol (Carvedilol) 12.5 Mg Tab, 12.5 MG PO Q12HR for 30 Days, MG 08/29/24 Losartan Potassium (Losartan Potassium) 50 Mg Tab, 50 MG PO BID for 30 Days, MG 08/29/24 Famotidine (PEPCID TABLET) 20 Mg Tb, 2 TAB PO DAILY, #60 TAB 5 Refills 08/29/24 Duloxetine Hcl (Cymbalta) 60 Mg Cap, 1 CAP PO DAILY, #90 CAP 3 Refills 08/29/24 Home Meds Home medications reviewed. Current Medications Current Medications Medications (Trade) Dose Ordered Sig/Celia Route PRN Reason Start Time Stop Time Status Last Admin Sodium Chloride 1,000 ml @ 100 mls/hr Q10H IV 03/08/25 06:30 03/08/25 13:35 DC 03/08/25 06:55 Ondansetron HCl (Zofran) 4 mg Q4HP PRN IV NAUSEA / VOMITING 03/08/25 06:30 Docusate Sodium (Colace Capsule) 100 mg BIDPRN PRN PO FOR CONSTIPATION 03/08/25 06:30 Morphine Sulfate 2 mg Q4HPRN PRN IV SEVERE PAIN (7-10 PAIN SCALE) 03/08/25 06:30 Nitroglycerin (Ntrostat Sublingual) 0.4 mg Q5MINP PRN SL FOR CHEST PAIN 03/08/25 06:30 Diagnostic Test (Pha) (Accu-Chek Comfort Curve T) 1 strip ACHS 03/08/25 07:00 03/08/25 16:49 Insulin Human Regular (InsuLIN R) ACHS SC 03/08/25 07:00 03/08/25 16:55 Dextrose 50 ml UD PRN IV Blood Sugar LESS THAN 60 03/08/25 06:30 Meclizine HCl (Antivert Tablet) 25 mg Q8HR PO 03/08/25 14:00 03/08/25 13:33 Aspirin 81 mg DAILY PO 03/09/25 10:00 Atorvastatin Calcium (Lipitor) 20 mg HS PO 03/08/25 22:00 Potassium Chloride 100 ml @ 50 mls/hr Q2H IV 03/08/25 07:45 03/08/25 11:44 DC 03/08/25 11:12 Lorazepam (Ativan Inj) 1 mg ONCE PRN IV MRI 03/08/25 12:45 Magnesium Sulfate/ Dextrose 100 ml @ 100 mls/hr Q1HR IV 03/08/25 14:00 03/08/25 15:59 DC 03/08/25 16:50 Potassium Chloride/Sodium Chloride 1,000 ml @ 120 mls/hr Q8H20M IV 03/08/25 13:15 03/08/25 13:33 Magnesium Oxide (Mag-Ox Tablet) 800 mg BID PO 03/08/25 22:00 Review of Systems Constitutional: No symptom reported Ears, Nose, & Throat: No symptom reported Eyes: No symptom reported Neurological: Dizziness Pulmonary/Respiratory: No symptoms reported Cardiovascular: Chest tightness Gastrointestinal: No symptom reported Genitourinary: No symptom reported Musculoskeletal: No symptom reported Skin: No symptom reported Psychiatric: No symptom reported Endocrine: No symptom reported Hematologic/Lymphatic: No symptom reported Vital Signs Vital Signs Date Time Temp Pulse Resp B/P (MAP) Pulse Ox O2 Delivery O2 Flow Rate FiO2 03/08/25 15:44 70 135/66 (89) 99 03/08/25 15:44 97.1 18 97.1 03/08/25 10:24 Room Air* 0 21 Physical Exam General Appearance: Cooperative. Well-developed. Well-nourished. No acute distress. Pulmonary/Respiratory: Clear, bilateral breaths sounds. Cardiovascular/Chest: Regular rate and rhythm. Peripheral Pulses: 2+ Radial (R). 2+ Radial (L). 2+ Pedal (R). 2+ Pedal (L) Abdominal Exam: Normal bowel sounds. Ankle Exam: Negative ankle edema Lower extremities: Negative lower extremity edema Neuro/Mental Status: A/OX4, coherent. Thoughts/Psych: Normal thought pattern. Appropriate mood and affect. Good judgment and insight. Appearance: No acute distress. Skin Exam: Normal inspection. Normal color. Warm and dry. Labs/Diagnostic Data Labs Test 03/08/25 14:23 03/08/25 13:07 03/08/25 12:12 03/08/25 07:04 Range/Units White Blood Count 13.2 H 4.4-10.8 10^3/uL Red Blood Count 4.14 4.0-5.20 10^6/uL Hemoglobin 11.3 L 12.2-16.2 g/dL Hematocrit 34.0 #L 36.0-46.0 % Mean Corpuscular Volume 82.1 80.0-100.0 fL Mean Corpuscular Hemoglobin 27.2 L 28.0-32.0 pg Mean Corpuscular Hemoglobin Concent 33.2 32.0-36.0 g/dL Red Cell Distribution Width 16.4 H 11.8-14.3 % Platelet Count 425 140-450 10^3/uL Mean Platelet Volume 7.4 6.9-10.8 fL Neutrophils (%) (Auto) 80.0 37.0-80.0 % Lymphocytes (%) (Auto) 10.3 10.0-50.0 % Monocytes (%) (Auto) 6.7 0.0-12.0 % Eosinophils (%) (Auto) 2.2 0.0-7.0 % Basophils (%) (Auto) 0.8 0.0-2.0 % Neutrophils # (Auto) 10.6 H 1.6-8.6 10 ^3/uL Lymphocytes # (Auto) 1.4 0.4-5.4 10 ^3/uL Monocytes # (Auto) 0.9 0-1.3 10 ^3/uL Eosinophils # (Auto) 0.3 0-0.8 10 ^3/uL Basophils # (Auto) 0.1 0-0.2 10 ^3/uL Nucleated Red Blood Cells 0.0 % Sodium Level 138 136-145 mmol/L Potassium Level 3.4 L 3.5-5.1 mmol/L Chloride Level 102 # 98-107 mmol/L Carbon Dioxide Level 23 20-31 mmol/L Anion Gap 13 5-15 Blood Urea Nitrogen 48 #H 9-23 mg/dL Creatinine 1.74 H 0.550-1.02 mg/dL Glomerular Filtration Rate Calc 29 >90 mL/min BUN/Creatinine Ratio 27.6 H 10.0-20.0 Serum Glucose 341 H 74-106 mg/dL Calcium Level 9.5 8.7-10.4 mg/dL Magnesium Level 1.8 1.6-2.6 mg/dL SARS-CoV-2 Antigen (Rapid) Negative NEGATIVE POC Glucose 355 H 70-106 mg/dl Influenza Type A Antigen Negative Negative Influenza Type B Antigen Negative Negative Test 03/08/25 07:00 03/08/25 06:09 03/08/25 03:30 03/08/25 01:02 Range/Units Phosphorus Level 2.6 2.4-5.1 mg/dL Thyroid Stimulating Hormone (TSH) 2.53 0.55-4.78 uIU/mL Troponin I High Sensitivity 20 </=34 ng/L Urine Color Colorless Yellow Urine Clarity Clear Clear Urine pH 7.0 5.0-9.0 Urine Specific [place] 1.006 1.001-1.035 Urine Protein Negative Negative Urine Ketones Negative Negative Urine Blood Negative Negative /uL Urine Nitrite Negative Negative Urine Bilirubin Negative Negative Urine Urobilinogen Normal Negative mg/dL Urine Leukocyte Esterase Negative Negative /uL Urine RBC None seen 0 - 4 /hpf Urine Microscopic WBC 1 0-5 /HPF Urine Squamous Epithelial Cells Few <5 /hpf Urine Bacteria None seen None Seen /hpf Urine Osmolality 269 mOsm/kg Urine Creatinine 9.78 L 30.0-125.0 mg/dL Urine Sodium 99 40-220 mmol/L Urine Glucose Normal Normal mg/dL Urine Opiates Screen Neg NEGATIVE Urine Fentanyl Screen Neg NEGATIVE Urine Barbiturates Screen Neg NEGATIVE Urine Phencyclidine Screen Neg NEGATIVE Urine Amphetamines Screen Neg NEGATIVE Urine Benzodiazepines Screen Neg NEGATIVE Urine Cocaine Screen Neg NEGATIVE Urine Cannabinoids Screen Neg NEGATIVE Lactic Acid Level 1.9 0.4-2.0 mmol/L Total Bilirubin < 0.2 L 0.2-1.0 mg/dL Aspartate Amino Transferase (AST) 18 13-40 U/L Alanine Aminotransferase (ALT) 14 7-40 U/L Alkaline Phosphatase 146 H 46-116 U/L B-Type Natriuretic Peptide 74.51 0-100 pg/mL Total Protein 6.5 5.7-8.2 g/dL Albumin 4.1 3.2-4.8 g/dL Assessment Torsades de pointes Prolonged QTc interval Rule out structural heart disease Hypertension Dyslipidemia Hypokalemia Hypomagnesemia Acute kidney injury Type 2 diabetes mellitus Plan/Recommendation We will continue with the following plan/recommendations (Dr. Rodriguez): Case discussed with . We will proceed with obtaining a transthoracic echocardiogram to evaluate cardiac function. EMS cardiac strips reviewed and are significant for torsades de pointes. A twelve lead electrocardiogram obtained in the emergency room reveals normal sinus rhythm with left bundle branch block and prolonged QTc interval. At this time we will recommend to monitor and replete electrolytes as needed keeping potassium greater than four and magnesium greater than two. The patient's QT interval will need to be shadia sely monitored as well with daily twelve lead electrocardiograms and continuous telemetry. Hold all medications that will further prolong QT interval including patient's home medications citalopram and duloxetine. We will also consult EP team to evaluate the need for ICD. Thank you for allowing us to care for this patient. Please call with any questions or concerns. Critical care time spent: 44 minutes This medical document was created using an electronic medical record system with voice recognition software and computerized dictation system. Although this document has been carefully reviewed, there might still be some phonetic and typographical errors. Occasional wrong-word or ``sound-alike substitutions may have occurred due to the inherent limitations of voice recognition software. These areas are purely typographical due to imperfections of the software prog cindi and do not reflect any compromise in the patient's medical care. Please read the chart carefully and recognize, using context, where these substitutions have occurred. Plan discussed with: Patient NYHA Physical activity limitations: NA Date of Service: Mar 08, 2025 Billing Provider: COREY THACKER Cardiology Common Codes: 21138-RREBXNC INP/OBS CARE (High) Cardiology Consultation Codes: 26579-SNOHBZZEN CONSULT <45MIN COREY THACKER Mar 08, 2025 17:27
[2025-03-08] MEDS: SOD CHL 0.45% 1,000 ML IV SCH (17:45)
[2025-03-08] MEDS: ATORVASTATIN 20 MG TAB PO SCH (21:21)
[2025-03-08] MEDS: MAGNESIUM OXIDE 400 MG TAB PO SCH (21:22)
[2025-03-09] VITALS (9 sets, daily range): BP systolic 112–158; BP diastolic 56–77; PULSE 71–85; RESP 16–20; TEMP 97.4–99; O2SAT 98–100
[2025-03-09 07:07] LABS: Hematocrit 29.3 % (36.0-46.0); Hemoglobin 10.0 g/dL (12.2-16.2); Mean Corpuscular Hemoglobin 27.9 pg (28.0-32.0); Mean Corpuscular Volume 81.7 fL (80.0-100.0); Nucleated Red Blood Cells % 0.1 %
[2025-03-09 07:21] LABS: Alanine Aminotransferase 15 U/L (7-40); Albumin 3.8 g/dL (3.2-4.8); Alkaline Phosphatase 103 U/L (46-116); Anion Gap 9 (5-15); BUN/Creatinine Ratio 26.8 (10.0-20.0); Calcium 9.0 mg/dL (8.7-10.4); Carbon Dioxide 24 mmol/L (20-31); Potassium 4.2 mmol/L (3.5-5.1); Sodium 143 mmol/L (136-145); Total Protein 6.2 g/dL (5.7-8.2)
[2025-03-09 07:22] LABS: Bilirubin, Total 0.4 mg/dL (0.2-1.0)
[2025-03-09 07:23] LABS: Blood Urea Nitrogen 41 mg/dL (9-23); Chloride 110 mmol/L (98-107); Glucose 179 mg/dL (74-106); Magnesium 2.8 mg/dL (1.6-2.6)
[2025-03-09 08:38] LABS: Blood Urea Nitrogen 89 mg/dL (9-23)
--- NOTE | 2025-03-09 08:55 | ECG ---
[facility] Test Date: 2025-03-08 Test Time: 05:06:25 Pat Name: VITALY SHERMAN Department: Room: [facility]7T B Gender: F Market Master: MORENITA : 1945 Requested By: GÉNESIS BETH Order Number: [id number] Reading MD: Nadeem Rodriguez Measurements Intervals [place] Rate: 71 P: 32 IA: 172 QRS: -10 QRSD: 162 T: 152 QT: 503 QTc: 547 Interpretive Statements Sinus arrhythmia Left bundle branch block Electronically Signed On 03-13-2025 9:25:37 PDT by Nadeem Rodriguez Please click the below link to view image of tracing.
[2025-03-09] MEDS ORDERED: POTA-36 PO (09:02)
[2025-03-09] MEDS ORDERED: ASPI-325 PO (09:06)
--- NOTE | 2025-03-09 09:28 | DVHPNRES ---
Progress Note Date Seen: Mar 09, 2025 Resident Creating Document: NEMO HOLLIDAY RESIDENT Medical Necessity Reason Pt with a Central, PICC or Fol: No Subjective Review of Systems This is a 79-year-old female with a significant past medical history of hypertension, hyperlipidemia, type 2 diabetes mellitus, chronic kidney disease, anxiety, depression, and gout, who presents to the emergency department with complaints of sudden-onset dizziness and midsternal chest tightness. The symptoms began around 10:00 p.m. the previous night while she was lying in bed watching television. She describes the chest pain as constant, tight in nature, substernal, non-radiating, and unprovoked, with no identifiable alleviating or aggravating factors. She also reports generalized body pain and shortness of breath but denies cough, fever, vomiting, diarrhea, or focal weakness. Upon EMS arrival at her home, cardiac rhythm strips revealed torsades de pointes. In the emergency department, a 12-lead ECG showed normal sinus rhythm with left bundle branch block and prolonged QTc interval (initial QTc 538 ms), although the machine interpreted atrial fibrillation. Repeat ECG after electrolyte repletion showed QTc improvement to 492 ms. Initial troponin was 14 ng/L with a flat trend on repeat testing. Labs were notable for leukocytosis (WBC 15.8), anemia (Hgb 10.6, Hct 30.2), hyponatremia (Na 134), hypokalemia (K 2.4), hypomagnesemia (Mg 1.8), elevated creatinine (1.94), and hyperglycemia (glucose 200). Chest X-ray revealed cardiomegaly. Urinalysis was unremarkable. She received normal saline, ceftriaxone, potassium, magnesium, and amiodarone in the ED. The patient seen and examined at bedside, patient is still feeling dizziness, patient had torsade de [place] is on tele monitors last night, cardiology consultation appreciated, recommended to discontinue citalopram and duloxetine, as they might cause prolonged QTC, today repeat EKG shows QTC 492. Patient needs further evaluation for EP. Objective vital signs Vital Sign Date Time Temp Pulse Resp B/P (MAP) Pulse Ox O2 Delivery O2 Flow Rate FiO2 03/09/25 05:00 98.1 73 16 127/63 (84) 98 98.1 03/08/25 20:00 Room Air* 0 21 Total Intake and Output 03/08/25 03/08/25 03/09/25 15:00 23:00 07:00 Intake Total 1200 ml 400 ml 500 ml Balance 1200 ml 400 ml 500 ml medications Current Medications Medications Dose Ordered Sig/Celia Route Start Time Stop Time Status Last Admin Dose Admin Ondansetron HCl 4 mg Q4HP PRN IV 03/08/25 06:30 Docusate Sodium 100 mg BIDPRN PRN PO 03/08/25 06:30 Morphine Sulfate 2 mg Q4HPRN PRN IV 03/08/25 06:30 Nitroglycerin 0.4 mg Q5MINP PRN SL 03/08/25 06:30 Diagnostic Test (Pha) 1 strip ACHS 03/08/25 07:00 03/09/25 06:06 1 STRIP Insulin Human Regular ACHS SC 03/08/25 07:00 03/09/25 06:05 3 UNITS Dextrose 50 ml UD PRN IV 03/08/25 06:30 Meclizine HCl 25 mg Q8HR PO 03/08/25 14:00 03/09/25 06:06 25 MG Aspirin 81 mg DAILY PO 03/09/25 10:00 Atorvastatin Calcium 20 mg HS PO 03/08/25 22:00 03/08/25 21:21 20 MG Lorazepam 1 mg ONCE PRN IV 03/08/25 12:45 Potassium Chloride/Sodium Chloride 1,000 ml @ 120 mls/hr Q8H20M IV 03/08/25 13:15 03/09/25 04:03 120 MLS/HR Magnesium Oxide 800 mg BID PO 03/08/25 22:00 03/08/25 21:22 800 MG Sodium Chloride 1,000 ml @ 75 mls/hr [id number] IV 03/08/25 17:45 03/09/25 20:24 Examination GENERAL: Not in acute distress. HEENT: EOMI, Moist mucous membranes. No scleral icterus. No cervical lymphadenopathy. LUNGS: Clear to auscultation bilaterally. No accessory muscle use. CARDIOVASCULAR: Regular rate and rhythm. No murmur. No JVD. ABDOMEN: Soft, nontender and nondistended. No palpable masses. EXTREMITIES: No edema. Nontender. SKIN: No rashes or lesions. Warm. NEUROLOGIC: Alert and oriented X3 laboratory and microbiology Laboratory Tests 03/09/25 06:36 Test 03/09/25 06:36 Range/Units Serum Glucose 179 H 74-106 mg/dL Microbiology Date/Time Source Procedure Growth Status 03/08/25 07:05 Blood Blood Culture - Preliminary NO GROWTH AFTER 24 HOURS OF INCUBATION. Resulted Problem List/Assessment/Plan Problem List/Assessment/Plan # Torsades de pointes # Prolonged QTc interval # Rule out structural heart disease - electrolyte repleted - monitor BMP - cardiology consultation appreciated - repeat EKG shows QTC 492 - discontinue citalopram and duloxetine - consult CP to evaluate the need for ICD - continue telemetry monitoring # Hypertension - continue current medication - monitor BP # Dyslipidemia - continue atorvastatin # Severe Hypokalemia # Hypomagnesemia - potassium and magnesium repleted - monitor BMP and magnesium level # Acute kidney injury likely secondary to vasomotor nephropathy - IV fluid - monitor renal function # Type 2 diabetes mellitus - continue sliding scale insulin - monitor blood glucose level. Goal of care discussed with patient and her son for 32 minutes: Full code Plan discussed with Dr. Montgomery Plan discussed with: Patient NEMO HOLLIDAY RESIDENT Mar 09, 2025 09:28
--- NOTE | 2025-03-09 15:43 | DVHINCON2 ---
Date of service: Mar 09, 2025 Referring Physician Michaela Callahan NP Reason for Consultation Arrhythmia History of Present Illness This is a 79-year old female who initially presented 03/08/2025 with reported dizziness and chest tightness. Reports indicate symptoms had started the night prior to initial presentation as she was in bed watching television which EMS had been called for further evaluation. Upon EMS evaluation, patient had been found in a WCT (assessed to reflect ventricular tachycardia) as confirmed by review of available EMS rhythm strip tracing which notably upon ED arrival initial 12-lead electrocardiogram had revealed conversion to sinus rhythm at 67 bpm with an underlying LBBB, and evidence for QTC prolongation at 538 milliseconds. Patient herself denies any reported shock while undergoing management by EMS and upon review of chart, chart itself does not mention any administered anti-arrhythmic therapy by EMS and as patient arrived with a sinus rhythm confirmed by EKG findings, patient had presumably converted spontaneously without intervention however while undergoing management within the ED patient had later been administered Amiodarone bolus for the aforementioned arrhythmia. Serial HS troponin trend was found unremarkable (14, 21, 20). TSH level was found normal at 2.53. CT imaging of the brain had revealed no evidence for acute intracranial findings. Bilateral carotid duplex had revealed no evidence for any hemodynamically significant stenosis involving the bilateral carotid artery system. Urinalysis revealed no acute infectious process. UDS was found negative. Review of telemetry strips reveal patient had later experienced what appears to be brief episode of ventricular fibrillation that had spontaneously converted to sinus rhythm without intervention. Of note, upon arrival patient was found to have significant electrolyte abnormalities which she was initially found hypokalemic at 2.4 (repleted) with lowest magnesium level of 1.4 (repleted) which could have attributed to the clinical picture/tachyarrhythmia. Of note, patient furthermore has underling history of depression and was previously taking Citalopram on an outpatient basis prior to initial presentation and as Citalopram is know to potentially provoke QT prolongation, medication itself superimposed on significant electrolyte abnormalities likely could have attributed to the clinical picture. At present, denies any active chest pain, shortness of breath, palpitations, syncope, or any further cardiac related symptoms. Electrophysiology services were subsequently involved by Interventional Cardiology request for EP aspects of care. Review of outside records ([facility]) reveal past medical history includes coronary artery disease status post previous [place] (2010) with no prior stent placement, previous history of deep vein thrombosis (04/2021), diabetes mellitus II, hypertension, hyperlipidemia, chronic kidney disease and depression Echocardiogram April 2019-LVEF hyperdynamic 75%, mild LVH, grade 1 diastolic dysfunction, mild left atrial enlargement. Echocardiogram September 2021-LVEF normal 70%, grade 1 diastolic dysfunction, mild LVH left atrium mildly dilated, RVSP 40 mmHg. Lexiscan Cardiolite April 2019-negative for ischemia, EF hyperdynamic more than 75%. Lexiscan Cardiolite November 2021-LVEF normal 68%, no ischemia or scar. Past Medical History Reviewed Past Surgical History Reviewed Family History: Diabetes mellitus G8 BROTHER G8 SISTER FH: ovarian cancer G8 MOTHER Allergies: Coded Allergies: Lidocaine (Verified Allergy, Unknown, 08/30/24) Home Meds Active Scripts Aspirin (Aspirin Low Dose) 81 Mg Tab, 81 MG PO DAILY for 30 Days, #30 TAB 2 Refills Prov:NEMO HOLLIDAY RESIDENT 03/09/25 Potassium Chloride (POTASSIUM CHLORIDE CR) 10 Meq Tb, 10 MEQ PO DAILY for 30 Days, #30 TAB 2 Refills Prov:NEMO HOLLIDAY RESIDENT 03/09/25 Reported Medications Albuterol Sulfate (VENTOLIN MDI) 90 Mcg Ih, 90 MCG IN, INH 08/29/24 Citalopram Hydrobromide (Citalopram) 10 Mg Tab, 10 MG PO DAILY, TAB 08/29/24 Atorvastatin Calcium (Lipitor) 20 Mg Tab, 1 TAB PO DAILY, #90 TAB 1 Refill 08/29/24 Sitagliptin Phosphate (Januvia) 50 Mg Tab, 1 TAB PO DAILY, #30 TAB 5 Refills 08/29/24 Hydrocodone-Acetaminophen (Hydrocodone Bitartrate/AC 10-325 mg) 1 Tab Tab, 1 TAB PO TID, TAB 08/29/24 Cholecalciferol (VITAMIN D3) 2,000 Unit Tab, 1 TAB PO DAILY, #30 TAB 5 Refills 08/29/24 Hydrochlorothiazide (Hydrochlorothiazide) 25 Mg Tab, 25 MG PO DAILY for 30 Days, MG 08/29/24 Allopurinol (Allopurinol) 100 Mg Tab, 100 MG PO DAILY for 30 Days, MG 08/29/24 Furosemide (Furosemide) 20 Mg Tab, 20 MG PO DAILY for 30 Days, MG 08/29/24 Amlodipine Besylate (Amlodipine Besylate) 5 Mg Tab, 5 MG PO DAILY for 30 Days, MG 08/29/24 Hydralazine Hcl (Hydralazine Hcl) 50 Mg Tab, 100 MG PO TID for 30 Days, MG 08/29/24 Insulin NPH Isophane & Reg (Hu (Novolin 70/30 (70-30) 100 Unit/ml) 1 Inj Inj, 1 INJ SC, INJ 08/29/24 Carvedilol (Carvedilol) 12.5 Mg Tab, 12.5 MG PO Q12HR for 30 Days, MG 08/29/24 Losartan Potassium (Losartan Potassium) 50 Mg Tab, 50 MG PO BID for 30 Days, MG 08/29/24 Famotidine (PEPCID TABLET) 20 Mg Tb, 2 TAB PO DAILY, #60 TAB 5 Refills 08/29/24 Duloxetine Hcl (Cymbalta) 60 Mg Cap, 1 CAP PO DAILY, #90 CAP 3 Refills 08/29/24 Current Medications Current Medications Medications (Trade) Dose Ordered Sig/Celia Route PRN Reason Start Time Stop Time Status Last Admin Meclizine HCl (Antivert Tablet) 25 mg Q8HR PO 03/08/25 14:00 03/09/25 06:06 Aspirin 81 mg DAILY PO 03/09/25 10:00 03/09/25 11:16 Atorvastatin Calcium (Lipitor) 20 mg HS PO 03/08/25 22:00 03/08/25 21:21 Lorazepam (Ativan Inj) 1 mg ONCE PRN IV MRI 03/08/25 12:45 Magnesium Sulfate/ Dextrose 100 ml @ 100 mls/hr Q1HR IV 03/08/25 14:00 03/08/25 15:59 DC 03/08/25 16:50 Potassium Chloride/Sodium Chloride 1,000 ml @ 120 mls/hr Q8H20M IV 03/08/25 13:15 03/09/25 04:03 Magnesium Oxide (Mag-Ox Tablet) 800 mg BID PO 03/08/25 22:00 03/08/25 21:22 Sodium Chloride 1,000 ml @ 75 mls/hr [id number] IV 03/08/25 17:45 03/09/25 20:24 Review of Systems A 14-point review of systems is negative unless otherwise noted above Vital Signs Vital Signs Date Time Temp Pulse Resp B/P (MAP) Pulse Ox O2 Delivery O2 Flow Rate FiO2 03/09/25 09:00 97.4 71 20 128/65 (86) 100 97.4 03/08/25 20:00 Room Air* 0 21 Physical Exam Heart: S1 and S2 regular. The patient is in sinus rhythm. Lungs: Clear to auscultation Abdomen: Benign. Extremities: Distal pulses palpable, 2+. No evidence for peripheral edema Labs/Diagnostic Data Labs Test 03/09/25 11:17 03/09/25 06:36 03/08/25 13:07 03/08/25 07:04 Range/Units POC Glucose 313 H 70-106 mg/dl White Blood Count 12.9 H 4.4-10.8 10^3/uL Red Blood Count 3.59 L 4.0-5.20 10^6/uL Hemoglobin 10.0 L 12.2-16.2 g/dL Hematocrit 29.3 #L 36.0-46.0 % Mean Corpuscular Volume 81.7 80.0-100.0 fL Mean Corpuscular Hemoglobin 27.9 L 28.0-32.0 pg Mean Corpuscular Hemoglobin Concent 34.1 32.0-36.0 g/dL Red Cell Distribution Width 16.2 H 11.8-14.3 % Platelet Count 404 140-450 10^3/uL Mean Platelet Volume 7.6 6.9-10.8 fL Neutrophils (%) (Auto) 73.4 37.0-80.0 % Lymphocytes (%) (Auto) 13.7 10.0-50.0 % Monocytes (%) (Auto) 7.7 0.0-12.0 % Eosinophils (%) (Auto) 4.0 0.0-7.0 % Basophils (%) (Auto) 1.2 0.0-2.0 % Neutrophils # (Auto) 9.5 H 1.6-8.6 10 ^3/uL Lymphocytes # (Auto) 1.8 0.4-5.4 10 ^3/uL Monocytes # (Auto) 1.0 0-1.3 10 ^3/uL Eosinophils # (Auto) 0.5 0-0.8 10 ^3/uL Basophils # (Auto) 0.2 0-0.2 10 ^3/uL Nucleated Red Blood Cells 0.1 % Sodium Level 143 # 136-145 mmol/L Potassium Level 4.2 3.5-5.1 mmol/L Chloride Level 110 H 98-107 mmol/L Carbon Dioxide Level 24 20-31 mmol/L Anion Gap 9 5-15 Blood Urea Nitrogen 41 H 9-23 mg/dL Creatinine 1.53 H 0.550-1.02 mg/dL Glomerular Filtration Rate Calc 34 >90 mL/min BUN/Creatinine Ratio 26.8 H 10.0-20.0 Serum Glucose 179 H 74-106 mg/dL Calcium Level 9.0 8.7-10.4 mg/dL Magnesium Level 2.8 #H 1.6-2.6 mg/dL Total Bilirubin 0.4 0.2-1.0 mg/dL Aspartate Amino Transferase (AST) 21 13-40 U/L Alanine Aminotransferase (ALT) 15 7-40 U/L Alkaline Phosphatase 103 46-116 U/L Total Protein 6.2 5.7-8.2 g/dL Albumin 3.8 3.2-4.8 g/dL SARS-CoV-2 Antigen (Rapid) Negative NEGATIVE Influenza Type A Antigen Negative Negative Influenza Type B Antigen Negative Negative Test 03/08/25 07:00 03/08/25 06:09 03/08/25 03:30 03/08/25 01:02 Range/Units Phosphorus Level 2.6 2.4-5.1 mg/dL Thyroid Stimulating Hormone (TSH) 2.53 0.55-4.78 uIU/mL Troponin I High Sensitivity 20 </=34 ng/L Urine Color Colorless Yellow Urine Clarity Clear Clear Urine pH 7.0 5.0-9.0 Urine Specific [place] 1.006 1.001-1.035 Urine Protein Negative Negative Urine Ketones Negative Negative Urine Blood Negative Negative /uL Urine Nitrite Negative Negative Urine Bilirubin Negative Negative Urine Urobilinogen Normal Negative mg/dL Urine Leukocyte Esterase Negative Negative /uL Urine RBC None seen 0 - 4 /hpf Urine Microscopic WBC 1 0-5 /HPF Urine Squamous Epithelial Cells Few <5 /hpf Urine Bacteria None seen None Seen /hpf Urine Osmolality 269 mOsm/kg Urine Creatinine 9.78 L 30.0-125.0 mg/dL Urine Sodium 99 40-220 mmol/L Urine Glucose Normal Normal mg/dL Urine Opiates Screen Neg NEGATIVE Urine Fentanyl Screen Neg NEGATIVE Urine Barbiturates Screen Neg NEGATIVE Urine Phencyclidine Screen Neg NEGATIVE Urine Amphetamines Screen Neg NEGATIVE Urine Benzodiazepines Screen Neg NEGATIVE Urine Cocaine Screen Neg NEGATIVE Urine Cannabinoids Screen Neg NEGATIVE Lactic Acid Level 1.9 0.4-2.0 mmol/L B-Type Natriuretic Peptide 74.51 0-100 pg/mL Microbiology Date/Time Source Procedure Growth Status 03/08/25 07:05 Blood Blood Culture - Preliminary NO GROWTH AFTER 24 HOURS OF INCUBATION. Resulted Plan/Recommendation This is a 79-year old female who initially presented 03/08/2025 with reported dizziness and chest tightness. Reports indicate symptoms had started the night prior to initial presentation as she was in bed watching television which EMS had been called for further evaluation. Upon EMS evaluation, patient had been found in a WCT (assessed to reflect ventricular tachycardia) as confirmed by review of available EMS rhythm strip tracing which notably upon ED arrival initial 12-lead electrocardiogram had revealed conversion to sinus rhythm at 67 bpm with an underlying LBBB, and evidence for QTC prolongation at 538 milliseconds. Patient herself denies any reported shock while undergoing management by EMS and upon review of chart, chart itself does not mention any administered anti-arrhythmic therapy by EMS and as patient arrived with a sinus rhythm confirmed by EKG findings, patient had presumably converted spontaneously without intervention however while undergoing management within the ED patient had later been administered Amiodarone bolus for the aforementioned arrhythmia. Serial HS troponin trend was found unremarkable (14, 21, 20). TSH level was found normal at 2.53. CT imaging of the brain had revealed no evidence for acute intracranial findings. Bilateral carotid duplex had revealed no evidence for any hemodynamically significant stenosis involving the bilateral carotid artery system. Urinalysis revealed no acute infectious process. UDS was found negative. Review of telemetry strips reveal patient had later experienced what appears to be brief episode of ventricular fibrillation that had spontaneously converted to sinus rhythm without intervention. Of note, upon arrival patient was found to have significant electrolyte abnormalities which she was initially found hypokalemic at 2.4 (repleted) with lowest magnesium level of 1.4 (repleted) which could have attributed to the clinical picture/tachyarrhythmia. Of note, patient furthermore has underling history of depression and was previously taking Citalopram on an outpatient basis prior to initial presentation and as Citalopram is know to potentially provoke QT prolongation, medication itself superimposed on significant electrolyte abnormalities likely could have attributed to the clinical picture. At present, denies any active chest pain, shortness of breath, palpitations, syncope, or any further cardiac related symptoms. Electrophysiology services were subsequently involved by Interventional Cardiology request for EP aspects of care. Review of outside records ([facility]) reveal past medical history includes coronary artery disease status post previous [place] (2010) with no prior stent placement, previous history of deep vein thrombosis (04/2021), diabetes mellitus II, hypertension, hyperlipidemia, chronic kidney disease and depression Echocardiogram April 2019-LVEF hyperdynamic 75%, mild LVH, grade 1 diastolic dysfunction, mild left atrial enlargement. Echocardiogram September 2021-LVEF normal 70%, grade 1 diastolic dysfunction, mild LVH left atrium mildly dilated, RVSP 40 mmHg. Lexiscan Cardiolite April 2019-negative for ischemia, EF hyperdynamic more than 75%. Lexiscan Cardiolite November 2021-LVEF normal 68%, no ischemia or scar. Symptomatic ventricular tachycardia/ventricular fibrillation Evidence for significant electrolyte abnormalities (hypokalemia/hypomagnesemia) Evidence for QT prolongation, previously on Citalopram for underlying depression Reported history of previous [place] (2010) Underlying left bundle branch block ELECTROPHYSIOLOGY SUGGESTIONS FOR MANAGEMENT: Patient presented and was found to have symptomatic VT/VF however noted to present with significant electrolyte abnormalities which she was initially found hypokalemic at 2.4 (repleted) with lowest magnesium level of 1.4 (repleted) which could have attributed to the clinical picture/tachyarrhythmia. Patient furthermore was found to have evidence for QT prolongation with a QTC interval of > 500 milliseconds which it is of note patient herself has underling history of depression and was previously taking Citalopram on an outpatient basis prior to initial presentation and as Citalopram is know to potentially provoke QT prolongation, medication itself superimposed on significant electrolyte abnormalities likely could have attributed to the clinical picture. Despite the above, recognizing evidence for underlying ventricular arrhythmias, obstructive coronary artery disease cannot be ruled out which ischemic work-up can be of consideration as per Interventional Cardiology services. Will request for 2-D Echocardiogram and request for Life Vest during the interim. To sustain potassium levels greater than 4.0. To sustain magnesium levels greater than 2.0. To proceed with avoidance of QT prolong agents. Remainder of cardiac management as per Interventional Cardiology services. Will proceed to follow from an EP perspective. Request for 2-D Echocardiogram Recognizing evidence for symptomatic VT/VF, to consider ischemic workup by Interventional Cardiology services To proceed with avoidance of QT prolonging agents during the interim Request for Life Vest to be obtained during the interim To proceed with close rate and rhythm surveillance Sustain magnesium levels greater than 2.0 Sustain potassium levels greater than 4.0 Proceed with close hemodynamic surveillance Proceed with optimized blood pressure control Transfuse to sustain HGB level above 7.0 Sustain Magnesium level greater than 2.0 Sustain Potassium level greater than 4.0 Follow up renal function and electrolytes Management in telemetry Follow up campaign consultant recommendations Will proceed to follow from an EP perspective Further recommendations per clinical progression All available diagnostic labs, EKG's, and images were personally reviewed Patient's status, findings, and plan of care was reviewed and discussed with supervising physician Dr. Pryor, who is in agreement with current plan of care. Plan of care discussed with and agreed upon by patient / primary RN Prognosis: Guarded Thank you for allowing me to participate in the care of this patient. Further recommendations based on patients clinical course and progression, primary attending, and other consultants. Will continue to follow with primary attending. If you have any questions or concerns, please do not hesitate to contact me. A total of 75 minutes was spent reviewing the patient record, examining the patient, making a diagnostic and therapeutic plan, discussing this plan with medical personnel, following up on diagnostic studies and following the patient for clinical stability excluding any and all procedures. At least 50% of this time was spent in direct, [id number] contact. Plan discussed with: Patient (patient/primary rn ) ALLEGRA DELONG Mar 09, 2025 15:43
--- NOTE | 2025-03-09 17:14 | DVHPN2 ---
Consult Progress Note Subjective Other Systems: Patient in normal sinus rhythm at time of assessment Repeat EKG done today reveals normal sinus rhythm with left bundle branch block and prolonged QTc interval Objective vital signs Vital Sign Date Time Temp Pulse Resp B/P (MAP) Pulse Ox O2 Delivery O2 Flow Rate FiO2 03/09/25 16:38 85 146/67 (93) 03/09/25 16:37 98.6 20 99 98.6 03/09/25 08:00 Room Air* 0 21 Total Intake and Output 03/08/25 03/08/25 03/09/25 15:00 23:00 07:00 Intake Total 1200 ml 400 ml 500 ml Balance 1200 ml 400 ml 500 ml medications Current Medications Medications Dose Ordered Sig/Celia Route Start Time Stop Time Status Last Admin Dose Admin Ondansetron HCl 4 mg Q4HP PRN IV 03/08/25 06:30 Docusate Sodium 100 mg BIDPRN PRN PO 03/08/25 06:30 Morphine Sulfate 2 mg Q4HPRN PRN IV 03/08/25 06:30 Nitroglycerin 0.4 mg Q5MINP PRN SL 03/08/25 06:30 Diagnostic Test (Pha) 1 strip ACHS 03/08/25 07:00 03/09/25 11:16 1 STRIP Insulin Human Regular ACHS SC 03/08/25 07:00 03/09/25 11:36 8 UNITS Dextrose 50 ml UD PRN IV 03/08/25 06:30 Meclizine HCl 25 mg Q8HR PO 03/08/25 14:00 03/09/25 14:06 25 MG Aspirin 81 mg DAILY PO 03/09/25 10:00 03/09/25 11:16 81 MG Atorvastatin Calcium 20 mg HS PO 03/08/25 22:00 03/08/25 21:21 20 MG Lorazepam 1 mg ONCE PRN IV 03/08/25 12:45 Potassium Chloride/Sodium Chloride 1,000 ml @ 120 mls/hr Q8H20M IV 03/08/25 13:15 03/09/25 04:03 120 MLS/HR Magnesium Oxide 800 mg BID PO 03/08/25 22:00 03/08/25 21:22 800 MG Sodium Chloride 1,000 ml @ 75 mls/hr [id number] IV 03/08/25 17:45 03/09/25 20:24 Examination: GENERAL:Normal, LUNGS:Normal, CVS:Abnormal (Episodes of V-tach and torsades), NEURO:Normal laboratory and microbiology Laboratory Tests 03/09/25 06:36 Test 03/09/25 06:36 Range/Units Serum Glucose 179 H 74-106 mg/dL Problem List/Assessment/Plan Problem List/Assessment/Plan Torsades de pointes Prolonged QTc interval Rule out structural heart disease Hypertension Dyslipidemia Hypokalemia Hypomagnesemia Acute kidney injury Type 2 diabetes mellitus Plan/Recommendation (Dr. Rodriguez): Case discussed with . We will proceed with obtaining a transthoracic echocardiogram to evaluate cardiac function. EMS cardiac strips reviewed and are significant for torsades de pointes. A twelve lead electrocardiogram obtained in the emergency room reveals normal sinus rhythm with left bundle branch block and prolonged QTc interval at 560. At this time we will recommend to monitor and replete electrolytes as needed keeping potassium greater than four and magnesium greater than two. The patient's QT interval will need to be closely monitored as well with daily twelve lead electrocardiograms and continuous telemetry. Repeat EKG on 03/09/2025 shows improved QT interval, but still >500 (506). Hold all medications that will further prolong QT interval including patient's home medications citalopram and duloxetine. We will consider inpatient ischemic workup. Plan discussed with the patient who would like for our team to discuss with her son. We will reach out the patient's son. EP team on board. Thank you for allowing us to care for this patient. Please call with any questions or concerns. This medical document was created using an electronic medical record system with voice recognition software and computerized dictation system. Although this document has been carefully reviewed, there might still be some phonetic and typographical errors. Occasional wrong-word or ``sound-alike substitutions may have occurred due to the inherent limitations of voice recognition software. These areas are purely typographical due to imperfections of the software programs and do not reflect any compromise in the patient's medical care. Please read the chart carefully and recognize, using context, where these substitutions have occurred. Plan discussed with: Patient Date of Service: Mar 09, 2025 Billing Provider: COREY THACKER Common Visit Codes: [id number] INP/OBS CARE(HIGH) COREY THACKER Mar 09, 2025 17:14
[2025-03-10] VITALS (9 sets, daily range): BP systolic 135–163; BP diastolic 70–83; PULSE 77–97; RESP 16–20; TEMP 97.5–99.4; O2SAT 98–99
--- NOTE | 2025-03-10 05:53 | ECG ---
[facility] Test Date: 2025-03-10 Test Time: 05:52:05 Pat Name: VITALY SHERMAN Department: Room: [facility]7T B Gender: F Surg Physician Asst: BLAKE : 1945 Requested By: COREY THACKER Order Number: [id number] Reading MD: Nadeem Rodriguez Measurements Intervals [place] Rate: 77 P: 41 NV: 154 QRS: 23 QRSD: 146 T: 51 QT: 482 QTc: 546 Interpretive Statements Sinus rhythm Left bundle branch block Electronically Signed On 03-12-2025 18:11:39 PDT by Nadeem Rodriguez Please click the below link to view image of tracing.
--- NOTE | 2025-03-10 06:45 | DVHPN2 ---
Progress Note - Dictate Date Seen: Mar 10, 2025 Medical Necessity Reason Pt with a Central, PICC or Fol: No Subjective Seen and examined at the bedside within telemetry. Maintaining sinus rhythm upon telemetry review. Overnight events reviewed. There had been reported bradycardia/block while undergoing management within telemetry. Telemetry stip from event 03/09/2025 reveals prolonged QT with PVC on top of T wave with evidence for non-conducted PAC. Remains hemodynamically stable at present. Chart reviewed vital signs Vital Sign Date Time Temp Pulse Resp B/P (MAP) Pulse Ox O2 Delivery O2 Flow Rate FiO2 03/10/25 05:00 97.5 77 16 150/77 (101) 98 97.5 03/09/25 20:00 Room Air* 0 21 Total Intake and Output 03/09/25 03/09/25 03/10/25 15:00 23:00 07:00 Intake Total 118 ml 1850 ml 725 ml Output Total 1501 ml Balance 118 ml 349 ml 725 ml medications Current Medications Medications Dose Ordered Sig/Celia Route Start Time Stop Time Status Last Admin Dose Admin Ondansetron HCl 4 mg Q4HP PRN IV 03/08/25 06:30 Docusate Sodium 100 mg BIDPRN PRN PO 03/08/25 06:30 Morphine Sulfate 2 mg Q4HPRN PRN IV 03/08/25 06:30 Nitroglycerin 0.4 mg Q5MINP PRN SL 03/08/25 06:30 Diagnostic Test (Pha) 1 strip ACHS 03/08/25 07:00 03/10/25 06:39 1 STRIP Insulin Human Regular ACHS SC 03/08/25 07:00 03/10/25 06:41 3 UNITS Dextrose 50 ml UD PRN IV 03/08/25 06:30 Meclizine HCl 25 mg Q8HR PO 03/08/25 14:00 03/10/25 06:39 25 MG Aspirin 81 mg DAILY PO 03/09/25 10:00 03/09/25 11:16 81 MG Atorvastatin Calcium 20 mg HS PO 03/08/25 22:00 03/09/25 22:20 20 MG Lorazepam 1 mg ONCE PRN IV 03/08/25 12:45 Potassium Chloride/Sodium Chloride 1,000 ml @ 120 mls/hr Q8H20M IV 03/08/25 13:15 03/09/25 22:42 120 MLS/HR Magnesium Oxide 800 mg BID PO 03/08/25 22:00 03/09/25 22:19 800 MG laboratory and microbiology Laboratory Tests 03/09/25 06:36 Test 03/09/25 06:36 Range/Units Serum Glucose 179 H 74-106 mg/dL Assessment/Plan Plan/Recommendation This is a 79-year old female who initially presented 03/08/2025 with reported dizziness and chest tightness. Reports indicate symptoms had started the night prior to initial presentation as she was in bed watching television which EMS had been called for further evaluation. Upon EMS evaluation, patient had been found in a WCT (assessed to reflect ventricular tachycardia) as confirmed by review of available EMS rhythm strip tracing which notably upon ED arrival initial 12-lead electrocardiogram had revealed conversion to sinus rhythm at 67 bpm with an underlying LBBB, and evidence for QTC prolongation at 538 milliseconds. Patient herself denies any reported shock while undergoing management by EMS and upon review of chart, chart itself does not mention any administered anti-arrhythmic therapy by EMS and as patient arrived with a sinus rhythm confirmed by EKG findings, patient had presumably converted spontaneously without intervention however while undergoing management within the ED patient had later been administered Amiodarone bolus for the aforementioned arrhythmia. Serial HS troponin trend was found unremarkable (14, 21, 20). TSH level was found normal at 2.53. CT imaging of the brain had revealed no evidence for acute intracranial findings. Bilateral carotid duplex had revealed no evidence for any hemodynamically significant stenosis involving the bilateral carotid artery system. Urinalysis revealed no acute infectious process. UDS was found negative. Review of telemetry strips reveal patient had later experienced what appears to be brief episode of ventricular fibrillation that had spontaneously converted to sinus rhythm without intervention. Of note, upon arrival patient was found to have significant electrolyte abnormalities which she was initially found hypokalemic at 2.4 (repleted) with lowest magnesium level of 1.4 (repleted) which could have attributed to the clinical picture/tachyarrhythmia. Of note, patient furthermore has underling history of depression and was previously taking Citalopram on an outpatient basis prior to initial presentation and as Citalopram is know to potentially provoke QT prolongation, medication itself superimposed on significant electrolyte abnormalities likely could have attributed to the clinical picture. At present, denies any active chest pain, shortness of breath, palpitations, syncope, or any further cardiac related symptoms. Electrophysiology services were subsequently involved by Interventional Cardiology request for EP aspects of care. Review of outside records ([facility]) reveal past medical history includes coronary artery disease status post previous VA (2010) with no prior stent placement, previous history of deep vein thrombosis (04/2021), diabetes mellitus II, hypertension, hyperlipidemia, chronic kidney disease and depression Echocardiogram April 2019-LVEF hyperdynamic 75%, mild LVH, grade 1 diastolic dysfunction, mild left atrial enlargement. Echocardiogram September 2021-LVEF normal 70%, grade 1 diastolic dysfunction, mild LVH left atrium mildly dilated, RVSP 40 mmHg. Lexiscan Cardiolite April 2019-negative for ischemia, EF hyperdynamic more than 75%. Lexiscan Cardiolite November 2021-LVEF normal 68%, no ischemia or scar. Symptomatic ventricular tachycardia/ventricular fibrillation Evidence for significant electrolyte abnormalities (hypokalemia/hypomagnesemia) Evidence for QT prolongation, previously on Citalopram for underlying depression Infrequent PVC's superimposed on T-wave Reported history of previous VA (2010) Underlying left bundle branch block Non-conducted PACs ELECTROPHYSIOLOGY SUGGESTIONS FOR MANAGEMENT: Patient presented and was found to have symptomatic VT/VF however noted to present with significant electrolyte abnormalities which she was initially found hypokalemic at 2.4 (repleted) with lowest magnesium level of 1.4 (repleted) which could have attributed to the clinical picture/tachyarrhythmia. Patient furthermore was found to have evidence for QT prolongation with a QTC interval of > 500 milliseconds which it is of note patient herself has underling history of depression and was previously taking Citalopram on an outpatient basis prior to initial presentation and as Citalopram is know to potentially provoke QT prolongation, medication itself superimposed on significant electrolyte abnormalities likely could have attributed to the clinical picture. Despite the above, recognizing evidence for underlying ventricular arrhythmias, obstructive coronary artery disease cannot be ruled out which patient is planned for tentative cardiac catheterization 03/11/2025 as per Interventional Cardiology services. Will request for 2-D Echocardiogram and request for Life Vest during the interim. To sustain potassium levels greater than 4.0. To sustain magnesium levels greater than 2.0. To proceed with avoidance of QT prolong agents. Remainder of cardiac management as per Interventional Cardiology services. Will proceed to follow from an EP perspective. Awaiting requested 2-D Echocardiogram Planned for tentative cardiac catheterization by Interventional Cardiology services To proceed with avoidance of QT prolonging agents during the interim Request for Life Vest, to be obtained during the interim To proceed with close rate and rhythm surveillance Sustain magnesium levels greater than 2.0 Sustain potassium levels greater than 4.0 Proceed with close hemodynamic surveillance Proceed with optimized blood pressure control Transfuse to sustain HGB level above 7.0 Sustain Magnesium level greater than 2.0 Sustain Potassium level greater than 4.0 Follow up renal function and electrolytes Management in telemetry Follow up resourcing consultant recommendations Will proceed to follow from an EP perspective Further recommendations per clinical progression All available diagnostic labs, EKG's, and images were personally reviewed Patient's status, findings, and plan of care was reviewed and discussed with supervising physician Dr. Pryor, who is in agreement with current plan of care. Plan of care discussed with and agreed upon by patient / primary RN Prognosis: Guarded Thank you for allowing me to participate in the care of this patient. Further recommendations based on patients clinical course and progression, primary attending, and other consultants. Will continue to follow with primary attending. If you have any questions or concerns, please do not hesitate to contact me. A total of 75 minutes was spent reviewing the patient record, examining the patient, making a diagnostic and therapeutic plan, discussing this plan with medical personnel, following up on diagnostic studies and following the patient for clinical stability excluding any and all procedures. At least 50% of this time was spent in direct, [id number] contact. Plan discussed with: Patient (patient/primary rn ) Plan discussed with: Patient (Patient and primary rn ) ALLEGRA DELONG Mar 10, 2025 06:45
[2025-03-10 07:21] LABS: Hematocrit 31.4 % (36.0-46.0); Hemoglobin 10.7 g/dL (12.2-16.2); Mean Corpuscular Hemoglobin 27.5 pg (28.0-32.0); Mean Corpuscular Volume 81.3 fL (80.0-100.0); Nucleated Red Blood Cells % 0.0 %
[2025-03-10 07:30] LABS: Anion Gap 9 (5-15); Carbon Dioxide 24 mmol/L (20-31); Potassium 4.3 mmol/L (3.5-5.1); Sodium 144 mmol/L (136-145)
[2025-03-10 07:31] LABS: Calcium 9.0 mg/dL (8.7-10.4)
[2025-03-10 07:36] LABS: BUN/Creatinine Ratio 25.7 (10.0-20.0); Chloride 111 mmol/L (98-107); Glucose 181 mg/dL (74-106)
[2025-03-10 07:37] LABS: Blood Urea Nitrogen 28 mg/dL (9-23); Magnesium 2.4 mg/dL (1.6-2.6)
[2025-03-10] MEDS ORDERED: CITA-77 PO (08:57)
[2025-03-10] MEDS ORDERED: FURO40TA4 PO (08:57)
[2025-03-10] MEDS ORDERED: SITA50TA PO (08:57)
[2025-03-10] MEDS ORDERED: AMLO1TAB22 PO (08:57)
[2025-03-10] MEDS ORDERED: ALEN70TA74 PO (08:57)
--- NOTE | 2025-03-10 10:03 | DVHPN2 ---
Consult Progress Note Subjective Other Systems: Normal sinus rhythm with left bundle branch block on traffic monitor specialist. Denies cardiac symptoms at time of assessment Objective vital signs Vital Sign Date Time Temp Pulse Resp B/P (MAP) Pulse Ox O2 Delivery O2 Flow Rate FiO2 03/10/25 09:00 99.4 79 18 157/76 (103) 99 99.4 03/09/25 20:00 Room Air* 0 21 Total Intake and Output 03/09/25 03/09/25 03/10/25 15:00 23:00 07:00 Intake Total 118 ml 1850 ml 725 ml Output Total 1501 ml Balance 118 ml 349 ml 725 ml medications Current Medications Medications Dose Ordered Sig/Celia Route Start Time Stop Time Status Last Admin Dose Admin Ondansetron HCl 4 mg Q4HP PRN IV 03/08/25 06:30 Docusate Sodium 100 mg BIDPRN PRN PO 03/08/25 06:30 Morphine Sulfate 2 mg Q4HPRN PRN IV 03/08/25 06:30 Nitroglycerin 0.4 mg Q5MINP PRN SL 03/08/25 06:30 Diagnostic Test (Pha) 1 strip ACHS 03/08/25 07:00 03/10/25 06:39 1 STRIP Insulin Human Regular ACHS SC 03/08/25 07:00 03/10/25 06:41 3 UNITS Dextrose 50 ml UD PRN IV 03/08/25 06:30 Meclizine HCl 25 mg Q8HR PO 03/08/25 14:00 03/10/25 06:39 25 MG Aspirin 81 mg DAILY PO 03/09/25 10:00 03/09/25 11:16 81 MG Atorvastatin Calcium 20 mg HS PO 03/08/25 22:00 03/09/25 22:20 20 MG Lorazepam 1 mg ONCE PRN IV 03/08/25 12:45 Potassium Chloride/Sodium Chloride 1,000 ml @ 120 mls/hr Q8H20M IV 03/08/25 13:15 03/09/25 22:42 120 MLS/HR Magnesium Oxide 800 mg BID PO 03/08/25 22:00 03/09/25 22:19 800 MG Examination: GENERAL:Normal, LUNGS:Normal, CVS:Abnormal (Episodes of V-tach, and bradycardia on monitor), NEURO:Normal laboratory and microbiology Laboratory Tests 03/10/25 06:10 Test 03/10/25 06:10 Range/Units Serum Glucose 181 H 74-106 mg/dL Problem List/Assessment/Plan Problem List/Assessment/Plan Torsades de pointes Prolonged QTc interval Intermittent second degree type II atrioventricular block Rule out structural heart disease Hypertension Dyslipidemia Hypokalemia, repleted Hypomagnesemia, repleted Acute kidney injury Type 2 diabetes mellitus Anxiety Depression Plan/Recommendation (Dr. Rodriguez): Case discussed with . We will proceed with obtaining a transthoracic echocardiogram to evaluate cardiac function. EMS cardiac strips reviewed and are significant for torsades de pointes. A twelve lead electrocardiogram obtained in the emergency room reveals normal sinus rhythm with left bundle branch block and prolonged QTc interval at 560. At this time we will recommend to monitor and replete electrolytes as needed keeping potassium greater than four and magnesium greater than two. The patient's QT interval will need to be closely monitored as well with daily twelve lead electrocardiograms and continuous telemetry. Repeat EKG on 03/10/2025 shows normal sinus rhythm with left bundle branch block and prolonged QT interval at 546. Hold all medications that will prolong QT interval including patient's home medications citalopram and duloxetine. Of note, the patient also had an episode of 2nd degree type 2 AV block on traffic monitor specialist, which spontaneously resolved. We will consider inpatient ischemic workup. Patient may benefit from coronary angiogram with left heart catheterization. The procedure was discussed with the patient in full detail including risks and benefits. Plan discussed with the patient son also at bedside. Risks include but are not limited to bleeding, contrast-induced nephropathy, coronary dissection, stroke, and even . The patient understands and is agreeable to undergo the procedure. We will schedule the patient at soonest availability on 03/11/2025. EP team on board, recommendations reviewed. Thank you for allowing us to care for this patient. Please call with any questions or concerns. This medical document was created using an electronic medical record system with voice recognition software and computerized dictation system. Although this document has been carefully reviewed, there might still be some phonetic and typographical errors. Occasional wrong-word or ``sound-alike substitutions may have occurred due to the inherent limitations of voice recognition software. These areas are purely typographical due to imperfections of the software programs and do not reflect any compromise in the patient's medical care. Please read the chart carefully and recognize, using context, where these substitutions have occurred. Plan discussed with: Patient, Son Date of Service: Mar 10, 2025 Billing Provider: COREY THACKER Common Visit Codes: [id number] INP/OBS CARE(HIGH) COREY THACKER Mar 10, 2025 10:02
--- NOTE | 2025-03-10 16:57 | DVH ---
EXAM: XY KUB ABDOMEN SINGLE VIEW HISTORY: abdominal discomfort COMPARISON: XY KUB ABDOMEN SINGLE VIEW on DOS: 08/31/24 TECHNIQUE: Supine view of the abdomen FINDINGS/IMPRESSION: Nonobstructive bowel gas pattern noted. There is no evidence for pneumoperitoneum. No abnormal calcif ications noted. Thoracolumbar fusion. Prior kyphoplasty.
--- NOTE | 2025-03-10 17:33 | DVHPN2 ---
Subjective his is a 79-year-old female with a significant past medical history of hypertension, hyperlipidemia, type 2 diabetes mellitus, chronic kidney disease, anxiety, depression, and gout, who presents to the emergency department with complaints of sudden-onset dizziness and midsternal chest tightness. The symptoms began around 10:00 p.m. the previous night while she was lying in bed watching television. She describes the chest pain as constant, tight in nature, substernal, non-radiating, and unprovoked, with no identifiable alleviating or aggravating factors. She also reports generalized body pain and shortness of breath but denies cough, fever, vomiting, diarrhea, or focal weakness. Upon EMS arrival at her home, cardiac rhythm strips revealed torsades de pointes. In the emergency department, a 12-lead ECG showed normal sinus rhythm with left bundle branch block and prolonged QTc interval (initial QTc 538 ms), although the machine interpreted atrial fibrillation. Repeat ECG after electrolyte repletion showed QTc improvement to 492 ms. Initial troponin was 14 ng/L with a flat trend on repeat testing. Labs were notable for leukocytosis (WBC 15.8), anemia (Hgb 10.6, Hct 30.2), hyponatremia (Na 134), hypokalemia (K 2.4), hypomagnesemia (Mg 1.8), elevated creatinine (1.94), and hyperglycemia (glucose 200). Chest X-ray revealed cardiomegaly. Urinalysis was unremarkable. She received normal saline, ceftriaxone, potassium, magnesium, and amiodarone in the ED. Patient doing well some abdominal pain. Otherwise improve. Seen at bedside today. Reviewed: H&P Changes from previous H/P or p: No Changes General: Per HPI Eyes: No Pain, No Vision change, No Conjunctivae inflammation, No Eyelid inflammation, No Other, No Redness ENT: No Ear pain, No Ear discharge, No Nose pain, No Nose discharge, No Nose congestion, No Mouth pain, No Mouth swelling, No Throat pain, No Throat swelling, No Other Cardiovascular: No Chest Pain, No Palpitations, No Orthopnea, No Paroxysmal Noc. Dyspnea, No Edema, No Lt Headedness, No Other Respiratory: No Cough, No Dry, No Shortness of breath, No SOB with excertion, No Wheezing, No Hemoptysis, No Pleuritic Pain, No Sputum, No Other Gastrointestinal: No Nausea, No Vomiting, No Abdominal Pain, No Diarrhea, No Constipation, No Melena, No Hematochezia, No Other Genitourinary: No Dysuria, No Frequency, No Incontinence, No Hematuria, No Retention, No Other Musculoskeletal: No other, No neck pain, No shoulder pain, No arm pain, No back pain, No hand pain, No leg pain, No foot pain Skin: No Rash, No Lesions, No Jaundice, No Bruising, No Other Objective Vitals Vital Signs Date Time Temp Pulse Resp B/P (MAP) Pulse Ox O2 Delivery O2 Flow Rate FiO2 03/10/25 17:00 97.9 81 18 161/70 (100) 99 97.9 03/09/25 20:00 Room Air* 0 21 Intake/Output Intake and Output 03/10/25 07:00 Intake Total 2693 ml Output Total 1501 ml Balance 1192 ml Intake Oral 1693 ml IV Total 1000 ml Output Urine Total 1500 ml Stool Total 1 ml # Voids 6 # Bowel Movements 1 Exam GENERAL: Not in acute distress. HEENT: EOMI, Moist mucous membranes. No scleral icterus. No cervical lymphadenopathy. LUNGS: Clear to auscultation bilaterally. No accessory muscle use. CARDIOVASCULAR: Regular rate and rhythm. No murmur. No JVD. ABDOMEN: Soft, nontender and nondistended. No palpable masses. EXTREMITIES: No edema. Nontender. SKIN: No rashes or lesions. Warm. NEUROLOGIC: Alert and oriented X3 Medications Current Medications Medications Dose Ordered Sig/Celia Route Start Time Stop Time Status Last Admin Dose Admin Ondansetron HCl 4 mg Q4HP PRN IV 03/08/25 06:30 Docusate Sodium 100 mg BIDPRN PRN PO 03/08/25 06:30 Morphine Sulfate 2 mg Q4HPRN PRN IV 03/08/25 06:30 Nitroglycerin 0.4 mg Q5MINP PRN SL 03/08/25 06:30 Diagnostic Test (Pha) 1 strip ACHS 03/08/25 07:00 03/10/25 11:00 1 STRIP Insulin Human Regular ACHS SC 03/08/25 07:00 03/10/25 12:30 8 UNITS Dextrose 50 ml UD PRN IV 03/08/25 06:30 Meclizine HCl 25 mg Q8HR PO 03/08/25 14:00 03/10/25 14:41 25 MG Aspirin 81 mg DAILY PO 03/09/25 10:00 03/10/25 10:18 81 MG Atorvastatin Calcium 20 mg HS PO 03/08/25 22:00 03/09/25 22:20 20 MG Lorazepam 1 mg ONCE PRN IV 03/08/25 12:45 Potassium Chloride/Sodium Chloride 1,000 ml @ 120 mls/hr Q8H20M IV 03/08/25 13:15 03/10/25 10:30 120 MLS/HR Magnesium Oxide 800 mg BID PO 03/08/25 22:00 03/10/25 10:19 800 MG Laboratory Results Laboratory Tests 03/10/25 06:10 Chemistry Test 03/10/25 06:10 Calcium Level 9.0 mg/dL (8.7-10.4) Magnesium Level 2.4 mg/dL (1.6-2.6) Urinalysis Test 03/08/25 03:30 Urine Color Colorless (Yellow) Urine Clarity Clear (Clear) Urine pH 7.0 (5.0-9.0) Urine Specific Armour 1.006 (1.001-1.035) Urine Protein Negative (Negative) Urine Ketones Negative (Negative) Urine Blood Negative /uL (Negative) Urine Nitrite Negative (Negative) Urine Bilirubin Negative (Negative) Urine Urobilinogen Normal mg/dL (Negative) Urine Leukocyte Esterase Negative /uL (Negative) Urine RBC None seen /hpf (0 - 4) Urine Microscopic WBC 1 /HPF (0-5) Urine Squamous Epithelial Cells Few /hpf (<5) Urine Bacteria None seen /hpf (None Seen) Urine Osmolality 269 mOsm/kg Urine Creatinine 9.78 mg/dL (30.0-125.0) L Urine Sodium 99 mmol/L (40-220) Urine Glucose Normal mg/dL (Normal) Microbiology Microbiology Date/Time Source Procedure Growth Status 03/08/25 07:05 Blood Blood Culture - Preliminary NO GROWTH AFTER 48 HOURS OF INCUBATION. Resulted Labs and/or images reviewed: Labs reviewed by me, Image(s) reviewed by me Assessment/Plan Assessment/Plan 03/10: Patient plan for left heart catheterization tomorrow QT remains elevated, has some abdominal pain and cramps and diarrhea. I believe patient is having serotonin withdrawal symptoms as she was cold turkey stopped SSRI. Cardiology recommends against restarting any low dose of SSRI for concern for torsades. Today we will get KUB upright we will continue to hold off any QT prolonging medications. # Torsades de pointes # Prolonged QTc interval # Rule out structural heart disease - electrolyte repleted - monitor BMP - cardiology consultation appreciated - repeat EKG shows QTC 492 - discontinue citalopram and duloxetine - consult CP to evaluate the need for ICD - continue telemetry monitoring # Hypertension - continue current medication - monitor BP # Dyslipidemia - continue atorvastatin # Severe Hypokalemia # Hypomagnesemia - potassium and magnesium repleted - monitor BMP and magnesium level # Acute kidney injury likely secondary to vasomotor nephropathy - IV fluid - monitor renal function # Type 2 diabetes mellitus - continue sliding scale insulin - monitor blood glucose level. Plan discussed with: Patient My Orders Orders - HAYDEN BRENNAN MD Procedure Category Date Status Time Kub Abdomen Single XY 03/10/25 Resulted View 15:03 Date of Service: Mar 10, 2025 Billing Provider: HAYDEN BRENNAN MD Common Visit Codes: [id number] INP/OBS CARE(HIGH) HAYDEN BRENNAN MD Mar 10, 2025 17:33
--- NOTE | 2025-03-10 23:35 | DVHPN2 ---
Progress Note - Dictate Date Seen: Mar 10, 2025 Medical Necessity Reason Pt with a Central, PICC or Fol: No Subjective Ms. Sutton is a 79 years old right-handed female with a history of hypertension, diabetes, dyslipidemia, anxiety, low back pain, he came to the [facility] on 03/08/2025 with a chief complaint of dizziness. I have seen and examined the patient, talked to her nurse, she is sleepy, but he is oriented x3 on waking up, she reports no dizziness today Orthostatic vitals was positive on 03/09/2025, but negative on 03/10/2025 Cardiology input appreciated Left heart cath on 03/11/25 UDS, 03/08/2025: Unremarkable UDS, 03/08/2025: Negative WBC/HB/PLT/MCV, 03/08/2025: 15.8/10.6/410/79.2 Potassium, : 2.4 BUN/CR, 03/08/2025: 89/1.94 Liver function tests, 03/08/2025: Unremarkable Troponin one high sensitivity, 03/08/2025: 14 TSH, 03/08/2025: 2.53 Carotid Doppler, 03/08/2025: No hemodynamically significant stenosis noted in the right carotid system. No hemodynamically significant stenosis noted in the left carotid system. Chest x-ray, 03/08/2025: Cardiomegal CT head, 09/05/2024: No acute intracranial process MRI lumbar spine, 08/16/2024: 1. Acute compression fractures at L1 and L4. 50% loss of the L1 vertebral body. 2. There is effacement of the thecal sac by the posterior superior L1 vertebral body which abuts but does not compress the conus. 3. At L5-S1 3 mm anterolisthesis due to degenerative facet joint disease MRI head, 03/08/2025: No acute intracranial abnormality seen. No evidence for acute infarct vital signs Vital Sign Date Time Temp Pulse Resp B/P (MAP) Pulse Ox O2 Delivery O2 Flow Rate FiO2 03/10/25 21:00 98.0 82 20 158/80 (106) 99 98.0 03/10/25 08:00 Room Air* 0 21 Total Intake and Output 03/09/25 03/09/25 03/10/25 15:00 23:00 07:00 Intake Total 118 ml 1850 ml 725 ml Output Total 1501 ml Balance 118 ml 349 ml 725 ml medications Current Medications Medications Dose Ordered Sig/Celia Route Start Time Stop Time Status Last Admin Dose Admin Ondansetron HCl 4 mg Q4HP PRN IV 03/08/25 06:30 Docusate Sodium 100 mg BIDPRN PRN PO 03/08/25 06:30 Morphine Sulfate 2 mg Q4HPRN PRN IV 03/08/25 06:30 Nitroglycerin 0.4 mg Q5MINP PRN SL 03/08/25 06:30 Diagnostic Test (Pha) 1 strip ACHS 03/08/25 07:00 03/10/25 21:27 1 STRIP Insulin Human Regular ACHS SC 03/08/25 07:00 03/10/25 22:06 6 UNITS Dextrose 50 ml UD PRN IV 03/08/25 06:30 Meclizine HCl 25 mg Q8HR PO 03/08/25 14:00 03/10/25 22:07 25 MG Aspirin 81 mg DAILY PO 03/09/25 10:00 03/10/25 10:18 81 MG Atorvastatin Calcium 20 mg HS PO 03/08/25 22:00 03/10/25 22:07 20 MG Lorazepam 1 mg ONCE PRN IV 03/08/25 12:45 Potassium Chloride/Sodium Chloride 1,000 ml @ 120 mls/hr Q8H20M IV 03/08/25 13:15 03/10/25 10:30 120 MLS/HR Magnesium Oxide 800 mg BID PO 03/08/25 22:00 03/10/25 22:07 800 MG objective General: the patient is well developed and nourished. No acute distress. MENTAL STATUS: Awake and alert. Oriented to person, place, time and general circumstances. Able to give personal history. SPEECH, LANGUAGE, HIGHER CORTICAL FUNCTION: no aphasia or dysathria. CRANIAL NERVES: Intact visual little to confrontation. Pupils are equal, round and reactive. EOMs full and conjugate. No nystagmus. Facial sensation intact in all three divisions bilaterally. Mandibular strength intact. Facial muscles symmetrical and strength intact. Hard hearing SENSATION: Sensation to touch and pinprick is normal. MOTOR: Normal tone in the upper and lower extremity. Normal muscle bulk. No fasciculations. No abnormal movements or posturing. Muscle strength of the major groups in the extremities is 5/5. REFLEXES: Deep tendon reflexes normal and symmetrical. No pathological reflexes. CEREBELLAR/COORDINATION: Finger to nose and heel to [place] are normal bilaterally. GAIT/STATION: deferred laboratory and microbiology Laboratory Tests 03/10/25 06:10 Test 03/10/25 06:10 Range/Units Serum Glucose 181 H 74-106 mg/dL Problem List Dizziness/mild spinning sensation Blurry vision General weakness Acute kidney injury ? Dehydration Orthostatic hypotension Assessment/Plan Monitoring Supportive treatment Telemetry Orthostatic vitals Good hydration Syncopal precautions Cardiology on case More recommendation per clinical course This medical document was created using an electronic medical record system with [employer] computerized dictation system. Although this document has been carefully reviewed, there may still be some phonetic and typographical errors. These areas are purely typographical due to imperfections of the software programs, and do not reflect any compromise in the patient's medical care. Prognosis poor Plan discussed with: Patient, Other JESSE ODOM MD Mar 10, 2025 23:35
[2025-03-11] VITALS (14 sets, daily range): BP systolic 118–157; BP diastolic 56–80; PULSE 81–107; RESP 2–20; TEMP 97.4–98.5; O2SAT 97–100
[2025-03-11 06:32] LABS: Hematocrit 32.1 % (36.0-46.0); Hemoglobin 10.9 g/dL (12.2-16.2); Mean Corpuscular Hemoglobin 27.7 pg (28.0-32.0); Mean Corpuscular Volume 81.6 fL (80.0-100.0); Nucleated Red Blood Cells % 0.0 %
[2025-03-11 06:39] LABS: Potassium 4.0 mmol/L (3.5-5.1)
[2025-03-11 06:40] LABS: Anion Gap 9 (5-15); Carbon Dioxide 26 mmol/L (20-31)
[2025-03-11 06:43] LABS: Calcium 8.5 mg/dL (8.7-10.4); Chloride 111 mmol/L (98-107); Sodium 146 mmol/L (136-145)
[2025-03-11 06:46] LABS: BUN/Creatinine Ratio 22.9 (10.0-20.0); Blood Urea Nitrogen 22 mg/dL (9-23); Magnesium 2.2 mg/dL (1.6-2.6)
[2025-03-11 06:51] LABS: Glucose 110 mg/dL (74-106)
--- NOTE | 2025-03-11 07:44 | ECG ---
[facility] Test Date: 2025-03-09 Test Time: 09:05:22 Pat Name: VITALY SHERMAN Department: Respiratoy Room: [facility]7T B Gender: F Director Of State: MANUEL : 1945 Requested By: COREY THACKER Order Number: [id number] Reading MD: Nadeem Rodriguez Measurements Intervals [place] Rate: 68 P: 37 DE: 148 QRS: -6 QRSD: 152 T: 145 QT: 462 QTc: 492 Interpretive Statements Sinus rhythm Left bundle branch block Electronically Signed On 03-12-2025 18:11:08 PDT by Nadeem Rodriguez Please click the below link to view image of tracing.
--- NOTE | 2025-03-11 07:45 | ECG ---
[facility] Test Date: 2025-03-09 Test Time: 09:06:12 Pat Name: VITALY SHERMAN Department: Respiratoy Room: [facility]7T B Gender: F Computer Science Professor: MANUEL : 1945 Requested By: AIMEE ALMAZAN Order Number: [id number] Reading MD: Nadeem Rodriguez Measurements Intervals [place] Rate: 72 P: 39 NM: 153 QRS: -6 QRSD: 147 T: 125 QT: 465 QTc: 509 Interpretive Statements Sinus rhythm Left bundle branch block Electronically Signed On 03-12-2025 18:11:17 PDT by Nadeem Rodriguez Please click the below link to view image of tracing.
--- NOTE | 2025-03-11 08:04 | ECG ---
[facility] Test Date: 2025-03-11 Test Time: 01:26:57 Pat Name: VITALY SHERMAN Department: Room: [facility]7T B Gender: F Principal Systems Engineer: MARIELY : 1945 Requested By: ALLEGRA DELONG Order Number: [id number] Reading MD: Nadeem Rodriguez Measurements Intervals [place] Rate: 85 P: 24 TX: 150 QRS: -16 QRSD: 140 T: 100 QT: 455 QTc: 542 Interpretive Statements Sinus rhythm Atrial premature complex Left bundle branch block Electronically Signed On 03-12-2025 18:12:32 PDT by Nadeem Rodriguez Please click the below link to view image of tracing.
--- NOTE | 2025-03-11 12:30 | DVHOP2 ---
Operative Report Operative Report CARDIAC CARBIDE POWDER PROCESSOR PROCEDURE REPORT [place], [place] Date of Service: 03/11/25 Reliability Technicians: Marcelina Rose MD PROCEDURES PERFORMED: Coronary angiogram, left heart catheterization, conscious sedation administration and supervision, less than 15 minutes; fluoroscopy use and interpretation. PREOPERATIVE DIAGNOSES: VT , r/o cad POSTOP DIAGNOSIS: moderate CAD DESCRIPTION OF PROCEDURE: The patient or appropriate family signed informed consent understanding the risks, benefits and alternatives of the procedure, they wished to proceed. The patient was brought to the cardiac labor training manager in [place] state. The patient was prepped in a sterile fashion. Sedation was used per cardiac cath protocol. I administered 2 mL of 2% lidocaine to the right wrist. With an antegrade front wall puncture. I cannulated the right radial artery and placed a 6-Liber[place] Glidesheath slender. Next, an intra-arterial spasmolytic was administered. Next, a - 6French Griffith catheter and XXXXX guide and were used for coronary angiogram and LVEDP measurement and pressure pullback. At the completion of procedure, all guides and wires were removed, and there were no immediate complications. FINDINGS: RCA: Moderate vessel off the right sinus of Valsalva, there is no severe flow limiting stenosis. dominant vessel. very tortuos vessel suggestive of HTNsive heart disease LEFT MAIN: Moderate size left main, it bifurcates into LAD and circumflex. no stenosis CIRCUMFLEX: Moderate caliber vessel coming off the left main with no flow limiting stenosis. very tortuos vessel suggestive of HTNsive heart disease LAD: LAD is a moderate caliber vessel coming of the left main. very tortuos vessel suggestive of HTNsive heart disease . distal LAD has a 50-60% stenosis. LVEDP of 11 mmhg CONCLUSIONS: 1. moderate non critical cad PLAN: Aggressive risk factor modification and medical management for the patient. MARCELINA ROSE MD Mar 11, 2025 12:30
--- NOTE | 2025-03-11 12:33 | DVHPN2 ---
Subjective his is a 79-year-old female with a significant past medical history of hypertension, hyperlipidemia, type 2 diabetes mellitus, chronic kidney disease, anxiety, depression, and gout, who presents to the emergency department with complaints of sudden-onset dizziness and midsternal chest tightness. The symptoms began around 10:00 p.m. the previous night while she was lying in bed watching television. She describes the chest pain as constant, tight in nature, substernal, non-radiating, and unprovoked, with no identifiable alleviating or aggravating factors. She also reports generalized body pain and shortness of breath but denies cough, fever, vomiting, diarrhea, or focal weakness. Upon EMS arrival at her home, cardiac rhythm strips revealed torsades de pointes. In the emergency department, a 12-lead ECG showed normal sinus rhythm with left bundle branch block and prolonged QTc interval (initial QTc 538 ms), although the machine interpreted atrial fibrillation. Repeat ECG after electrolyte repletion showed QTc improvement to 492 ms. Initial troponin was 14 ng/L with a flat trend on repeat testing. Labs were notable for leukocytosis (WBC 15.8), anemia (Hgb 10.6, Hct 30.2), hyponatremia (Na 134), hypokalemia (K 2.4), hypomagnesemia (Mg 1.8), elevated creatinine (1.94), and hyperglycemia (glucose 200). Chest X-ray revealed cardiomegaly. Urinalysis was unremarkable. She received normal saline, ceftriaxone, potassium, magnesium, and amiodarone in the ED. Patient doing well some abdominal pain. Otherwise improve. Seen at bedside today. Reviewed: H&P Changes from previous H/P or p: No Changes General: Per HPI Eyes: No Pain, No Vision change, No Conjunctivae inflammation, No Eyelid inflammation, No Other, No Redness ENT: No Ear pain, No Ear discharge, No Nose pain, No Nose discharge, No Nose congestion, No Mouth pain, No Mouth swelling, No Throat pain, No Throat swelling, No Other Cardiovascular: No Chest Pain, No Palpitations, No Orthopnea, No Paroxysmal Noc. Dyspnea, No Edema, No Lt Headedness, No Other Respiratory: No Cough, No Dry, No Shortness of breath, No SOB with excertion, No Wheezing, No Hemoptysis, No Pleuritic Pain, No Sputum, No Other Gastrointestinal: No Nausea, No Vomiting, No Abdominal Pain, No Diarrhea, No Constipation, No Melena, No Hematochezia, No Other Genitourinary: No Dysuria, No Frequency, No Incontinence, No Hematuria, No Retention, No Other Musculoskeletal: No other, No neck pain, No shoulder pain, No arm pain, No back pain, No hand pain, No leg pain, No foot pain Skin: No Rash, No Lesions, No Jaundice, No Bruising, No Other Objective Vitals Vital Signs Date Time Temp Pulse Resp B/P (MAP) Pulse Ox O2 Delivery O2 Flow Rate FiO2 03/11/25 09:00 98.5 81 18 147/70 (95) 99 98.5 03/11/25 08:00 Room Air* 0 21 Intake/Output Intake and Output 03/11/25 07:00 Intake Total 1490 ml Output Total 750 ml Balance 740 ml Intake Oral 540 ml IV Total 950 ml Output Urine Total 750 ml # Voids 3 # Bowel Movements 3 Exam GENERAL: Not in acute distress. HEENT: EOMI, Moist mucous membranes. No scleral icterus. No cervical lymphadenopathy. LUNGS: Clear to auscultation bilaterally. No accessory muscle use. CARDIOVASCULAR: Regular rate and rhythm. No murmur. No JVD. ABDOMEN: Soft, nontender and nondistended. No palpable masses. EXTREMITIES: No edema. Nontender. SKIN: No rashes or lesions. Warm. NEUROLOGIC: Alert and oriented X3 Medications Current Medications Medications Dose Ordered Sig/Celia Route Start Time Stop Time Status Last Admin Dose Admin Ondansetron HCl 4 mg Q4HP PRN IV 03/08/25 06:30 Docusate Sodium 100 mg BIDPRN PRN PO 03/08/25 06:30 Morphine Sulfate 2 mg Q4HPRN PRN IV 03/08/25 06:30 Nitroglycerin 0.4 mg Q5MINP PRN SL 03/08/25 06:30 Diagnostic Test (Pha) 1 strip ACHS 03/08/25 07:00 03/11/25 10:00 1 STRIP Insulin Human Regular ACHS SC 03/08/25 07:00 03/11/25 10:16 3 UNITS Dextrose 50 ml UD PRN IV 03/08/25 06:30 Meclizine HCl 25 mg Q8HR PO 03/08/25 14:00 03/11/25 06:29 25 MG Aspirin 81 mg DAILY PO 03/09/25 10:00 03/11/25 09:54 81 MG Atorvastatin Calcium 20 mg HS PO 03/08/25 22:00 03/10/25 22:07 20 MG Lorazepam 1 mg ONCE PRN IV 03/08/25 12:45 Potassium Chloride/Sodium Chloride 1,000 ml @ 120 mls/hr Q8H20M IV 03/08/25 13:15 03/11/25 07:55 120 MLS/HR Magnesium Oxide 800 mg BID PO 03/08/25 22:00 03/11/25 09:54 800 MG Laboratory Results Laboratory Tests 03/11/25 05:42 Chemistry Test 03/11/25 05:42 Calcium Level 8.5 mg/dL (8.7-10.4) L Magnesium Level 2.2 mg/dL (1.6-2.6) Urinalysis Test 03/08/25 03:30 Urine Color Colorless (Yellow) Urine Clarity Clear (Clear) Urine pH 7.0 (5.0-9.0) Urine Specific [place] 1.006 (1.001-1.035) Urine Protein Negative (Negative) Urine Ketones Negative (Negative) Urine Blood Negative /uL (Negative) Urine Nitrite Negative (Negative) Urine Bilirubin Negative (Negative) Urine Urobilinogen Normal mg/dL (Negative) Urine Leukocyte Esterase Negative /uL (Negative) Urine RBC None seen /hpf (0 - 4) Urine Microscopic WBC 1 /HPF (0-5) Urine Squamous Epithelial Cells Few /hpf (<5) Urine Bacteria None seen /hpf (None Seen) Urine Osmolality 269 mOsm/kg Urine Creatinine 9.78 mg/dL (30.0-125.0) L Urine Sodium 99 mmol/L (40-220) Urine Glucose Normal mg/dL (Normal) Microbiology Microbiology Date/Time Source Procedure Growth Status 03/08/25 07:05 Blood Blood Culture - Preliminary NO GROWTH AFTER 72 HOURS OF INCUBATION. Resulted Labs and/or images reviewed: Labs reviewed by me, Image(s) reviewed by me Assessment/Plan Assessment/Plan 03/10: Patient plan for left heart catheterization tomorrow QT remains elevated, has some abdominal pain and cramps and diarrhea. I believe patient is having serotonin withdrawal symptoms as she was cold turkey stopped SSRI. Cardiology recommends against restarting any low dose of SSRI for concern for torsades. Today we will get KUB upright we will continue to hold off any QT prolonging medications. 03/11: Patient remains same as yesterday, abdominal cramps. NPO midnight yesterday taken to left heart catheterization today with Cardiology. We will follow up thereafter. - insurance will not cover lifevest # Torsades de pointes # Prolonged QTc interval # Rule out structural heart disease - electrolyte repleted - monitor BMP - cardiology consultation appreciated - repeat EKG shows QTC 492 - discontinue citalopram and duloxetine - consult CP to evaluate the need for ICD - continue telemetry monitoring # Hypertension - continue current medication - monitor BP # Dyslipidemia - continue atorvastatin # Severe Hypokalemia # Hypomagnesemia - potassium and magnesium repleted - monitor BMP and magnesium level # Acute kidney injury likely secondary to vasomotor nephropathy - IV fluid - monitor renal function # Type 2 diabetes mellitus - continue sliding scale insulin - monitor blood glucose level. Plan discussed with: Patient My Orders Orders - HAYDEN BRENNAN MD Procedure Category Date Status Time Kub Abdomen Single XY 03/10/25 Resulted View 15:03 Date of Service: Mar 11, 2025 Billing Provider: HAYDEN BRENNAN MD Common Visit Codes: [id number] INP/OBS CARE(HIGH) HAYDEN BRENNAN MD Mar 11, 2025 12:33
--- NOTE | 2025-03-11 12:37 | DVHPN2 ---
Progress Note Date Seen: Mar 11, 2025 Medical Necessity Reason Pt with a Central, PICC or Fol: No Subjective Patient reports: Feels better Objective vital signs Vital Sign Date Time Temp Pulse Resp B/P (MAP) Pulse Ox O2 Delivery O2 Flow Rate FiO2 03/11/25 09:00 98.5 81 18 147/70 (95) 99 98.5 03/11/25 08:00 Room Air* 0 21 Total Intake and Output 03/10/25 03/10/25 03/11/25 15:00 23:00 07:00 Intake Total 1190 ml 300 ml Output Total 750 ml Balance 1190 ml -750 ml 300 ml medications Current Medications Medications Dose Ordered Sig/Celia Route Start Time Stop Time Status Last Admin Dose Admin Ondansetron HCl 4 mg Q4HP PRN IV 03/08/25 06:30 Docusate Sodium 100 mg BIDPRN PRN PO 03/08/25 06:30 Morphine Sulfate 2 mg Q4HPRN PRN IV 03/08/25 06:30 Nitroglycerin 0.4 mg Q5MINP PRN SL 03/08/25 06:30 Diagnostic Test (Pha) 1 strip ACHS 03/08/25 07:00 03/11/25 10:00 1 STRIP Insulin Human Regular ACHS SC 03/08/25 07:00 03/11/25 10:16 3 UNITS Dextrose 50 ml UD PRN IV 03/08/25 06:30 Meclizine HCl 25 mg Q8HR PO 03/08/25 14:00 03/11/25 06:29 25 MG Aspirin 81 mg DAILY PO 03/09/25 10:00 03/11/25 09:54 81 MG Atorvastatin Calcium 20 mg HS PO 03/08/25 22:00 03/10/25 22:07 20 MG Lorazepam 1 mg ONCE PRN IV 03/08/25 12:45 Potassium Chloride/Sodium Chloride 1,000 ml @ 120 mls/hr Q8H20M IV 03/08/25 13:15 03/11/25 07:55 120 MLS/HR Magnesium Oxide 800 mg BID PO 03/08/25 22:00 03/11/25 09:54 800 MG Examination: GENERAL:Abnormal, HEENT:Abnormal, LUNGS:Abnormal, CVS:Abnormal, ABDOMEN:Abnormal laboratory and microbiology Laboratory Tests 03/11/25 05:42 Test 03/11/25 05:42 Range/Units Serum Glucose 110 H 74-106 mg/dL Microbiology Date/Time Source Procedure Growth Status 03/08/25 07:05 Blood Blood Culture - Preliminary NO GROWTH AFTER 72 HOURS OF INCUBATION. Resulted Problem List/Assessment/Plan Problem List/Assessment/Plan Torsades de pointes Prolonged QTc interval Rule out structural heart disease Hypertension Dyslipidemia Hypokalemia Hypomagnesemia Acute kidney injury Type 2 diabetes mellitus sp cath no severe cad fu EP recs and echo Plan discussed with: Patient My Orders My Orders Orders - MARCELINA ROSE MD Procedure Category Date Status Time Cl Left Heart Cath CL 03/11/25 Taken 08:49 Post Cath Vital Signs TONIO 03/11/25 In Process Q 15min Post Cath Activity TONIO 03/11/25 In Process Protocol 11:57 Cardiac DIET 03/11/25 Transmitted Diet-2gna,Lofat,Lochol Lunch Communication Order ORDERS 03/11/25 Transmitted 11:57 Date of Service: Mar 11, 2025 Billing Provider: MARCELINA ROSE MD Common Visit Codes: NOT BILLABLE MARCELINA ROSE MD Mar 11, 2025 12:37
--- NOTE | 2025-03-11 17:11 | DVHPN2 ---
Progress Note - Dictate Date Seen: Mar 11, 2025 Medical Necessity Reason Pt with a Central, PICC or Fol: No vital signs Vital Sign Date Time Temp Pulse Resp B/P (MAP) Pulse Ox O2 Delivery O2 Flow Rate FiO2 03/11/25 17:00 93 18 133/67 (89) 99 03/11/25 16:59 98.1 98.1 03/11/25 08:00 Room Air* 0 21 Total Intake and Output 03/10/25 03/10/25 03/11/25 15:00 23:00 07:00 Intake Total 1190 ml 300 ml Output Total 750 ml Balance 1190 ml -750 ml 300 ml medications Current Medications Medications Dose Ordered Sig/Celia Route Start Time Stop Time Status Last Admin Dose Admin Ondansetron HCl 4 mg Q4HP PRN IV 03/08/25 06:30 Docusate Sodium 100 mg BIDPRN PRN PO 03/08/25 06:30 Morphine Sulfate 2 mg Q4HPRN PRN IV 03/08/25 06:30 Nitroglycerin 0.4 mg Q5MINP PRN SL 03/08/25 06:30 Diagnostic Test (Pha) 1 strip ACHS 03/08/25 07:00 03/11/25 10:00 1 STRIP Insulin Human Regular ACHS SC 03/08/25 07:00 03/11/25 16:50 4 UNITS Dextrose 50 ml UD PRN IV 03/08/25 06:30 Meclizine HCl 25 mg Q8HR PO 03/08/25 14:00 03/11/25 14:32 25 MG Aspirin 81 mg DAILY PO 03/09/25 10:00 03/11/25 09:54 81 MG Atorvastatin Calcium 20 mg HS PO 03/08/25 22:00 03/10/25 22:07 20 MG Lorazepam 1 mg ONCE PRN IV 03/08/25 12:45 Potassium Chloride/Sodium Chloride 1,000 ml @ 120 mls/hr Q8H20M IV 03/08/25 13:15 03/11/25 07:55 120 MLS/HR Magnesium Oxide 800 mg BID PO 03/08/25 22:00 03/11/25 09:54 800 MG laboratory and microbiology Laboratory Tests 03/11/25 05:42 Test 03/11/25 05:42 Range/Units Serum Glucose 110 H 74-106 mg/dL Assessment/Plan Plan/Recommendation This is a 79-year old female who initially presented 03/08/2025 with reported dizziness and chest tightness. Reports indicate symptoms had started the night prior to initial presentation as she was in bed watching television which EMS had been called for further evaluation. Upon EMS evaluation, patient had been found in a WCT (assessed to reflect ventricular tachycardia) as confirmed by review of available EMS rhythm strip tracing which notably upon ED arrival initial 12-lead electrocardiogram had revealed conversion to sinus rhythm at 67 bpm with an underlying LBBB, and evidence for QTC prolongation at 538 milliseconds. Patient herself denies any reported shock while undergoing management by EMS and upon review of chart, chart itself does not mention any administered anti-arrhythmic therapy by EMS and as patient arrived with a sinus rhythm confirmed by EKG findings, patient had presumably converted spontaneously without intervention however while undergoing management within the ED patient had later been administered Amiodarone bolus for the aforementioned arrhythmia. Serial HS troponin trend was found unremarkable (14, 21, 20). TSH level was found normal at 2.53. CT imaging of the brain had revealed no evidence for acute intracranial findings. Bilateral carotid duplex had revealed no evidence for any hemodynamically significant stenosis involving the bilateral carotid artery system. Urinalysis revealed no acute infectious process. UDS was found negative. Review of telemetry strips reveal patient had later experienced what appears to be brief episode of ventricular fibrillation that had spontaneously converted to sinus rhythm without intervention. Of note, upon arrival patient was found to have significant electrolyte abnormalities which she was initially found hypokalemic at 2.4 (repleted) with lowest magnesium level of 1.4 (repleted) which could have attributed to the clinical picture/tachyarrhythmia. Of note, patient furthermore has underling history of depression and was previously taking Citalopram on an outpatient basis prior to initial presentation and as Citalopram is know to potentially provoke QT prolongation, medication itself superimposed on significant electrolyte abnormalities likely could have attributed to the clinical picture. At present, denies any active chest pain, shortness of breath, palpitations, syncope, or any further cardiac related symptoms. Electrophysiology services were subsequently involved by Interventional Cardiology request for EP aspects of care. Review of outside records ([facility]) reveal past medical history includes coronary artery disease status post previous WA (2010) with no prior stent placement, previous history of deep vein thrombosis (04/2021), diabetes mellitus II, hypertension, hyperlipidemia, chronic kidney disease and depression Echocardiogram April 2019-LVEF hyperdynamic 75%, mild LVH, grade 1 diastolic dysfunction, mild left atrial enlargement. Echocardiogram September 2021-LVEF normal 70%, grade 1 diastolic dysfunction, mild LVH left atrium mildly dilated, RVSP 40 mmHg. Lexiscan Cardiolite April 2019-negative for ischemia, EF hyperdynamic more than 75%. Lexiscan Cardiolite November 2021-LVEF normal 68%, no ischemia or scar. Echocardiogram: (03/08/2025) revealed Conclusion Technically good study. Sinus rhythm. Left atrial enlargement. Mild concentric LVH. Valves appear to be structurally normal. EF of 60% with normal RV function. Dopplers unremarkable. No pericardial effusion masses or vegetations. Cardiac Catheterization: (03/11/2025) revealed CONCLUSIONS: 1. moderate non critical cad Symptomatic ventricular tachycardia/ventricular fibrillation Evidence for significant electrolyte abnormalities (hypokalemia/hypomagnesemia) Evidence for QT prolongation, previously on Citalopram for underlying depression Infrequent PVC's superimposed on T-wave Reported history of previous WA (2010) Underlying left bundle branch block Non-conducted PACs ELECTROPHYSIOLOGY SUGGESTIONS FOR MANAGEMENT: Patient presented and was found to have symptomatic VT/VF however noted to present with significant electrolyte abnormalities which she was initially found hypokalemic at 2.4 (repleted) with lowest magnesium level of 1.4 (repleted) which could have attributed to the clinical picture/tachyarrhythmia. Patient furthermore was found to have evidence for QT prolongation with a QTC interval of > 500 milliseconds which it is of note patient herself has underling history of depression and was previously taking Citalopram on an outpatient basis prior to initial presentation and as Citalopram is know to potentially provoke QT prolongation, medication itself superimposed on significant electrolyte abnormalities likely could have attributed to the clinical picture. Subsequent cardiac catheterization had ruled out obstructive coronary artery disease. Echocardiogram had revealed a preserved LVEF of 60% with no significant valvular abnormalities. Recognizing the above, ventricular arrhythmia at this point is favored likely secondary to significant electrolyte abnormalities superimposed on underlying QT prolongation from underlying depression medications. Despite the above mentioned, patient benefits from undergoing out-patient based EP study in an attempt to provoke previously observed ventricular arrhythmia and if evidence for ventricular arrhythmia by EP study provocation, may consider AICD implantation at that point however recommendation is to proceed with use of Life Vest during the interim. To sustain potassium levels greater than 4.0. To sustain magnesium levels greater than 2.0. To proceed with avoidance of QT prolong agents. Remainder of cardiac management as per Interventional Cardiology services. Will proceed to follow from an EP perspective. To proceed with avoidance of QT prolonging agents during the interim Request for Life Vest, to be obtained during the interim To proceed with close rate and rhythm surveillance Sustain magnesium levels greater than 2.0 Sustain potassium levels greater than 4.0 Proceed with close hemodynamic surveillance Proceed with optimized blood pressure control Transfuse to sustain HGB level above 7.0 Sustain Magnesium level greater than 2.0 Sustain Potassium level greater than 4.0 Follow up renal function and electrolytes Management in telemetry Follow up security consultant recommendations Will proceed to follow from an EP perspective Further recommendations per clinical progression All available diagnostic labs, EKG's, and images were personally reviewed Patient's status, findings, and plan of care was reviewed and discussed with supervising physician Dr. Pryor, who is in agreement with current plan of care. Plan of care discussed with and agreed upon by patient / primary RN Prognosis: Guarded Thank you for allowing me to participate in the care of this patient. Further recommendations based on patients clinical course and progression, primary attending, and other consultants. Will continue to follow with primary attending. If you have any questions or concerns, please do not hesitate to contact me. A total of 75 minutes was spent reviewing the patient record, examining the patient, making a diagnostic and therapeutic plan, discussing this plan with medical personnel, following up on diagnostic studies and following the patient for clinical stability excluding any and all procedures. At least 50% of this time was spent in direct, [id number] contact. Plan discussed with: Patient (patient/primary rn ) Plan discussed with: Patient (patient and primary rn ) ALLEGRA DELONG Mar 11, 2025 17:11
--- NOTE | 2025-03-11 23:17 | DVHPN2 ---
Progress Note - Dictate Date Seen: Mar 11, 2025 Medical Necessity Reason Pt with a Central, PICC or Fol: No Subjective Ms. Sutton is a 79 years old right-handed female with a history of hypertension, diabetes, dyslipidemia, anxiety, low back pain, he came to the [facility] on 03/08/2025 with a chief complaint of dizziness. I have seen and examined the patient, talked to her nurse, she is oriented x3, she reports no dizziness today, no new complaints Orthostatic vitals was positive on 03/09/2025, 03/11/25 but negative on 03/10/2025 Cardiology input appreciated Left heart cath for 03/11/25 UDS, 03/08/2025: Unremarkable UDS, 03/08/2025: Negative WBC/HB/PLT/MCV, 03/08/2025: 15.8/10.6/410/79.2 Potassium, : 2.4 BUN/CR, 03/08/2025: 89/1.94 Liver function tests, 03/08/2025: Unremarkable Troponin one high sensitivity, 03/08/2025: 14 TSH, 03/08/2025: 2.53 Carotid Doppler, 03/08/2025: No hemodynamically significant stenosis noted in the right carotid system. No hemodynamically significant stenosis noted in the left carotid system. Chest x-ray, 03/08/2025: Cardiomegal CT head, 09/05/2024: No acute intracranial process MRI lumbar spine, 08/16/2024: 1. Acute compression fractures at L1 and L4. 50% loss of the L1 vertebral body. 2. There is effacement of the thecal sac by the posterior superior L1 vertebral body which abuts but does not compress the conus. 3. At L5-S1 3 mm anterolisthesis due to degenerative facet joint disease MRI head, 03/08/2025: No acute intracranial abnormality seen. No evidence for acute infarct Cardiac catheterization, 03/11/2025: moderate non critical cad vital signs Vital Sign Date Time Temp Pulse Resp B/P (MAP) Pulse Ox O2 Delivery O2 Flow Rate FiO2 03/11/25 21:00 98.5 86 16 146/78 (100) 99 98.5 03/11/25 08:00 Room Air* 0 21 Total Intake and Output 03/10/25 03/10/25 03/11/25 15:00 23:00 07:00 Intake Total 1190 ml 300 ml Output Total 750 ml Balance 1190 ml -750 ml 300 ml medications Current Medications Medications Dose Ordered Sig/Celia Route Start Time Stop Time Status Last Admin Dose Admin Ondansetron HCl 4 mg Q4HP PRN IV 03/08/25 06:30 Docusate Sodium 100 mg BIDPRN PRN PO 03/08/25 06:30 Morphine Sulfate 2 mg Q4HPRN PRN IV 03/08/25 06:30 Nitroglycerin 0.4 mg Q5MINP PRN SL 03/08/25 06:30 Diagnostic Test (Pha) 1 strip ACHS 03/08/25 07:00 03/11/25 21:13 1 STRIP Insulin Human Regular ACHS SC 03/08/25 07:00 03/11/25 21:14 2 UNITS Dextrose 50 ml UD PRN IV 03/08/25 06:30 Meclizine HCl 25 mg Q8HR PO 03/08/25 14:00 03/11/25 21:10 25 MG Aspirin 81 mg DAILY PO 03/09/25 10:00 03/11/25 09:54 81 MG Atorvastatin Calcium 20 mg HS PO 03/08/25 22:00 03/11/25 21:10 20 MG Lorazepam 1 mg ONCE PRN IV 03/08/25 12:45 Potassium Chloride/Sodium Chloride 1,000 ml @ 120 mls/hr Q8H20M IV 03/08/25 13:15 03/11/25 16:15 120 MLS/HR Magnesium Oxide 800 mg BID PO 03/08/25 22:00 03/11/25 21:10 800 MG objective General: the patient is well developed and nourished. No acute distress. MENTAL STATUS: Awake and alert. Oriented to person, place, time and general circumstances. Able to give personal history. SPEECH, LANGUAGE, HIGHER CORTICAL FUNCTION: no aphasia or dysathria. CRANIAL NERVES: Intact visual little to confrontation. Pupils are equal, round and reactive. EOMs full and conjugate. No nystagmus. Facial sensation intact in all three divisions bilaterally. Mandibular strength intact. Facial muscles symmetrical and strength intact. Hard hearing SENSATION: Sensation to touch and pinprick is normal. MOTOR: Normal tone in the upper and lower extremity. Normal muscle bulk. No fasciculations. No abnormal movements or posturing. Muscle strength of the major groups in the extremities is 5/5. REFLEXES: Deep tendon reflexes normal and symmetrical. No pathological reflexes. CEREBELLAR/COORDINATION: Finger to nose and heel to [place] are normal bilaterally. GAIT/STATION: deferred laboratory and microbiology Laboratory Tests 03/11/25 05:42 Test 03/11/25 05:42 Range/Units Serum Glucose 110 H 74-106 mg/dL Problem List Dizziness/mild spinning sensation Blurry vision General weakness Acute kidney injury ? Dehydration Orthostatic hypotension Assessment/Plan Monitoring Supportive treatment Telemetry Orthostatic vitals Good hydration Syncopal precautions Cardiology on case Follow up with her doctors GAVINO on discharge More recommendation per clinical course This medical document was created using an electronic medical record system with [employer] dictation system. Although this document has been carefully reviewed, there may still be some phonetic and typographical errors. These areas are purely typographical due to imperfections of the software programs, and do not reflect any compromise in the patient's medical care. Prognosis poor Dietary Evaluation Review Comments: [id number] Cardiac diet Expected Outcomes/Goals: controlled DM, gradual wt loss Plan discussed with: Patient, Other JESSE ODOM MD Mar 11, 2025 23:17
[2025-03-12 01:00] VITALS: BP 157/72; PULSE 89; RESP 16; TEMP 98.3; O2SAT 99
[2025-03-12 05:00] VITALS: BP 157/78; PULSE 89; RESP 20; TEMP 98.3; O2SAT 99
[2025-03-12 07:38] LABS: Hematocrit 32.1 % (36.0-46.0); Hemoglobin 10.8 g/dL (12.2-16.2); Mean Corpuscular Hemoglobin 27.6 pg (28.0-32.0); Mean Corpuscular Volume 82.3 fL (80.0-100.0); Nucleated Red Blood Cells % 0.0 %
[2025-03-12 07:39] LABS: Alanine Aminotransferase 23 U/L (7-40); Alkaline Phosphatase 101 U/L (46-116); Anion Gap 12 (5-15); BUN/Creatinine Ratio 14.1 (10.0-20.0); Blood Urea Nitrogen 12 mg/dL (9-23); Calcium 8.9 mg/dL (8.7-10.4); Carbon Dioxide 23 mmol/L (20-31); Potassium 4.1 mmol/L (3.5-5.1); Sodium 143 mmol/L (136-145); Total Protein 5.9 g/dL (5.7-8.2)
[2025-03-12 07:40] LABS: Albumin 3.6 g/dL (3.2-4.8); Bilirubin, Total 0.5 mg/dL (0.2-1.0)
[2025-03-12 07:42] LABS: Chloride 108 mmol/L (98-107); Glucose 160 mg/dL (74-106)
--- NOTE | 2025-03-12 07:53 | ECG ---
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
[2025-03-12 09:00] VITALS: BP 158/74; PULSE 85; RESP 14; TEMP 98.1; O2SAT 100
[2025-03-12] MEDS: MIDAZOLAM HCL 2MG/2ML 2ml VIAL (1mg/ml) ONE (12:12)
[2025-03-12] MEDS: SODIUM CHL 0.9% 0 ML ONE (12:12)
[2025-03-12] MEDS: HEPARIN SODIUM (PORCINE) 5000 UNITS/ML 1ML VIAL ONE (12:12)
[2025-03-12] MEDS: IODIXANOL 320MG/ML 100ML BTL IV ONE (12:13)
[2025-03-12] MEDS: ANGIOMAX 250 MG VIAL IV ONE (12:13)
[2025-03-12] MEDS: fentaNYL CITRATE 100 MCG/2 ML VL ONE (12:13)
[2025-03-12] MEDS: VERAPAMIL 2.5MG/ML INJ 2ML VIAL IV ONE (12:13)
[2025-03-12] MEDS: BUPIVACAINE 0.5% P/F INJ 10 ML VIAL ONE (12:14)
[2025-03-12] MEDS: HYDROcodone-ACET 10/325MG TAB PO PRN (12:29)
[2025-03-12 13:00] VITALS: BP 148/83; PULSE 60; RESP 18; TEMP 98.3; O2SAT 99
--- NOTE | 2025-03-12 13:18 | DVHSR ---
APPROVED REPORT EXAM: Two-dimensional and M-mode echocardiogram with Doppler and color Doppler. Blood Pressure: 135/54 mmHg INDICATION Eval for cardiac function and ef RISK FACTORS Height: 4' 11", Weight: 134 DIMENSIONS LVDd4.3 (3.8-5.7cm)LA (2D)3.9 (1.9-4.0cm)Aortic Root3.0 (2.0-3.7cm) LVDs2.6 (2.5-4.0cm)LA (MM) (1.9-4.0cm)Aortic Cusp Exc1.8 (1.5-2.0cm) EF (%) 70.0 (55-70%)Rt. Atrium4.0 (1.9-4.0cm)Asc. Aorta cm IVSd1.1 (0.7-1.1cm)RV (D) (1.8-2.4cm) PWd0.9 (0.7-1.1cm) Mitral Valve MitralMitral Stenosis E wave0.80m/sMV Mean GR.mmHg A wave1.20m/sMV Peak GR.mmHg E/A ratio0.72D MVAcm2 Aortic Valve Aortic ValveAortic Stenosis V11.10m/[place] Mean GR.5mmHg V21.40m/[place] Peak GR.8mmHg LVOT Diameter1.8 (1.8-2.4cm)Doppler AVA2.00cm2 Tricuspid Valve TR Velocity2.60m/s [id number] Conclusion Technically good study. Sinus rhythm. Left atrial enlargement. Mild concentric LVH. Valves appear to be structurally normal. EF of 60% with normal RV function. Dopplers unremarkable. No pericardial effusion masses or vegetations.
[2025-03-12] MEDS ORDERED: ROSU20TA14 PO (15:04)
--- NOTE | 2025-03-12 15:05 | DVHDS2 ---
Discharge Summary Date of Admission Mar 08, 2025 at 06:26 Date of Discharge: Mar 12, 2025 Labs/Diagnostic Data: Laboratory Results Test 03/12/25 12:12 03/12/25 06:11 03/11/25 05:42 03/08/25 13:07 POC Glucose 247 mg/dl (70-106) White Blood Count 14.5 10^3/uL (4.4-10.8) Red Blood Count 3.90 10^6/uL (4.0-5.20) Hemoglobin 10.8 g/dL (12.2-16.2) Hematocrit 32.1 % (36.0-46.0) Mean Corpuscular Volume 82.3 fL (80.0-100.0) Mean Corpuscular Hemoglobin 27.6 pg (28.0-32.0) Mean Corpuscular Hemoglobin Concent 33.5 g/dL (32.0-36.0) Red Cell Distribution Width 16.4 % (11.8-14.3) Platelet Count 371 10^3/uL (140-450) Mean Platelet Volume 7.2 fL (6.9-10.8) Neutrophils (%) (Auto) 74.9 % (37.0-80.0) Lymphocytes (%) (Auto) 12.9 % (10.0-50.0) Monocytes (%) (Auto) 7.5 % (0.0-12.0) Eosinophils (%) (Auto) 3.6 % (0.0-7.0) Basophils (%) (Auto) 1.1 % (0.0-2.0) Neutrophils # (Auto) 10.8 10 ^3/uL (1.6-8.6) Lymphocytes # (Auto) 1.9 10 ^3/uL (0.4-5.4) Monocytes # (Auto) 1.1 10 ^3/uL (0-1.3) Eosinophils # (Auto) 0.5 10 ^3/uL (0-0.8) Basophils # (Auto) 0.2 10 ^3/uL (0-0.2) Nucleated Red Blood Cells 0.0 % Sodium Level 143 mmol/L (136-145) Potassium Level 4.1 mmol/L (3.5-5.1) Chloride Level 108 mmol/L (98-107) Carbon Dioxide Level 23 mmol/L (20-31) Anion Gap 12 (5-15) Blood Urea Nitrogen 12 mg/dL (9-23) Creatinine 0.85 mg/dL (0.550-1.02) Glomerular Filtration Rate Calc 70 mL/min (>90) BUN/Creatinine Ratio 14.1 (10.0-20.0) Serum Glucose 160 mg/dL (74-106) Calcium Level 8.9 mg/dL (8.7-10.4) Total Bilirubin 0.5 mg/dL (0.2-1.0) Aspartate Amino Transferase (AST) 31 U/L (13-40) Alanine Aminotransferase (ALT) 23 U/L (7-40) Alkaline Phosphatase 101 U/L (46-116) Total Protein 5.9 g/dL (5.7-8.2) Albumin 3.6 g/dL (3.2-4.8) Magnesium Level 2.2 mg/dL (1.6-2.6) SARS-CoV-2 Antigen (Rapid) Negative (NEGATIVE) Test 03/08/25 07:04 03/08/25 07:00 03/08/25 06:09 03/08/25 03:30 Influenza Type A Antigen Negative (Negative) Influenza Type B Antigen Negative (Negative) Phosphorus Level 2.6 mg/dL (2.4-5.1) Thyroid Stimulating Hormone (TSH) 2.53 uIU/mL (0.55-4.78) Troponin I High Sensitivity 20 ng/L (</=34) Urine Color Colorless (Yellow) Urine Clarity Clear (Clear) Urine pH 7.0 (5.0-9.0) Urine Specific [place] 1.006 (1.001-1.035) Urine Protein Negative (Negative) Urine Ketones Negative (Negative) Urine Blood Negative /uL (Negative) Urine Nitrite Negative (Negative) Urine Bilirubin Negative (Negative) Urine Urobilinogen Normal mg/dL (Negative) Urine Leukocyte Esterase Negative /uL (Negative) Urine RBC None seen /hpf (0 - 4) Urine Microscopic WBC 1 /HPF (0-5) Urine Squamous Epithelial Cells Few /hpf (<5) Urine Bacteria None seen /hpf (None Seen) Urine Osmolality 269 mOsm/kg Urine Creatinine 9.78 mg/dL (30.0-125.0) Urine Sodium 99 mmol/L (40-220) Urine Glucose Normal mg/dL (Normal) Urine Opiates Screen Neg (NEGATIVE) Urine Fentanyl Screen Neg (NEGATIVE) Urine Barbiturates Screen Neg (NEGATIVE) Urine Phencyclidine Screen Neg (NEGATIVE) Urine Amphetamines Screen Neg (NEGATIVE) Urine Benzodiazepines Screen Neg (NEGATIVE) Urine Cocaine Screen Neg (NEGATIVE) Urine Cannabinoids Screen Neg (NEGATIVE) Test 03/08/25 01:02 Lactic Acid Level 1.9 mmol/L (0.4-2.0) B-Type Natriuretic Peptide 74.51 pg/mL (0-100) Other Laboratory Tests 03/12/25 06:11 Brief Hx & Hospital Course: 79-year-old female with a significant past medical history of hypertension, hyperlipidemia, type 2 diabetes mellitus, chronic kidney disease, anxiety, depression, and gout, who presents to the emergency department with complaints of sudden-onset dizziness and midsternal chest tightness. The symptoms began around 10:00 p.m. the previous night while she was lying in bed watching television. She describes the chest pain as constant, tight in nature, substernal, non-radiating, and unprovoked, with no identifiable alleviating or aggravating factors. She also reports generalized body pain and shortness of breath but denies cough, fever, vomiting, diarrhea, or focal weakness. Upon EMS arrival at her home, cardiac rhythm strips revealed torsades de pointes. In the emergency department, a 12-lead ECG showed normal sinus rhythm with left bundle branch block and prolonged QTc interval (initial QTc 538 ms), although the machine interpreted atrial fibrillation. Repeat ECG after electrolyte repletion showed QTc improvement to 492 ms. Initial troponin was 14 ng/L with a flat trend on repeat testing. Labs were notable for leukocytosis (WBC 15.8), anemia (Hgb 10.6, Hct 30.2), hyponatremia (Na 134), hypokalemia (K 2.4), hypomagnesemia (Mg 1.8), elevated creatinine (1.94), and hyperglycemia (glucose 200). Chest X-ray revealed cardiomegaly. Urinalysis was unremarkable. She received normal saline, ceftriaxone, potassium, magnesium, and amiodarone in the ED. 03/10: Patient plan for left heart catheterization tomorrow QT remains elevated, has some abdominal pain and cramps and diarrhea. I believe patient is having serotonin withdrawal symptoms as she was cold turkey stopped SSRI. Cardiology recommends against restarting any low dose of SSRI for concern for torsades. Today we will get KUB upright we will continue to hold off any QT prolonging medications. 03/11: Patient remains same as yesterday, abdominal cramps. NPO midnight yesterday taken to left heart catheterization today with Cardiology. We will follow up thereafter. - insurance will not cover lifevest 03/12: Patient doing well, no chest pain, tele without concerns. EP has evaluated and wants to follow up outpatient, they recommend LifeVest but insurance will not cover. Patient wants social eval for insurances 2nd cover nightly, avoid any medications that can prolong QT (Zofran, Compazine, fluoroquinolone antibiotics, macrolide antibiotics, amiodarone, sotalol, dofetilide, antipsychotics/haloperidol, antidepressants duloxetine citalopram, fungal antibiotics fluconazole). Follow up closely with EP Cardiology physician Dr. rose. Vital signs stable, patient is stable for discharge as per plan below. diagnosis: # acute ventricular arrythmia,Torsades de pointes, stable # Prolonged QTc interval, improved # Ruled out structural heart disease # ruled out critical ischemic disease, status post angiogram Noncritical coronary artery disease, new diagnosis # Hypertension # Dyslipidemia # Severe Hypokalemia # Hypomagnesemia # Acute kidney injury likely secondary to vasomotor nephropathy # Type 2 diabetes mellitus plan: -EP cardiology recommend LifeVest but insurance will not cover. -start aspirin and Crestor - stops following medication: Amlodipine fine, citalopram, duloxetine, furosemide, hydralazine, - Patient wants social eval for insurances 2nd cover nightly, avoid any medications that can prolong QT (Zofran, Compazine, fluoroquinolone antibiotics, macrolide antibiotics, amiodarone, sotalol, dofetilide, antipsychotics/haloperidol, antidepressants duloxetine citalopram, fungal antibiotics fluconazole). -Continue other medications not mentioned above. Albuterol, alendronate, allopurinol, amlodipine 10 mg, Coreg 12, vitamin D3, Pepcid, hydrochlorothiazide, [place], insulin, Januvia, losartan - Follow up closely with EP Cardiology physician Dr. rose. Condition at Discharge: Fair Final Diagnosis/Problems List # acute ventricular arrythmia,Torsades de pointes, stable # Prolonged QTc interval, improved # Ruled out structural heart disease # ruled out critical ischemic disease, status post angiogram Noncritical coronary artery disease, new diagnosis # Hypertension # Dyslipidemia # Severe Hypokalemia # Hypomagnesemia # Acute kidney injury likely secondary to vasomotor nephropathy # Type 2 diabetes mellitus Discharge Disposition: Home Discharge Instruct/Medications Scheduled Alendronate Sodium (Alendronate Sodium), 1 TAB PO QWEEKLY, (Reported) Allopurinol (Allopurinol), 100 MG PO DAILY, (Reported) Amlodipine Besylate (Amlodipine Besylate), 5 MG PO DAILY, (Reported) Amlodipine Besylate (Amlodipine Besylate), 10 MG PO DAILY, (Reported) Aspirin (Aspirin Low Dose), 81 MG PO DAILY Atorvastatin Calcium (Lipitor), 1 TAB PO DAILY, (Reported) Carvedilol (Carvedilol), 12.5 MG PO Q12HR, (Reported) Cholecalciferol (Vitamin D3), 1 TAB PO DAILY, (Reported) Citalopram Hydrobromide (Citalopram), 10 MG PO DAILY, (Reported) Citalopram Hydrobromide (Citalopram Hydrobromide), 20 MG PO DAILY, (Reported) Duloxetine Hcl (Cymbalta), 1 CAP PO DAILY, (Reported) Famotidine (Pepcid Tablet), 2 TAB PO DAILY, (Reported) Furosemide (Furosemide), 20 MG PO DAILY, (Reported) Furosemide (Furosemide), 40 MG PO DAILY, (Reported) Hydralazine Hcl (Hydralazine Hcl), 100 MG PO TID, (Reported) Hydralazine Hcl (Hydralazine Hcl), 100 MG PO TID, (Reported) Hydrochlorothiazide (Hydrochlorothiazide), 25 MG PO DAILY, (Reported) Hydrocodone-Acetaminophen (Hydrocodone Bitartrate/AC 10-325 mg), 1 TAB PO TID, (Reported) Losartan Potassium (Losartan Potassium), 50 MG PO BID, (Reported) Potassium Chloride (Potassium Chloride Cr), 10 MEQ PO DAILY Rosuvastatin Calcium (Crestor), 1 TAB PO DAILY Sitagliptin Phosphate (Januvia), 1 TAB PO DAILY, (Reported) Sitagliptin Phosphate (Januvia), 25 MG PO HS, (Reported) Miscellaneous Medications Albuterol Sulfate (Ventolin Mdi), 90 MCG IN, (Reported) Insulin NPH Isophane & Reg (Hu (Novolin 70/30 (70-30) 100 Unit/ml), 1 INJ SC, (Reported) Discharge Statement: "Patient was advised to return to the ER or call 911 if any headaches, dizziness, shortness of breath, chest pain, abdominal pain, bleeding, fevers, or worsening of medical condition. Patient was counseled about treatment plan, medications, possible side effects, patientverbalized understanding. All questions were answered to the best of my ability. This discharge took greater then 30 minutes in planning, reviewing documentation, counseling the patient, and discussing with other team members." ASSESSMENT ASSESSMENT Assessment Date of Service: Mar 12, 2025 Billing Provider: HAYDEN BRENNAN MD Common Visit Codes: 33095-SOQ/OBS DISCH DAY >30min HAYDEN BRENNAN MD Mar 12, 2025 15:05
[2025-03-12 15:30] VITALS: BP 161/70; TEMP 36.8
--- NOTE | 2025-03-12 18:33 | DVHPN2 ---
Progress Note - Dictate Date Seen: Mar 12, 2025 Medical Necessity Reason Pt with a Central, PICC or Fol: No vital signs Vital Sign Date Time Temp Pulse Resp B/P (MAP) Pulse Ox O2 Delivery O2 Flow Rate FiO2 03/12/25 15:30 36.8 03/12/25 13:00 60 18 148/83 (104) 99 03/12/25 08:05 Room Air* 0 21 Total Intake and Output 03/11/25 03/11/25 03/12/25 15:00 23:00 07:00 Intake Total 200 ml 600 ml Balance 200 ml 600 ml laboratory and microbiology Laboratory Tests 03/12/25 06:11 Test 03/12/25 06:11 Range/Units Serum Glucose 160 H 74-106 mg/dL Assessment/Plan Plan/Recommendation This is a 79-year old female who initially presented 03/08/2025 with reported dizziness and chest tightness. Reports indicate symptoms had started the night prior to initial presentation as she was in bed watching television which EMS had been called for further evaluation. Upon EMS evaluation, patient had been found in a WCT (assessed to reflect ventricular tachycardia) as confirmed by review of available EMS rhythm strip tracing which notably upon ED arrival initial 12-lead electrocardiogram had revealed conversion to sinus rhythm at 67 bpm with an underlying LBBB, and evidence for QTC prolongation at 538 milliseconds. Patient herself denies any reported shock while undergoing management by EMS and upon review of chart, chart itself does not mention any administered anti-arrhythmic therapy by EMS and as patient arrived with a sinus rhythm confirmed by EKG findings, patient had presumably converted spontaneously without intervention however while undergoing management within the ED patient had later been administered Amiodarone bolus for the aforementioned arrhythmia. Serial HS troponin trend was found unremarkable (14, 21, 20). TSH level was found normal at 2.53. CT imaging of the brain had revealed no evidence for acute intracranial findings. Bilateral carotid duplex had revealed no evidence for any hemodynamically significant stenosis involving the bilateral carotid artery system. Urinalysis revealed no acute infectious process. UDS was found negative. Review of telemetry strips reveal patient had later experienced what appears to be brief episode of ventricular fibrillation that had spontaneously converted to sinus rhythm without intervention. Of note, upon arrival patient was found to have significant electrolyte abnormalities which she was initially found hypokalemic at 2.4 (repleted) with lowest magnesium level of 1.4 (repleted) which could have attributed to the clinical picture/tachyarrhythmia. Of note, patient furthermore has underling history of depression and was previously taking Citalopram on an outpatient basis prior to initial presentation and as Citalopram is know to potentially provoke QT prolongation, medication itself superimposed on significant electrolyte abnormalities likely could have attributed to the clinical picture. At present, denies any active chest pain, shortness of breath, palpitations, syncope, or any further cardiac related symptoms. Electrophysiology services were subsequently involved by Interventional Cardiology request for EP aspects of care. Review of outside records ([facility]) reveal past medical history includes coronary artery disease status post previous TX (2010) with no prior stent placement, previous history of deep vein thrombosis (04/2021), diabetes mellitus II, hypertension, hyperlipidemia, chronic kidney disease and depression Echocardiogram April 2019-LVEF hyperdynamic 75%, mild LVH, grade 1 diastolic dysfunction, mild left atrial enlargement. Echocardiogram September 2021-LVEF normal 70%, grade 1 diastolic dysfunction, mild LVH left atrium mildly dilated, RVSP 40 mmHg. Lexiscan Cardiolite April 2019-negative for ischemia, EF hyperdynamic more than 75%. Lexiscan Cardiolite November 2021-LVEF normal 68%, no ischemia or scar. Echocardiogram: (03/08/2025) revealed Conclusion Technically good study. Sinus rhythm. Left atrial enlargement. Mild concentric LVH. Valves appear to be structurally normal. EF of 60% with normal RV function. Dopplers unremarkable. No pericardial effusion masses or vegetations. Cardiac Catheterization: (03/11/2025) revealed CONCLUSIONS: 1. moderate non critical cad Symptomatic ventricular tachycardia/ventricular fibrillation Evidence for significant electrolyte abnormalities (hypokalemia/hypomagnesemia) Evidence for QT prolongation, previously on Citalopram for underlying depression Infrequent PVC's superimposed on T-wave Reported history of previous TX (2010) Underlying left bundle branch block Non-conducted PACs ELECTROPHYSIOLOGY SUGGESTIONS FOR MANAGEMENT: Patient presented and was found to have symptomatic VT/VF however noted to present with significant electrolyte abnormalities which she was initially found hypokalemic at 2.4 (repleted) with lowest magnesium level of 1.4 (repleted) which could have attributed to the clinical picture/tachyarrhythmia. Patient furthermore was found to have evidence for QT prolongation with a QTC interval of > 500 milliseconds which it is of note patient herself has underling history of depression and was previously taking Citalopram on an outpatient basis prior to initial presentation and as Citalopram is know to potentially provoke QT prolongation, medication itself superimposed on significant electrolyte abnormalities likely could have attributed to the clinical picture. Subsequent cardiac catheterization had ruled out obstructive coronary artery disease. Echocardiogram had revealed a preserved LVEF of 60% with no significant valvular abnormalities. Recognizing the above, ventricular arrhythmia at this point is favored likely secondary to significant electrolyte abnormalities superimposed on underlying QT prolongation from underlying depression medications. Despite the above mentioned, patient benefits from undergoing out-patient based EP study in an attempt to provoke previously observed ventricular arrhythmia and if evidence for ventricular arrhythmia by EP study provocation, may consider AICD implantation at that point however recommendation is to proceed with use of Life Vest during the interim. Attempt for Life Vest had been requested however Life Vest is not covered by patients insurance therefore will proceed with close out- patient follow up for further evaluation/management to plan for out-patient based EP study. To sustain potassium levels greater than 4.0. To sustain magnesium levels greater than 2.0. To proceed with avoidance of QT prolong agents. Remainder of cardiac management as per Interventional Cardiology services. Will proceed to follow from an EP perspective. To proceed with avoidance of QT prolonging agents during the interim Life Vest had been requested, Life Vest is not covered by patients insurance To proceed with close rate and rhythm surveillance Sustain magnesium levels greater than 2.0 Sustain potassium levels greater than 4.0 Proceed with close hemodynamic surveillance Proceed with optimized blood pressure control Transfuse to sustain HGB level above 7.0 Sustain Magnesium level greater than 2.0 Sustain Potassium level greater than 4.0 Follow up renal function and electrolytes Management in telemetry Follow up wireless consultant recommendations Will proceed to follow from an EP perspective Further recommendations per clinical progression All available diagnostic labs, EKG's, and images were personally reviewed Patient's status, findings, and plan of care was reviewed and discussed with supervising physician Dr. Pryor, who is in agreement with current plan of care. Plan of care discussed with and agreed upon by patient / primary RN Prognosis: Guarded Thank you for allowing me to participate in the care of this patient. Further recommendations based on patients clinical course and progression, primary attending, and other consultants. Will continue to follow with primary attending. If you have any questions or concerns, please do not hesitate to contact me. A total of 75 minutes was spent reviewing the patient record, examining the patient, making a diagnostic and therapeutic plan, discussing this plan with medical personnel, following up on diagnostic studies and following the patient for clinical stability excluding any and all procedures. At least 50% of this time was spent in direct, [id number] contact. Plan discussed with: Patient (patient/primary rn ) Dietary Evaluation Review Comments: [id number] Cardiac diet Expected Outcomes/Goals: controlled DM, gradual wt loss Plan discussed with: Patient (patient and primary rn ) ALLEGRA DELONGP Mar 12, 2025 18:33
== END 2025-03-12 16:55 | disposition home or self-care (01) | DRG 286 ==
LOC: EDBD 00:46 → ER 00:46 → OVERFLOW 06:26 → TELE-WESTW 15:43
PROVIDERS: ADMIT Student in an Organized Health Care Education/Training Program; ATTEND Student in an Organized Health Care Education/Training Program
PROC: 4A023N7 Measurement of Cardiac Sampling and Pressure, Left Heart, Percutaneous Approach (ICD-10-PCS; principal; 2025-03-11)
PROC: B211YZZ Fluoroscopy of Multiple Coronary Arteries using Other Contrast (ICD-10-PCS; 2025-03-11)
DX: I25.10 Atherosclerotic heart disease of native coronary artery without angina pectoris (principal); I49.01 Ventricular fibrillation; N17.0 Acute kidney failure with tubular necrosis; I47.21 Torsades de pointes; I48.92 Unspecified atrial flutter; E87.1 Hypo-osmolality and hyponatremia; I95.1 Orthostatic hypotension; E87.5 Hyperkalemia; I48.91 Unspecified atrial fibrillation; E87.6 Hypokalemia; E86.0 Dehydration; E83.42 Hypomagnesemia; E78.5 Hyperlipidemia, unspecified; E11.9 Type 2 diabetes mellitus without complications; I10 Essential (primary) hypertension; D64.9 Anemia, unspecified; D72.829 Elevated white blood cell count, unspecified; F32.A Depression, unspecified; F41.9 Anxiety disorder, unspecified; M10.9 Gout, unspecified; I44.7 Left bundle-branch block, unspecified; I44.1 Atrioventricular block, second degree; E11.22 Type 2 diabetes mellitus with diabetic chronic kidney disease; N18.9 Chronic kidney disease, unspecified; Z83.3 Family history of diabetes mellitus; Z80.41 Family history of malignant neoplasm of ovary; I25.2 Old myocardial infarction; Z79.4 Long term (current) use of insulin; Z98.1 Arthrodesis status; Z79.899 Other long term (current) drug therapy
CPT/HCPCS: 36415; 70551; 71045; 74018; 80048; 80053; 80307; 81001; 82570; 82962; 83605; 83735; 83880; 83935; 84100; 84132; 84300; 84443; 84484; 85025; 87040; 87426; 87804; 93005; 93306; 93458; 93886; 96365; 97110; 97116; 97163; 97530; 99152; 99291; G0378; J1815; J2250; J3480; J3490; Q9967

== ENCOUNTER 2025-03-28 19:11 | Inpatient (IN) | payer OTHER ==
[~2025-03-28] VITALS: Ht 152.4 cm; Wt 70.3 kg
[~2025-03-28 19:11] MED LIST changes: +ALEN70TA74 PO; +ASPI-325 PO; -CITA10TA6 PO; -DULO60CA41 PO; -FURO20TA3 PO; -HYDR50TA47 PO; +POTA-36 PO; +ROSU20TA14 PO
--- NOTE | 2025-03-28 20:01 | ED.PDOC ---
GI ASSESSMENT HPI Comments 79-year-old female who came to ER for abdominal pain. Patient denies any abdominal surgeries. States she has been experiencing left lower quadrant/left side abdominal pain since yesterday. Denies any nausea, vomiting or changes in bowel habits. Chief Complaint: Abdominal Pain Time Seen by MD: 20:01 Reviewed Notes: Nurses Notes Allergies: Coded Allergies: Lidocaine (Verified Allergy, Unknown, 08/30/24) Home Meds Active Scripts Rosuvastatin Calcium (Crestor) 20 Mg Tab, 1 TAB PO DAILY, #30 TAB 1 Refill Prov:HAYDEN BRENNAN MD 03/12/25 Aspirin (Aspirin Low Dose) 81 Mg Tab, 81 MG PO DAILY for 30 Days, #30 TAB 2 Refills Prov:NEMO HOLLIDAY RESIDENT 03/09/25 Potassium Chloride (POTASSIUM CHLORIDE CR) 10 Meq Tb, 10 MEQ PO DAILY for 30 Days, #30 TAB 2 Refills Prov:NEMO HOLLIDAY RESIDENT 03/09/25 Reported Medications Alendronate Sodium (Alendronate Sodium) 70 Mg Tab, 1 TAB PO QWEEKLY, #4 TAB 3 Refills 03/10/25 Amlodipine Besylate (Amlodipine Besylate) 5 Mg Tab, 10 MG PO DAILY for 30 Days, MG 03/10/25 Albuterol Sulfate (VENTOLIN MDI) 90 Mcg Ih, 90 MCG IN, INH 08/29/24 Atorvastatin Calcium (Lipitor) 20 Mg Tab, 1 TAB PO DAILY, #90 TAB 1 Refill 08/29/24 Sitagliptin Phosphate (Januvia) 50 Mg Tab, 1 TAB PO DAILY, #30 TAB 5 Refills 08/29/24 Hydrocodone-Acetaminophen (Hydrocodone Bitartrate/AC 10-325 mg) 1 Tab Tab, 1 TAB PO TID, TAB 08/29/24 Cholecalciferol (VITAMIN D3) 2,000 Unit Tab, 1 TAB PO DAILY, #30 TAB 5 Refills 08/29/24 Hydrochlorothiazide (Hydrochlorothiazide) 25 Mg Tab, 25 MG PO DAILY for 30 Days, MG 08/29/24 Allopurinol (Allopurinol) 100 Mg Tab, 100 MG PO DAILY for 30 Days, MG 08/29/24 Insulin NPH Isophane & Reg (Hu (Novolin 70/30 (70-30) 100 Unit/ml) 1 Inj Inj, 1 INJ SC, INJ 08/29/24 Carvedilol (Carvedilol) 12.5 Mg Tab, 12.5 MG PO Q12HR for 30 Days, MG 08/29/24 Losartan Potassium (Losartan Potassium) 50 Mg Tab, 50 MG PO BID for 30 Days, MG 08/29/24 Famotidine (PEPCID TABLET) 20 Mg Tb, 2 TAB PO DAILY, #60 TAB 5 Refills 08/29/24 Information Source: Patient Mode of Arrival: Wheelchair Timing: Hours Duration: Intermittent Past Medical History PAST MEDICAL HISTORY: Anxiety, DM, Gout, High Lipids, HTN Past Medical History (Other): Chronic back pain Surgical History: Denies all surgeries 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 Hx Family History Family History: Reviewed,noncontributory to illness Social History Smoker: Non-Smoker Alcohol: Denies ETOH Use Drugs: Denies Drug Use Lives In: Home Constitutional: denies: chills, diaphoresis, fatigue, fever, malaise, sweats, weakness, others EENTM: denies: blurred vision, double vision, ear bleeding, ear discharge, ear drainage, ear pain, ear ringing, eye pain, eye redness, hearing loss, mouth pain, mouth swelling, nasal discharge, nose bleeding, nose congestion, nose pain, photophobia, tearing, throat pain, throat swelling, voice changes, others Respiratory: denies: cough, hemoptysis, orthopnea, SOB at rest, shortness of breath, SOB with excertion, stridor, wheezing, others Cardiovascular: denies: chest pain, dizzy spells, diaphoresis, Dyspnea on exertion, edema, irregular heart beat, left arm pain, lightheadedness, palpitations, PND, syncope, others Gastrointestinal: reports: abdominal pain; denies: abdomen distended, blood streaked bowels, constipated, diarrhea, dysphagia, difficulty swallowing, h ematemesis, melena, nausea, poor appetite, poor fluid intake, rectal bleeding, rectal pain, vomiting, others Genitourinary: denies: abnormal vagina bleeding, burning, dyspareunia, dysuria, flank pain, frequency, hematuria, incontinence, pain, , vagina discharge, urgency, others Neurological: denies: dizziness, fainting, headache, left sided numbness, left sided weakness, numbness, paresthesia, pre-existing deficit, right sided numbness, right sided weakness, seizure, speech problems, tingling, tremors, weakness, others Musculoskeletal: denies: back pain, gout, joint pain, joint swelling, muscle pain, muscle stiffness, neck pain, others Integumetry: denies: bruises, change in color, change in hair/nails, dryness, laceration, lesions, lumps, rash, wounds, others Allergic/Immunocompromised: denies: Difficulty Healing, Frequent Infections, Hives, Itching, others Hematologic/Lymphatic: denies: anemia, blood clots, easy bleeding, easy bruising, swollen glands, others Endocrine: denies: excessive hunger, excessive sweating, excessive thirst, excessive urination, flushing, intolerance to cold, intolerance to heat, unexplained weight gain, unexplained weight loss, others Psychiatric: denies: anxiety, bipolar disorder, depression, hopeless, panic disorder, schizophrenia, sleepless, suicidal, others Physical Exam General Appearance: No Apparent Distress, Normal HEENT: Normal ENT Inspection, Pharynx Normal, TMs Normal Neck: Full Range of Motion, Non-Tender, Normal, Normal Inspection Respiratory: Chest Non-Tender, Lungs Clear, No Accessory Muscle Use, No Respiratory Distress, Normal Breath Sounds Cardiovascular: No Edema, No JVD, No Murmur, No Gallop, Normal Peripheral Pulses, Regular Rate/Rhythm Breast Exam: Deferred Gastrointestinal: LLQ, No Organomegaly, No Pulsatile Mass, Normal Bowel Sounds, Soft, Tenderness Genitalia: Deferred Pelvic: Deferred Rectal: Deferred Extremities: No calf tenderness, Normal capillary refill, Normal inspection, Normal range of motion, Non-tender, No pedal edema Musculoskeletal : Apperance: Normal Neurologic: Alert, replenishment associate II-XII nml as Tested, No Motor Deficits, Normal Affect, Normal Mood, No Sensory Deficits Cerebellar Function: Normal Reflexes: Normal Skin: Dry, Normal Color, Warm Lymphatic: No Adenopathy Was a procedure done? Was a procedure done?: No GI differential Dx Differential Diagnosis: Diverticular disease, Gastritis/PUD, Gastroenteritis, Pancreatitis, UTI, Urolithiasis X-Ray, Labs, Meds, VS Vital Signs Date Time Temp Pulse Resp B/P (MAP) Pulse Ox O2 Delivery O2 Flow Rate FiO2 03/28/25 22:49 18 Room Air* 0 21 21 03/28/25 21:06 97.8 69 17 152/48 (82) 97 97.8 03/28/25 21:05 69 17 132/77 03/28/25 19:14 97.7 78 16 136/66 99 97.7 Lab Test 03/28/25 19:49 Range/Units White Blood Count 16.3 H 4.4-10.8 10^3/uL Red Blood Count 4.07 4.0-5.20 10^6/uL Hemoglobin 10.9 L 12.2-16.2 g/dL Hematocrit 33.3 L 36.0-46.0 % Mean Corpuscular Volume 81.9 80.0-100.0 fL Mean Corpuscular Hemoglobin 26.9 L 28.0-32.0 pg Mean Corpuscular Hemoglobin Concent 32.8 32.0-36.0 g/dL Red Cell Distribution Width 16.5 H 11.8-14.3 % Platelet Count 452 H 140-450 10^3/uL Mean Platelet Volume 6.9 6.9-10.8 fL Neutrophils (%) (Auto) 75.7 37.0-80.0 % Lymphocytes (%) (Auto) 11.0 10.0-50.0 % Monocytes (%) (Auto) 9.7 0.0-12.0 % Eosinophils (%) (Auto) 2.6 0.0-7.0 % Basophils (%) (Auto) 1.0 0.0-2.0 % Neutrophils # (Auto) 12.3 H 1.6-8.6 10 ^3/uL Lymphocytes # (Auto) 1.8 0.4-5.4 10 ^3/uL Monocytes # (Auto) 1.6 H 0-1.3 10 ^3/uL Eosinophils # (Auto) 0.4 0-0.8 10 ^3/uL Basophils # (Auto) 0.2 0-0.2 10 ^3/uL Nucleated Red Blood Cells 0.0 % Sodium Level 139 136-145 mmol/L Potassium Level 4.5 3.5-5.1 mmol/L Chloride Level 104 98-107 mmol/L Carbon Dioxide Level 24 20-31 mmol/L Anion Gap 11 5-15 Blood Urea Nitrogen 23 9-23 mg/dL Creatinine 1.34 H 0.550-1.02 mg/dL Glomerular Filtration Rate Calc 40 >90 mL/min BUN/Creatinine Ratio 17.2 10.0-20.0 Serum Glucose 170 H 74-106 mg/dL Calcium Level 9.0 8.7-10.4 mg/dL Total Bilirubin 0.4 0.2-1.0 mg/dL Aspartate Amino Transferase (AST) 29 13-40 U/L Alanine Aminotransferase (ALT) 28 7-40 U/L Alkaline Phosphatase 142 H 46-116 U/L Total Protein 6.5 5.7-8.2 g/dL Albumin 4.1 3.2-4.8 g/dL Lipase 37 12-53 U/L Current Medications Medications (Trade) Dose Ordered Sig/Celia Route Start Time Stop Time Status Last Admin Sodium Chloride 1,000 ml @ 1,000 mls/hr Q1H ONCE IVB 03/28/25 19:45 03/28/25 20:44 DC 03/28/25 21:05 Morphine Sulfate 4 mg ONCE ONCE IV 03/28/25 20:00 03/28/25 20:01 DC 03/28/25 21:05 Ondansetron HCl (Zofran) 4 mg ONCE ONCE IV 03/28/25 20:00 03/28/25 20:01 DC 03/28/25 21:05 Exam: CT CT AB PEL WO CON-NO ORAL OR IV History: LLQ pain Comparison Study: XY KUB ABDOMEN SINGLE VIEW on DOS: 03/10/25, XY KUB ABDOMEN SINGLE VIEW on DOS: 08/31/24, CT PELVIS WO CONTRAST on DOS: 08/29/24, CT PELVIS WO CONTRAST on DOS: 08/13/24, US KIDNEY on DOS: 03/15/24 TECHNIQUE: Multidetector CT of the abdomen and pelvis was performed from lung bases to pubic symphysis. Imaging was performed without IV contrast. Axial, coronal, and sagittal multiplanar reformats were obtained from the axial data set by the technologist. RADIATION DOSE: CTDI vol 10.55 mGy. DLP 563.63 mGy.cm Findings: Limited evaluation of the solid organs in the absence of IV contrast. Evaluation is also limited by excessive streak artifact through the upper abdomen. Lungs: There is basilar atelectasis/scarring. Liver: Unremarkable. Spleen: Unremarkable. Pancreas: Unremarkable. Gallbladder: Prior cholecystectomy. Adrenals: Unremarkable Kidneys: 14 mm indeterminate right renal lesion. Right renal cyst. No hydronephrosis. Pelvic Viscera: Unremarkable. Vasculature: Atherosclerotic aortoiliac calcification. Retroperitoneum: Unremarkable. Bowel: Colonic diverticulosis with wall thickening about the distal descending colon and adjacent stranding. No abscess. No bowel obstruction. The appendix is normal. Musculoskeletal: Unremarkable. Soft tissues: Chronic appearing thoracolumbar fractures with vertebroplasty changes and fusion hardware. Severe chronic appearing fracture of L1 with osseous retropulsion. Impression: 1. Findings as above suggesting acute diverticulitis in the appropriate clinical setting. No abscess. A posttreatment follow-up is suggested to ensure appropriate resolution. 2. Indeterminate 14 mm right renal lesion. Comparison with any prior outside imaging is suggested in assessing acuity and interval change. MRI of the abdomen may be obtained for further characterization if clinically indicated. 3. Additional findings as detailed. Time of 1ST Reevaluation: 19:59 Reevaluation 1ST: Unchanged Patient Education/Counseling: Diagnosis, Treatment Family Education/Counseling: Diagnosis, Treatment SEPSIS Sepsis Screen Date sepsis recognized/suspect: Mar 28, 2025 Time Sepsis recognized/suspect: 1915 Recent Procedure: No On Antibiotic Therapy: No Respiratory Rate >20: No Heart Rate >90: No Temp<36 C (96.8 F) or >38.3 C: No SBP <90 or MAP <65 mmHG: No New Acute Mental Status Change: No Is the patient on CPAP, BIPAP,: No Physician Orders Urinalysis (03/28/25 19:32) Ct Ab Pel Wo Con-No Oral Or Iv (03/28/25 19:32) Blood Culture (03/28/25 23:30) Lactic Acid W/ Reflex Order (03/28/25 23:30) Ceftriaxone Ivpb Rocephin (03/28/25 23:45) Metronidazole Ivpb Flagyl (03/28/25 23:45) Vital Signs Date Time Temp Pulse Resp B/P (MAP) Pulse Ox O2 Delivery O2 Flow Rate FiO2 03/28/25 22:49 18 Room Air* 0 21 21 03/28/25 21:06 97.8 69 17 152/48 (82) 97 97.8 03/28/25 21:05 69 17 132/77 03/28/25 19:14 97.7 78 16 136/66 99 97.7 Laboratory Tests Test 03/28/25 19:49 White Blood Count 16.3 10^3/uL (4.4-10.8) H Medications Medications Dose Ordered Sig/Celia Route Start Time Stop Time Status Last Admin Dose Admin Morphine Sulfate 4 mg ONCE ONCE IV 03/28/25 20:00 03/28/25 20:01 DC 03/28/25 21:05 Ondansetron HCl 4 mg ONCE ONCE IV 03/28/25 20:00 03/28/25 20:01 DC 03/28/25 21:05 Sodium Chloride 1,000 ml @ 1,000 mls/hr Q1H ONCE IVB 03/28/25 19:45 03/28/25 20:44 DC 03/28/25 21:05 Departure 1 Departure Time of Disposition: 23:34 Impression: Primary Impression: Acute renal injury Additional Impressions: Diverticulitis Dehydration Kidney lesion, diomede, right Disposition: ADMITTED INPATIENT Admit to: Med Surg Condition: Guarded Discharged With: Self Comments 79-year-old female with left lower quadrant pain. CT of the abdomen and pelvis shows diverticulitis. There is also right kidney lesion noted. Patient's white blood cell count is elevated 16. Also acute renal injury with elevated creatinine of 1.38 . Patient was given IV fluids and IV antibiotics. Patient will need to be admitted for supportive care and further workup. Critical Care Note Critical Care Time?: Yes (35 min-critical care time only) Critical care comment: Total critical care time: Approximately 36 minutes Due to a high probability of clinically significant, life threatening deterioration, the patient required my highest level of preparedness to intervene emergently and I personally spent this critical care time directly and personally managing the patient. This critical care time included obtaining a history; examining the patient; pulse oximetry; ordering and review of studies; arranging urgent treatment with development of a management plan; evaluation of patient's response to treatment; frequent reassessment; and, discussions with other providers. This critical care time was performed to assess and manage the high probability of imminent, life-threatening deterioration that could result in multi-organ failure. It was exclusive of separately billable procedures and treating other patients. Stability Stability form required: No Heart Score Heart Score: Heart Score Response (Comments) Value History N/A 0 EKG N/A 0 Age N/A 0 Risk Factors N/A 0 Troponin N/A 0 Total 0 I personally scribed for SWATI GORE MD ([email or web address]) on 03/28/25 at 20:01. Electronically submitted by Mohsen Collins ([facility]). I personally scribed for SWATI GORE MD ([email or web address]) on 03/28/25 at 22:52. Electronically submitted by Mohsen Collins ([facility]). SWATI GORE MD Mar 28, 2025 20:01
[2025-03-28 20:10] LABS: Hematocrit 33.3 % (36.0-46.0); Hemoglobin 10.9 g/dL (12.2-16.2); Mean Corpuscular Hemoglobin 26.9 pg (28.0-32.0); Mean Corpuscular Volume 81.9 fL (80.0-100.0); Nucleated Red Blood Cells % 0.0 %
[2025-03-28 20:36] LABS: Alanine Aminotransferase 28 U/L (7-40); Albumin 4.1 g/dL (3.2-4.8); Alkaline Phosphatase 142 U/L (46-116); Anion Gap 11 (5-15); BUN/Creatinine Ratio 17.2 (10.0-20.0); Bilirubin, Total 0.4 mg/dL (0.2-1.0); Blood Urea Nitrogen 23 mg/dL (9-23); Calcium 9.0 mg/dL (8.7-10.4); Carbon Dioxide 24 mmol/L (20-31); Chloride 104 mmol/L (98-107); Glucose 170 mg/dL (74-106); Lipase 37 U/L (12-53); Potassium 4.5 mmol/L (3.5-5.1); Sodium 139 mmol/L (136-145); Total Protein 6.5 g/dL (5.7-8.2)
[2025-03-28] MEDS: MORPHINE SULFATE 4 MG/ML SYR/VIAL IV ONE (21:05)
[2025-03-28] MEDS: SODIUM CHLORIDE 0.9% 1,000 ML IVB ONE (21:05)
[2025-03-28] MEDS: ONDANSETRON HCL 4 MG/2 ML VIAL IV ONE (21:05)
[2025-03-28] MEDS: IOHEXOL 300 MG/ML 100ML BOTTLE IJ ONE (21:49)
--- NOTE | 2025-03-28 22:46 | DVH ---
Exam: CT CT AB PEL WO CON-NO ORAL OR IV History: LLQ pain Comparison Study: XY KUB ABDOMEN SINGLE VIEW on DOS: 03/10/25, XY KUB ABDOMEN SINGLE VIEW on DOS: , CT PELVIS WO CONTRAST on DOS: 08/29/24, CT PELVIS WO CONTRAST on DOS: 08/13/24, US KIDNEY on DOS: TECHNIQUE: Multidetector CT of the abdomen and pelvis was performed from lung bases to pubic symphysi s. Imaging was performed without IV contrast. Axial, coronal, and sagittal multiplanar reformats were obtained from the axial data set by the technologist. RADIATION DOSE: CTDI vol 10.55 mGy. DLP 563.63 mGy.cm Findings: Limited evaluation of the solid organs in the absence of IV contrast. Evaluation is also limited by e xcessive streak artifact through the upper abdomen. Lungs: There is basilar atelectasis/scarring. Liver: Unremarkable. Spleen: Unremarkable. Pancreas: Unremarkable. Gallbladder: Prior cholecystectomy. Adrenals: Unremarkable Kidneys: 14 mm indeterminate right renal lesion. Right renal cyst. No hydronephrosis. Pelvic Viscera: Unremarkable. Vasculature: Atherosclerotic aortoiliac calcification. Retroperitoneum: Unremarkable. Bowel: Colonic diverticulosis with wall thickening about the distal descending colon and adjacent str anding. No abscess. No bowel obstruction. The appendix is normal. Musculoskeletal: Unremarkable. Soft tissues: Chronic appearing thoracolumbar fractures with vertebroplasty changes and fusion hardwa re. Severe chronic appearing fracture of L1 with osseous retropulsion. Impression: 1. Findings as above suggesting acute diverticulitis in the appropriate clinical setting. No abscess. A posttreatment follow-up is suggested to ensure appropriate resolution. 2. Indeterminate 14 mm right renal lesion. Comparison with any prior outside imaging is suggested in assessing acuity and interval change. MRI of the abdomen may be obtained for further characterization if clinically indicated. 3. Additional findings as detailed.
[2025-03-28 22:49] VITALS: RESP 18
[2025-03-29] VITALS (10 sets, daily range): BP systolic 113–146; BP diastolic 42–78; PULSE 62–80; RESP 16–18; TEMP 97.5–98.5; O2SAT 95–99
[2025-03-29] MEDS ORDERED: MORPHINE SULFATE INJ 2 MG/ml SYRG IV PRN (00:30)
--- NOTE | 2025-03-29 00:50 | DVHHPRES ---
History of Present Illness Resident Creating Document: SOPHIA MACKAY RESIDENT History of Present Illness Ms. 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 The patient states that yesterday she had sudden onset of abdominal pain described as sharp, initially in lower left quadrant and subsequently generalizing, intensity 9/10, without aggravating or relieving factors. She denies fever, nausea, vomiting, diarrhea, chest pain, palpitations, and diaphoresis. On evaluation in the ED, the patient was afebrile and hypertensive. EKG shows sinus rhythm with Left Bundle Branch Block and QTC of 566. Initial labs show WBCs 16.3 with neutrophilia, normocytic anemia, creatinine 1.34, hyperglycemia, and elevated ALP. Abdomen/pelvis CT shows colonic diverticulosis with wall thickening about the distal descending colon and adjuvant stranding suggestive of acute diverticulitis with no abscess. The patient was placed on NPO, started on IV fluids, IV pain regimen and IV antibiotics. She was admitted for further workup and monitoring. Cardiovascular: HTN, hyperipidemia, Other (Torsades de Pointes) GI: Gastritis Musculoskeletal: Other (Vertebral compression fracture, osteoporosis) Rheumatologic: Gout Renal/: Chronic renal failure Endocrine: Diabetes Past Surgical History: Other (Angiogram, Shoulder surgery, Back surgery) Family History: None Smoke: No ALCOHOL: none Drugs: None Lives: with Family Domestic Violence: Neg Review of Systems Review of Systems Constitutional: Denies weight loss, fever and chills. HEENT: Denies changes in vision and hearing. Respiratory: Denies shortness of breath and cough Cardiovascular: Denies chest discomfort or palpitations GI: Refers abdominal pain, denies abdominal distention and diarrhea : Denies dysuria and urinary frequency. Musculoskeletal: Refers localized back pain Skin: Denies rash and pruritus. Neurological: denies dizziness headache vision or hearing problems Allergies: Coded Allergies: Lidocaine (Verified Allergy, Unknown, 08/30/24) Medications Current Medications Medications Dose Ordered Sig/Celia Route Start Time Stop Time Status Last Admin Dose Admin Enoxaparin Sodium 30 mg DAILY SC 03/29/25 10:00 Morphine Sulfate 2 mg Q4HPRN PRN IV 03/29/25 00:30 Sodium Chloride 1,000 ml @ 50 mls/hr Q20H IV 03/29/25 00:30 Ceftriaxone Sodium 50 ml @ 100 mls/hr DAILY@09 IV 03/29/25 09:00 Metronidazole 100 ml @ 100 mls/hr Q8HR IV 03/29/25 06:00 Pantoprazole Sodium 40 mg DAILY IV 03/29/25 00:30 Famotidine 40 mg DAILY PO 03/29/25 10:00 UNV Losartan Potassium 50 mg DAILY PO 03/29/25 10:00 UNV Carvedilol 12.5 mg Q12HR PO 03/29/25 10:00 UNV Amlodipine Besylate 5 mg DAILY PO 03/29/25 10:00 UNV Hydrochlorothiazide 25 mg DAILY PO 03/29/25 10:00 UNV Allopurinol 100 mg DAILY PO 03/29/25 10:00 UNV Magnesium Oxide 400 mg DAILY PO 03/29/25 10:00 UNV Aspirin 81 mg DAILY PO 03/29/25 10:00 UNV Potassium Chloride 10 meq DAILY PO 03/29/25 10:00 UNV Patient Own Medication 1 tab DAILY PO 03/29/25 10:00 UNV Exam Vital Signs Vital Signs Date Time Temp Pulse Resp B/P (MAP) Pulse Ox O2 Delivery O2 Flow Rate FiO2 03/28/25 22:49 18 Room Air* 0 21 21 03/28/25 21:06 97.8 69 152/48 (82) 97 97.8 Exam General: The patient alert and oriented in person place and time. Patient following commands HEENT: Normocephalic, atraumatic, normal reactive pupils, EOM intact, pink conjunctiva, pink moist mucous membrane Respiratory/pulmonary: Bilateral chest expansion, no pain on palpation of chest wall, clear lungs bilaterally, vesicular murmurs present in almost all lung fie lds, no associated crackles or wheezes. Cardiovascular: Normal RRR, normal S1 and S2, no murmurs. Patient has Life vast on chest wall Abdomen: Abdomen nondistended, normal bowel sounds, soft, pain on superficial palpation in LLQ, no guarding, no CVA tenderness, no palpable masses. Extremities: No deformities, bilateral pitting lower extremity edema present affecting mainly feet and ankles 2+, normal pulses Skin: No rashes or pruritus, there is no sacral edema present at this time. Neurological: Intact cranial nerves with no focal neurologic deficits Labs/Xrays Labs Test 03/29/25 00:12 03/28/25 23:47 03/28/25 19:49 Range/Units Lactic Acid Level 1.7 0.4-2.0 mmol/L White Blood Count 16.3 H 4.4-10.8 10^3/uL Red Blood Count 4.07 4.0-5.20 10^6/uL Hemoglobin 10.9 L 12.2-16.2 g/dL Hematocrit 33.3 L 36.0-46.0 % Mean Corpuscular Volume 81.9 80.0-100.0 fL Mean Corpuscular Hemoglobin 26.9 L 28.0-32.0 pg Mean Corpuscular Hemoglobin Concent 32.8 32.0-36.0 g/dL Red Cell Distribution Width 16.5 H 11.8-14.3 % Platelet Count 452 H 140-450 10^3/uL Mean Platelet Volume 6.9 6.9-10.8 fL Neutrophils (%) (Auto) 75.7 37.0-80.0 % Lymphocytes (%) (Auto) 11.0 10.0-50.0 % Monocytes (%) (Auto) 9.7 0.0-12.0 % Eosinophils (%) (Auto) 2.6 0.0-7.0 % Basophils (%) (Auto) 1.0 0.0-2.0 % Neutrophils # (Auto) 12.3 H 1.6-8.6 10 ^3/uL Lymphocytes # (Auto) 1.8 0.4-5.4 10 ^3/uL Monocytes # (Auto) 1.6 H 0-1.3 10 ^3/uL Eosinophils # (Auto) 0.4 0-0.8 10 ^3/uL Basophils # (Auto) 0.2 0-0.2 10 ^3/uL Nucleated Red Blood Cells 0.0 % Sodium Level 139 136-145 mmol/L Potassium Level 4.5 3.5-5.1 mmol/L Chloride Level 104 98-107 mmol/L Carbon Dioxide Level 24 20-31 mmol/L Anion Gap 11 5-15 Blood Urea Nitrogen 23 9-23 mg/dL Creatinine 1.34 H 0.550-1.02 mg/dL Glomerular Filtration Rate Calc 40 >90 mL/min BUN/Creatinine Ratio 17.2 10.0-20.0 Serum Glucose 170 H 74-106 mg/dL Calcium Level 9.0 8.7-10.4 mg/dL Total Bilirubin 0.4 0.2-1.0 mg/dL Aspartate Amino Transferase (AST) 29 13-40 U/L Alanine Aminotransferase (ALT) 28 7-40 U/L Alkaline Phosphatase 142 H 46-116 U/L Total Protein 6.5 5.7-8.2 g/dL Albumin 4.1 3.2-4.8 g/dL Lipase 37 12-53 U/L SEPSIS Sepsis Screen Date sepsis recognized/suspect: Mar 28, 2025 Time Sepsis recognized/suspect: 1915 Recent Procedure: No On Antibiotic Therapy: No Respiratory Rate >20: No Heart Rate >90: No Temp<36 C (96.8 F) or >38.3 C: No SBP <90 or MAP <65 mmHG: No New Acute Mental Status Change: No Is the patient on CPAP, BIPAP,: No Physician Orders Urinalysis (03/28/25 19:32) Ct Ab Pel Wo Con-No Oral Or Iv (03/28/25 19:32) Blood Culture (03/28/25 23:30) Admit (03/29/25 00:22) Allergies (03/29/25 00:22) Code Status (03/29/25 00:) Npo (Nothing By Mouth) Diet (03/29/25 Breakfast) Condition: Stable (03/29/25 00:22) Morphine Sulfate Injection (03/29/25 00:30) Stat Ekg For Chest Pain (03/29/25 00:22) Notify Md Of Changes From Base (03/29/25 00:22) Life Guard For 24 Hours (03/29/25 00:22) Emergency Dysrhythmia Protocol (03/29/25 00:22) Rhythm Strips Once Every Shift (03/29/25 00:22) Electrocardigram (03/29/25 00:22) Enoxaparin Sodium (Lovenox) (03/29/25 10:00) Drug Screen (03/29/25 00:27) Magnesium (03/29/25 00:27) Complete Blood Count (03/29/25 04:00) Basic Metabolic Panel (03/29/25 04:00) Phosphorus (10/3/25 00:27) Vitamin B12 (03/29/25 00:27) Sodium Chloride 0.9% (03/29/25 00:30) Ceftriaxone 1gm/50ml (Rocephin) (03/29/25 09:00) Metronidazole 500mg/100ml (Flagyl 500mg/ (03/29/25 06:00) Pantoprazole (Protonix) (03/29/25 00:30) Famotidine Tablet (Pepcid Tablet) (03/29/25 10:00) Losartan Tablet (Cozaar Tablet) (03/29/25 10:00) Carvedilol Tablet (Coreg Tablet) (03/29/25 10:00) Amlodipine Tablet (Norvasc Tablet) (03/29/25 10:00) Hydrochlorothiazide Tablet (Hydrochlorot (03/29/25 10:00) Allopurinol Tablet (Zyloprim Tablet) (03/29/25 10:00) Magnesium Oxide Tablet (Mag-Ox Tablet) (03/29/25 10:00) Aspirin Tablet (03/29/25 10:00) Potassium Er Tablet (Klor-Con Tablet) (03/29/25 10:00) (Nf) Rosuvastatin Calcium (Crestor) (03/29/25 10:00) Communication Order (03/29/25 00:36) Vital Signs Date Time Temp Pulse Resp B/P (MAP) Pulse Ox O2 Delivery O2 Flow Rate FiO2 03/28/25 22:49 18 Room Air* 0 21 21 03/28/25 21:06 97.8 69 17 152/48 (82) 97 97.8 03/28/25 21:05 69 17 132/77 03/28/25 19:14 97.7 78 16 136/66 99 97.7 Laboratory Tests Test 03/28/25 19:49 03/28/25 23:47 White Blood Count 16.3 10^3/uL (4.4-10.8) H Lactic Acid Level 1.7 mmol/L (0.4-2.0) Medications Medications Dose Ordered Sig/Celia Route Start Time Stop Time Status Last Admin Dose Admin Morphine Sulfate 4 mg ONCE ONCE IV 03/28/25 20:00 03/28/25 20:01 DC 03/28/25 21:05 4 MG Ondansetron HCl 4 mg ONCE ONCE IV 03/28/25 20:00 03/28/25 20:01 DC 03/28/25 21:05 4 MG Sodium Chloride 1,000 ml @ 1,000 mls/hr Q1H ONCE IVB 03/28/25 19:45 03/28/25 20:44 DC 03/28/25 21:05 1,000 MLS/HR Assessment/Plan Assessment/Plan Assessment and Plan: Acute Diverticulitis Leukocytosis due to above - Abdomen/pelvis CT: Colonic diverticulosis with wall thickening about the distal descending colon and adjuvant stranding suggestive of acute diverticulitis with no abscess. - Ceftriaxone 1 g IV daily - Metronidazole 500 mg IV q.8 hours - Morphine 4 mg IV once - Morphine 2 mg IV q.4 hours PRN - NS 1000 cc bolus once - NS maintenance 50 cc/hr - Zofran 4 mg IV once (Do not give patient Zofran due to recent history of Torsades de Pointes and current QT prolongation) - NPO except for medications Dehydration due to above -IV fluids as described above Possible AAYUSH on CKD due to VMN/hemodynamically mediated - Monitor renal function - Avoid nephrotoxic drugs Renal mass - Abdomen/pelvis CT: Indeterminate 14 mm right renal lesion - Follow up as outpatient Normocytic Anemia likely due to chronic disease - Monitor H&H Hypertension - Losartan 50 mg p.o. daily - Amlodipine 5 mg p.o. daily - Hydrochlorothiazide 25 mg p.o. daily Type 2 diabetes mellitus with hyperglycemia, HbA1c 7.1 (02/28/2025) - NPO Mild sliding scale - Accu-Cheks - Carbohydrate consistent diet when NPO is lifted Recent history of Torsade de Pointes QT prolongation (566 msec on 03/29/2025 EKG) - Wearing LifeVest - Carvedilol 12.5 mg PO q12 hours - Magnesium 400 mg PO daily - Potassium 10 mEq PO daily - Telemetry - Avoid QT prolonging drugs Coronary artery disease - Completed recent coronary angiography which showed non severe distal LAD lesion (50-60%) - On Aspirin and atorvastatin Gastritis - Pepcid 40 mg PO daily - Protonix 40 mg IV daily Diet: NPO DVT prophylaxis: Enoxaparin 30 mg SC daily GI prophylaxis: Protonix 40 mg IV daily Case discussed with Dr. Montgomery Goals of care discussed with the patient and her son, Ovidio, for over 24 minutes. Full code. Plan discussed with: Patient, Son, Other (Nurses) My Orders Orders - SOPHIA MACKAY RESIDENT Procedure Category Date Status Time Admit ADMIT 03/29/25 Transmitted 00:22 Allergies TONIO 03/29/25 In Process 00:22 Code Status CODE 03/29/25 Transmitted 00:22 Npo (Nothing By DIET 03/29/25 Transmitted Mouth) Diet Breakfast Condition: Stable TONIO 03/29/25 In Process 00:22 Morphine Sulfate PHA 03/29/25 In Process Injection 00:30 Stat Ekg For Chest TONIO 03/29/25 In Process Pain 00:22 Notify Md Of Changes TONIO 03/29/25 In Process From Base 00:22 Life Guard For TONIO 03/29/25 In Process 24 Hours 00:22 Emergency Dysrhythmia TONIO 03/29/25 In Process Protocol 00:22 Rhythm Strips Once TONIO 03/29/25 In Process Every Shift 00:22 Electrocardigram EKG 03/29/25 Logged 00:22 Enoxaparin Sodium PHA 03/29/25 In Process (Lovenox) 10:00 Drug Screen LAB 03/29/25 In Process 00:27 Magnesium LAB 03/29/25 In Process 00:27 Complete Blood Count LAB 03/29/25 Logged 04:00 Basic Metabolic Panel LAB 03/29/25 Logged 04:00 Phosphorus LAB 03/29/25 In Process 00:27 Vitamin B12 LAB 03/29/25 In Process 00:27 Sodium Chloride 0.9% PHA 03/29/25 In Process 00:30 Ceftriaxone 1gm/50ml PHA 03/29/25 In Process (Rocephin) 09:00 Metronidazole PHA 03/29/25 In Process 500mg/100ml (Flagyl 06:00 Pantoprazole PHA 03/29/25 In Process (Protonix) 00:30 Famotidine Tablet PHA 03/29/25 Logged (Pepcid Tablet) 10:00 Losartan Tablet PHA 03/29/25 Logged (Cozaar Tablet) 10:00 Carvedilol Tablet PHA 03/29/25 Logged (Coreg Tablet) 10:00 Amlodipine Tablet PHA 03/29/25 Logged (Norvasc Tablet) 10:00 Hydrochlorothiazide PHA 03/29/25 Logged Tablet (Hydrochlorot 10:00 Allopurinol Tablet PHA 03/29/25 Logged (Zyloprim Tablet) 10:00 Magnesium Oxide PHA 03/29/25 Logged Tablet (Mag-Ox Tablet) 10:00 Aspirin Tablet PHA 03/29/25 Logged 10:00 Potassium Er Tablet PHA 03/29/25 Logged (Klor-Con Tablet) 10:00 (Nf) Rosuvastatin PHA 03/29/25 Logged Calcium (Crestor) 10:00 Communication Order ORDERS 03/29/25 Transmitted 00:36 Date of Service: Mar 29, 2025 Billing Provider: HAYDEN BRENNAN MD Common Visit Codes: [id number] INP/OBS CARE (HIGH) Secondary Visit Codes: [id number] CARE PLAN 30 MINUTES SOPHIA MACKAY RESIDENT Mar 29, 2025 00:50 GELACIO LAYNE RESIDENT Mar 29, 2025 04:54
[2025-03-29 00:54] LABS: Magnesium 2.0 mg/dL (1.6-2.6)
--- NOTE | 2025-03-29 01:30 | ECG ---
[facility] Test Date: 2025-03-29 Test Time: 01:28:49 Pat Name: VITALY SHERMAN Department: ER Room: 0290T Gender: F Policy Issue Clerk: MORENITA : 1945 Requested By: SOPHIA MACKAY Order Number: [id number] Reading MD: Nadeem Rodriguez Measurements Intervals [place] Rate: 78 P: 31 MS: 158 QRS: -8 QRSD: 150 T: 122 QT: 496 QTc: 566 Interpretive Statements Sinus rhythm Left bundle branch block Electronically Signed On 03-29-2025 12:19:08 PDT by Nadeem Rodriguez Please click the below link to view image of tracing.
[2025-03-29] MEDS ORDERED: DEXTROSE (50%) 50ML SYRG IV PRN (01:45)
[2025-03-29 01:47] LABS: Urine Budding Yeast OCCASIONAL /hpf (None Seen); Urine Protein, UAD TRACE (Negative)
[2025-03-29 01:56] LABS: Amphetamine Screen, Urine Neg (NEGATIVE); Barbiturate Scree,Urine Neg (NEGATIVE); Benzodiazephine Screen, Urine Neg (NEGATIVE); Cannabinoid Screen, Urine Neg (NEGATIVE); Cocaine Screen, Urine Neg (NEGATIVE); Opiate Scree,Urine Pos (NEGATIVE); Phencyclidine Screen, Urine Neg (NEGATIVE)
[2025-03-29] MEDS: PANTOPRAZOLE 40 MG/10 ML VIAL INJ IV SCH ×2 (02:19→15:30)
[2025-03-29] MEDS: SODIUM CHLORIDE 0.9% 1,000 ML IV SCH (03:32)
[2025-03-29] MEDS: ACCU-CHEK COMFORT CURVE STRIP VI SCH (06:08)
[2025-03-29] MEDS: InsuLIN REG 1unit/0.01ml Soln (100units/ml) SC SCH (06:09)
[2025-03-29 06:51] LABS: Hematocrit 28.0 % (36.0-46.0); Hemoglobin 9.2 g/dL (12.2-16.2); Mean Corpuscular Hemoglobin 26.9 pg (28.0-32.0); Mean Corpuscular Volume 81.6 fL (80.0-100.0); Nucleated Red Blood Cells % 0.0 %
[2025-03-29 07:05] LABS: Anion Gap 11 (5-15); Calcium 8.2 mg/dL (8.7-10.4); Carbon Dioxide 22 mmol/L (20-31); Chloride 107 mmol/L (98-107); Potassium 3.8 mmol/L (3.5-5.1); Sodium 140 mmol/L (136-145)
[2025-03-29 07:11] LABS: BUN/Creatinine Ratio 14.1 (10.0-20.0); Blood Urea Nitrogen 19 mg/dL (9-23)
[2025-03-29 07:16] LABS: Glucose 210 mg/dL (74-106)
[2025-03-29 09:16] LABS: Iron 18.0 ug/dL (50-170); Total Iron Binding Capacity 278.0 ug/dL (250-425)
[2025-03-29 09:20] LABS: Ferritin 32.3 ng/mL (10-291)
[2025-03-29] MEDS: LOSARTAN POTASSIUM 50 MG TAB PO SCH (10:00)
[2025-03-29] MEDS: ALLOPURINOL 100 MG TAB PO SCH (10:00)
[2025-03-29] MEDS: hydroCHLOROthiazide 25 MG TAB PO SCH (10:00)
[2025-03-29] MEDS: POTASSIUM CHL 10 Meq TABLET PO SCH (10:00)
[2025-03-29] MEDS ORDERED: CARVEDILOL 12.5 MG TAB PO SCH (10:00)
[2025-03-29] MEDS: FAMOTIDINE 20 MG TAB PO SCH (10:00)
[2025-03-29] MEDS ORDERED: ATORVASTATIN 20 MG TAB PO SCH (10:00)
[2025-03-29] MEDS ORDERED: hydroCHLOROthiazide 25 MG TAB PO SCH (10:00)
[2025-03-29] MEDS ORDERED: ALLOPURINOL 100 MG TAB PO SCH (10:00)
[2025-03-29] MEDS ORDERED: ASPirin-EC 81 mg tab PO SCH (10:00)
[2025-03-29] MEDS: CARVEDILOL 12.5 MG TAB PO SCH (10:00)
[2025-03-29] MEDS: ATORVASTATIN 20 MG TAB PO SCH (10:00)
[2025-03-29] MEDS: MAGNESIUM OXIDE 400 MG TAB PO SCH (10:00)
[2025-03-29] MEDS: KETOROLAC TROMETH 30 MG/ML 1ML VIAL IV ONE (10:12)
[2025-03-29] MEDS: ENOXAPARIN SOD 30 MG/0.3 ML SYRINGE SC SCH (10:44)
[2025-03-29] MEDS: HYDROcodone-ACET 10/325MG TAB PO SCH (14:00)
--- NOTE | 2025-03-29 15:21 | DVHPNRES ---
Progress Note Date Seen: Mar 29, 2025 Resident Creating Document: NATHAN MILLS RESIDENT Medical Necessity Reason Pt with a Central, PICC or Fol: No Subjective Review of Systems Ms. 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 The patient states that yesterday she had sudden onset of abdominal pain described as sharp, initially in lower left quadrant and subsequently generalizing, intensity 9/10, without aggravating or relieving factors. She denies fever, nausea, vomiting, diarrhea, chest pain, palpitations, and diaphoresis. Patient reported she had colonoscopy 11 years before which revealed diverticulosis. On evaluation in the ED, the patient was afebrile and hypertensive. EKG shows sinus rhythm with Left Bundle Branch Block and QTC of 566. Initial labs show WBCs 16.3 with neutrophilia, normocytic anemia, creatinine 1.34, hyperglycemia, and elevated ALP. Urinalysis revealed leukocytosis 1+, WBC 14. Abdomen/pelvis CT shows colonic diverticulosis with wall thickening about the distal descending colon and adjuvant stranding suggestive of acute diverticulitis with no abscess. PMH- Cardiovascular: HTN, hyperipidemia, Other (Torsades de Pointes), GI: Gastritis, Musculoskeletal: Other (Vertebral compression fracture, osteoporosis), Rheumatologic: Gout, Renal/: Chronic renal failure, Endocrine: Diabetes Past Surgical History: Other (Angiogram, Shoulder surgery, Back surgery) Family History: None Personal history Smoke: No, ALCOHOL: none, Drugs: None, Lives: with Family Patient was seen today at bedside, labs and chart reviewed. Patient reports ongoing abdominal pain, intermittent, severe in nature, crampy pain. Patient denied any diarrhea. Patient reported being allergic to morphine. We will keep patient NPO except medication for tonight, based on tomorrow's morning evaluation we might switch to clear liquid diet if patient can tolerate. We will continue current antibiotic ceftriaxone and metronidazole for now. Objective vital signs Vital Sign Date Time Temp Pulse Resp B/P (MAP) Pulse Ox O2 Delivery O2 Flow Rate FiO2 03/29/25 13:00 98.4 68 18 116/42 (66) 96 98.4 03/29/25 02:54 Room Air* 0 21 Total Intake and Output 03/28/25 03/28/25 03/29/25 15:00 23:00 07:00 Intake Total 0 ml Balance 0 ml medications Current Medications Medications Dose Ordered Sig/Celia Route Start Time Stop Time Status Last Admin Dose Admin Enoxaparin Sodium 30 mg DAILY SC 03/29/25 10:00 03/29/25 10:44 30 MG Sodium Chloride 1,000 ml @ 50 mls/hr Q20H IV 03/29/25 00:30 03/29/25 03:32 50 MLS/HR Ceftriaxone Sodium 50 ml @ 100 mls/hr DAILY@09 IV 03/29/25 09:00 03/29/25 10:11 100 MLS/HR Metronidazole 100 ml @ 100 mls/hr Q8HR IV 03/29/25 06:00 03/29/25 14:29 100 MLS/HR Pantoprazole Sodium 40 mg DAILY IV 03/29/25 00:30 03/29/25 10:12 40 MG Famotidine 40 mg DAILY PO 03/29/25 10:00 Losartan Potassium 50 mg DAILY PO 03/29/25 10:00 Carvedilol 12.5 mg Q12HR PO 03/29/25 10:00 Amlodipine Besylate 5 mg DAILY PO 03/29/25 10:00 Hydrochlorothiazide 25 mg DAILY PO 03/29/25 10:00 Allopurinol 100 mg DAILY PO 03/29/25 10:00 Magnesium Oxide 400 mg DAILY PO 03/29/25 10:00 Aspirin 81 mg DAILY PO 03/29/25 10:00 Potassium Chloride 10 meq DAILY PO 03/29/25 10:00 Atorvastatin Calcium 40 mg DAILY PO 03/29/25 10:00 Diagnostic Test (Pha) 1 strip Q6HR 03/29/25 06:00 03/29/25 12:35 1 STRIP Insulin Human Regular Q6HR SC 03/29/25 06:00 03/29/25 12:38 3 UNITS Dextrose 50 ml UD PRN IV 03/29/25 01:45 Acetaminophen/ Hydrocodone Bitart 1 tab TID PO 03/29/25 14:00 Examination General examination- awake, alert, oriented HEENT- PEERLA, no acute nasal discharge Cardiovascular- S1-S2 audible, rate and rhythm regular, no murmur Respiratory- CTAB, no wheeze or rhonchi Gastrointestinal-abdominal tenderness++, bowel sound+. Nondistended Musculoskeletal-no acute joint swelling or tenderness or redness Lower extremity- bilateral leg edema+ Neurological- cranial nerves intact, no acute dysarthria or dysphagia Psychiatry- denies depression or SI or HI Skin- no acute rash or purpura laboratory and microbiology Laboratory Tests 03/29/25 05:40 Test 03/29/25 05:40 Range/Units Serum Glucose 210 H 74-106 mg/dL Problem List/Assessment/Plan Problem List/Assessment/Plan Assessment and plan #Acute Diverticulitis #Leukocytosis due to above - Abdomen/pelvis CT: Colonic diverticulosis with wall thickening about the distal descending colon and adjuvant stranding suggestive of acute diverticulitis with no abscess. - Ceftriaxone 1 g IV daily - Metronidazole 500 mg IV q.8 hours - NS maintenance 50 cc/hr - NPO except for medications -pending uterine culture, bacterial culture #Dehydration due to above -IV fluids as described above # AAYUSH on CKD due to VMN/hemodynamically mediated - Monitor renal function - Avoid nephrotoxic drugs #Renal mass - Abdomen/pelvis CT: Indeterminate 14 mm right renal lesion - Follow up as outpatient #Normocytic Anemia likely due to chronic disease - Monitor H&H #Hypertension - Losartan 50 mg p.o. daily - Amlodipine 5 mg p.o. daily - Hydrochlorothiazide 25 mg p.o. daily #Type 2 diabetes mellitus with hyperglycemia, HbA1c 7.1 (02/28/2025) - NPO Mild sliding scale - Accu-Cheks #Recent history of Torsade de Pointes QT prolongation (566 msec on 03/29/2025 EKG) - Wearing LifeVest - Carvedilol 12.5 mg PO q12 hours - Magnesium 400 mg PO daily - Potassium 10 mEq PO daily - Telemetry - Avoid QT prolonging drugs #Coronary artery disease - Completed recent coronary angiography which showed non severe distal LAD lesion (50-60%) - On Aspirin and atorvastatin Goals of care, Code status full code ; discussed with >15 minutes PUD prophylaxis: Pantoprazole DVT prophylaxis: Lovenox Plan discussed with Dr. Oconnor , nursing staff, Total time spent on patient evaluation, chart review, assessment and plan, discussion discussion >35 minutes Plan discussed with: Patient, Son, Other (RN) My Orders My Orders Orders - NATHAN MILLS RESIDENT Procedure Category Date Status Time Urine Bacterial FAISAL 03/29/25 In Process Culture 08:50 Npo Except For TONIO 03/29/25 In Process Medications 12:08 Hydrocodone-Acet PHA 03/29/25 In Process 10/325mg Tab (Elim 14:00 Date of Service: Mar 29, 2025 Billing Provider: MRAY OCONNOR MD Common Visit Codes: [id number] INP/OBS CARE(HIGH) NATHAN MILLS RESIDENT Mar 29, 2025 15:21 MARY OCONNOR MD Mar 29, 2025 20:05
[2025-03-30] VITALS (9 sets, daily range): BP systolic 112–139; BP diastolic 58–69; PULSE 52–69; RESP 16–18; TEMP 97.8–98.5; O2SAT 95–98
[2025-03-30 08:42] LABS: Hematocrit 28.2 % (36.0-46.0); Hemoglobin 9.4 g/dL (12.2-16.2); Mean Corpuscular Hemoglobin 27.0 pg (28.0-32.0); Mean Corpuscular Volume 80.7 fL (80.0-100.0); Nucleated Red Blood Cells % 0.0 %
[2025-03-30 08:49] LABS: Potassium 3.6 mmol/L (3.5-5.1); Sodium 144 mmol/L (136-145)
[2025-03-30 08:50] LABS: Anion Gap 10 (5-15); Carbon Dioxide 23 mmol/L (20-31)
[2025-03-30 08:56] LABS: BUN/Creatinine Ratio 13.8 (10.0-20.0); Blood Urea Nitrogen 16 mg/dL (9-23); Magnesium 2.0 mg/dL (1.6-2.6)
[2025-03-30 09:02] LABS: Calcium 8.7 mg/dL (8.7-10.4); Chloride 111 mmol/L (98-107); Glucose 161 mg/dL (74-106)
[2025-03-30] MEDS: HYDROcodone-ACET 10/325MG TAB PO SCH (10:38)
--- NOTE | 2025-03-30 13:50 | DVHPNRES ---
Progress Note Date Seen: Mar 30, 2025 Resident Creating Document: SAW JALLOH RESIDENT Medical Necessity Reason Pt with a Central, PICC or Fol: No Subjective Review of Systems Ms. 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 The patient states that yesterday she had sudden onset of abdominal pain described as sharp, initially in lower left quadrant and subsequently generalizing, intensity 9/10, without aggravating or relieving factors. She denies fever, nausea, vomiting, diarrhea, chest pain, palpitations, and diaphoresis. Patient reported she had colonoscopy 11 years before which revealed diverticulosis. On evaluation in the ED, the patient was afebrile and hypertensive. EKG shows sinus rhythm with Left Bundle Branch Block and QTC of 566. Initial labs show WBCs 16.3 with neutrophilia, normocytic anemia, creatinine 1.34, hyperglycemia, and elevated ALP. Urinalysis revealed leukocytosis 1+, WBC 14. Abdomen/pelvis CT shows colonic diverticulosis with wall thickening about the distal descending colon and adjuvant stranding suggestive of acute diverticulitis with no abscess. PMH- Cardiovascular: HTN, hyperipidemia, Other (Torsades de Pointes), GI: Gastritis, Musculoskeletal: Other (Vertebral compression fracture, osteoporosis), Rheumatologic: Gout, Renal/: Chronic renal failure, Endocrine: Diabetes Past Surgical History: Other (Angiogram, Shoulder surgery, Back surgery) Family History: None Personal history Smoke: No, ALCOHOL: none, Drugs: None, Lives: with Family Internal he mentioned 03/30/2025 Patient seen and examined at bedside Mentions lower abdominal pain Currently NPO, we will start clear liquid diet Objective vital signs Vital Sign Date Time Temp Pulse Resp B/P (MAP) Pulse Ox O2 Delivery O2 Flow Rate FiO2 03/30/25 11:25 66 127/60 03/30/25 09:00 98.0 18 96 98.0 03/30/25 08:10 Room Air* 0 21 Total Intake and Output 03/29/25 03/29/25 03/30/25 15:00 23:00 07:00 Intake Total 50 ml 350 ml 100 ml Balance 50 ml 350 ml 100 ml medications Current Medications Medications Dose Ordered Sig/Celia Route Start Time Stop Time Status Last Admin Dose Admin Enoxaparin Sodium 30 mg DAILY SC 03/29/25 10:00 03/30/25 10:38 30 MG Sodium Chloride 1,000 ml @ 50 mls/hr Q20H IV 03/29/25 00:30 03/29/25 03:32 50 MLS/HR Ceftriaxone Sodium 50 ml @ 100 mls/hr DAILY@09 IV 03/29/25 09:00 03/30/25 10:05 100 MLS/HR Metronidazole 100 ml @ 100 mls/hr Q8HR IV 03/29/25 06:00 03/30/25 05:36 100 MLS/HR Losartan Potassium 50 mg DAILY PO 03/29/25 10:00 03/30/25 10:26 50 MG Carvedilol 12.5 mg Q12HR PO 03/29/25 10:00 03/30/25 10:25 12.5 MG Hydrochlorothiazide 25 mg DAILY PO 03/29/25 10:00 03/30/25 10:26 25 MG Allopurinol 100 mg DAILY PO 03/29/25 10:00 03/30/25 10:24 100 MG Magnesium Oxide 400 mg DAILY PO 03/29/25 10:00 03/30/25 10:26 400 MG Aspirin 81 mg DAILY PO 03/29/25 10:00 03/30/25 10:24 81 MG Potassium Chloride 10 meq DAILY PO 03/29/25 10:00 03/30/25 10:24 10 MEQ Atorvastatin Calcium 40 mg DAILY PO 03/29/25 10:00 03/30/25 10:23 40 MG Diagnostic Test (Pha) 1 strip Q6HR 03/29/25 06:00 03/30/25 12:13 1 STRIP Insulin Human Regular Q6HR SC 03/29/25 06:00 03/30/25 12:16 8 UNITS Dextrose 50 ml UD PRN IV 03/29/25 01:45 Pantoprazole Sodium 40 mg DAILY IV 03/29/25 15:30 03/30/25 10:19 40 MG Acetaminophen/ Hydrocodone Bitart 1 tab Q4HR PO 03/30/25 10:00 03/30/25 10:38 1 TAB Examination General examination- awake, alert, oriented HEENT- PEERLA, no acute nasal discharge Cardiovascular- S1-S2 audible, rate and rhythm regular, no murmur Respiratory- CTAB, no wheeze or rhonchi Gastrointestinal-abdominal tenderness++, bowel sound+. Nondistended Musculoskeletal-no acute joint swelling or tenderness or redness Lower extremity- bilateral leg edema+ Neurological- cranial nerves intact, no acute dysarthria or dysphagia Psychiatry- denies depression or SI or HI Skin- no acute rash or purpura laboratory and microbiology Laboratory Tests 03/30/25 08:22 Test 03/30/25 08:22 Range/Units Serum Glucose 161 H 74-106 mg/dL Microbiology Date/Time Source Procedure Growth Status 03/29/25 00:12 Voided Urine Urine Culture - Preliminary Resulted 03/28/25 23:47 Blood Blood Culture - Preliminary NO GROWTH AFTER 24 HOURS OF INCUBATION. Resulted Labs and/or images reviewed: Labs reviewed by me, Image(s) reviewed by me Problem List/Assessment/Plan Problem List/Assessment/Plan #Acute Diverticulitis #Leukocytosis due to above - Abdomen/pelvis CT: Colonic diverticulosis with wall thickening about the distal descending colon and adjuvant stranding suggestive of acute diverticulitis with no abscess. - Ceftriaxone 1 g IV daily - Metronidazole 500 mg IV q.8 hours - NS maintenance 50 cc/hr -pending urine culture, bacterial culture Started clear liquid diet #Dehydration due to above -IV fluids as described above # AAYUSH on CKD due to VMN/hemodynamically mediated - Monitor renal function - Avoid nephrotoxic drugs #Renal mass - Abdomen/pelvis CT: Indeterminate 14 mm right renal lesion - Follow up as outpatient #Normocytic Anemia likely due to chronic disease - Monitor H&H #Hypertension - Losartan 50 mg p.o. daily - Amlodipine 5 mg p.o. daily - Hydrochlorothiazide 25 mg p.o. daily #Type 2 diabetes mellitus with hyperglycemia, HbA1c 7.1 (02/28/2025) - NPO Mild sliding scale - Accu-Cheks #Recent history of Torsade de Pointes QT prolongation (566 msec on 03/29/2025 EKG) - Wearing LifeVest - Carvedilol 12.5 mg PO q12 hours - Magnesium 400 mg PO daily - Potassium 10 mEq PO daily - Telemetry - Avoid QT prolonging drugs #Coronary artery disease - Completed recent coronary angiography which showed non severe distal LAD lesion (50-60%) - On Aspirin and atorvastatin Patient started on clear liquid diet, continue IV antibiotics. Discharge planning within next 24-48 hours Goals of care, Code status full code ; discussed with >15 minutes PUD prophylaxis: Pantoprazole DVT prophylaxis: Lovenox Plan discussed with Dr. Goldberg , nursing staff, Total time spent on patient evaluation, chart review, assessment and plan, discussion discussion >35 minutes Plan discussed with: Patient, Other My Orders My Orders Orders - SAW JALLOH Procedure Category Date Status Time Hydrocodone-Acet PHA 03/30/25 In Process 10/325mg Tab ([place] 10:00 Clear Liq Diet DIET 03/30/25 Transmitted Lunch Date of Service: Mar 30, 2025 Billing Provider: ELLE GOLDBERG DO Common Visit Codes: 61770-[id number] INP/OBS CARE(HIGH) SAW JALLOH RESIDENT Mar 30, 2025 13:50 ELLE GOLDBERG DO Apr 01, 2025 23:45
[2025-03-31] VITALS (7 sets, daily range): BP systolic 121–135; BP diastolic 59–78; PULSE 51–66; RESP 16–19; TEMP 36.8; O2SAT 97–99
[2025-03-31 06:54] LABS: Hematocrit 28.1 % (36.0-46.0); Hemoglobin 9.2 g/dL (12.2-16.2); Mean Corpuscular Hemoglobin 27.1 pg (28.0-32.0); Mean Corpuscular Volume 82.5 fL (80.0-100.0); Nucleated Red Blood Cells % 0.0 %
[2025-03-31 07:01] LABS: Anion Gap 10 (5-15); Carbon Dioxide 22 mmol/L (20-31); Potassium 4.2 mmol/L (3.5-5.1); Sodium 143 mmol/L (136-145)
[2025-03-31 07:07] LABS: BUN/Creatinine Ratio 11.7 (10.0-20.0); Blood Urea Nitrogen 15 mg/dL (9-23)
[2025-03-31 07:08] LABS: Magnesium 2.1 mg/dL (1.6-2.6)
[2025-03-31 07:10] LABS: Calcium 8.5 mg/dL (8.7-10.4); Chloride 111 mmol/L (98-107); Glucose 155 mg/dL (74-106)
[2025-03-31] MEDS ORDERED: CIPR500T4 PO (09:10)
[2025-03-31] MEDS ORDERED: MET500T PO (09:10)
[2025-03-31] MEDS: ENOXAPARIN SOD 40 MG/0.4 ML SYRINGE SC SCH (10:19)
--- NOTE | 2025-03-31 11:11 | DVHDSRES ---
Discharge Summary Date of Admission Resident Creating Document: SAW JALLOH RESIDENT Mar 29, 2025 at 00:22 Date of Discharge: Mar 31, 2025 Admitting Diagnosis Intractable abdominal pain due to Acute diverticulitis Labs/Diagnostic Data: Laboratory Results Test 03/31/25 05:32 03/31/25 05:29 03/29/25 05:40 03/29/25 00:12 POC Glucose 165 mg/dl (70-106) White Blood Count 9.4 10^3/uL (4.4-10.8) Red Blood Count 3.41 10^6/uL (4.0-5.20) Hemoglobin 9.2 g/dL (12.2-16.2) Hematocrit 28.1 % (36.0-46.0) Mean Corpuscular Volume 82.5 fL (80.0-100.0) Mean Corpuscular Hemoglobin 27.1 pg (28.0-32.0) Mean Corpuscular Hemoglobin Concent 32.8 g/dL (32.0-36.0) Red Cell Distribution Width 16.8 % (11.8-14.3) Platelet Count 426 10^3/uL (140-450) Mean Platelet Volume 8.1 fL (6.9-10.8) Neutrophils (%) (Auto) 57.9 % (37.0-80.0) Lymphocytes (%) (Auto) 21.3 % (10.0-50.0) Monocytes (%) (Auto) 9.5 % (0.0-12.0) Eosinophils (%) (Auto) 8.3 % (0.0-7.0) Basophils (%) (Auto) 3.0 % (0.0-2.0) Neutrophils # (Auto) 5.5 10 ^3/uL (1.6-8.6) Lymphocytes # (Auto) 2.0 10 ^3/uL (0.4-5.4) Monocytes # (Auto) 0.9 10 ^3/uL (0-1.3) Eosinophils # (Auto) 0.8 10 ^3/uL (0-0.8) Basophils # (Auto) 0.3 10 ^3/uL (0-0.2) Nucleated Red Blood Cells 0.0 % Sodium Level 143 mmol/L (136-145) Potassium Level 4.2 mmol/L (3.5-5.1) Chloride Level 111 mmol/L (98-107) Carbon Dioxide Level 22 mmol/L (20-31) Anion Gap 10 (5-15) Blood Urea Nitrogen 15 mg/dL (9-23) Creatinine 1.28 mg/dL (0.550-1.02) Glomerular Filtration Rate Calc 43 mL/min (>90) BUN/Creatinine Ratio 11.7 (10.0-20.0) Serum Glucose 155 mg/dL (74-106) Calcium Level 8.5 mg/dL (8.7-10.4) Magnesium Level 2.1 mg/dL (1.6-2.6) Iron Level 18 ug/dL (50-170) Total Iron Binding Capacity 278 ug/dL (250-425) Percent Iron Saturation 6.5 % (15-50) Ferritin 32.3 ng/mL (10-291) Vitamin B12 Level 446 pg/mL (211-911) Vitamin D 25-Hydroxy 47.1 ng/mL (30.0-100) Folic Acid 11.28 ng/mL (>5.38) Urine Color Light-yellow (Yellow) Urine Clarity Clear (Clear) Urine pH 6.5 (5.0-9.0) Urine Specific [place] 1.015 (1.001-1.035) Urine Protein Trace (Negative) Urine Ketones Negative (Negative) Urine Blood Negative /uL (Negative) Urine Nitrite Negative (Negative) Urine Bilirubin Negative (Negative) Urine Urobilinogen Normal mg/dL (Negative) Urine Leukocyte Esterase 1+ /uL (Negative) Urine RBC 3 /hpf (0 - 4) Urine Microscopic WBC 14 /HPF (0-5) Urine Squamous Epithelial Cells Few /hpf (<5) Urine Bacteria None seen /hpf (None Seen) Urine Yeast (Budding) Occasional /hpf (None Urine Glucose Normal mg/dL (Normal) Urine Opiates Screen Pos (NEGATIVE) Urine Fentanyl Screen Neg (NEGATIVE) Urine Barbiturates Screen Neg (NEGATIVE) Urine Phencyclidine Screen Neg (NEGATIVE) Urine Amphetamines Screen Neg (NEGATIVE) Urine Benzodiazepines Screen Neg (NEGATIVE) Urine Cocaine Screen Neg (NEGATIVE) Urine Cannabinoids Screen Neg (NEGATIVE) Test 03/28/25 23:47 03/28/25 19:49 Lactic Acid Level 1.7 mmol/L (0.4-2.0) Phosphorus Level 3.2 mg/dL (2.4-5.1) Total Bilirubin 0.4 mg/dL (0.2-1.0) Aspartate Amino Transferase (AST) 29 U/L (13-40) Alanine Aminotransferase (ALT) 28 U/L (7-40) Alkaline Phosphatase 142 U/L (46-116) Total Protein 6.5 g/dL (5.7-8.2) Albumin 4.1 g/dL (3.2-4.8) Lipase 37 U/L (12-53) Other Laboratory Tests 03/31/25 05:29 Brief Hx & Hospital Course: Ms. 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 The patient states that yesterday she had sudden onset of abdominal pain described as sharp, initially in lower left quadrant and subsequently generalizing, intensity 9/10, without aggravating or relieving factors. She denies fever, nausea, vomiting, diarrhea, chest pain, palpitations, and diaphoresis. Patient reported she had colonoscopy 11 years before which revealed diverticulosis. On evaluation in the ED, the patient was afebrile and hypertensive. EKG shows sinus rhythm with Left Bundle Branch Block and QTC of 566. Initial labs show WBCs 16.3 with neutrophilia, normocytic anemia, creatinine 1.34, hyperglycemia, and elevated ALP. Urinalysis revealed leukocytosis 1+, WBC 14. Abdomen/pelvis CT shows colonic diverticulosis with wall thickening about the distal descending colon and adjuvant stranding suggestive of acute diverticulitis with no abscess. During hospital course patient was treated with ceftriaxone and metronidazole, IV fluid. Patient's symptoms improved gradually. Patient tolerating liquid diet well. Patient is being discharged with ciprofloxacin 500 mg p.o. b.i.d. for 7 days and also metronidazole 500 mg p.o. t.i.d. for 7 days, full liquid diet for 1 week and gradually advance as tolerated. Patient was advised to follow up with the primary care physician in 1 week and also to follow up with the computer technical support specialist in 1-2 weeks for further evaluation and care of diverticulitis. Patient's meds were sent to the pharmacy electronically. Patient is hemodynamically stable on discharge. Operations or Procedures [facility] [id number] [id number] Ph: [phone] DIAGNOSTIC IMAGING Diagnostic Imaging Report : [id number] Signed PATIENT: VITALY SUTTON ACCT: [id number] UNIT: [id number] : 1945 LOC: ER ROOM / BED: / AGE / SEX: 79 / F ADM STATUS: REG ER SERVICE 31 ORDERING PHYSICIAN: SWATI GORE MD PROCEDURE(s): ABPL - CT AB PEL WO CON-NO ORAL OR IV REASON: LLQ pain ORDER NUMBER(s): [id number], ACCESSION NUMBER(s): [id number] Exam: CT CT AB PEL WO CON-NO ORAL OR IV History: LLQ pain Comparison Study: XY KUB ABDOMEN SINGLE VIEW on DOS: 03/10/25, XY KUB ABDOMEN SINGLE VIEW on DOS: 08/31/24, CT PELVIS WO CONTRAST on DOS: 08/29/24, CT PELVIS WO CONTRAST on DOS: 08/13/24, US KIDNEY on DOS: 03/15/24 TECHNIQUE: Multidetector CT of the abdomen and pelvis was performed from lung bases to pubic symphysis. Imaging was performed without IV contrast. Axial, coronal, and sagittal multiplanar reformats were obtained from the axial data set by the technologist. RADIATION DOSE: CTDI vol 10.55 mGy. DLP 563.63 mGy.cm Findings: Limited evaluation of the solid organs in the absence of IV contrast. Evaluation is also limited by excessive streak artifact through the upper abdomen. Lungs: There is basilar atelectasis/scarring. Liver: Unremarkable. Spleen: Unremarkable. Pancreas: Unremarkable. Gallbladder: Prior cholecystectomy. Adrenals: Unremarkable Kidneys: 14 mm indeterminate right renal lesion. Right renal cyst. No hydronephrosis. Pelvic Viscera: Unremarkable. Vasculature: Atherosclerotic aortoiliac calcification. Retroperitoneum: Unremarkable. Bowel: Colonic diverticulosis with wall thickening about the distal descending colon and adjacent stranding. No abscess. No bowel obstruction. The appendix is normal. Musculoskeletal: Unremarkable. Soft tissues: Chronic appearing thoracolumbar fractures with vertebroplasty changes and fusion hardware. Severe chronic appearing fracture of L1 with osseous retropulsion. Impression: 1. Findings as above suggesting acute diverticulitis in the appropriate clinical setting. No abscess. A posttreatment follow-up is suggested to ensure appropriate resolution. 2. Indeterminate 14 mm right renal lesion. Comparison with any prior outside imaging is suggested in assessing acuity and interval change. MRI of the abdomen may be obtained for further characterization if clinically indicated. 3. Additional findings as detailed. ATED BY: MASTER ELLIS MD DICTATED DATE/TIME: 03/28/252242 SIGNED BY: MASTER ELLIS MD SIGNED DATE/TIME: 03/28/252242 CC: Condition at Discharge: Stable Final Diagnosis/Problems List #Acute Diverticulitis #Leukocytosis due to above #Dehydration due to above # AAYUSH on CKD due to VMN/hemodynamically mediated #Renal mass #Normocytic Anemia likely due to chronic disease #Hypertension #Type 2 diabetes mellitus with hyperglycemia, HbA1c 7.1 (02/28/2025) #Recent history of Torsade de Pointes #Coronary artery disease Discharge Disposition: Home Discharge Instruct/Medications Diet: See Comment Diet comment: Liquid diet for 7 days then gradually advance as tolerated Activity: No Restrictions, As Tolerated Follow Up/Referral: Follow up with the primary care physician in 1 week Please follow up with the computer technical support specialist for further evaluation and care of diverticulitis Medications: Ciprofloxacin 500 mg p.o. b.i.d. 7 days Metronidazole 500 mg 3 times a day for 7 days Please resume other home medications Scheduled Alendronate Sodium (Alendronate Sodium), 1 TAB PO QWEEKLY, (Reported) Allopurinol (Allopurinol), 100 MG PO DAILY, (Reported) Amlodipine Besylate (Amlodipine Besylate), 10 MG PO DAILY, (Reported) Aspirin (Aspirin Low Dose), 81 MG PO DAILY Atorvastatin Calcium (Lipitor), 1 TAB PO DAILY, (Reported) Carvedilol (Carvedilol), 12.5 MG PO Q12HR, (Reported) Cholecalciferol (Vitamin D3), 1 TAB PO DAILY, (Reported) Ciprofloxacin Hcl (Ciprofloxacin Hcl), 1 TAB PO BID Famotidine (Pepcid Tablet), 2 TAB PO DAILY, (Reported) Hydrochlorothiazide (Hydrochlorothiazide), 25 MG PO DAILY, (Reported) Hydrocodone-Acetaminophen (Hydrocodone Bitartrate/AC 10-325 mg), 1 TAB PO TID, (Reported) Losartan Potassium (Losartan Potassium), 50 MG PO BID, (Reported) Metronidazole (Metronidazole), 500 MG PO TID Potassium Chloride (Potassium Chloride Cr), 10 MEQ PO DAILY Rosuvastatin Calcium (Crestor), 1 TAB PO DAILY Sitagliptin Phosphate (Januvia), 1 TAB PO DAILY, (Reported) Miscellaneous Medications Albuterol Sulfate (Ventolin Mdi), 90 MCG IN, (Reported) Insulin NPH Isophane & Reg (Hu (Novolin 70/30 (70-30) 100 Unit/ml), 1 INJ SC, (Reported) Discharge Statement: "Patient was advised to return to the ER or call 911 if any headaches, dizziness, shortness of breath, chest pain, abdominal pain, bleeding, fevers, or worsening of medical condition. Patient was counseled about treatment plan, medications, possible side effects, patientverbalized understanding. All questions were answered to the best of my ability. This discharge took greater then 30 minutes in planning, reviewing documentation, counseling the patient, and discussing with other team members." ASSESSMENT ASSESSMENT Assessment Date of Service: Mar 31, 2025 Billing Provider: INDIO TURNER MD, MOHAMMED RESIDENT Mar 31, 2025 11:11
== END 2025-03-31 14:59 | disposition home or self-care (01) | DRG 391 ==
LOC: ER 19:11 → OVERFLOW 03-29 00:22 → TELE-WESTW 03-29 02:54
PROVIDERS: ADMIT Student in an Organized Health Care Education/Training Program; ATTEND Emergency Medicine
DX: K57.32 Diverticulitis of large intestine without perforation or abscess without bleeding (principal); N17.0 Acute kidney failure with tubular necrosis; D63.8 Anemia in other chronic diseases classified elsewhere; N18.9 Chronic kidney disease, unspecified; E11.65 Type 2 diabetes mellitus with hyperglycemia; E86.0 Dehydration; E11.22 Type 2 diabetes mellitus with diabetic chronic kidney disease; I12.9 Hypertensive chronic kidney disease with stage 1 through stage 4 chronic kidney disease, or unspecified chronic kidney disease; K29.70 Gastritis, unspecified, without bleeding; I25.10 Atherosclerotic heart disease of native coronary artery without angina pectoris; M10.9 Gout, unspecified; G89.29 Other chronic pain; R94.31 Abnormal electrocardiogram [ECG] [EKG]; N28.89 Other specified disorders of kidney and ureter
CPT/HCPCS: 36415; 80048; 80053; 80307; 81001; 82306; 82607; 82728; 82746; 82962; 83540; 83550; 83605; 83690; 83735; 84100; 85025; 87040; 87086; 93005; 96374; 99291; G0378; J1815; J1885; J2405; J2470; J3490

== ENCOUNTER 2025-05-09 11:24 | Inpatient (IN) | payer OTHER ==
[2025-05-09] VITALS (15 sets, daily range): BP systolic 114–155; BP diastolic 12–73; PULSE 36–40; RESP 12–19; TEMP 98.3; O2SAT 97–100
[~2025-05-09] VITALS: Ht 149.9 cm; Wt 65.4 kg
[~2025-05-09 11:24] MED LIST changes: +CIPR500T4 PO; +MET500T PO
--- NOTE | 2025-05-09 11:32 | ED.PDOC ---
HPI Comments 79 y/o F, accompanied by son, with PMHx of HTN, HLD, DM, and arrhythmias presents to the ED for CC of chest pain. Son reports, patient has been experiencing intermittent substernal chest pain that radiates to her left arm onset, last night (05/08/25). Per son, patient is currently pending an echocardiogram in order to receive a pacemaker. Patient does currently have a biofuels production technician , which she follows up with regularly. Upon arrival to the ED, patient is bradycardic with a HR in the 40's; son comments patient was just taken off Carvedilol x1week ago. At this time patient describes pain to be "constant" and "sharp" in nature with a 5/10 rating on the pain scale. Patient's son denies recent flu-like symptoms, extremity swelling, cold sweats, nausea, or vomiting. She is also complaining of intermittent dizziness, not room spinning and now resolved. No other symptoms or modifying factors are present at this time. Chief Complaint: Chest Pain Time Seen by MD: 11:30 Reviewed Notes: Nurses Notes, Medications, Allergies Allergies: Coded Allergies: Lidocaine (Verified Allergy, Unknown, 08/30/24) Home Meds Active Scripts Metronidazole (Metronidazole) 500 Mg Tab, 500 MG PO TID for 7 Days, #21 TAB Prov:NATHAN MILLS RESIDENT 03/31/25 Ciprofloxacin Hcl (Ciprofloxacin Hcl) 500 Mg Tab, 1 TAB PO BID for 7 Days, #14 TAB Prov:NATHAN MILLS RESIDENT 03/31/25 Rosuvastatin Calcium (Crestor) 20 Mg Tab, 1 TAB PO DAILY, #30 TAB 1 Refill Prov:HAYDEN BRENNAN MD 03/12/25 Aspirin (Aspirin Low Dose) 81 Mg Tab, 81 MG PO DAILY for 30 Days, #30 TAB 2 Refills Prov:NEMO HOLLIDAY 03/09/25 Potassium Chloride (POTASSIUM CHLORIDE CR) 10 Meq Tb, 10 MEQ PO DAILY for 30 Days, #30 TAB 2 Refills Prov:NEMO HOLLIDAY RESIDENT 03/09/25 Reported Medications Alendronate Sodium (Alendronate Sodium) 70 Mg Tab, 1 TAB PO QWEEKLY, #4 TAB 3 Refills 03/10/25 Amlodipine Besylate (Amlodipine Besylate) 5 Mg Tab, 10 MG PO DAILY for 30 Days, MG 03/10/25 Albuterol Sulfate (VENTOLIN MDI) 90 Mcg Ih, 90 MCG IN, INH 08/29/24 Atorvastatin Calcium (Lipitor) 20 Mg Tab, 1 TAB PO DAILY, #90 TAB 1 Refill 08/29/24 Sitagliptin Phosphate (Januvia) 50 Mg Tab, 1 TAB PO DAILY, #30 TAB 5 Refills 08/29/24 Hydrocodone-Acetaminophen (Hydrocodone Bitartrate/AC 10-325 mg) 1 Tab Tab, 1 TAB PO TID, TAB 08/29/24 Cholecalciferol (VITAMIN D3) 2,000 Unit Tab, 1 TAB PO DAILY, #30 TAB 5 Refills 08/29/24 Hydrochlorothiazide (Hydrochlorothiazide) 25 Mg Tab, 25 MG PO DAILY for 30 Days, MG 08/29/24 Allopurinol (Allopurinol) 100 Mg Tab, 100 MG PO DAILY for 30 Days, MG 08/29/24 Insulin NPH Isophane & Reg (Hu (Novolin 70/30 (70-30) 100 Unit/ml) 1 Inj Inj, 1 INJ SC, INJ 08/29/24 Carvedilol (Carvedilol) 12.5 Mg Tab, 12.5 MG PO Q12HR for 30 Days, MG 08/29/24 Losartan Potassium (Losartan Potassium) 50 Mg Tab, 50 MG PO BID for 30 Days, MG 08/29/24 Famotidine (PEPCID TABLET) 20 Mg Tb, 2 TAB PO DAILY, #60 TAB 5 Refills 08/29/24 Information Source: Patient, Relative Mode of Arrival: Wheelchair Severity: Moderate Timing: Days Duration: Intermittent Prehospital treatment: None Location: Substernal Radiation: Arm (L) Quality: Sharp Onset: At Rest Cardiac Risk Factors: Hyperlipidemia, HTN, Diabetes PE Risk Factors: None History of: None Associated Signs and Symptoms: SOB Past Medical History PAST MEDICAL HISTORY: Anxiety, DM, Gout, High Lipids, HTN Surgical History: Denies all surgeries 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 MAINTENANCE MANAGER History: Denies all 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 MAINTENANCE MANAGER Hx Family History Family History: Reviewed,noncontributory to illness Social History Smoker: Non-Smoker Alcohol: Denies ETOH Use Drugs: Denies Drug Use Lives In: Home Constitutional: denies: chills, diaphoresis, fatigue, fever, malaise, sweats, weakness, others EENTM: denies: blurred vision, double vision, ear bleeding, ear discharge, ear drainage, ear pain, ear ringing, eye pain, eye redness, hearing loss, mouth pain, mouth swelling, nasal discharge, nose bleeding, nose congestion, nose pain, photophobia, tearing, throat pain, throat swelling, voice changes, others Respiratory: reports: shortness of breath; denies: cough, hemoptysis, orthopnea, SOB at rest, SOB with excertion, stridor, wheezing, others Cardiovascular: reports: chest pain; denies: dizzy spells, diaphoresis, Dyspnea on exertion, edema, irregular heart beat, left arm pain, lightheadedness, palpitations, PND, syncope, others Gastrointestinal: denies: abdomen distended, abdominal pain, blood streaked bowels, constipated, diarrhea, dysphagia, difficulty swallowing, hematemesis, melena, nausea, poor appetite, poor fluid intake, rectal bleeding, rectal pain, vomiting, others Genitourinary: denies: abnormal vagina bleeding, burning, dyspareunia, dysuria, flank pain, frequency, hematuria, incontinence, pain, , vagina discharge, urgency, others Neurological: reports: dizziness; denies: fainting, headache, left sided numbness, left sided weakness, numbness, paresthesia, pre-existing deficit, right sided numbness, right sided weakness, seizure, speech problems, tingling, tremors, weakness, others Musculoskeletal: denies: back pain, gout, joint pain, joint swelling, muscle pain, muscle stiffness, neck pain, others Integumetry: denies: bruises, change in color, change in hair/nails, dryness, laceration, lesions, lumps, rash, wounds, others Allergic/Immunocompromised: denies: Difficulty Healing, Frequent Infections, Hives, Itching, others Hematologic/Lymphatic: denies: anemia, blood clots, easy bleeding, easy bruising, swollen glands, others Endocrine: denies: excessive hunger, excessive sweating, excessive thirst, excessive urination, flushing, intolerance to cold, intolerance to heat, unexplained weight gain, unexplained weight loss, others Psychiatric: denies: anxiety, bipolar disorder, depression, hopeless, panic disorder, schizophrenia, sleepless, suicidal, others All Other Systems: Reviewed and Negative Physical Exam General Appearance: No Apparent Distress, Normal HEENT: Normal ENT Inspection, Pharynx Normal Neck: Full Range of Motion, Non-Tender, Normal, Normal Inspection Respiratory: Chest Non-Tender, Lungs Clear, No Accessory Muscle Use, No Respiratory Distress, Normal Breath Sounds Cardiovascular: Bradycardia (otherwise normal), No Edema, No Murmur, No Gallop, Normal Peripheral Pulses Breast Exam: Deferred Gastrointestinal: No Organomegaly, Non Tender, No Pulsatile Mass, Normal Bowel Sounds, Soft Genitalia: Deferred Pelvic: Deferred Rectal: Deferred Extremities: No calf tenderness, Normal capillary refill, Normal inspection, Normal range of motion, Non-tender, No pedal edema Musculoskeletal : Apperance: Normal Neurologic: Alert, detective captain II-XII nml as Tested, No Motor Deficits, Normal Affect, Normal Mood, No Sensory Deficits Cerebellar Function: Normal Reflexes: Normal Skin: Dry, Normal Color, Warm Lymphatic: No Adenopathy EKG EKG : Pulse Rate (adult): 39 [place]: Normal Cardiac Rhythm: NSR Block: None Hypertrophy: None ST: Normal Comments complete heart block Was a procedure done? Was a procedure done?: No CP Differential Dx Differential Diagnosis: Angina, Anxiety / Panic Attack Differential Diagnosis: HTN Essential, HTN Accelerated Differential Diagnosis: Chest Wall Pain, Costochondritis, Esophageal reflu x/spasm, Gastritis X-Ray, Labs, Meds, VS Vital Signs Date Time Temp Pulse Resp B/P (MAP) Pulse Ox O2 Delivery O2 Flow Rate FiO2 05/09/25 11:38 97.5 40 18 98 97.5 05/09/25 11:38 39 Lab Test 05/09/25 11:41 Range/Units White Blood Count 11.3 H 4.4-10.8 10^3/uL Red Blood Count 3.78 L 4.0-5.20 10^6/uL Hemoglobin 10.2 L 12.2-16.2 g/dL Hematocrit 30.6 L 36.0-46.0 % Mean Corpuscular Volume 81.1 80.0-100.0 fL Mean Corpuscular Hemoglobin 27.0 L 28.0-32.0 pg Mean Corpuscular Hemoglobin Concent 33.3 32.0-36.0 g/dL Red Cell Distribution Width 17.7 H 11.8-14.3 % Platelet Count 467 H 140-450 10^3/uL Mean Platelet Volume 7.5 6.9-10.8 fL Neutrophils (%) (Auto) 75.3 37.0-80.0 % Lymphocytes (%) (Auto) 11.8 10.0-50.0 % Monocytes (%) (Auto) 5.2 0.0-12.0 % Eosinophils (%) (Auto) 5.8 0.0-7.0 % Basophils (%) (Auto) 1.9 0.0-2.0 % Neutrophils # (Auto) 8.5 1.6-8.6 10 ^3/uL Lymphocytes # (Auto) 1.3 0.4-5.4 10 ^3/uL Monocytes # (Auto) 0.6 0-1.3 10 ^3/uL Eosinophils # (Auto) 0.7 0-0.8 10 ^3/uL Basophils # (Auto) 0.2 0-0.2 10 ^3/uL Nucleated Red Blood Cells 0.2 % Sodium Level 126 L 136-145 mmol/L Potassium Level 3.9 3.5-5.1 mmol/L Chloride Level 92 L 98-107 mmol/L Carbon Dioxide Level 23 20-31 mmol/L Anion Gap 11 5-15 Blood Urea Nitrogen 44 H 9-23 mg/dL Creatinine 2.25 H 0.550-1.02 mg/dL Glomerular Filtration Rate Calc 22 >90 mL/min BUN/Creatinine Ratio 19.6 10.0-20.0 Serum Glucose 248 H 74-106 mg/dL Calcium Level 9.0 8.7-10.4 mg/dL Troponin I High Sensitivity 4 </=34 ng/L X-Ray, Labs, Meds, VS Comment Patient with history of hypertension, hyperlipidemia, arrhythmia, presents with chest pain. Chest x-ray to evaluate for evidence of pneumonia, pneumothorax, CHF EKG and troponin to evaluate for evidence of arrhythmia, ACS, AMI Lab work (CBC, BMP) to evaluate for evidence of severe anemia, electrolyte abnormality including hypokalemia, hyperkalemia, hypernatremia, hyponatremia, hyperglycemia, hypoglycemia, etc. Consider CT angio chest due to (patient's presenting symptoms/patient's presenting condition/patient or guardian request), but no CT angio chest obtained due to (alternate cause of patient's presenting symptoms more likely after initial workup and management/improvement of patient's symptoms/radiation risk/patient or guardian declined) Re-evaluate Social determinant surveillance affecting care: Social determinants of health that will affect the patient's care: Poor health literacy (additional time provided an explanation) Time of 1ST Reevaluation: 12:00 Reevaluation 1ST: Unchanged Patient Education/Counseling: Diagnosis, Treatment Family Education/Counseling: Diagnosis, Treatment SEPSIS Sepsis Screen Physician Orders Electrocardigram (05/09/25 11:27) Electrocardigram (05/09/25 12:27) Electrocardigram (05/09/25 14:27) Troponin-I Hs (05/09/25 12:27) Troponin-I Hs (05/09/25 14:27) Chest Portable (05/09/25 11:46) Insert Midline (05/09/25 12:25) Vital Signs Date Time Temp Pulse Resp B/P (MAP) Pulse Ox O2 Delivery O2 Flow Rate FiO2 05/09/25 11:38 97.5 40 18 98 97.5 05/09/25 11:38 39 Laboratory Tests Test 05/09/25 11:41 White Blood Count 11.3 10^3/uL (4.4-10.8) H Departure 1 Departure Time of Disposition: 12:32 (Spoke to Dr. Espinal from Cardiology, who recommends admission for pacemaker placement tomorrow. Chest x-ray showing cardiomegaly and labs unremarkable besides elevated creatinine, hyponatremia, and hyperglycemia. Patient is still complaining of mild chest pain, however blood pressure stable so no need for pacing at this time.) Impression: Primary Impression: Acute chest pain Additional Impressions: Complete heart block Dizziness Acute hyponatremia Disposition: ADMITTED INPATIENT Admit to: Tele Condition: Guarded Critical Care Note Critical Care Time?: Yes (55 min-critical care time only) Critical care comment: complete heart block, bradycardia Stability Stability form required: No Heart Score Heart Score: Heart Score Response (Comments) Value History Moderate Suspicious 1 EKG N/A 0 Age >65 2 Risk Factors >3 or Hx ASHD 2 Troponin N/A 0 Total 5 I personally scribed for DAYSI MARK MD ([email or web address]) on 05/09/25 at 11:32. Electronically submitted by Abigail Becerra ([email or web address]). I personally scribed for DAYSI MARK MD ([email or web address]) on 05/09/25 at 11:38. Electronically submitted by Abigail Becerra ([email or web address]). I personally scribed for DAYSI MARK MD ([email or web address]) on 05/09/25 at 11:56. Electronically submitted by Abigail Becerra ([email or web address]). I personally scribed for DAYSI MARK MD ([email or web address]) on 05/09/25 at 12:00. Electronically submitted by Abigail Becerra ([email or web address]). I personally scribed for DAYSI MARK MD ([email or web address]) on 05/09/25 at 12:03. Electronically submitted by Abigail Becerra ([email or web address]). DAYSI MARK MD May 09, 2025 11:32
[2025-05-09 12:07] LABS: Hematocrit 30.6 % (36.0-46.0); Hemoglobin 10.2 g/dL (12.2-16.2); Mean Corpuscular Hemoglobin 27.0 pg (28.0-32.0); Mean Corpuscular Volume 81.1 fL (80.0-100.0); Nucleated Red Blood Cells % 0.2 %
[2025-05-09 12:13] LABS: Anion Gap 11 (5-15); Carbon Dioxide 23 mmol/L (20-31); Potassium 3.9 mmol/L (3.5-5.1)
[2025-05-09 12:14] LABS: Calcium 9.0 mg/dL (8.7-10.4)
[2025-05-09 12:17] LABS: Chloride 92 mmol/L (98-107); Sodium 126 mmol/L (136-145)
--- NOTE | 2025-05-09 12:18 | DVH ---
CHEST RADIOGRAPH Indication: CHEST PAIN Technique: Single frontal view of the chest was obtained COMPARISON: XY CHEST PORTABLE on DOS: 03/08/25, XY CHEST TWO VIEWS ROUTINE on DOS: 08/29/24, XY CHEST TWO VIEWS ROUTINE on DOS: 09/26/22 FINDINGS: Lines and Tubes: None Lungs: Clear Pleura: No effusion. No pneumothorax. Cardiomediastinal contours: Cardiomegaly Bones: Postsurgical changes in the thoracolumbar spine IMPRESSION: Cardiomegaly
[2025-05-09 12:19] LABS: BUN/Creatinine Ratio 19.6 (10.0-20.0)
[2025-05-09 12:22] LABS: Blood Urea Nitrogen 44 mg/dL (9-23); Glucose 248 mg/dL (74-106)
[2025-05-09] MEDS ORDERED: DEXTROSE (50%) 50ML SYRG IV PRN (15:45)
[2025-05-09] MEDS ORDERED: NITROGLYCERIN 0.4 MG SL TAB SL PRN (15:45)
[2025-05-09] MEDS ORDERED: ONDANSETRON HCL 4 MG/2 ML VIAL IV PRN (15:45)
[2025-05-09] MEDS ORDERED: ACETAMINOPHEN 325 MG TAB PO PRN (15:45)
[2025-05-09] MEDS ORDERED: MORPHINE SULFATE INJ 2 MG/ml SYRG IV PRN ×2 (15:45)
--- NOTE | 2025-05-09 15:52 | DVHHP2 ---
History of Present Illness Reason for Visit: Dizziness History of Present Illness 79-year-old female presents for evaluation of dizziness. Patient reports developing dizziness with associated nausea today in the morning. When her heart rate was checked it was reading in the 30s. Patient is currently wearing a life vest and is awaiting authorization for a pacemaker placement by Dr. ROPER. Patient also reports having a fall two weeks ago where she landed on her left side fracture a to ribs. Reports shortness for breath and pain when taking deep breaths. Denies chest pain at the moment. No other acute complaints reported. Past Medical History Diabetes mellitus, dyslipidemia, gout, hypertension Past Surgical History Denies Family History Noncontributory Smoke: No ALCOHOL: none Drugs: None Lives: with Family Review of Systems Review of Systems Review of systems are currently negative otherwise addressed in HPI Allergies: Coded Allergies: Lidocaine (Verified Allergy, Unknown, 08/30/24) Exam Vital Signs Vital Signs Date Time Temp Pulse Resp B/P (MAP) Pulse Ox O2 Delivery O2 Flow Rate FiO2 05/09/25 14:32 69 05/09/25 14:00 12 122/48 (72) 99 05/09/25 12:05 Room Air* 0 21 05/09/25 12:05 98.2 98.2 Exam Gen: 79-year-old female in mild distress Skin: Warm, dry, normal color and texture, no rash. HEENT: Normocephalic atraumatic, mucous membranes moist and pink. Neck: Cervical and supraclavicular nodes normal without enlargement, trachea is midline, thyroid gland is normal without masses. Pulmonary: Clear to auscultation and percussion bilaterally. Cardiac: Bradycardia Abdomen: Soft, nontender, nondistended, bowel sounds present all 4 quadrants, no guarding, no rigidity, no organomegaly. Extremities: No cyanosis, clubbing, no edema Neuro: Cranial nerves II through XII grossly intact, normal affect and speech, no focal motor deficits. Labs/Xrays ORDERING PHYSICIAN: DAYSI MARK MD PROCEDURE(s): CXRP - CHEST PORTABLE REASON: CHEST PAIN ORDER NUMBER(s): [id number], ACCESSION NUMBER(s): [id number] CHEST RADIOGRAPH Indication: CHEST PAIN Technique: Single frontal view of the chest was obtained COMPARISON: XY CHEST PORTABLE on DOS: 9/12/25, XY CHEST TWO VIEWS ROUTINE on DOS: 08/29/24, XY CHEST TWO VIEWS ROUTINE on DOS: 09/26/22 FINDINGS: Lines and Tubes: None Lungs: Clear Pleura: No effusion. No pneumothorax. Cardiomediastinal contours: Cardiomegaly Bones: Postsurgical changes in the thoracolumbar spine IMPRESSION: Cardiomegaly ATED BY: LORI NERI MD Labs Test 05/09/25 15:34 05/09/25 11:41 Range/Units White Blood Count 11.3 H 4.4-10.8 10^3/uL Red Blood Count 3.78 L 4.0-5.20 10^6/uL Hemoglobin 10.2 L 12.2-16.2 g/dL Hematocrit 30.6 L 36.0-46.0 % Mean Corpuscular Volume 81.1 80.0-100.0 fL Mean Corpuscular Hemoglobin 27.0 L 28.0-32.0 pg Mean Corpuscular Hemoglobin Concent 33.3 32.0-36.0 g/dL Red Cell Distribution Width 17.7 H 11.8-14.3 % Platelet Count 467 H 140-450 10^3/uL Mean Platelet Volume 7.5 6.9-10.8 fL Neutrophils (%) (Auto) 75.3 37.0-80.0 % Lymphocytes (%) (Auto) 11.8 10.0-50.0 % Monocytes (%) (Auto) 5.2 0.0-12.0 % Eosinophils (%) (Auto) 5.8 0.0-7.0 % Basophils (%) (Auto) 1.9 0.0-2.0 % Neutrophils # (Auto) 8.5 1.6-8.6 10 ^3/uL Lymphocytes # (Auto) 1.3 0.4-5.4 10 ^3/uL Monocytes # (Auto) 0.6 0-1.3 10 ^3/uL Eosinophils # (Auto) 0.7 0-0.8 10 ^3/uL Basophils # (Auto) 0.2 0-0.2 10 ^3/uL Nucleated Red Blood Cells 0.2 % Sodium Level 126 L 136-145 mmol/L Potassium Level 3.9 3.5-5.1 mmol/L Chloride Level 92 L 98-107 mmol/L Carbon Dioxide Level 23 20-31 mmol/L Anion Gap 11 5-15 Blood Urea Nitrogen 44 H 9-23 mg/dL Creatinine 2.25 H 0.550-1.02 mg/dL Glomerular Filtration Rate Calc 22 >90 mL/min BUN/Creatinine Ratio 19.6 10.0-20.0 Serum Glucose 248 H 74-106 mg/dL Calcium Level 9.0 8.7-10.4 mg/dL SEPSIS Sepsis Screen Date sepsis recognized/suspect: May 09, 2025 Time Sepsis recognized/suspect: 1141 Recent Procedure: No On Antibiotic Therapy: No Respiratory Rate >20: No Heart Rate >90: No Temp<36 C (96.8 F) or >38.3 C: No SBP <90 or MAP <65 mmHG: No New Acute Mental Status Change: No Is the patient on CPAP, BIPAP,: No Physician Orders Electrocardigram (05/09/25 11:27) Electrocardigram (05/09/25 12:27) Electrocardigram (05/09/25 14:27) Troponin-I Hs (05/09/25 14:27) Chest Portable (05/09/25 11:46) Insert Midline (05/09/25 12:25) B-Type Natriuretic Peptide (05/09/25 15:41) * Cardiology Consult (05/09/25 15:41) Basic Metabolic Panel (05/10/25 04:00) PTPTT (05/09/25 15:41) Consistent Carb(Ccho)Diabetes (05/09/25 Dinner) Vital Signs Date Time Temp Pulse Resp B/P (MAP) Pulse Ox O2 Delivery O2 Flow Rate FiO2 05/09/25 14:32 69 05/09/25 14:00 38 12 122/48 (72) 99 05/09/25 12:42 38 05/09/25 12:05 39 12 98 Room Air* 0 21 05/09/25 12:05 98.2 39 12 136/35 (68) 98 98.2 05/09/25 11:38 97.5 40 18 98 97.5 05/09/25 11:38 39 05/09/25 11:35 39 Laboratory Tests Test 05/09/25 11:41 White Blood Count 11.3 10^3/uL (4.4-10.8) H Assessment/Plan Assessment/Plan Assessment Complete heart block Chronic kidney disease Diabetes mellitus hyponatremia Plan Admit the patient to ICU to the hospitalist was contacted by ER provider and has scheduled patient for pacemaker placement tomorrow a.m.. Monitor patient's heart rate if blood pressure becomes symptomatic we will start dopamine drip or consider external pacemaker blood pressure currently stable. NPO after midnight Pain management Maintenance IV fluids Continue treatment per orders. Plan discussed with: Patient My Orders Orders - FITO CASTILLO Procedure Category Date Status Time B-Type Natriuretic LAB 05/09/25 Verified Peptide 15:41 * Cardiology Consult CONS 05/09/25 Verified 15:41 Basic Metabolic Panel LAB 05/10/25 Verified 04:00 PTPTT LAB 05/09/25 Verified 15:41 Consistent DIET 05/09/25 Verified Carb(Ccho)Diabetes Dinner Date of Service: May 09, 2025 Billing Provider: FITO CASTILLO Common Visit Codes: 22425-OJTTEITY CARE 30-74 MIN FITO CASTILLO May 09, 2025 15:52
[2025-05-09 16:20] LABS: INR 1.0 (0.9-1.15); Partial Thromboplastin Time 30.9 SEC (24.5-34.5); Prothrombin Time 10.6 sec (9.3-11.8)
[2025-05-09] MEDS: ACCU-CHEK COMFORT CURVE STRIP VI SCH (18:12)
[2025-05-09] MEDS: InsuLIN REG 1unit/0.01ml Soln (100units/ml) SC SCH (18:12)
--- NOTE | 2025-05-09 19:28 | ECG ---
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
[2025-05-09 19:49] LABS: Urine Protein, UAD Negative (Negative)
[2025-05-09] MEDS ORDERED: LEVO250T58 PO (20:29)
[2025-05-09] MEDS ORDERED: CITA-77 PO (20:29)
[2025-05-09] MEDS ORDERED: DULO60CA41 PO (20:29)
[2025-05-09] MEDS: HYDROcodone-ACET 5/325MG TAB PO PRN (20:36)
[2025-05-10] VITALS (27 sets, daily range): BP systolic 111–146; BP diastolic 37–65; PULSE 32–70; RESP 11–22; TEMP 97.7–98.5; O2SAT 94–100
[2025-05-10 03:51] LABS: Hematocrit 29.1 % (36.0-46.0); Hemoglobin 9.7 g/dL (12.2-16.2); Mean Corpuscular Hemoglobin 26.4 pg (28.0-32.0); Mean Corpuscular Volume 79.6 fL (80.0-100.0); Nucleated Red Blood Cells % 0.1 %
[2025-05-10 03:59] LABS: Alanine Aminotransferase 11 U/L (7-40); Albumin 3.9 g/dL (3.2-4.8); Alkaline Phosphatase 112 U/L (46-116); Anion Gap 11 (5-15); BUN/Creatinine Ratio 24.2 (10.0-20.0); Bilirubin, Total 0.3 mg/dL (0.2-1.0); Calcium 8.9 mg/dL (8.7-10.4); Carbon Dioxide 25 mmol/L (20-31); Glucose 96 mg/dL (74-106); Total Protein 6.3 g/dL (5.7-8.2)
[2025-05-10 04:00] LABS: Blood Urea Nitrogen 50 mg/dL (9-23); Chloride 96 mmol/L (98-107); Potassium 3.4 mmol/L (3.5-5.1); Sodium 132 mmol/L (136-145)
[2025-05-10] MEDS: MAGNESIUM SULFATE 1GM/100ML 100 ML IV ONE (06:54)
--- NOTE | 2025-05-10 06:54 | ECG ---
[facility] Test Date: 2025-05-10 Test Time: 03:06:16 Pat Name: VITALY SHERMAN Department: ED Room: [address] [place] [address] Gender: F Learning Officer: floyd : 1945 Requested By: EMERGENCY EMERGENCY Order Number: [id number] Reading MD: Nadeem Rodriguez Measurements Intervals [place] Rate: 35 P: 0 DC: 0 QRS: 97 QRSD: 160 T: -16 QT: 628 QTc: 480 Interpretive Statements Complete AV block with wide QRS complex RBBB and LPFB Electronically Signed On 05-10-2025 15:47:24 PST by Nadeem Rodriguez Please click the below link to view image of tracing.
[2025-05-10] MEDS: POTASSIUM CHL 20MEQ/100ML 100 ML IV SCH (09:16)
--- NOTE | 2025-05-10 12:45 | DVHPN2 ---
Progress Note - Dictate Date Seen: May 10, 2025 Medical Necessity Reason Pt with a Central, PICC or Fol: No Subjective PT WITH DIZZINESS NOW WITH COMPLETE HEART BLOCK 3 AV BLOCK vital signs Vital Sign Date Time Temp Pulse Resp B/P (MAP) Pulse Ox O2 Delivery O2 Flow Rate FiO2 05/10/25 10:30 32 13 125/44 (71) 100 05/10/25 07:30 Nasal Cannula* 2 28 05/10/25 07:30 97.3 97.3 Total Intake and Output 05/09/25 05/09/25 05/10/25 15:00 23:00 07:00 Intake Total 300 ml Output Total 350 ml Balance -50 ml medications Current Medications Medications Dose Ordered Sig/Celia Route Start Time Stop Time Status Last Admin Dose Admin Acetaminophen/ Hydrocodone Bitart 1 tab Q4HP PRN PO 05/09/25 15:45 05/09/25 20:36 1 TAB Ondansetron HCl 4 mg Q4HP PRN IV 05/09/25 15:45 Acetaminophen 650 mg Q6HP PRN PO 05/09/25 15:45 Morphine Sulfate 2 mg Q4HPRN PRN IV 05/09/25 15:45 Nitroglycerin 0.4 mg Q5MINP PRN SL 05/09/25 15:45 Morphine Sulfate 2 mg Q30M PRN IV 05/09/25 15:45 Diagnostic Test (Pha) 1 strip Q6HR 05/09/25 18:00 05/10/25 12:13 1 STRIP Insulin Human Regular Q6HR SC 05/09/25 18:00 05/10/25 12:12 2 UNITS Dextrose 50 ml UD PRN IV 05/09/25 15:45 objective General examination- awake, alert, oriented HEENT- PEERLA, no acute nasal discharge Cardiovascular- S1-S2 audible, rate and rhythm regular, no murmur Respiratory- CTAB, no wheeze or rhonchi Gastrointestinal-abdominal tenderness++, bowel sound+. Nondistended Musculoskeletal-no acute joint swelling or tenderness or redness Lower extremity- bilateral leg edema+ Neurological- cranial nerves intact, no acute dysarthria or dysphagia Psychiatry- denies depression or SI or HI Skin- no acute rash or purpura laboratory and microbiology Laboratory Tests 05/10/25 03:24 Test 05/10/25 03:24 Range/Units Serum Glucose 96 74-106 mg/dL Problem List DIZZINESS NOW WITH COMPLETE HEART BLOCK 3 AV BLOCK HX OF TORSADE LAST ADMISSION HYPOKALEMIA HYPOMAGNESEMIA HTN DIABETES VASCULOPATHY NEPHROPATHY Assessment/Plan PPI GAVINO SCHEDULE FOR PPI Plan discussed with: Patient Critical Care Time(min): 35 JAXON BORREGO MD May 10, 2025 12:45
--- NOTE | 2025-05-10 12:50 | DVHPN2 ---
Progress Note - Dictate Date Seen: May 09, 2025 Medical Necessity Reason Pt with a Central, PICC or Fol: No Subjective PT WITH DIZZINESS NOW WITH COMPLETE HEART BLOCK 3 AV BLOCK vital signs Vital Sign Date Time Temp Pulse Resp B/P (MAP) Pulse Ox O2 Delivery O2 Flow Rate FiO2 05/10/25 10:30 32 13 125/44 (71) 100 05/10/25 07:30 Nasal Cannula* 2 28 05/10/25 07:30 97.3 97.3 Total Intake and Output 05/09/25 05/09/25 05/10/25 15:00 23:00 07:00 Intake Total 300 ml Output Total 350 ml Balance -50 ml medications Current Medications Medications Dose Ordered Sig/Celia Route Start Time Stop Time Status Last Admin Dose Admin Acetaminophen/ Hydrocodone Bitart 1 tab Q4HP PRN PO 05/09/25 15:45 05/09/25 20:36 1 TAB Ondansetron HCl 4 mg Q4HP PRN IV 05/09/25 15:45 Acetaminophen 650 mg Q6HP PRN PO 05/09/25 15:45 Morphine Sulfate 2 mg Q4HPRN PRN IV 05/09/25 15:45 Nitroglycerin 0.4 mg Q5MINP PRN SL 05/09/25 15:45 Morphine Sulfate 2 mg Q30M PRN IV 05/09/25 15:45 Diagnostic Test (Pha) 1 strip Q6HR 05/09/25 18:00 05/10/25 12:13 1 STRIP Insulin Human Regular Q6HR SC 05/09/25 18:00 05/10/25 12:12 2 UNITS Dextrose 50 ml UD PRN IV 05/09/25 15:45 objective General examination- awake, alert, oriented HEENT- PEERLA, no acute nasal discharge Cardiovascular- S1-S2 audible, rate and rhythm regular, no murmur Respiratory- CTAB, no wheeze or rhonchi Gastrointestinal-abdominal tenderness++, bowel sound+. Nondistended Musculoskeletal-no acute joint swelling or tenderness or redness Lower extremity- bilateral leg edema+ Neurological- cranial nerves intact, no acute dysarthria or dysphagia Psychiatry- denies depression or SI or HI Skin- no acute rash or purpura laboratory and microbiology Laboratory Tests 05/10/25 03:24 Test 05/10/25 03:24 Range/Units Serum Glucose 96 74-106 mg/dL Problem List DIZZINESS NOW WITH COMPLETE HEART BLOCK 3 AV BLOCK HX OF TORSADE LAST ADMISSION HYPOKALEMIA HYPOMAGNESEMIA HTN DIABETES VASCULOPATHY NEPHROPATHY Assessment/Plan PPI GAVINO SCHEDULE FOR PPI Plan discussed with: Patient JAXON BORREGO MD May 10, 2025 12:50
[2025-05-10] MEDS ORDERED: ACETAMINOPHEN 500 MG TAB or CAP PO PRN (13:00)
[2025-05-10] MEDS ORDERED: MORPHINE SULFATE INJ 2 MG/ml SYRG IV PRN (13:00)
[2025-05-10] MEDS ORDERED: ONDANSETRON HCL 4 MG/2 ML VIAL IV PRN (13:00)
--- NOTE | 2025-05-10 13:22 | DVHPN2 ---
Subjective Patient denies any symptoms. Reviewed: Care Plan, H&P, Labs, Medications Changes from previous H/P or p: No Changes General: Per HPI Objective Vitals Vital Signs Date Time Temp Pulse Resp B/P (MAP) Pulse Ox O2 Delivery O2 Flow Rate FiO2 05/10/25 12:30 35 20 142/91 (108) 98 05/10/25 07:30 Nasal Cannula* 2 28 05/10/25 07:30 97.3 97.3 Intake/Output Intake and Output 05/10/25 07:00 Intake Total 300 ml Output Total 350 ml Balance -50 ml Intake Oral 200 ml IV Total 100 ml Output Urine Total 350 ml General Appearance: Alert, Oriented X3, Cooperative, mild distress HEENT: Atraumatic, PERRLA Cardiovascular: Normal S1, Normal S2, Other (3rd degree heart block) Skin: Dry, Intact Psych/Mental Status: Mental status NL, Mood NL Medications Current Medications Medications Dose Ordered Sig/Celia Route Start Time Stop Time Status Last Admin Dose Admin Acetaminophen/ Hydrocodone Bitart 1 tab Q4HP PRN PO 05/09/25 15:45 05/09/25 20:36 1 TAB Ondansetron HCl 4 mg Q4HP PRN IV 05/09/25 15:45 Acetaminophen 650 mg Q6HP PRN PO 05/09/25 15:45 Morphine Sulfate 2 mg Q4HPRN PRN IV 05/09/25 15:45 Nitroglycerin 0.4 mg Q5MINP PRN SL 05/09/25 15:45 Morphine Sulfate 2 mg Q30M PRN IV 05/09/25 15:45 Diagnostic Test (Pha) 1 strip Q6HR 05/09/25 18:00 05/10/25 12:13 1 STRIP Insulin Human Regular Q6HR SC 05/09/25 18:00 05/10/25 12:12 2 UNITS Dextrose 50 ml UD PRN IV 05/09/25 15:45 Ceftriaxone Sodium 50 ml @ 100 mls/hr DAILY@09 IV 05/10/25 13:00 UNV Morphine Sulfate 1 mg Q4HPRN PRN IV 05/10/25 13:00 UNV Acetaminophen/ Hydrocodone Bitart 1 tab Q6HPRN PRN PO 05/10/25 13:00 UNV Acetaminophen 500 mg Q8HP PRN PO 05/10/25 13:00 UNV Ondansetron HCl 4 mg Q6HP PRN IV 05/10/25 13:00 UNV Laboratory Results Laboratory Tests 05/10/25 03:24 Chemistry Test 05/10/25 03:24 Albumin 3.9 g/dL (3.2-4.8) Calcium Level 8.9 mg/dL (8.7-10.4) Total Protein 6.3 g/dL (5.7-8.2) Coagulation Test 05/09/25 15:34 Prothrombin Time 10.6 sec (9.3-11.8) Prothrombin Time INR 1.00 (0.9-1.15) Activated Partial Thromboplast Time 30.9 SEC (24.5-34.5) LFT Test 05/10/25 03:24 Alanine Aminotransferase (ALT) 11 U/L (7-40) Alkaline Phosphatase 112 U/L (46-116) Aspartate Amino Transferase (AST) 17 U/L (13-40) Total Bilirubin 0.3 mg/dL (0.2-1.0) Urinalysis Test 05/09/25 12:51 Urine Color Colorless (Yellow) Urine Clarity Turbid (Clear) H Urine pH 6.0 (5.0-9.0) Urine Specific [place] 1.008 (1.001-1.035) Urine Protein Negative (Negative) Urine Ketones Negative (Negative) Urine Blood Trace /uL (Negative) H Urine Nitrite Negative (Negative) Urine Bilirubin Negative (Negative) Urine Urobilinogen Normal mg/dL (Negative) Urine Leukocyte Esterase 3+ /uL (Negative) Urine RBC 6 /hpf (0 - 4) Urine Microscopic WBC 383 /HPF (0-5) H Urine Squamous Epithelial Cells Few /hpf (<5) Urine Bacteria Mod /hpf (None Seen) H Urine Hyaline Casts Few /lpf (0 - 2) Urine Mucus Few (None Seen) Urine Glucose Normal mg/dL (Normal) Labs and/or images reviewed: Labs reviewed by me, Image(s) reviewed by me Assessment/Plan Assessment/Plan Impression: -complete heart block -complicated cystitis -CKD stage IIIB -diabetes mellitus -history of torsades de pointes -primary hypertension -dyslipidemia -gout Plan: -patient assess and cardiac catheterization lab preop area. Plans for permanent pacemaker implant -IV antibiotic therapy: Rocephin -regular insulin sliding scale -repeat labs in a.m. -further course of care per Cardiology recommendations Total time spent with patient discussing and formulating plan of care: 35 minutes. This medical document was created using an electronic medical record system with [employer] dictation system. Although this document has been carefully reviewed, there may still be some phonetic and typographical errors. These areas are purely typographical due to imperfections of the software programs, and do not reflect any compromise in the patient's medical care. Plan discussed with: Patient, Other (RN) My Orders Orders - MARIA L WILSON NP Procedure Category Date Status Time Ceftriaxone 1gm/50ml PHA 05/10/25 Logged (Rocephin) 13:00 Basic Metabolic Panel LAB 05/11/25 Verified 04:00 Complete Blood Count LAB 05/11/25 Verified 04:00 Morphine Sulfate PHA 05/10/25 Logged Injection 13:00 Hydrocodone-Acet PHA 05/10/25 Logged 5/325mg Tab ([place] 13:00 Acetaminophen Tab Or PHA 05/10/25 Logged Cap (Tylenol Tablet 13:00 Ondansetron Hcl PHA 05/10/25 Logged (Zofran) 13:00 Urine Bacterial FAISAL 05/10/25 Logged Culture 13:17 Date of Service: May 10, 2025 Billing Provider: MARIA L WILSON NP Common Visit Codes: [id number] INP/OBS CARE(HIGH) MARIA L WILSON NP May 10, 2025 13:22
[2025-05-10] MEDS: MIDAZOLAM HCL 2MG/2ML 2ml VIAL (1mg/ml) ONE (14:41)
[2025-05-10] MEDS: VANCOMYCIN HCL 1000 MG VL ONE (14:41)
[2025-05-10] MEDS: fentaNYL CITRATE 100 MCG/2 ML VL ONE (14:41)
[2025-05-10] MEDS: LIDOCAINE 2%HCL (LOCAL ANESTH.) INJ 20ML MDV ONE ×2 (14:41→14:42)
[2025-05-10] MEDS: ceFAZolin 1GM/50ML 50 ML IV ONE (14:41)
[2025-05-10] MEDS: BUPIVACAINE 0.5% P/F INJ 10 ML VIAL ONE ×2 (15:00→15:20)
[2025-05-10] MEDS ORDERED: SODIUM CHLORIDE 0.9% 1,000 ML IV SCH (16:00)
[2025-05-10] MEDS: SODIUM CHLORIDE 0.9% 500 ML IV SCH (16:15)
--- NOTE | 2025-05-10 16:41 | DVH ---
CHEST RADIOGRAPH REASON FOR EXAM: S/P PACEMAKER COMPARISON: XY CHEST PORTABLE on DOS: 05/09/25, XY CHEST PORTABLE on DOS: 03/08/25, XY CHEST TWO VIEWS ROUTINE on DOS: 08/29/24, XY CHEST TWO VIEWS ROUTINE on DOS: 09/26/22 TECHNIQUE: One view of the chest is provided FINDINGS: The cardiomediastinal silhouette is stably enlarged. There is a new 2 lead pacer projecting over the left chest. No focal airspace disease is identified. There is no significant pleural effusion. There is no pneumothorax IMPRESSION: No pneumothorax status post pacer placement. Stable cardiomegaly.
--- NOTE | 2025-05-10 16:45 | DVHOP ---
DATE OF SURGERY: 05/10/2025 The patient who is 79 years old, who recently was admitted for torsades, was put on beta-jarrod and sent home. Now, she comes in with third-degree AV block. The beta-jarrod was actually discontinued approximately a week ago when she first came to see me for the first time. On physical examination, blood pressure is 130/80, but heart rate is 30. PROCEDURES PERFORMED: * Dual-chamber permanent pacemaker implantation. * Venography. * Conscious sedation. DESCRIPTION OF PROCEDURE: The patient was prepped and draped under sterile condition. Xylocaine 1% was used to anesthetize the left subclavian region using bupivacaine since THE PATIENT IS LIDOCAINE ALLERGIC. Then, using a Cook needle, left subclavian vein was engaged after the venography. A guidewire was appropriately positioned via Seldinger technique. Linear incision was made. The pocket was dissected by blunt dissection and electrocautery. Then, a 9-Ghanaian peel-away sheath was used to implant the right ventricular active fixation lead. Threshold parameters were obtained. Lead was secured to the chest wall using 0 Ethibond. Similarly, using a 7-Ghanaian peel-away sheath, right atrial active fixation lead was then appropriately positioned. Threshold parameters were obtained. Lead was secured to the chest wall using 0 Ethibond. Generator was implanted. Pocket was irrigated using vancomycin and saline solution. Pocket was closed using 3-0 Monoderm subcutaneous sutures followed by 3-0 Monoderm subcuticular sutures. There were no complications. The patient tolerated the procedure well. RESULTS: The patient had Biotronik dual-chamber permanent pacemaker. It is Amvia Edge DR-T, model number 164747, serial number [id number]. Atrial lead is Solia S45, model number 306546, serial number [id number]. Ventricular lead is Solia S53, model number 917832, serial number [id number]. Threshold parameters, atrium P-wave amplitude of 3.8 mV, threshold of 0.8 V at 0.4 msec pulse duration, pacing impedance of 430 ohms. Right ventricular lead R-wave amplitude of 4.2 mV, threshold of 0.5 V at 0.4 msec pulse duration, pacing impedance of 625 ohms. CONCLUSION: The patient had successful implantation of dual-chamber permanent pacemaker Biotronik MRI compatible system for complete heart block. Sukhdev Fonseca MD SA/MARGARETH/SHOSHANA TID: [id number] RECEIPT: [id number]
[2025-05-10] MEDS: ceFAZolin 1GM/50ML 50 ML IV SCH (21:44)
[2025-05-11] VITALS (9 sets, daily range): BP systolic 124–156; BP diastolic 54–74; PULSE 62–74; RESP 15–18; TEMP 97.5–98.3; O2SAT 98–100
--- NOTE | 2025-05-11 05:52 | ECG ---
[facility] Test Date: 2025-05-11 Test Time: 05:51:03 Pat Name: VITALY SHERMAN Department: Respiratoy Room: 0215T B Gender: F Nurse Orthopedic: BLAKE : 1945 Requested By: JAXON BORREGO Order Number: [id number] Reading MD: Nadeem Rodriguez Measurements Intervals [place] Rate: 63 P: 0 MT: 157 QRS: -67 QRSD: 178 T: 105 QT: 522 QTc: 535 Interpretive Statements Atrial-paced complexes Nonspecific IVCD with LAD LVH with secondary repolarization abnormality Inferolateral infarct, acute (RCA) Anterior infarct, old Probable RV involvement, suggest recording right precordial leads Electronically Signed On 05-14-2025 17:19:45 PST by Nadeem Rodriguez Please click the below link to view image of tracing.
--- NOTE | 2025-05-11 05:54 | DVH ---
CHEST RADIOGRAPH Indication: CXR FOR PACEMAKER/ICD LEAD PLACEMENT Technique: 1 view Comparison: XY CHEST PORTABLE on DOS: 05/10/25, XY CHEST PORTABLE on DOS: 05/09/25, XY CHEST PORTABLE on DOS: 03/08/25 FINDINGS: Lines and Tubes: Unchanged. Lungs/Pleura: Slightly worsened perihilar interstitial opacities. No focal consolidation or evident pleural abnormality. Cardiomediastinum: Unchanged. Other: Unchanged osseous structures. IMPRESSION: 1. New/worsened pulmonary edema. No other significant change.
[2025-05-11 06:02] LABS: Mean Corpuscular Hemoglobin 27.4 pg (28.0-32.0)
[2025-05-11 06:05] LABS: Hematocrit 28.4 % (36.0-46.0); Hemoglobin 9.7 g/dL (12.2-16.2); Mean Corpuscular Volume 80.5 fL (80.0-100.0); Nucleated Red Blood Cells % 0.1 %
[2025-05-11 06:14] LABS: Chloride 104 mmol/L (98-107); Potassium 3.8 mmol/L (3.5-5.1); Sodium 139 mmol/L (136-145)
[2025-05-11 06:15] LABS: Anion Gap 13 (5-15); Calcium 9.2 mg/dL (8.7-10.4); Carbon Dioxide 22 mmol/L (20-31)
[2025-05-11 06:20] LABS: BUN/Creatinine Ratio 24.5 (10.0-20.0)
[2025-05-11 06:35] LABS: Blood Urea Nitrogen 40 mg/dL (9-23); Glucose 146 mg/dL (74-106)
[2025-05-11] MEDS: HYDROcodone-ACET 5/325MG TAB PO PRN (10:39)
--- NOTE | 2025-05-11 13:29 | DVHPN2 ---
Reviewed: Care Plan, H&P, Labs, Medications Changes from previous H/P or p: No Changes General: Per HPI Objective Vitals Vital Signs Date Time Temp Pulse Resp B/P (MAP) Pulse Ox O2 Delivery O2 Flow Rate FiO2 05/11/25 09:00 98.3 70 15 156/74 (101) 99 98.3 05/10/25 20:00 Room Air* 0 21 Intake/Output Intake and Output 05/11/25 07:00 Intake Total 700 ml Output Total 450 ml Balance 250 ml Intake Oral 500 ml IV Total 200 ml Output Urine Total 450 ml # Voids 4 General Appearance: Alert, Oriented X3, Cooperative, mild distress HEENT: Atraumatic, PERRLA Cardiovascular: Normal S1, Normal S2, Other (3rd degree heart block) Skin: Dry, Intact Psych/Mental Status: Mental status NL, Mood NL Medications Current Medications Medications Dose Ordered Sig/Celia Route Start Time Stop Time Status Last Admin Dose Admin Nitroglycerin 0.4 mg Q5MINP PRN SL 05/09/25 15:45 Morphine Sulfate 2 mg Q30M PRN IV 05/09/25 15:45 Diagnostic Test (Pha) 1 strip Q6HR 05/09/25 18:00 05/11/25 12:00 1 STRIP Insulin Human Regular Q6HR SC 05/09/25 18:00 05/11/25 12:28 6 UNITS Dextrose 50 ml UD PRN IV 05/09/25 15:45 Morphine Sulfate 1 mg Q4HPRN PRN IV 05/10/25 13:00 Acetaminophen/ Hydrocodone Bitart 1 tab Q6HPRN PRN PO 05/10/25 13:00 05/11/25 10:39 1 TAB Acetaminophen 500 mg Q8HP PRN PO 05/10/25 13:00 Ondansetron HCl 4 mg Q6HP PRN IV 05/10/25 13:00 Cefazolin Sodium 50 ml @ 50 mls/hr Q12H IV 05/10/25 21:00 05/11/25 21:59 05/11/25 09:34 50 MLS/HR Ceftriaxone Sodium 50 ml @ 100 mls/hr DAILY@09 IV 05/12/25 09:00 Laboratory Results Laboratory Tests 05/11/25 05:30 Chemistry Test 05/11/25 05:30 Calcium Level 9.2 mg/dL (8.7-10.4) Urinalysis Test 05/09/25 12:51 Urine Color Colorless (Yellow) Urine Clarity Turbid (Clear) H Urine pH 6.0 (5.0-9.0) Urine Specific [place] 1.008 (1.001-1.035) Urine Protein Negative (Negative) Urine Ketones Negative (Negative) Urine Blood Trace /uL (Negative) H Urine Nitrite Negative (Negative) Urine Bilirubin Negative (Negative) Urine Urobilinogen Normal mg/dL (Negative) Urine Leukocyte Esterase 3+ /uL (Negative) Urine RBC 6 /hpf (0 - 4) Urine Microscopic WBC 383 /HPF (0-5) H Urine Squamous Epithelial Cells Few /hpf (<5) Urine Bacteria Mod /hpf (None Seen) H Urine Hyaline Casts Few /lpf (0 - 2) Urine Mucus Few (None Seen) Urine Glucose Normal mg/dL (Normal) Microbiology Microbiology Date/Time Source Procedure Growth Status 05/09/25 23:03 Nose MRSA Screen - Final Complete Labs and/or images reviewed: Labs reviewed by me, Image(s) reviewed by me Assessment/Plan Assessment/Plan Covering for nurse practitioner Gal Christianson -complete heart block status post dual chamber pacemaker implantation by Dr. Santizo on 05-10-25 -complicated cystitis , blood cultures negative urine cultures pending, continue Rocephin and Ancef -CKD stage IIIB -diabetes mellitus : Insulin sliding scale -history of torsades de pointes -primary hypertension -dyslipidemia -gout Time taken 50 minutes Advanced care planning time 20 minutes Patient is full code Plan discussed with: Patient Date of Service: May 11, 2025 Billing Provider: REG NULL MD Common Visit Codes: [id number] INP/OBS CARE(HIGH) Secondary Visit Codes: [id number] CARE PLAN 30 MINUTES REG NULL MD May 11, 2025 13:28
[2025-05-12] VITALS (9 sets, daily range): BP systolic 111–163; BP diastolic 55–78; PULSE 63–82; RESP 16–19; TEMP 97.1–98.1; O2SAT 96–100
[2025-05-12] MEDS ORDERED: MORPHINE SULFATE INJ 2 MG/ml SYRG IV ONE (00:15)
--- NOTE | 2025-05-12 08:19 | DVHPN2 ---
Reviewed: Care Plan, H&P, Labs, Medications Changes from previous H/P or p: No Changes General: Per HPI Objective Vitals Vital Signs Date Time Temp Pulse Resp B/P (MAP) Pulse Ox O2 Delivery O2 Flow Rate FiO2 05/12/25 05:30 147/78 (101) 05/12/25 05:00 97.2 73 19 100 97.2 05/11/25 20:00 Room Air* 0 21 Intake/Output Intake and Output 05/12/25 07:00 Intake Total 1000 ml Output Total 1 ml Balance 999 ml Intake Oral 1000 ml Output Urine Total 1 ml # Voids 3 # Bowel Movements 1 General Appearance: Alert, Oriented X3, Cooperative, mild distress HEENT: Atraumatic, PERRLA Cardiovascular: Normal S1, Normal S2, Other (3rd degree heart block) Skin: Dry, Intact Psych/Mental Status: Mental status NL, Mood NL Medications Current Medications Medications Dose Ordered Sig/Celia Route Start Time Stop Time Status Last Admin Dose Admin Nitroglycerin 0.4 mg Q5MINP PRN SL 05/09/25 15:45 Morphine Sulfate 2 mg Q30M PRN IV 05/09/25 15:45 Diagnostic Test (Pha) 1 strip Q6HR 05/09/25 18:00 05/12/25 06:01 1 STRIP Insulin Human Regular Q6HR SC 05/09/25 18:00 05/11/25 23:43 6 UNITS Dextrose 50 ml UD PRN IV 05/09/25 15:45 Morphine Sulfate 1 mg Q4HPRN PRN IV 05/10/25 13:00 Acetaminophen/ Hydrocodone Bitart 1 tab Q6HPRN PRN PO 05/10/25 13:00 05/11/25 18:18 1 TAB Acetaminophen 500 mg Q8HP PRN PO 05/10/25 13:00 Ondansetron HCl 4 mg Q6HP PRN IV 05/10/25 13:00 Ceftriaxone Sodium 50 ml @ 100 mls/hr DAILY@09 IV 05/12/25 09:00 Laboratory Results Laboratory Tests 05/11/25 05:30 Urinalysis Test 05/09/25 12:51 Urine Color Colorless (Yellow) Urine Clarity Turbid (Clear) H Urine pH 6.0 (5.0-9.0) Urine Specific [place] 1.008 (1.001-1.035) Urine Protein Negative (Negative) Urine Ketones Negative (Negative) Urine Blood Trace /uL (Negative) H Urine Nitrite Negative (Negative) Urine Bilirubin Negative (Negative) Urine Urobilinogen Normal mg/dL (Negative) Urine Leukocyte Esterase 3+ /uL (Negative) Urine RBC 6 /hpf (0 - 4) Urine Microscopic WBC 383 /HPF (0-5) H Urine Squamous Epithelial Cells Few /hpf (<5) Urine Bacteria Mod /hpf (None Seen) H Urine Hyaline Casts Few /lpf (0 - 2) Urine Mucus Few (None Seen) Urine Glucose Normal mg/dL (Normal) Microbiology Microbiology Date/Time Source Procedure Growth Status 05/09/25 23:03 Nose MRSA Screen - Final Complete Labs and/or images reviewed: Labs reviewed by me, Image(s) reviewed by me Assessment/Plan Assessment/Plan Covering for nurse practitioner Gal Christianson -complete heart block status post dual chamber pacemaker implantation by Dr. Santizo on 05-10-25 -complicated cystitis , urine cultures pending, continue Rocephin and Ancef -CKD stage IIIB -diabetes mellitus : Insulin sliding scale -history of torsades de pointes -primary hypertension -dyslipidemia -gout Time taken 50 minutes Advanced care planning time 20 minutes Patient is full code Plan discussed with: Patient Date of Service: May 12, 2025 Billing Provider: REG NULL MD Common Visit Codes: [id number] INP/OBS CARE(HIGH) REG NULL MD May 12, 2025 08:19
--- NOTE | 2025-05-12 13:42 | ECG ---
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
[2025-05-13 01:00] VITALS: BP 155/62; PULSE 66; RESP 17; TEMP 97.5; O2SAT 98
--- NOTE | 2025-05-13 07:30 | ECG ---
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
[2025-05-13] MEDS ORDERED: TRAM-626 PO (08:53)
[2025-05-13] MEDS ORDERED: DOXY100C79 PO (08:53)
[2025-05-13 09:00] VITALS: BP 153/64; PULSE 69; RESP 18; TEMP 98; O2SAT 100
--- NOTE | 2025-05-13 09:01 | DVHDS2 ---
Discharge Summary Date of Admission May 09, 2025 at 15:41 Date of Discharge: May 13, 2025 Admitting Diagnosis Complete heart block Labs/Diagnostic Data: Laboratory Results Test 05/13/25 05:29 05/11/25 05:30 05/10/25 03:24 05/09/25 15:34 POC Glucose 147 mg/dl (70-106) White Blood Count 13.3 10^3/uL (4.4-10.8) Red Blood Count 3.52 10^6/uL (4.0-5.20) Hemoglobin 9.7 g/dL (12.2-16.2) Hematocrit 28.4 % (36.0-46.0) Mean Corpuscular Volume 80.5 fL (80.0-100.0) Mean Corpuscular Hemoglobin 27.4 pg (28.0-32.0) Mean Corpuscular Hemoglobin Concent 34.0 g/dL (32.0-36.0) Red Cell Distribution Width 18.0 % (11.8-14.3) Platelet Count 470 10^3/uL (140-450) Mean Platelet Volume 7.2 fL (6.9-10.8) Neutrophils (%) (Auto) 78.6 % (37.0-80.0) Lymphocytes (%) (Auto) 10.0 % (10.0-50.0) Monocytes (%) (Auto) 6.9 % (0.0-12.0) Eosinophils (%) (Auto) 3.2 % (0.0-7.0) Basophils (%) (Auto) 1.3 % (0.0-2.0) Neutrophils # (Auto) 10.5 10 ^3/uL (1.6-8.6) Lymphocytes # (Auto) 1.3 10 ^3/uL (0.4-5.4) Monocytes # (Auto) 0.9 10 ^3/uL (0-1.3) Eosinophils # (Auto) 0.4 10 ^3/uL (0-0.8) Basophils # (Auto) 0.2 10 ^3/uL (0-0.2) Nucleated Red Blood Cells 0.1 % Sodium Level 139 mmol/L (136-145) Potassium Level 3.8 mmol/L (3.5-5.1) Chloride Level 104 mmol/L (98-107) Carbon Dioxide Level 22 mmol/L (20-31) Anion Gap 13 (5-15) Blood Urea Nitrogen 40 mg/dL (9-23) Creatinine 1.63 mg/dL (0.550-1.02) Glomerular Filtration Rate Calc 32 mL/min (>90) BUN/Creatinine Ratio 24.5 (10.0-20.0) Serum Glucose 146 mg/dL (74-106) Calcium Level 9.2 mg/dL (8.7-10.4) Total Bilirubin 0.3 mg/dL (0.2-1.0) Aspartate Amino Transferase (AST) 17 U/L (13-40) Alanine Aminotransferase (ALT) 11 U/L (7-40) Alkaline Phosphatase 112 U/L (46-116) Total Protein 6.3 g/dL (5.7-8.2) Albumin 3.9 g/dL (3.2-4.8) Prothrombin Time 10.6 sec (9.3-11.8) Prothrombin Time INR 1.00 (0.9-1.15) Activated Partial Thromboplast Time 30.9 SEC (24.5-34.5) Troponin I High Sensitivity 4 ng/L (</=34) Test 05/09/25 12:51 05/09/25 11:41 Urine Color Colorless (Yellow) Urine Clarity Turbid (Clear) Urine pH 6.0 (5.0-9.0) Urine Specific [place] 1.008 (1.001-1.035) Urine Protein Negative (Negative) Urine Ketones Negative (Negative) Urine Blood Trace /uL (Negative) Urine Nitrite Negative (Negative) Urine Bilirubin Negative (Negative) Urine Urobilinogen Normal mg/dL (Negative) Urine Leukocyte Esterase 3+ /uL (Negative) Urine RBC 6 /hpf (0 - 4) Urine Microscopic WBC 383 /HPF (0-5) Urine Squamous Epithelial Cells Few /hpf (<5) Urine Bacteria Mod /hpf (None Seen) Urine Hyaline Casts Few /lpf (0 - 2) Urine Mucus Few (None Seen) Urine Glucose Normal mg/dL (Normal) B-Type Natriuretic Peptide 882.93 pg/mL (0-100) Other Laboratory Tests 05/11/25 05:30 Brief Hx & Hospital Course: History of Present Illness 79-year-old female presents for evaluation of dizziness. Patient reports developing dizziness with associated nausea today in the morning. When her heart rate was checked it was reading in the 30s. Patient is currently wearing a life vest and is awaiting authorization for a pacemaker placement by Dr. ROPER. Patient also reports having a fall two weeks ago where she landed on her left side fracture a to ribs. Reports shortness for breath and pain when taking deep breaths. Denies chest pain at the moment. No other acute complaints reported. Course of hospitalization: Patient underwent dual-chamber permanent pacemaker implant on 05/10/25. Patient's symptomatic dizziness has resolved. She was placed on IV Ancef, which was switched to Rocephin given patient had noted urinary tract infection. Patient is stable to be discharged home and we will follow up with Dr. Santizo in one week. She is instructed to continue all previous home medications as mentioned in her medication reconciliation. She will be continued on antibiotic therapy with doxycycline 100 mg p.o. b.i.d. x7 days. The patient will also be placed on tramadol 50 mg p.o. q.6 hours as needed for [id number] pain. She is instructed not to raise her left arm or abduct her left arm for a minimum of two weeks or until instructed by her optical technician. He is also instructed not to get her surgical site wet. Patient was agreeable with discharge plan. All questions answered. Physical examination General: Alert and Oriented x3. No acute distress. Well-nourished. Eyes: EOMI. Anicteric. HENT: Moist mucous membranes. Lungs: Clear to auscultation bilaterally. No accessory muscle use. Cardiovascular: Regular rate and rhythm. No murmur. No JVD. Abdomen: Soft, non-tender and non-distended. No palpable masses. Extremities: No edema. Non-tender. Skin: No rashes or lesions. Warm. Neurologic: No focal neurological deficits. CN II-XII grossly intact, but not individually tested. Psychiatric: Cooperative. Appropriate mood and affect. Total time spent with patient discussing and formulating plan of care: 35 minutes. This medical document was created using an electronic medical record system with [employer] system. Although this document has been carefully reviewed, there may still be some phonetic and typographical errors. These areas are purely typographical due to imperfections of the software programs, and do not reflect any compromise in the patient's medical care. Condition at Discharge: Fair Final Diagnosis/Problems List Complete heart block -complicated cystitis -CKD stage IIIB -diabetes mellitus -history of torsades de pointes -primary hypertension -dyslipidemia -gout Discharge Disposition: Home Discharge Instruct/Medications Diet: Consistent carbohydrate, Cardiac 2g Na,low cholest Activity: No Restrictions, As Tolerated Follow Up/Referral: Follow up with optical technician, Dr. Cha within one week Follow up with PCP in 1-2 weeks Medications: Doxycycline 100 mg p.o. b.i.d. x7 days Tramadol 50 mg p.o. q.6 hours as needed for [id number] pain Continue all home medications as noted on medication reconciliation Scheduled Alendronate Sodium (Alendronate Sodium), 1 TAB PO QWEEKLY, (Reported) Allopurinol (Allopurinol), 100 MG PO DAILY, (Reported) Amlodipine Besylate (Amlodipine Besylate), 10 MG PO DAILY, (Reported) Aspirin (Aspirin Low Dose), 81 MG PO DAILY Atorvastatin Calcium (Lipitor), 1 TAB PO DAILY, (Reported) Carvedilol (Carvedilol), 12.5 MG PO Q12HR, (Reported) Cholecalciferol (Vitamin D3), 1 TAB PO DAILY, (Reported) Ciprofloxacin Hcl (Ciprofloxacin Hcl), 1 TAB PO BID Citalopram Hydrobromide (Citalopram Hydrobromide), 20 MG PO DAILY, (Reported) Doxycycline (Monohydrate) (Doxycycline), 100 MG PO BID Duloxetine Hcl (Cymbalta), 1 CAP PO DAILY, (Reported) Famotidine (Pepcid Tablet), 2 TAB PO DAILY, (Reported) Hydrochlorothiazide (Hydrochlorothiazide), 25 MG PO DAILY, (Reported) Hydrocodone-Acetaminophen (Hydrocodone Bitartrate/AC 10-325 mg), 1 TAB PO TID, (Reported) Levofloxacin Hemihydrate (Levofloxacin), 250 MG PO DAILY, (Reported) Losartan Potassium (Losartan Potassium), 50 MG PO BID, (Reported) Metronidazole (Metronidazole), 500 MG PO TID Potassium Chloride (Potassium Chloride Cr), 10 MEQ PO DAILY Rosuvastatin Calcium (Crestor), 1 TAB PO DAILY Sitagliptin Phosphate (Januvia), 1 TAB PO DAILY, (Reported) Scheduled PRN Tramadol HCl (Tramadol HCl), 50 MG PO Q6HP PRN Miscellaneous Medications Albuterol Sulfate (Ventolin Mdi), 90 MCG IN, (Reported) Insulin NPH Isophane & Reg (Hu (Novolin 70/30 (70-30) 100 Unit/ml), 1 INJ SC, (Reported) 36 Discharge Statement: "Patient was advised to return to the ER or call 911 if any headaches, dizziness, shortness of breath, chest pain, abdominal pain, bleeding, fevers, or worsening of medical condition. Patient was counseled about treatment plan, medications, possible side effects, patientverbalized understanding. All questions were answered to the best of my ability. This discharge took greater then 30 minutes in planning, reviewing documentation, counseling the patient, and discussing with other team members." ASSESSMENT ASSESSMENT Assessment Complete heart block Date of Service: May 13, 2025 Billing Provider: MARIA L WILSON NP Common Visit Codes: 85701-QRK/OBS DISCH DAY >30min MARIA L WILSON NP May 13, 2025 09:01
[2025-05-13 10:03] VITALS: BP 143/64; PULSE 69; RESP 18; TEMP 98; O2SAT 100
== END 2025-05-13 11:00 | disposition home or self-care (01) | DRG 243 ==
LOC: ER 11:24 → OVERFLOW 15:41 → TELE-CENTR 05-10 17:52
PROVIDERS: ADMIT Nurse Practitioner Acute Care; ATTEND Nurse Practitioner Acute Care
PROC: 05HB33Z Insertion of Infusion Device into Right Basilic Vein, Percutaneous Approach (ICD-10-PCS; 2025-05-09)
PROC: B54MZZA Ultrasonography of Right Upper Extremity Veins, Guidance (ICD-10-PCS; 2025-05-09)
PROC: 0JH606Z Insertion of Pacemaker, Dual Chamber into Chest Subcutaneous Tissue and Fascia, Open Approach (ICD-10-PCS; principal; 2025-05-10)
PROC: 02H63JZ Insertion of Pacemaker Lead into Right Atrium, Percutaneous Approach (ICD-10-PCS; 2025-05-10)
PROC: 02HK3JZ Insertion of Pacemaker Lead into Right Ventricle, Percutaneous Approach (ICD-10-PCS; 2025-05-10)
PROC: B5171ZZ Fluoroscopy of Left Subclavian Vein using Low Osmolar Contrast (ICD-10-PCS; 2025-05-10)
DX: I44.2 Atrioventricular block, complete (principal); E87.1 Hypo-osmolality and hyponatremia; N30.90 Cystitis, unspecified without hematuria; E11.22 Type 2 diabetes mellitus with diabetic chronic kidney disease; I12.9 Hypertensive chronic kidney disease with stage 1 through stage 4 chronic kidney disease, or unspecified chronic kidney disease; N18.32 Chronic kidney disease, stage 3b; F41.9 Anxiety disorder, unspecified; E78.5 Hyperlipidemia, unspecified; M10.9 Gout, unspecified; Z88.4 Allergy status to anesthetic agent; Z79.82 Long term (current) use of aspirin; Z79.4 Long term (current) use of insulin; Z79.899 Other long term (current) drug therapy
CPT/HCPCS: 33208; 36012; 36415; 71045; 80048; 80053; 81001; 82962; 83880; 84484; 85025; 85610; 85730; 86850; 86900; 86901; 87081; 87086; 93005; 96372; 99152; 99291; G0378; J1815; J2250; J3480; J3490

== ENCOUNTER 2025-05-21 14:54 | Outpatient (CLI) | payer OTHER ==
[~2025-05-21 14:54] MED LIST changes: -ATOR20TA PO; -CIPR500T4 PO; +CITA-77 PO; +DOXY100C79 PO; +DULO60CA41 PO; -HYDR-4798 PO; -MET500T PO; -POTA-36 PO; +TRAM-626 PO
[2025-05-21 16:44] LABS: Alanine Aminotransferase 16 U/L (7-40); Albumin 4.1 g/dL (3.2-4.8); Anion Gap 11 (5-15); BUN/Creatinine Ratio 38.1 (10.0-20.0); Calcium 9.7 mg/dL (8.7-10.4); Carbon Dioxide 26 mmol/L (20-31); Chloride 102 mmol/L (98-107); Potassium 4.0 mmol/L (3.5-5.1); Sodium 139 mmol/L (136-145); Total Protein 6.8 g/dL (5.7-8.2)
[2025-05-21 16:54] LABS: Alkaline Phosphatase 155 U/L (46-116); Bilirubin, Total 0.3 mg/dL (0.2-1.0); Glucose 288 mg/dL (74-106)
[2025-05-21 16:59] LABS: Blood Urea Nitrogen 80 mg/dL (9-23)
[2025-05-22] MEDS ORDERED: CEFD300C2 PO (21:40)
== END 2025-05-21 17:00 | disposition home or self-care (01) ==
LOC: LAB 14:54
PROVIDERS: ATTEND Internal Medicine
DX: I10 Essential (primary) hypertension (principal); E78.5 Hyperlipidemia, unspecified
CPT/HCPCS: 36415; 80053

== ENCOUNTER 2025-05-22 13:14 | Emergency (ER) | payer OTHER ==
[~2025-05-22] VITALS: Ht 149.9 cm; Wt 58.9 kg
--- NOTE | 2025-05-22 14:09 | ED.PDOC ---
History of Present Illness HPI Comments This is a 79 year old female BIB son presenting to the ED with chief complaint of abnormal labs. Son reports that the patient had lab work performed yesterday and later in the evening, results came back showing abnormal kidney function, advising her to come into the ED for further evaluation. Son relays that the patient started to experience body aches with associated right flank pain today. Patient denies any chest pain, SOB, dysuria, hematuria, abdominal pain, N/V/D, or headache. Chief Complaint: Abnormal LAB's Time Seen by MD: 14:07 Reviewed Notes: Nurses Notes, Medications, Allergies Allergies: Coded Allergies: Lidocaine (Verified Allergy, Unknown, 08/30/24) Home Meds Active Scripts Doxycycline (Monohydrate) (Doxycycline) 100 Mg Cap, 100 MG PO BID for 7 Days, #14 CAP Prov:MARIA L WILSON [employer] 05/13/25 Tramadol HCl (Tramadol HCl) 50 Mg Tab, 50 MG PO Q6HP PRN for 5 Days, #20 TAB Prov:MARIA L WILSON [employer] 05/13/25 Rosuvastatin Calcium (Crestor) 20 Mg Tab, 1 TAB PO DAILY, #30 TAB 1 Refill Prov:HAYDEN BRENNAN MD 03/12/25 Aspirin (Aspirin Low Dose) 81 Mg Tab, 81 MG PO DAILY for 30 Days, #30 TAB 2 Refills Prov:NEMO HOLLIDAY RESIDENT 03/09/25 Reported Medications Citalopram Hydrobromide (Citalopram Hydrobromide) 20 Mg Tab, 20 MG PO DAILY for 30 Days, MG 05/09/25 Duloxetine Hcl (Cymbalta) 60 Mg Cap, 1 CAP PO DAILY, #90 CAP 3 Refills 05/09/25 Alendronate Sodium (Alendronate Sodium) 70 Mg Tab, 1 TAB PO QWEEKLY, #4 TAB 3 Refills 03/10/25 Amlodipine Besylate (Amlodipine Besylate) 5 Mg Tab, 10 MG PO DAILY for 30 Days, MG 03/10/25 Albuterol Sulfate (VENTOLIN MDI) 90 Mcg Ih, 90 MCG IN, INH 08/29/24 Sitagliptin Phosphate (Januvia) 50 Mg Tab, 1 TAB PO DAILY, #30 TAB 5 Refills 08/29/24 Cholecalciferol (VITAMIN D3) 2,000 Unit Tab, 1 TAB PO DAILY, #30 TAB 5 Refills 08/29/24 Hydrochlorothiazide (Hydrochlorothiazide) 25 Mg Tab, 25 MG PO DAILY for 30 Days, MG 08/29/24 Allopurinol (Allopurinol) 100 Mg Tab, 100 MG PO DAILY for 30 Days, MG 08/29/24 Insulin NPH Isophane & Reg (Hu (Novolin 70/30 (70-30) 100 Unit/ml) 1 Inj Inj, 1 INJ SC, INJ 08/29/24 Carvedilol (Carvedilol) 12.5 Mg Tab, 12.5 MG PO Q12HR for 30 Days, MG 08/29/24 Losartan Potassium (Losartan Potassium) 50 Mg Tab, 50 MG PO BID for 30 Days, MG 08/29/24 Famotidine (PEPCID TABLET) 20 Mg Tb, 2 TAB PO DAILY, #60 TAB 5 Refills 08/29/24 Information Source: Patient, Relative (Child) Mode of Arrival: Wheelchair Severity: Moderate Timing: Hours Duration: Since onset Prehospital treatment: None Past Medical History PAST MEDICAL HISTORY: Anxiety, DM, Gout, High Lipids, HTN Surgical History: Denies all surgeries [employer] History: Denies all [employer]NER Hx Family History Family History: Reviewed,noncontributory to illness Social History Smoker: Non-Smoker Alcohol: Denies ETOH Use Drugs: Denies Drug Use Lives In: Home Constitutional: reports: malaise; denies: chills, diaphoresis, fatigue, fever, sweats, weakness, others EENTM: denies: blurred vision, double vision, ear bleeding, ear discharge, ear drainage, ear pain, ear ringing, eye pain, eye redness, hearing loss, mouth pain, mouth swelling, nasal discharge, nose bleeding, nose congestion, nose pain, photophobia, tearing, throat pain, throat swelling, voice changes, others Respiratory: denies: cough, hemoptysis, orthopnea, SOB at rest, shortness of breath, SOB with excertion, stridor, wheezing, others Cardiovascular: denies: chest pain, dizzy spells, diaphoresis, Dyspnea on exertion, edema, irregular heart beat, left arm pain, lightheadedness, palpitations, PND, syncope, others Gastrointestinal: denies: abdomen distended, abdominal pain, blood streaked bowels, constipated, diarrhea, dysphagia, difficulty swallowing, hematemesis, melena, nausea, poor appetite, poor fluid intake, rectal bleeding, rectal pain, vomiting, others Genitourinary: reports: flank pain; denies: abnormal vagina bleeding, burning, dyspareunia, dysuria, frequency, hematuria, incontinence, pain, , vagina discharge, urgency, others Neurological: denies: dizziness, fainting, headache, left sided numbness, left sided weakness, numbness, paresthesia, pre-existing deficit, right sided numbness, right sided weakness, seizure, speech problems, tingling, tremors, wea kness, others Musculoskeletal: denies: back pain, gout, joint pain, joint swelling, muscle pain, muscle stiffness, neck pain, others Integumetry: denies: bruises, change in color, change in hair/nails, dryness, l aceration, lesions, lumps, rash, wounds, others Allergic/Immunocompromised: denies: Difficulty Healing, Frequent Infections, Hives, Itching, others Hematologic/Lymphatic: denies: anemia, blood clots, easy bleeding, easy bruising, swollen glands, others Endocrine: denies: excessive hunger, excessive sweating, excessive thirst, excessive urination, flushing, intolerance to cold, intolerance to heat, unexplained weight gain, unexplained weight loss, others Psychiatric: denies: anxiety, bipolar disorder, depression, hopeless, panic disorder, schizophrenia, sleepless, suicidal, others All Other Systems: Reviewed and Negative Physical Exam General Appearance: Moderate Distress, Normal HEENT: Normal ENT Inspection, Pharynx Normal, TMs Normal Neck: Full Range of Motion, Non-Tender, Normal, Normal Inspection Respiratory: Chest Non-Tender, Lungs Clear, No Accessory Muscle Use, No Respiratory Distress, Normal Breath Sounds Cardiovascular: No Edema, No JVD, No Murmur, No Gallop, Normal Peripheral Pulses, Regular Rate/Rhythm Breast Exam: Deferred Gastrointestinal: No Organomegaly, Non Tender, No Pulsatile Mass, Normal Bowel Sounds, Soft Genitalia: Deferred Pelvic: Deferred Rectal: Deferred Extremities: No calf tenderness, Normal capillary refill, Normal inspection, Normal range of motion, Non-tender, No pedal edema Musculoskeletal : Apperance: Normal Neurologic: Alert, biometrics technician II-XII nml as Tested, No Motor Deficits, Normal Affect, Normal Mood, No Sensory Deficits Cerebellar Function: NOT DONE Reflexes: NOT DONE Skin: Dry, Normal Color, Warm Peripheral Pulses: 3+ Radial (R), 3+ Radial (L) Lymphatic: No Adenopathy Was a procedure done? Was a procedure done?: No Differential Dx Considerations may include: Kidney disease Electrolyte imbalance X-Ray, Labs, Meds, VS Vital Signs Date Time Temp Pulse Resp B/P (MAP) Pulse Ox O2 Delivery O2 Flow Rate FiO2 05/22/25 13:17 98.3 80 14 137/60 99 98.3 Lab Test 05/22/25 14:23 Range/Units White Blood Count 12.9 H 4.4-10.8 10^3/uL Red Blood Count 4.08 4.0-5.20 10^6/uL Hemoglobin 10.9 L 12.2-16.2 g/dL Hematocrit 33.1 L 36.0-46.0 % Mean Corpuscular Volume 81.1 80.0-100.0 fL Mean Corpuscular Hemoglobin 26.8 L 28.0-32.0 pg Mean Corpuscular Hemoglobin Concent 33.0 32.0-36.0 g/dL Red Cell Distribution Width 18.3 H 11.8-14.3 % Platelet Count 424 140-450 10^3/uL Mean Platelet Volume 7.2 6.9-10.8 fL Neutrophils (%) (Auto) 72.2 37.0-80.0 % Lymphocytes (%) (Auto) 13.9 10.0-50.0 % Monocytes (%) (Auto) 7.1 0.0-12.0 % Eosinophils (%) (Auto) 5.4 0.0-7.0 % Basophils (%) (Auto) 1.4 0.0-2.0 % Neutrophils # (Auto) 9.3 H 1.6-8.6 10 ^3/uL Lymphocytes # (Auto) 1.8 0.4-5.4 10 ^3/uL Monocytes # (Auto) 0.9 0-1.3 10 ^3/uL Eosinophils # (Auto) 0.7 0-0.8 10 ^3/uL Basophils # (Auto) 0.2 0-0.2 10 ^3/uL Nucleated Red Blood Cells 0.0 % Sodium Level 140 136-145 mmol/L Potassium Level 3.4 L 3.5-5.1 mmol/L Chloride Level 101 98-107 mmol/L Carbon Dioxide Level 27 20-31 mmol/L Anion Gap 12 5-15 Blood Urea Nitrogen 73 H 9-23 mg/dL Creatinine 1.83 H 0.550-1.02 mg/dL Glomerular Filtration Rate Calc 28 >90 mL/min BUN/Creatinine Ratio 39.9 H 10.0-20.0 Serum Glucose 302 H 74-106 mg/dL Calcium Level 9.8 8.7-10.4 mg/dL Patient alert. Vitals stable. Answering all questions. Moving all extremities. Kidney function elevated. WBC slightly elevated. Possible urinary tract infection. Was given prescription of Bactrim. Was told to follow up with her primary care physician. Was told to come back if there is any problem. Time of 1ST Reevaluation: 15:06 Reevaluation 1ST: Unchanged Patient Education/Counseling: Diagnosis, Treatment Family Education/Counseling: Diagnosis, Treatment SEPSIS Sepsis Screen Date sepsis recognized/suspect: May 22, 2025 Time Sepsis recognized/suspect: 1317 Recent Procedure: No On Antibiotic Therapy: No Respiratory Rate >20: No Heart Rate >90: No Temp<36 C (96.8 F) or >38.3 C: No SBP <90 or MAP <65 mmHG: No New Acute Mental Status Change: No Is the patient on CPAP, BIPAP,: No Physician Orders Urinalysis (05/22/25 14:16) Ct Ab Pel Wo Con-No Oral Or Iv (05/22/25 16:12) 1 Liter Bolus Of 0.9% Ns (05/22/25 16:15) Insulin R (Human) (Insulin R) (05/22/25 16:15) Vital Signs Date Time Temp Pulse Resp B/P (MAP) Pulse Ox O2 Delivery O2 Flow Rate FiO2 05/22/25 13:17 98.3 80 14 137/60 99 98.3 Laboratory Tests Test 05/22/25 14:23 White Blood Count 12.9 10^3/uL (4.4-10.8) H Departure 1 Departure Time of Disposition: 16:14 Impression: Primary Impression: Chronic kidney disease Qualified Codes: N18.9 - Chronic kidney disease, unspecified Additional Impressions: Anemia Qualified Codes: D64.9 - Anemia, unspecified UTI (urinary tract infection) Qualified Codes: N39.0 - Urinary tract infection, site not specified Disposition: HOME / SELF CARE / HOMELESS Condition: Good Discharged With: Self Critical Care Note Critical Care Time?: No Stability Stability form required: No Heart Score Heart Score: Heart Score Response (Comments) Value History N/A 0 EKG N/A 0 Age N/A 0 Risk Factors N/A 0 Troponin N/A 0 Total 0 I personally scribed for WILLIAN GONZALEZ MD ([email or web address]) on 05/22/25 at 14:09. Electronically submitted by Luciano Dang ([email or web address]). WILLIAN GONZALEZ MD May 22, 2025 14:09
[2025-05-22 14:42] LABS: Hematocrit 33.1 % (36.0-46.0); Hemoglobin 10.9 g/dL (12.2-16.2); Mean Corpuscular Hemoglobin 26.8 pg (28.0-32.0); Mean Corpuscular Volume 81.1 fL (80.0-100.0); Nucleated Red Blood Cells % 0.0 %
[2025-05-22 14:48] LABS: Chloride 101 mmol/L (98-107); Sodium 140 mmol/L (136-145)
[2025-05-22 14:49] LABS: Anion Gap 12 (5-15); Carbon Dioxide 27 mmol/L (20-31)
[2025-05-22 14:50] LABS: Calcium 9.8 mg/dL (8.7-10.4)
[2025-05-22 14:55] LABS: BUN/Creatinine Ratio 39.9 (10.0-20.0)
[2025-05-22 15:02] LABS: Blood Urea Nitrogen 73 mg/dL (9-23); Glucose 302 mg/dL (74-106); Potassium 3.4 mmol/L (3.5-5.1)
--- NOTE | 2025-05-22 17:02 | DVH ---
COMPUTERIZED TOMOGRAPHY ABDOMEN AND PELVIS WITHOUT CONTRAST REASON FOR EXAM: colitis COMPARISON: CT CT AB PEL WO CON-NO ORAL OR IV on DOS: 03/28/25, CT PELVIS WO CONTRAST on DOS: 08/29/24, CT PELVIS WO CONTRAST on DOS: 08/13/24 TECHNIQUE: Spiral scans were acquired from the diaphragm to the symphysis pubis without intravenous contrast administration. 2-D coronal and sagittal reformatted images were provided. Radiation optimization: All CT scans at this facility use at least one of these dose optimization techniques: Automated exposure control mA and/or kV adjustment per patient size (includes targeted exams where dose is matched to clinical indication) or iterative reconstruction. RADIATION DOSE: CTDI: 10 mGy DLP: 427 mGy-cm FINDINGS: The visualized lung bases are grossly clear. There is no pleural effusion. There is no pericardial effusion. There is partial visualization of cardiac pacer wires. The spleen is not enlarged. The liver is normal in size and contour. Evaluation of the abdominal organs is suboptimal in the absence of intravenous contrast. The gallbladder is surgically absent. Unenhanced appearance of the pancreas is grossly unremarkable. The adrenal glands appear normal. The kidneys are similar in size. There is no hydronephrosis of either kidney. There is an approximately 1.4 cm indeterminate (48 Hounsfield units) lesion at the interpolar region of the right kidney appears grossly unchanged. There are additional simple appearing cysts of both kidneys that require no dedicated follow-up. There is no abdominal aortic aneurysm. There is extensive atherosclerosis. The urinary bl adder is unremarkable. The uterus and ovaries are within normal limits. No free fluid is identified in the abdomen or pelvis. The colonic stool burden is small. The appendix is normal. There is no pathologic distention of the mmall-bowel. There is descending and sigmoid diverticulosis. There is trace fat stranding adjacent to the distal descending colon in the area of previous diverticulitis that may represent minimal residual inflammation versus acute inflammation. There are acute, nondisplaced fractures of the left 4th-7th ribs. There is transpedicular fusion T11 to L2. There is bone cement within T12 and L4 vertebral bodies. There is chronic severe compression deformity of L1. IMPRESSION: Trace fat stranding adjacent to the distal descending colon in the area of previous diverticulitis. This may represent minimal residual inflammation versus mild or early acute diverticulitis in the same location as previous diverticulitis. Unchanged appearance of indeterminate 1.4 cm lesion at the interpolar region of the right kidney. Comparison with prior studies is recommended if available. Otherwise, MRI or renal ultrasound may be helpful. Acute, nondisplaced fractures of the left 4th-7th ribs. These were not present on the study dated 03/28/2025.
[2025-05-22] MEDS: SODIUM CHLORIDE 0.9% 1,000 ML IV ONE (17:04)
[2025-05-22] MEDS: InsuLIN REG 1unit/0.01ml Soln (100units/ml) IV ONE (17:05)
[2025-05-22 19:26] LABS: Urine Protein, UAD Negative (Negative)
[2025-05-22] MEDS ORDERED: CEFD300C2 PO (21:40)
[2025-05-22 21:45] VITALS: BP 145/66; PULSE 72; RESP 14; TEMP 98.5; O2SAT 98
== END 2025-05-22 22:10 | disposition home or self-care (01) ==
LOC: ER 13:14
DX: D64.9 Anemia, unspecified (principal); N39.0 Urinary tract infection, site not specified; I12.9 Hypertensive chronic kidney disease with stage 1 through stage 4 chronic kidney disease, or unspecified chronic kidney disease; E11.22 Type 2 diabetes mellitus with diabetic chronic kidney disease; N18.9 Chronic kidney disease, unspecified; E78.5 Hyperlipidemia, unspecified; M10.9 Gout, unspecified; Z79.899 Other long term (current) drug therapy; Z79.84 Long term (current) use of oral hypoglycemic drugs; Z79.82 Long term (current) use of aspirin
CPT/HCPCS: 36415; 74176; 80048; 81001; 82947; 85025; 96361; 96374; 99285; J1815; J7030; 82962

== ENCOUNTER 2025-06-06 15:06 | Outpatient (CLI) | payer OTHER ==
[~2025-06-06 15:06] MED LIST changes: +CEFD300C2 PO
== END 2025-06-06 17:00 | disposition home or self-care (01) ==
LOC: Rad HDHVI 15:06
PROVIDERS: ATTEND Internal Medicine Cardiovascular Disease
DX: I07.1 Rheumatic tricuspid insufficiency (principal); I11.9 Hypertensive heart disease without heart failure
CPT/HCPCS: 93306